=== PATIENT | male | born 1950 | race Two or more races ===

== ENCOUNTER 2022-11-21 10:16 | Outpatient (REF) | payer MEDICARE, MEDICAID, SELFPAY | END 2022-11-21 10:17 | disposition home or self-care (01) | LOC: HO.HHCL 10:16 | PROVIDERS: Visit Provider Nurse Practitioner Primary Care | DX: E11.69 Type 2 diabetes mellitus with other specified complication (principal); E78.5 Hyperlipidemia, unspecified; I10 Essential (primary) hypertension; N39.41 Urge incontinence; Z12.5 Encounter for screening for malignant neoplasm of prostate | CPT/HCPCS: 36415; 80053; 80061; 82043; 82570; 84153 ==

== ENCOUNTER 2023-01-14 15:28 | Outpatient (REF) | payer MEDICARE, OTHER, SELFPAY ==
[2023-01-14 16:34] LABS: Estimated Glomerular Filt Rate > 60
[2023-01-14 18:45] LABS: Influenza A PCR NEGATIVE (Negative); Influenza B PCR NEGATIVE (Negative); Resp Syncy Virus RNA Qual PCR NEGATIVE (Negative); SARS COV2 PCR INHOUSE NEGATIVE (Negative)
== END 2023-01-14 15:29 | disposition home or self-care (01) ==
LOC: HO.HHCL 15:28
PROVIDERS: Visit Provider Internal Medicine
DX: Z11.52 Encounter for screening for COVID-19 (principal); Z20.822 Contact with and (suspected) exposure to COVID-19; R05.9 Cough, unspecified; J32.0 Chronic maxillary sinusitis
CPT/HCPCS: 0241U; 36415; 82565

== ENCOUNTER 2023-05-01 14:57 | Outpatient (AMB) | payer MEDICARE, SELFPAY ==
--- NOTE | 2023-05-01 15:08 | MHC.OFFVIS ---
Intake Intake Visit Reasons: BPH Intake Note: NEW Patient presents today to established treatment for BPH: Meds- Tamsulosin Allergies to Antibiotic- No Known Allergies Blood Thinner- None Post Void Residual: 64 mL Hydro Operator Required: No Accompanied by: Self / Same As Patient Allergies No Known Allergies Allergy (Verified 05/01/23 15:41) Medication List - Last Reconciled 05/01/23 by Myke Cespedes MD acetaminophen 1,000 mg PO Q6H PRN atorvastatin 40 mg PO DAILY benzonatate 100 mg PO TID blood sugar diagnostic (OneTouch Ultra Test strips) As directed dulaglutide (Trulicity) mg subcut dulaglutide (Trulicity) mg subcut fluticasone propionate 50 mcg/actuation 1 spray intranasal QAM insulin glargine (Lantus Solostar U-100 Insulin) 20 units subcut DAILY lancets (OneTouch UltraSoft 2 Lancet) As directed metformin 1,000 mg PO BID mirtazapine 15 mg PO BEDTIME pen needle, diabetic (BD Ultra-Fine Short Pen Needle) As directed tamsulosin 0.4 mg PO DAILY valsartan 160 mg PO DAILY HPI HPI Comments History of Present Illness Details Manual is a 73-year-old male who is here for evaluation due to enlarged prostate. Patient complains of postvoid dribbling. Nocturia 3-4 times at night. He denies gross hematuria. He has been on tamsulosin for about 7 months he mentions symptoms consistent with retrograde ejaculation which I explained is likely from the tamsulosin. Bladder scan PVR 64 mL, Urinalysis proteinuria, review of chart PSA 11/21/22---0.99 ng/mL Plan- referral to Nephrology for proteinuria Further evaluation with ultrasound kidneys and bladder and follow-up office cystoscopy [facility] Surgical History Hx of lithotripsy Family History Father No problems noted. Mother No problems noted. Social History Alcohol intake: current Alcohol intake frequency: former alcohol drinker Patient Tobacco Use Status: Former Tobacco user Quit Date: 1980 Questionnaire AUA Symptom Score AUA Incomplete emptying - It does not feel like I empty my bladder all the way.: 5 - Almost always Frequency - I have to go again less than two hours after I finish urinating.: 5 - Almost always Intermittency - I stop and start again several times when I urinate.: 5 - Almost always Urgency - It is hard to wait when I have to urinate.: 5 - Almost always Weak stream - I have a weak urinary stream.: 4 - More than half the time Straining - I have to push or strain to begin urination.: 4 - More than half the time Nocturia - I get up to urinate after I go to bed until the time I get up in the morning.: 4 times AUA Symptom Score: 32 Source: Tony ROSADO, Mata HANNA Jr, O'Dina MP, et al, and the Measurement Committee of the [place] [employer]. The [place] [employer] symptom index for benign prostatic hyperplasia. J Urol. 1992; 148: 3516-0950. Copyright 1992 [place] [employer] Review of Systems Const All systems reviewed & are unremarkable except as noted in HPI and below Reports no additional complaints Eyes Reports no additional complaints ENT Reports no additional complaints Card Denies dyspnea Resp Denies cough and Denies dyspnea GI Reports no additional complaints Musc Reports no additional complaints Skin/Breast Denies rash and Denies unusual bruising Neuro Reports no additional complaints Psych Reports no additional complaints Endo Reports no additional complaints Tico/Lymph Reports no additional complaints Aller/Immun Reports no additional complaints Physical Exam Const General: healthy appearing, no acute distress and well developed Orientation/consciousness: patient oriented x3 HEENT Head: Yes normocephalic and Yes atraumatic Eyes Conjunctivae: conjunctivae normal Neck Neck: Yes normal visual inspection Chest Chest palpation & inspection: normal inspection of the chest Resp Effort & Inspection: normal respiratory effort Cardio Rate: regular rate GI Inspection: Yes normal to inspection Palpation (GI): Soft to palpation Skin General skin exam: no rashes or lesions noted Neuro General: patient oriented x3 Extrem General: No pedal edema Psych Appearance: grossly normal Affect: normal affect Office Procedures Post Void Residual Post Residual Void Post Void Residual (PVR): [id number] Void Residual by ultrasound Results AMB Urinalysis, Automated UA Leukoctes 0 Courtney/uL Last Edit by SOMMER Franco on 05/01/23 15:43 UA Nitrite Negative Last Edit by Jacquelin Monson Ananya on 05/01/23 15:43 UA Urobilinogen 0.2 mg/dL Last Edit by SOMMER Franco on 05/01/23 15:43 UA Protein 300 mg/dL Last Edit by Jacquelin Monson A on 05/01/23 15:43 3+ Jacquelin Monson 05/01/23 15:43 UA pH 6.0 Last Edit by Jacquelin Monson A on 05/01/23 15:43 UA Blood 10 Ayan/uL Last Edit by Jacquelin Monson A on 05/01/23 15:43 UA Specific [place] 1.020 Last Edit by Jacquelin Monson Ananya on 05/01/23 15:43 UA Ketone Positive Last Edit by Jacquelin Monson [facility] on 05/01/23 15:43 UA Bilirubin 5 mg/dL Last Edit by Jacquelin Monson Ananya on 05/01/23 15:43 UA Glucose 100 mg/dL Last Edit by Jacquelin Monson Ananya on 05/01/23 15:43 Results Reviewed Results Reviewed: Laboratory Last Values Urine pH (Auto) 6.0 05/01/23 15:41 Specific [place] (Auto) 1.020 05/01/23 15:41 Urine Protein (Auto) 300 mg/dL 05/01/23 15:41 Glucose (UA)(Auto) 100 mg/dL 05/01/23 15:41 Urine Ketones (Auto) Positive 05/01/23 15:41 Urine Blood (Auto) 10 Ayan/uL 05/01/23 15:41 Urine Nitrite (Auto) Negative 05/01/23 15:41 Urine Bilirubin (Auto) 5 mg/dL 05/01/23 15:41 Urine Urobilinogen (Auto) 0.2 mg/dL 05/01/23 15:41 Leukocyte Esterase (Auto) 0 Courtney/uL 05/01/23 15:41 Assessment & Plan Assessment & Plan (1) BPH loc w urin obs/LUTS: Code(s): N40.1 - Benign prostatic hyperplasia with lower urinary tract symptoms (2) Weak urinary stream: Code(s): R39.12 - Poor urinary stream (3) Nocturia: Code(s): R35.1 - Nocturia (4) Proteinuria: Code(s): R80.9 - Proteinuria, unspecified Plan Refer to nephrology due to proteinuria Ultrasound retroperitoneum Follow-up office cystoscopy Orders: Orders AMB Post Void Residual by ultrasound Today N39.8 - Other specified disorders of urinary system US retroperitoneal comp Today N40.1 - Benign prostatic hyperplasia with lower urinary tract symptoms, R39.12 - Poor urinary stream AMB Urinalysis Automated Today Z13.9 - Encounter for screening, unspecified Referrals Nephrology Referral R80.9 - Proteinuria, unspecified Quality Reporting (2019) Benign Prostatic Hyperplasia ([facility] [id number]) AUA symptom score: 32 Coding Level of Care Code New Pt Level 4 (61647) Diagnoses BPH loc w urin obs/LUTS N40.1 Weak urinary stream R39.12 Nocturia R35.1 Proteinuria R80.9 CPT Codes Post Residual Void - PVR CPT Code: 27128-Zbyo Void Residual by ultrasound ([id number])
== END 2023-05-01 16:14 | disposition home or self-care (01) ==
PROVIDERS: PCP Internal Medicine; Visit Provider Urology
DX: N40.1 Benign prostatic hyperplasia with lower urinary tract symptoms (principal); R39.12 Poor urinary stream; R35.1 Nocturia; R80.9 Proteinuria, unspecified; Z13.9 Encounter for screening, unspecified
CPT/HCPCS: 99204

== ENCOUNTER → 2023-05-01 14:57 | Outpatient (BNVA) | payer MEDICARE, SELFPAY | PROVIDERS: PCP Internal Medicine; Visit Provider Urology | DX: N40.1 Benign prostatic hyperplasia with lower urinary tract symptoms (principal); R39.12 Poor urinary stream; R35.1 Nocturia; R80.9 Proteinuria, unspecified | CPT/HCPCS: 51798; 81003; 99202 ==

== ENCOUNTER 2023-05-15 09:54 | Outpatient (REF) | payer MEDICARE, SELFPAY ==
[2023-05-15 11:50] LABS: Blood Urea Nitrogen 20 mg/dL (9-16); Estimated Glomerular Filt Rate > 60
== END 2023-05-15 09:55 | disposition home or self-care (01) ==
LOC: HO.HHCL 09:54
PROVIDERS: Visit Provider Internal Medicine
DX: I10 Essential (primary) hypertension (principal)
CPT/HCPCS: 36415; 82565; 84520

== ENCOUNTER 2023-05-28 11:19 | Outpatient (REF) | payer MEDICARE, SELFPAY ==
--- NOTE | ~2023-05-28 | CT_ITS ---
CT SINUS WITHOUT CONTRAST HISTORY: Right nasal mucosa obstruction, maxillary sinusitis TECHNIQUE: CT images of the paranasal sinuses were acquired following intravenous administration of 85 cc Omnipaque 350. This CT examination was performed using dose optimization techniques as appropriate, variously including the following: *Automated exposure control *Adjustment of mA and/or kV according to patient size (this includes techniques or standardized protocols for targeted exams where dose is matched to indication/reason for exam; i.e. extremities or head) *Use of iterative reconstruction technique DLP: 114 mGycm COMPARISON: None available FINDINGS: NASAL CAVITY: Rightward deviation of the far anterior nasal septum with significant narrowing of the right nasal passage and impression upon the anterior aspect of the right inferior nasal turbinate. There is focal effacement of the upper nasal cavities, including the left olfactory recess, with the nasal cavity otherwise clear. No discrete nasal polyps. The olfactory fossa are symmetric and Keros type III. FRONTAL SINUS: LEFT: Clear with patent frontal sinus drainage pathway. RIGHT: Clear with patent frontal sinus drainage pathway. MAXILLARY SINUS: LEFT: Clear with patent osteomeatal unit. RIGHT: Retention cyst along the roof and otherwise clear with patent osteomeatal unit. ETHMOID AIR CELLS: LEFT: Clear RIGHT: Clear Lamina papyracea: Intact. Anterior ethmoid canals do not traverse through the ethmoid air cells. SPHENOID SINUS: LEFT: Mild mucosal disease with narrowed but patent ostium and sphenoethmoidal recess. RIGHT: Clear with patent ostium and sphenoethmoidal recess. The sphenoid septum does not insert onto the carotid canal. Sphenoethmoidal ([place]) cell: None. OTHER: Fusiform enlargement and hyperenhancement of the bilateral inferior and medial rectus muscles which may be seen in the setting of thyroid eye disease and can be correlated with thyroid function tests. The carotid canals are covered by bone. 2-3 mm ossified intra-articular loose bodies in the bilateral temporomandibular joints. The mastoid air cells and middle ear cavities are well aerated. Partially imaged global cerebral volume loss and incompletely characterized hypodensity in the right superior frontal gyrus, presumably chronic right ANGELA territory infarct. Dehiscence of the right jugular plate into the right hypotympanum can be correlated for right-sided pulsatile tinnitus. Normal opacification of the intracranial vascular structures. CT/CT sinus w IV con IMPRESSION: 1. Rightward deviation of the far anterior nasal septum with significant narrowing of the right nasal passage and impression upon the anterior aspect of the right inferior nasal turbinate. 2. No maxillary sinusitis as clinically queried. 3. Incompletely characterized hypodensity in the right superior frontal gyrus, presumably chronic right ANGELA territory infarct, that could be more definitively assessed on MRI brain as clinically warranted. 4. Dehiscence of the right jugular plate into the right hypotympanum can be correlated for right-sided pulsatile tinnitus. 5. Fusiform enlargement and hyperenhancement of the bilateral inferior and medial rectus muscles which may be seen in the setting of thyroid eye disease and can be correlated with thyroid function tests.
[2023-05-28] MEDS: iohexoL 350 MG/ML 100 ML INFUS..BTL IV (12:02)
== END 2023-05-28 11:20 | disposition home or self-care (01) ==
LOC: HO.CT 11:19
PROVIDERS: PCP Internal Medicine; Visit Provider Internal Medicine
DX: J32.0 Chronic maxillary sinusitis (principal)
CPT/HCPCS: 70487; Q9967

== ENCOUNTER 2023-06-13 15:48 | Outpatient (AMB) | payer MEDICARE, SELFPAY ==
[2023-06-13 15:50] VITALS: BP 126/80; PULSE 78; O2SAT 96
--- NOTE | 2023-06-13 15:50 | HO.NEPHOV_ITS ---
Vital Signs 06/13/23 15:50 Weight 183 lb BP 126/80 Blood Pressure Location Lt brachial Position Sitting Pulse 78 Pulse Source Pulse Oximeter Pulse Oximetry (%) 96 Oxygen Delivery Method Room Air Intake Visit Reasons: Proteinuria/ Confirmed Cleaner And Trimmer Required: No Accompanied by: Self / Same As Patient Allergies No Known Allergies Allergy (Verified 06/13/23 15:53) HPI Comments Details: 73-year-old male who is here for evaluation Proteinuria. He has DM and BPH. Patient complains of postvoid dribbling. Nocturia 3-4 times at night. He denies gross hematuria. He has been on tamsulosin for about 7 months he mentions symptoms consistent with retrograde ejaculation - likely from the tamsulosin. Bladder scan PVR 64 mL, Urinalysis proteinuria, review of chart PSA 11/21/22---0.99 ng/mL He is renal function has been stable with a creatinine of 0.7-0.8 mg/dL. PFSH Surgical History Hx of lithotripsy Family History Father No problems noted. Mother No problems noted. Social History Alcohol intake: current Alcohol intake frequency: former alcohol drinker Patient Tobacco Use Status: Former Tobacco user Quit Date: 1979 Physical Exam Vital Signs: Last Vital Signs Pulse 78 06/13/23 15:50 BP 126/80 06/13/23 15:50 Pulse Ox 96 06/13/23 15:50 Oxygen Delivery Method Room Air 06/13/23 15:50 Const General: comfortable Nutritional Appearance: well nourished Orientation/consciousness: patient oriented x3 HEENT Head: No normal to inspection Mouth: moist mucous membranes Neck Neck: Yes supple and Yes no JVD Resp Auscultation: clear to auscultation bilaterally, no rales and rub present Cardio Jugular venous distension: no JVD Palpation: no palpable S3 and no palpable S4 Heart sounds: no rubs GI Palpation (GI): Soft to palpation and nontender Percussion: No Fluid wave present General: Yes no CVA tenderness Back/Spine/Pelvis Back: no CVA tenderness Skin General skin exam: no rashes or lesions noted Neuro General: patient oriented x3 Extrem General: Yes no pedal edema and No clubbing Results Reviewed Nephrology Results: Sodium 140 mmol/L (135-145) 11/21/22 Potassium 3.9 mmol/L (3.3-5.1) 11/21/22 Chloride 104 mmol/L (96-108) 11/21/22 Carbon Dioxide 26 mmol/L (22-29) 11/21/22 BUN 20 mg/dL (9-16) H 05/15/23 Creatinine 1.07 mg/dL (0.5-1.4) 05/15/23 Calcium 9.6 mg/dL (8.4-10.2) 11/21/22 Urine Creatinine 36.69 mg/dL 11/21/22 Assessment & Plan Assessment & Plan (1) Proteinuria: Code(s): R80.9 - Proteinuria, unspecified Category: Medical Plan 73-year-old man with a history of longstanding diabetes mellitus with proteinuria. Proteinuria is most likely due to underlying diabetic kidney disea se. At present renal function stable with EGFR of more than 60 mL/minute. It is not uncommon to have slightly elevated GFR in early diabetic kidney disease due to hyper filtration. The goal is to slow the progression of disease. Blood sugar needs to be tightly controlled and maintain A1c less than 7%. He is PIPPA inhibition as tolerated. Maintain blood pressure less than 130/80 mm Hg. He will also benefit from SGLT2 inhibitors. I have been initiated a baseline workup and he will return to office in the next few weeks Orders: Orders Total Protein Urine Random 06/13/23 N20.0 - Calculus of kidney, R80.9 - Proteinuria, unspecified US renal BI 06/13/23 N20.0 - Calculus of kidney, R80.9 - Proteinuria, unspecified Creatinine Clearance Urine 24U 06/13/23 N20.0 - Calculus of kidney, R80.9 - Proteinuria, unspecified Creatinine Urine 06/13/23 N05.9 - Unspecified nephritic syndrome with unspecified morphologic changes, N20.0 - Calculus of kidney, R80.9 - Proteinuria, unspecified UA and rflx microscopic 06/13/23 N20.0 - Calculus of kidney, R80.9 - Proteinuria, unspecified Protein Electrophoresis, Serum 06/13/23 N20.0 - Calculus of kidney, R80.9 - Proteinuria, unspecified Coding Level of Care Code New Pt Level 4 (56782) Diagnoses Proteinuria R80.9
== END 2023-06-13 16:09 | disposition home or self-care (01) ==
PROVIDERS: PCP Internal Medicine; Visit Provider Internal Medicine Hypertension Specialist
DX: R80.9 Proteinuria, unspecified (principal)
CPT/HCPCS: 99204; 99214

== ENCOUNTER → 2023-06-13 15:48 | Outpatient (BNVA) | payer MEDICARE, SELFPAY | PROVIDERS: PCP Internal Medicine; Visit Provider Internal Medicine Hypertension Specialist | DX: R80.9 Proteinuria, unspecified (principal) | CPT/HCPCS: 99202 ==

== ENCOUNTER 2023-06-21 08:47 | Outpatient (REF) | payer MEDICARE, SELFPAY ==
--- NOTE | ~2023-06-21 | US_ITS ---
EXAMINATION: US RETROPERITONEAL LIMITED (RENAL ONLY) CLINICAL INFORMATION: Proteinuria, unspecified. COMPARISON: None available. TECHNIQUE: Real-time imaging of the kidneys. FINDINGS: RIGHT KIDNEY: 11.5 x 5.3 x 5.6 cm (SAG x AP x TRV). The kidney is normal in size and contour. Renal echogenicity is mildly increased diffusely. Renal cortical thickness is normal. No renal calculi or hydronephrosis. Simple appearing 3.8 cm lower pole cyst for which no follow-up imaging is usually warranted. LEFT KIDNEY: 12.6 x 5.1 x 5.1 cm (SAG x AP x TRV). The kidney is normal in size and contour. Renal echogenicity is mildly increased diffusely. Renal cortical thickness is normal. No renal calculi or hydronephrosis. Simple appearing 9 mm mid pole cyst portion of IMAGING is usually warranted. US/US renal BI IMPRESSION: Both kidneys demonstrate mildly increased echogenicity diffusely suggesting underlying medical renal disease. No renal calculi or hydronephrosis of either kidney.
== END 2023-06-21 08:48 | disposition home or self-care (01) ==
LOC: HO.US 08:47
PROVIDERS: PCP Internal Medicine; Visit Provider Internal Medicine Hypertension Specialist
DX: N20.0 Calculus of kidney (principal); R80.9 Proteinuria, unspecified; N40.1 Benign prostatic hyperplasia with lower urinary tract symptoms; N13.8 Other obstructive and reflux uropathy; R39.12 Poor urinary stream; R35.1 Nocturia; Z79.899 Other long term (current) drug therapy
CPT/HCPCS: 76775; 81003; 99212

== ENCOUNTER 2023-06-21 10:25 | Outpatient (AMB) | payer MEDICARE, SELFPAY ==
--- NOTE | 2023-06-21 10:32 | MHC.OFFVIS ---
Intake Visit Reasons: cysto Intake Note: Patient presents today for scheduled for CYSTOSCOPY Procedure: Cystoscopy not performed today. 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 Required: No Accompanied by: Self / Same As Patient Allergies No Known Allergies Allergy (Verified 06/13/23 15:53) Medication List - Last Reconciled 06/22/23 by Myke Cespedes MD acetaminophen 1,000 mg PO Q6H PRN aspirin 81 mg PO QAM atorvastatin 40 mg PO DAILY blood sugar diagnostic (OneTouch Ultra Test strips) As directed dulaglutide (Trulicity) mg subcut dulaglutide (Trulicity) mg subcut .once a week fluticasone propionate 50 mcg/actuation 1 spray intranasal QAM insulin glargine (Lantus Solostar U-100 Insulin) 14 units subcut BID lancets (OneTouch UltraSoft 2 Lancet) As directed metformin 1,000 mg PO BID mirtazapine 15 mg PO BEDTIME pen needle, diabetic (BD Ultra-Fine Short Pen Needle) As directed tamsulosin 0.4 mg PO DAILY valsartan 160 mg PO DAILY HPI Comments Details: 06/21/23--Fermín is here for follow-up. He was initially evaluated on 05/01/2023 for enlarged prostate. The patient had the renal ultrasound done earlier today and official radiology chief lending officer is not completed as yet. He states that he has seen Nephrology for proteinuria and has further testing pending. Will hold on cystoscopy at this time. Continue tamsulosin. Review of chart: 05/01/23---Fermín is a 73-year-old male who is here for evaluation due to enlarged prostate. Patient complains of postvoid dribbling. Nocturia 3-4 times at night. He denies gross hematuria. He has been on tamsulosin for about 7 months he mentions symptoms consistent with retrograde ejaculation which I explained is likely from the tamsulosin. Bladder scan PVR 64 mL, Urinalysis proteinuria, review of chart PSA 11/21/22---0.99 ng/mL Plan- referral to Nephrology for proteinuria. 06/21/2023--continue tamsulosin. Hold on office cystoscopy today. [facility] Surgical History Hx of lithotripsy Family History Father No problems noted. Mother No problems noted. Social History Alcohol intake: current Alcohol intake frequency: former alcohol drinker Patient Tobacco Use Status: Former Tobacco user Quit Date: 1979 Results AMB Urinalysis, Automated UA Leukoctes 0 Courtney/uL Last Edit by SOMMER Franco on 06/21/23 10:52 UA Nitrite Negative Last Edit by Jacquelin Monson [facility] on 06/21/23 10:52 UA Urobilinogen 0.2 mg/dL Last Edit by Jacquelin Monson [facility] on 06/21/23 10:52 UA Protein 30 mg/dL Last Edit by Jacquelin Monson [facility] on 06/21/23 10:52 1+ Jacquelin Monson 06/21/23 10:52 UA pH 6.5 Last Edit by Jacquelin Monson [facility] on 06/21/23 10:52 UA Blood 10 Ayan/uL Last Edit by Jacquelin Monson [facility] on 06/21/23 10:52 UA Specific [place] 1.015 Last Edit by Jacquelin Monson [facility] on 06/21/23 10:52 UA Ketone Negative Last Edit by Jacquelin Monson Ananya on 06/21/23 10:52 UA Bilirubin 0 mg/dL Last Edit by Jacquelin Monson [facility] on 06/21/23 10:52 UA Glucose 1000 mg/dL Last Edit by Jacquelin Monson [facility] on 06/21/23 10:52 3+ Jacquelin Monson 06/21/23 10:52 Results Reviewed Results Reviewed: Laboratory Last Values Urine pH (Auto) 6.5 06/21/23 10:32 Specific [place] (Auto) 1.015 06/21/23 10:32 Urine Protein (Auto) 30 mg/dL 06/21/23 10:32 Glucose (UA)(Auto) 1000 mg/dL 06/21/23 10:32 Urine Ketones (Auto) Negative 06/21/23 10:32 Urine Blood (Auto) 10 Ayan/uL 06/21/23 10:32 Urine Nitrite (Auto) Negative 06/21/23 10:32 Urine Bilirubin (Auto) 0 mg/dL 06/21/23 10:32 Urine Urobilinogen (Auto) 0.2 mg/dL 06/21/23 10:32 Leukocyte Esterase (Auto) 0 Courtney/uL 06/21/23 10:32 Assessment & Plan Assessment & Plan (1) BPH loc w urin obs/LUTS: Code(s): N40.1 - Benign prostatic hyperplasia with lower urinary tract symptoms Category: Medical (2) Weak urinary stream: Code(s): R39.12 - Poor urinary stream Category: Medical (3) Nocturia: Code(s): R35.1 - Nocturia Category: Medical (4) Proteinuria: Code(s): R80.9 - Proteinuria, unspecified Category: Medical Plan Continue tamsulosin. Orders: Orders AMB Urinalysis Automated 06/21/23 Z13.9 - Encounter for screening, unspecified Patient Instructions: The patient had an opportunity to ask questions regarding treatment plan. The patient expressed understanding and agreement with the above treatment plan. The patient is aware they should contact our office by phone for worsening of their current condition or the appearance of new symptoms. Compliance is encouraged with any medications and followup testing that is ordered. It is a privilege to be allowed the opportunity to participate in the urologic care of your patient. If you have any questions or concerns regarding treatment for the above conditions please do not hesitate to contact me. The office telephone contact is [phone]. This note is constructed in part using voice recognition software. While every effort has been made to ensure accuracy chief lending officer errors may have been included. Yours sincerely, Myke Cespedes MD Coding Level of Care Code Est Pt Level 3 (50747) Complex EM visit Add On G2211 Diagnoses BPH loc w urin obs/LUTS N40.1 Weak urinary stream R39.12 Nocturia R35.1 Proteinuria R80.9
== END 2023-06-21 11:37 | disposition home or self-care (01) ==
PROVIDERS: PCP Internal Medicine; Visit Provider Urology
DX: N40.1 Benign prostatic hyperplasia with lower urinary tract symptoms (principal); R39.12 Poor urinary stream; R35.1 Nocturia; R80.9 Proteinuria, unspecified
CPT/HCPCS: 99213; G2211

== ENCOUNTER 2023-07-09 12:34 | Outpatient (REF) | payer MEDICARE, SELFPAY ==
[2023-07-11 13:06] LABS: Creatinine Urine 74.89 mg/dL; Total Protein Urine Random 31 mg/dL (<12)
== END 2023-07-09 12:35 | disposition home or self-care (01) ==
LOC: HO.LAB 12:34
PROVIDERS: PCP Nurse Practitioner Primary Care; Visit Provider Internal Medicine Hypertension Specialist
DX: N05.9 Unspecified nephritic syndrome with unspecified morphologic changes (principal); R80.9 Proteinuria, unspecified; N20.0 Calculus of kidney
CPT/HCPCS: 82570; 84156

== ENCOUNTER 2023-07-10 12:02 | Outpatient (REF) | payer MEDICARE, SELFPAY ==
[2023-07-11 12:59] LABS: Total Volume 24 Hour Urine 1925 mL
[2023-07-11 13:00] LABS: Creatinine (CrCl) 1.32 mg/dL (0.5-1.4)
[2023-07-11 13:07] LABS: Creatinine Clearance 64.2 mL/min (85-125); Creatinine, 24Hr Urine 1.2 G/Day (1.0-2.0)
== END 2023-07-10 12:03 | disposition home or self-care (01) ==
LOC: HO.LNP 12:02
PROVIDERS: Visit Provider Internal Medicine Hypertension Specialist
DX: R80.9 Proteinuria, unspecified (principal); N20.0 Calculus of kidney
CPT/HCPCS: 82575

== ENCOUNTER 2023-07-11 10:46 | Outpatient (REF) | payer MEDICARE, SELFPAY ==
[2023-07-11 12:21] LABS: Estimated Glomerular Filt Rate 53
[2023-07-16 16:43] LABS: Prot Elec - Albumin 3.8 g/dL (3.8-4.8); Prot Elec - Alpha1 0.3 g/dL (0.2-0.3); Prot Elec - Alpha2 0.6 g/dL (0.5-0.9); Prot Elec - Beta 1 0.4 g/dL (0.4-0.6); Prot Elec - Beta 2 0.3 g/dL (0.2-0.5); Prot Elec - Gamma 0.9 g/dL (0.8-1.7); Prot Elec - Total Protein 6.3 g/dL (6.1-8.1)
== END 2023-07-11 10:47 | disposition home or self-care (01) ==
LOC: HO.LAB 10:46
PROVIDERS: PCP Nurse Practitioner Primary Care; Visit Provider Internal Medicine Hypertension Specialist
DX: R80.9 Proteinuria, unspecified (principal); N20.0 Calculus of kidney
CPT/HCPCS: 36415; 81001; 82565; 84165

== ENCOUNTER → 2023-07-15 10:09 | Outpatient (REF) | payer MEDICARE, SELFPAY ==
--- NOTE | 2023-07-15 10:14 | CA_ITS ---
Transthoracic Echocardiogram Patient (Last, First, Middle): Barney Birmingham, Gender: Male Date of : 1950 Age: 73 Procedure Date: 07/15/2023 Procedure Type: Transthoracic Echocardiogram Location: OP Height: 167.64 cm Weight: 82.56 kg BSA: 1.92 m2 Heart Rate: bpm BP: 130 / 82 mmHg Electrotype Finisher: GALINDO Referring MD: Mirian Thompson NP Crossing Flagman: Otis Arreguin MD Symptoms: I10 HTN Study Quality: Adequate ECG Rhythm: Sinus Conclusions: - 1. Low normal LV ejection fraction 50-55% with impaired relaxation filling pattern 2. Npge-[id number] aortic stenosis 3. Mildly dilated ascending aorta 3.8 cm 4. Normal RV systolic pressure 5. No gross pericardial effusion Findings Procedure Information Contrast agent, definity, is being given per protocol without apparent complications. Left Ventricle Normal left ventricular cavity size. There is normal left ventricular wall thickness. The left ventricular systolic function is low normal. The visually estimated ejection fraction is between 50-55%. Spectral Doppler is indicative of an impaired relaxation filling pattern. E/E prime ratio is between 8 and 15 consistent with indeterminate filling pressures. Right Ventricle Normal right ventricular cavity size and systolic function. Atria The left atrium is normal in size. Interatrial shunt cannot be excluded. The right atrium is normal in size. Aortic Valve There is mild calcification of the aortic valve. There is moderate thickening of the aortic valve. There is mild to moderate aortic valve stenosis. The peak aortic gradient is 26 mmHg.The mean gradient is 13 mmHg. There is no aortic valve regurgitation. Mitral Valve There is mild anterior and posterior mitral leaflet thickening. There is mild anterior mitral annular calcification. There is trace mitral valve regurgitation. There is no mitral valve stenosis. Pulmonic Valve The pulmonic valve was not well visualized. Tricuspid Valve The tricuspid valve was not well visualized. There is trace tricuspid valve regurgitation. The right ventricular systolic pressure is normal. The right ventricular systolic pressure is 13 mmHg. Normal right atrial pressure. There is no evidence of pulmonary hypertension. Great Vessels The aorta was not well visualized. The pulmonary artery was not well visualized. There is mild dilatation of the ascending aorta measuring 3.80 cm. Venous The inferior vena cava is normal in size and collapses greater than 50% with inspiration. Pericardium/Pleural There is no evidence of pericardial effusion. Prior Study Comparison No prior study available for comparison. Measurements 2D Linear Measurements IVSd: 1.03 0.6-0.9/0.6-1.0 cm LVIDd: 5.21 3.9-5.3/4.2-5.9 cm LVIDd Index: 2.71 2.4-3.2/2.2-3.1 cm/m2 LVIDs: 3.49 2.0-3.6 cm LVPWd: 1.07 0.7-1.1 cm Ao Root: 3.70 2.1-3.5 cm LA Diam: 3.50 2.7-3.8/3.0-4.0 cm LAIDs Index: 1.82 1.5-2.3 cm/m2 LV Mass: 259.17 67-162/88-224 g LV Mass Index: 134.98 43-95/49-115 g/m2 LVOT Diam: 2.20 3.0+(-)1.3 cm 2D Systolic Function EF 4C: 56.00 >55% EF 2C: 49.80 >55% EF BiP: 52.20 >55% Mitral Valve MV Pk E: 0.66 MV PK A: 1.09 MV Decel Time: 204.00 E/A: 0.60 E'Lateral: 5.33 E'Medial: 4.90 E/E' Med: 13.50 E/E' Lat: 12.40 PHT: 60.00 MVA PHT: 3.67 Decel Codington: 3.23 Aortic Valve AoV Pk Jann: 2.54 AoV Mn Jann: 1.70 AoV VTI: 0.55 AoV Pk Grad: 26.00 Aov Mn Grad: 13.00 MELITON Cont.VTI: 1.25 LVOT LVOT Pk Jann: 0.79 LVOT Mn Jann: 0.52 LVOT VTI: 0.18 LVOT Pk Grad: 3.00 LVOT Mn Grad: 1.00 LVOT Diam: 2.20 LVOT Area: 3.80 Diastolic Function MV Pk E: 0.66 MV Pk A: 1.09 E/A: 0.60 E'Medial: 4.90 E/E' Med: 13.50 E' Laterial: 5.33 E/E' Lat: 12.40 Right Ventricle TAPSE (mm): 28.00 TVS' Jann: 12.00 Tricuspid Valve TR Pk Jann: 1.62 TR Pk Grad: 10.00 RA Press: 3.00 RVSP: 13.00 Great Vessels Aorta Ao Root-2D: 3.70 2.0-3.7 cm Ao Asc: 3.80 2.1-3.4 cm Pulmonary Valve PV Pk Jann: 1.24 Peak PV Grad: 6.00 Updated in Other Vendor System with Status of Final Otis Arreguin MD electronically signed on 07/15/2023 1:31:48 PM with status of Final
== END ==
LOC: HO.CARD 10:09
PROVIDERS: PCP Internal Medicine; Visit Provider Nurse Practitioner Primary Care
DX: I10 Essential (primary) hypertension (principal)
CPT/HCPCS: 93306; Q9957

== ENCOUNTER → 2023-07-15 10:14 | Outpatient (BNV) | payer MEDICARE, SELFPAY | PROVIDERS: PCP Internal Medicine; Visit Provider Internal Medicine Cardiovascular Disease | DX: I35.0 Nonrheumatic aortic (valve) stenosis (principal); I34.81 Nonrheumatic mitral (valve) annulus calcification | CPT/HCPCS: 93306 ==

== ENCOUNTER 2023-07-18 10:37 | Outpatient (AMB) | payer MEDICARE, SELFPAY ==
[2023-07-18 10:40] VITALS: BP 120/62; PULSE 70; O2SAT 97
--- NOTE | 2023-07-18 10:40 | HO.NEPHOV_ITS ---
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 Accompanied by: Self / Same As Patient Allergies No Known Allergies Allergy (Verified 07/18/23 10:42) Medication List - Last Reconciled 07/18/23 by Casper Márquez MD acetaminophen 1,000 mg PO Q6H PRN aspirin 81 mg PO QAM atorvastatin 40 mg PO DAILY blood sugar diagnostic ([employer] Ultra Test strips) As directed empagliflozin (Jardiance) 10 mg PO DAILY fluticasone propionate 50 mcg/actuation 1 spray intranasal QAM insulin glargine (Lantus Solostar U-100 Insulin) 14 units subcut BID ketorolac 0.5% drps ophthalmic (eye) lancets (panpanTouch UltraSoft 2 Lancet) As directed metformin 1,000 mg PO BID mirtazapine 15 mg PO BEDTIME pen needle, diabetic (BD Ultra-Fine Short Pen Needle) As directed tamsulosin 0.4 mg PO DAILY valsartan 320 mg PO DAILY HPI Comments Details: 73-year-old male who is here for evaluation Proteinuria. He has DM and BPH. Patient complains of postvoid dribbling. Nocturia 3-4 times at night. He denies gross hematuria. He has been on tamsulosin for about 7 months he mentions symptoms consistent with retrograde ejaculation - likely from the tamsulosin. Bladder scan PVR 64 mL, Urinalysis proteinuria, review of chart PSA 11/21/22---0.99 ng/mL He is renal function has been stable with a creatinine of 0.7-0.8 mg/dL. Now upto 1.32 after increasing Valsartan to 320 mg Now on Jardiance since June 2023 c/o retrograde ejacualtion with Tamsulosin PFSH Surgical History Hx of lithotripsy Family History Father No problems noted. Mother No problems noted. Social History (Reviewed 07/18/23 @ 10:42 by SHASHI Bishop Alcohol intake: current Alcohol intake frequency: former alcohol drinker Patient Tobacco Use Status: Former Tobacco user Physical Exam Vital Signs: Last Vital Signs Pulse 70 07/18/23 10:40 BP 120/62 07/18/23 10:40 Pulse Ox 97 07/18/23 10:40 Oxygen Delivery Method Room Air 07/18/23 10:40 Const General: comfortable Nutritional Appearance: well nourished Orientation/consciousness: patient oriented x3 HEENT Head: No normal to inspection Mouth: moist mucous membranes Neck Neck: Yes supple and Yes no JVD Resp Auscultation: clear to auscultation bilaterally, no rales and rub present Cardio Jugular venous distension: no JVD Palpation: no palpable S3 and no palpable S4 Heart sounds: no rubs GI Palpation (GI): Soft to palpation and nontender Percussion: No Fluid wave present General: Yes no CVA tenderness Back/Spine/Pelvis Back: no CVA tenderness Skin General skin exam: no rashes or lesions noted Neuro General: patient oriented x3 Extrem General: Yes no pedal edema and No clubbing Results Reviewed Results Reviewed: US/US renal BI IMPRESSION: Both kidneys demonstrate mildly increased echogenicity diffusely suggesting underlying medical renal disease. No renal calculi or hydronephrosis of either kidney. 24 hr urine - June 2023 Volume 1925 ml Cr CL 65 ml/mt Nephrology Results: BUN 20 mg/dL (9-16) H 05/15/23 Creatinine 1.32 mg/dL (0.5-1.4) 07/11/23 Urine Protein TNP 07/11/23 Urine Creatinine 74.89 mg/dL 07/09/23 Renal US 06/21/23 Assessment & Plan Assessment & Plan (1) Proteinuria: Code(s): R80.9 - Proteinuria, unspecified Category: Medical (2) CKD (chronic kidney disease): Code(s): N18.9 - Chronic kidney disease, unspecified Category: Medical Plan 73-year-old man with a history of longstanding diabetes mellitus with proteinuria. Proteinuria is most likely due to underlying diabetic kidney disease. About 500 mg Mild CKD Acceptable increase in creatinine to 1.32 after increasing Valsartan to 320 mg Watch creatinine BP is well controlled The goal is to slow the progression of disease. Blood sugar needs to be tightly controlled and maintain A1c less than 7%. He is PIPPA inhibition /Valsartan Maintain blood pressure less than 130/80 mm Hg. Discussed low salt diet He will also benefit from SGLT2 inhibitors. - agree with starting Jardiance Tamsulosin is not helping with the urinary frequency and he wants to stop it, especially due to retrograde ejaculation. Orders: Orders Basic Metabolic Panel 3 Months N18.9 - Chronic kidney disease, unspecified Total Protein Urine Random Today N18.9 - Chronic kidney disease, unspecified Creatinine Urine Today N18.9 - Chronic kidney disease, unspecified Coding Level of Care Code Est Pt Level 4 (57823) Diagnoses Proteinuria R80.9 CKD (chronic kidney disease) N18.9
== END 2023-07-18 11:09 | disposition home or self-care (01) ==
PROVIDERS: PCP Internal Medicine; Visit Provider Internal Medicine Hypertension Specialist
DX: R80.9 Proteinuria, unspecified (principal); N18.9 Chronic kidney disease, unspecified
CPT/HCPCS: 99214

== ENCOUNTER → 2023-07-18 10:37 | Outpatient (BNVA) | payer MEDICARE, SELFPAY | PROVIDERS: PCP Internal Medicine; Visit Provider Internal Medicine Hypertension Specialist | DX: N18.9 Chronic kidney disease, unspecified (principal); R80.9 Proteinuria, unspecified | CPT/HCPCS: 99212 ==

== ENCOUNTER 2023-08-12 08:45 | Outpatient (REF) | payer MEDICARE, SELFPAY ==
[2023-08-12 12:24] LABS: Alanine Aminotransferase 20 U/L (0-40); Alkaline Phosphatase 53 U/L (39-117); Anion Gap 11 (12-20); Aspartate Amino Transferase 18 U/L (5-37); Bilirubin Direct 0.2 mg/dL (0.0-0.5); Bilirubin Total 0.5 mg/dL (0.0-1.0); Blood Urea Nitrogen 32 mg/dL (9-16); Calcium 9.3 mg/dL (8.4-10.2); Carbon Dioxide 26 mmol/L (22-29); Chloride 108 mmol/L (96-108); Cholesterol 140 mg/dL (<200); Estimated Glomerular Filt Rate 47; Glucose Random 111 mg/dL (60-115); HDL Cholesterol 29 mg/dL (>40); LDL Cholesterol Calculated 96 mg/dL (<100); Potassium 4.4 mmol/L (3.3-5.1); Sodium 141 mmol/L (135-145); Total Protein 7.1 g/dL (6.5-8.0); Triglycerides 79 mg/dL (<150)
[2023-08-12 12:49] LABS: Creatinine Urine 97.16 mg/dL; Microalbum/Creatinine Ratio Ur 241.8 ug/mg cr (<30)
[2023-08-12 12:50] LABS: Vitamin B12 375 pg/mL (200-900)
== END 2023-08-12 08:46 | disposition home or self-care (01) ==
LOC: HO.HHCL 08:45
PROVIDERS: Visit Provider Nurse Practitioner Primary Care
DX: E11.69 Type 2 diabetes mellitus with other specified complication (principal); E78.5 Hyperlipidemia, unspecified; I10 Essential (primary) hypertension
CPT/HCPCS: 36415; 80048; 80061; 80076; 82043; 82570; 82607

== ENCOUNTER 2023-08-22 08:59 | Outpatient (AMB) | payer MEDICARE, SELFPAY ==
--- NOTE | 2023-08-22 09:03 | MHC.OFFVIS ---
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 Intake Note: New patient dx HTN feeling good Freight Traffic Consultant Required: Yes Freight Traffic Consultant Services: Freight Traffic Consultant Present Freight Traffic Consultant Name: [facility] [place] Allergies No Known Allergies Allergy (Verified 07/18/23 10:42) Medication List - Last Reconciled 08/22/23 by Otis Arreguin MD acetaminophen 1,000 mg PO Q6H PRN aspirin 81 mg PO QAM atorvastatin 40 mg PO DAILY blood sugar diagnostic ([employer] Ultra Test strips) As directed empagliflozin (Jardiance) 10 mg PO DAILY fluticasone propionate 50 mcg/actuation 1 spray intranasal QAM insulin glargine (Lantus Solostar U-100 Insulin) 14 units subcut BID ketorolac 0.5% drps ophthalmic (eye) lancets ([employer] InsightTouch UltraSoft 2 Lancet) As directed metformin 1,000 mg PO BID mirtazapine 15 mg PO BEDTIME pen needle, diabetic (BD Ultra-Fine Short Pen Needle) As directed tamsulosin 0.4 mg PO DAILY valsartan 160 mg PO DAILY HPI Comments Details: Barney was referred here for your management of hypertension although he says that his blood pressure has been generally well controlled. He comes here after recent echocardiogram shows low normal LV ejection fraction with [id number] aortic stenosis. He was not aware of this finding. History was obtained with help of canning machine operator. Patient says he is takes all his medication including valsartan and currently his blood pressure is well controlled. He is prior medical history of insulin-requiring diabetes, hypertension, hyperlipidemia, chronic kidney disease. He has never had any cardiovascular events including no prior history of myocardial infarction or coronary artery disease. He maintains active lifestyle but say does not exercise on a regular basis. Denies any restricting symptoms of exertional chest pain or shortness of breath with his current lifestyle. Denies any lightheadedness, syncope. No prolonged palpitation irregular heartbeat. No heart failure symptoms. [facility] Medical History (Updated 08/22/23 @ 15:58 by Otis Arreguin MD) Diabetes HTN (hypertension) Aortic stenosis Surgical History Hx of lithotripsy Family History Father No problems noted. Mother No problems noted. Social History Alcohol intake: current Alcohol intake frequency: former alcohol drinker Patient Tobacco Use Status: Former Tobacco user Review of Systems Const Denies chills, Denies daytime sleepiness, Denies fatigue, Denies fever(s), Denies frequent falls, Denies poor appetite, Denies snoring, Denies stops breathing during sleep, Denies weakness, Denies weight gain and Denies weight loss Eyes Denies loss of vision ENT Denies dizziness and Denies hearing loss Card Denies chest pain, Denies claudication, Denies leg edema, Denies lightheadedness, Denies palpitations, Denies dyspnea, Denies dyspnea on exertion and Denies orthopnea Resp Denies cough, Denies excessive phlegm production, Denies dyspnea, Denies dyspnea on exertion, Denies snoring and Denies wheezing GI Denies abdominal pain, Denies hematochezia, Denies change in bowel habits, Denies nausea and Denies vomiting Denies dysuria and Denies urinary frequency Musc Denies arthralgias, Denies muscle weakness, Denies numbness and Denies other (frequent falls) Skin/Breast Denies nail changes and Denies rash Neuro Denies Abnormal speech present, Denies dizziness, Denies frequent falls, Denies loss of vision, Denies memory loss, Denies numbness and Denies weakness Psych Denies depression and Denies memory loss Endo Denies fatigue and Denies palpitations Tico/Lymph Reports easy bruising and Reports other (anemia) Aller/Immun Denies wheezing Physical Exam Vital Signs: Last Vital Signs Pulse 65 08/22/23 09:11 BP 124/80 08/22/23 09:11 BMI result Body Mass Index 30.1 Const General: cooperative, comfortable, no acute distress, alert and awake Nutritional Appearance: average body habitus Orientation/consciousness: patient oriented x3 Limitations: no limitations HEENT Head: Yes normocephalic and Yes atraumatic Neck Neck: Yes trachea midline, Yes supple and Yes no JVD Resp Effort & Inspection: normal respiratory effort Auscultation: clear to auscultation bilaterally Cardio Jugular venous distension: no JVD Palpation: normal PMI Rate: regular rate Rhythm: regular rhythm Heart sounds: S1 normal heart sound present, S2 normal heart sound present, no click, no gallops, Murmur heart sound present (No clear murmur appreciated) and Rub heart sound present GI Auscultation: normal bowel sounds Skin General skin exam: no rashes or lesions noted Neuro General: patient oriented x3 and no focal motor deficits Speech: No Abnormal speech present Extrem General: Yes no clubbing, cyanosis or edema Office Procedures EKG Details: EKG shows normal sinus rhythm with first-degree AV block with moderate voltage criteria for LVH [id number], Complete Assessment & Plan Assessment & Plan (1) Aortic stenosis: Code(s): I35.0 - Nonrheumatic aortic (valve) stenosis Category: Medical Plan: Aortic stenosis which was noted incidentally on recent echocardiogram done for hypertension. Patient had no symptoms or awareness of it. We discussed about pathophysiology of aortic stenosis with help of canning machine operator. We discussed about gradual usually progressive nature of aortic stenosis over time. Cardinal symptoms associated with aortic stenosis were discussed advised to call me with any new symptoms. 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 Continue aggressive risk factor modification. His blood pressure is currently well optimized on current valsartan therapy. Continue the same. Advised to monitor blood pressure at home maintain a log. Goal blood pressure less than 130/84. Continue high-intensity statin therapy with target goal LDL less than 70 mg/dL. Continue aggressive diabetes management goal hemoglobin A1c less than 7%. He is encouraged to increase activity level. He has currently not having any concerning exertional symptoms but he is advised to call me if he develops any symptoms that may require further workup including ischemic workup. Will follow up in the clinic in 1 year's time, sooner p.r.n.. Thank you for allowing me to partake in his care Orders: Orders CA echo transthoracic complete 1 Year I35.0 - Nonrheumatic aortic (valve) stenosis Coding Level of Care Code New Pt Level 4 (32528) Diagnoses Aortic stenosis I35.0 CPT Codes EKG - CPT: 68569-[id number], Complete ([id number])
[2023-08-22 09:11] VITALS: BP 124/80; PULSE 65; BMI 30.1
== END 2023-08-22 09:46 | disposition home or self-care (01) ==
PROVIDERS: PCP Internal Medicine; Visit Provider Internal Medicine Cardiovascular Disease
DX: I35.0 Nonrheumatic aortic (valve) stenosis (principal)
CPT/HCPCS: 93010; 99214

== ENCOUNTER → 2023-08-22 08:59 | Outpatient (BNVA) | payer MEDICARE, SELFPAY | PROVIDERS: PCP Internal Medicine; Visit Provider Internal Medicine Cardiovascular Disease | DX: I35.0 Nonrheumatic aortic (valve) stenosis (principal); I44.0 Atrioventricular block, first degree | CPT/HCPCS: 93005; 99212 ==

== ENCOUNTER 2023-09-16 11:59 | Outpatient (REF) | payer MEDICARE, SELFPAY ==
[2023-09-16 13:40] LABS: Anion Gap 12 (12-20); Blood Urea Nitrogen 23 mg/dL (9-16); Calcium 9.5 mg/dL (8.4-10.2); Carbon Dioxide 28 mmol/L (22-29); Chloride 105 mmol/L (96-108); Estimated Glomerular Filt Rate 54; Glucose Random 188 mg/dL (60-115); Potassium 4.5 mmol/L (3.3-5.1); Sodium 140 mmol/L (135-145)
== END 2023-09-16 12:00 | disposition home or self-care (01) ==
LOC: HO.HHCL 11:59
PROVIDERS: Visit Provider Nurse Practitioner Primary Care
DX: R79.89 Other specified abnormal findings of blood chemistry (principal)
CPT/HCPCS: 36415; 80048

== ENCOUNTER 2023-09-30 23:07 | Emergency (ER) | payer MEDICARE, SELFPAY ==
--- NOTE | ~2023-09-30 | XR_ITS ---
EXAMINATION: XR CHEST CLINICAL INFORMATION: Shortness of breath COMPARISON: None available. TECHNIQUE: Normal appearance of the cardiomediastinal structures. No effusions or pneumothoraces. Normal pattern of pulmonary vasculature. No focal pulmonary consolidation. Moderate multilevel endplate osteophytosis of the visualized thoracic spine. XR/XR chest 1V IMPRESSION: No acute cardiopulmonary abnormalities.
[2023-09-30 23:21] VITALS: BP 176/90; BP 190/81; PULSE 90; PULSE 95; RESP 16; TEMP 36.8; O2SAT 100; O2SAT 98; BMI 29.4
--- NOTE | 2023-09-30 23:26 | ECG_ITS ---
Test Reason : sob Blood Pressure : / mmHG Vent. Rate : 089 BPM Atrial Rate : 089 BPM P-R Int : 238 ms QRS Dur : 116 ms QT Int : 366 ms P-R-T Axes : 074 -27 082 degrees QTc Int : 445 ms Sinus rhythm with 1st degree A-V block Otherwise normal ECG No previous ECGs available Referred By: Santy Solitario Electronically Signed By:MAJO REYNAGA
--- NOTE | 2023-09-30 23:40 | ED_ITS ---
HPI - URI/Sore Throat General Chief Complaint: Upper Respiratory Symptoms Stated Complaint: diff breathing Time Seen by Provider: 09/30/23 23:24 Source: patient Mode of arrival: EMS Limitations: no limitations History of Present Illness ED Provider: sanaz VASQUEZ Narrative: Patient diabetic with an aortic stenosis with history of feeding of shortness of breath with history of same in the past started having nonproductive cough since yesterday feel it is stuck in his throat patient is very anxious on arrival history of same in the past has postnasal drip and feel his secretions choking him Related Data Home Medications ?Medication ?Instructions ?Recorded ?Confirmed acetaminophen 500 mg tablet 1,000 mg PO Q6H PRN moderate pain 05/01/23 08/22/23 atorvastatin 40 mg tablet 40 mg PO DAILY 05/01/23 08/22/23 blood sugar diagnostic (OneTouch #10 ea 05/01/23 07/18/23 Ultra Test strips) fluticasone propionate 50 1 spray intranasal QAM 05/01/23 08/22/23 mcg/actuation nasal spray,suspension lancets 30 gauge (OneTouch #100 ea 05/01/23 07/18/23 UltraSoft 2 Lancet) metformin 1,000 mg tablet 1,000 mg PO BID 05/01/23 08/22/23 mirtazapine 15 mg tablet 15 mg PO BEDTIME 05/01/23 08/22/23 pen needle, diabetic 31 gauge x #1,200 ea 05/01/23 07/18/23/16 (BD Ultra-Fine Short Pen Needle) tamsulosin 0.4 mg capsule 0.4 mg PO DAILY 05/01/23 08/22/23 aspirin 81 mg tablet,delayed 81 mg PO QAM 06/13/23 08/22/23 release insulin glargine 100 unit/mL (3 14 unit subcut BID 06/13/23 08/22/23 mL) subcutaneous pen (Lantus Solostar U-100 Insulin) empagliflozin 10 mg tablet 10 mg PO DAILY 07/18/23 08/22/23 (Jardiance) ketorolac 0.5 % eye drops drp ophthalmic (eye) 07/18/23 08/22/23 valsartan 320 mg tablet 160 mg PO DAILY 08/22/23 08/22/23 Previous Rx's ?Medication ?Instructions ?Recorded guaifenesin 600 mg tablet, 600 mg PO Q12H PRN congestion #60 10/01/23 extended release 12 hr tabs Allergies Allergy/AdvReac Type Severity Reaction Status Date / Time No Known Allergies Allergy Verified 09/30/23 23:25 [facility] Past Medical History Medical History Diabetes HTN (hypertension) Aortic stenosis Surgical History Hx of lithotripsy Family History Family History Father No problems noted. Mother No problems noted. Social History Social History Alcohol intake: current Alcohol intake frequency: former alcohol drinker Patient Tobacco Use Status: Former Tobacco user Advance Directives: No Advance Directives Information Provided: Yes Do you have a plan to hurt others: No Plan Physical Exam 2 Vital Signs: Vital Signs: Last Vital Signs Temp 98.3 F 10/01/23 01:22 Pulse 90 10/01/23 01:22 Resp 16 10/01/23 01:22 BP 161/82 H 10/01/23 01:22 Pulse Ox 98 10/01/23 01:22 O2 Del Method Room Air 10/01/23 01:22 BMI result Body Mass Index 29.4 Appearance: Alert. Oriented X3. anxious Eyes: PERRLA, No Nystagmus ENT: Pharynx normal. Oral Mucosa moist postnasal drip+ Neck: Normal inspection. Neck supple. CVS: Normal heart rate and rhythm. Pulses normal. Respiratory: No respiratory distress. Equal air entry bilateral, no wheezing/rales/rhonchi Abdomen: Soft and nontender. Bowel sounds are present, no mass palpable, no CVA tenderness Skin: Skin warm and dry. Normal skin color. Normal skin turgor. Extremities: No lower extremity edema. No calf tenderness Neuro: Oriented X 3. No motor deficit. Medical Decision Making Medical Decision Making MDM Narrative: Patient is anxious on arrival no stridor lungs are clear making noises from the postnasal drip chest x-ray negative workup negative patient felt better off its off his own after few minutes history of same per family in the past will prescribe guaifenesin tablets Lab Data MDM Lab Attestation statement: I reviewed the patient's lab results. 09/30/23 23:49 09/30/23 23:49 Labs: Lab Results 09/30/23 Range/Units 23:49 WBC 6.7 (4.8-10.8) X10*3/uL RBC 4.26 L (4.60-5.80) X10*6/uL Hgb 12.8 L (14.0-18.0) g/dl Hct 38.6 L (42.0-52.0) % MCV 90.6 (80.0-98.0) fL MCH 30.0 (27.0-33.0) pg MCHC 33.2 (31.0-36.0) g/dl RDW 12.4 (11.0-16.0) % Plt Count 193 (160-400) X10*3/uL MPV 9.9 (9.4-12.4) fL Immature Gran % (Auto) 0.3 (0.0-0.4) % Neut % (Auto) 68.0 (45-73) % Lymph % (Auto) 20.9 (20-40) % Archuleta % (Auto) 8.3 (2-11) % Eos % (Auto) 2.1 (0-4) % Baso % (Auto) 0.4 (0-2) % Lymph # (Auto) 1.4 (1.2-4.9) X10*3/uL Archuleta # (Auto) 0.6 (0.1-1.2) X10*3/uL Eos # (Auto) 0.1 (0.0-0.4) X10*3/uL Baso # (Auto) 0.0 (0.0-0.2) X10*3/uL Abs Immat Gran (auto) 0.02 (0.00-0.03) X10*3/uL Absolute Neuts (auto) 4.6 (2.0-8.3) x10*3/uL Absolute Nucleated RBC 0.000 (0.0-0.012) X10*3/uL Nucleated RBC % (auto) 0.0 (0.0-0.2) /100WBC Sodium 143 (135-145) mmol/L Potassium 4.4 (3.3-5.1) mmol/L Chloride 105 (96-108) mmol/L Carbon Dioxide 27 (22-29) mmol/L Anion Gap 15 (12-20) BUN 33 H (9-16) mg/dL Creatinine 1.70 H (0.5-1.4) mg/dL Estim Creat Clear Calc 38.4 Estimated GFR 40 Random Glucose 282 H (60-115) mg/dL Calcium 9.6 (8.4-10.2) mg/dL Troponin I High Sens 6.1 (<3.5-35.0) ng/L COVID-19 ([facility]) Negative (Negative) COVID-19 Clin Com See Note Independent Interpretation I performed an independent interpretation of an: Plain X-Ray Radiology Impression Discussion of test interpretation with radiology: I have reviewed the radiologist's reading. Discharge Plan Discharge Clinical Impression: Post-nasal drip Patient Disposition: Home, Self-Care Instructions: Postnasal Drip (DC) Additional Instructions: Use steam inhalation Drink plenty of fluids Guaifenesin tablets twice daily Follow with your PCP Prescriptions: New guaifenesin 600 mg tablet extended release 12hr 600 mg PO Q12H PRN (Reason: congestion) Qty: 60 0RF No Action (DME) lancets [OneTouch UltraSoft 2 Lancet] 30 gauge misc See Rx Instructions .ROUTE BID Qty: 100 Rx Instructions: As directed (DME) OneTouch Ultra Test Strip See Rx Instructions .ROUTE BID Qty: 10 Rx Instructions: As directed mirtazapine 15 mg tablet 15 mg PO BEDTIME metformin 1,000 mg tablet 1,000 mg PO BID atorvastatin 40 mg tablet 40 mg PO DAILY (DME) pen needle, diabetic [BD Ultra-Fine Short Pen Needle] 31 gauge x 5/16 needle See Rx Instructions .ROUTE .MEDSUPPLY Qty: 1200 Rx Instructions: As directed acetaminophen 500 mg tablet 1,000 mg PO Q6H PRN (Reason: moderate pain) fluticasone propionate 50 mcg/actuation spray,suspension 1 spray intranasal QAM tamsulosin 0.4 mg capsule 0.4 mg PO DAILY insulin glargine [Lantus Solostar U-100 Insulin] 100 unit/mL (3 mL) insulin pen 14 unit subcut BID aspirin 81 mg tablet,delayed release (DR/EC) 81 mg PO QAM Jardiance 10 mg tablet 10 mg PO DAILY ketorolac 0.5 % drops ophthalmic (eye) valsartan 320 mg tablet 160 mg PO DAILY Interventions: ED Discharge Assessment Last Done: 10/01/23 01:22 Discharge Date/Time: 10/01/23 01:24 Print Language: Luxembourgish
[2023-09-30 23:55] LABS: Basophils Percent Auto 0.4 % (0-2); Eosinophils Absolute Auto 0.1 X10*3/uL (0.0-0.4); Eosinophils Percent Auto 2.1 % (0-4); Hematocrit 38.6 % (42.0-52.0); Hemoglobin 12.8 g/dl (14.0-18.0); Imm Gran Abs Auto 0.02 X10*3/uL (0.00-0.03); Imm Gran Pct Auto 0.3 % (0.0-0.4); Lymphocytes Absolute Auto 1.4 X10*3/uL (1.2-4.9); Lymphocytes Percent Auto 20.9 % (20-40); MANUAL DIFF FLAG NO; Mean Corpuscular HGB Conc 33.2 g/dl (31.0-36.0); Mean Corpuscular Volume 90.6 fL (80.0-98.0); Mean Platelet Volume 9.9 fL (9.4-12.4); Monocytes Absolute Auto 0.6 X10*3/uL (0.1-1.2); Monocytes Percent Auto 8.3 % (2-11); Neutrophils Absolute Auto 4.6 x10*3/uL (2.0-8.3); Platelet Count 193 X10*3/uL (160-400); Red Blood Count 4.26 X10*6/uL (4.60-5.80); Red Cell Distribution Width 12.4 % (11.0-16.0); White Blood Count 6.7 X10*3/uL (4.8-10.8)
[2023-10-01 00:07] LABS: Anion Gap 15 (12-20); Blood Urea Nitrogen 33 mg/dL (9-16); Calcium 9.6 mg/dL (8.4-10.2); Carbon Dioxide 27 mmol/L (22-29); Chloride 105 mmol/L (96-108); Creatinine Clr Calc Pharmacy 38.4; Estimated Glomerular Filt Rate 40; Glucose Random 282 mg/dL (60-115); Potassium 4.4 mmol/L (3.3-5.1); Sodium 143 mmol/L (135-145)
[2023-10-01 00:09] LABS: COVID-19 Test Negative (Negative); IDNOW Serial# 152EDE1D
[2023-10-01 00:16] LABS: Troponin-I High Sensitivity 6.1 ng/L (<3.5-35.0)
[2023-10-01 01:20] VITALS: BP 161/82; PULSE 90; RESP 16; TEMP 36.8; O2SAT 98
[2023-10-01 01:22] VITALS: BP 161/82; PULSE 90; RESP 16; TEMP 36.8; O2SAT 98
--- OUTSIDE RECORDS SUMMARY | 2023-10-02 07:59 | XMS_ITS | Continuity of Care Document ---
Author Organization [facility] ter Address [address] [place] [id number]- Care Team Providers Care Bail Attacher Name Role Phone Jimena STANTON, David Primary Care Physician Encounter [facility] [place] Date(s): 06/16/22 - 06/19/[address] [id number] Discharge Disposition: A-D/C Home Attending Physician: Miles STANTON, Joan Pitt Admitting Physician: Belkys STANTON, Axel Griffin Referring Physician: Not on Staff, Referring MD Allergies, Adverse Reactions, Alerts No Known Allergies Immunizations Given and Recorded Vaccine Date Status Refusal Reason [id number] 12y+ bivalent booster vax 01/31/22 Given influenza virus vaccine, inactivated 01/31/22 Give n influenza virus vaccine, inactivated 01/17/21 Yovani rded influenza virus vaccine, inactivated 11/25/19 Give n influenza virus vaccine, inactivated 10/04/16 Yovani rded influenza virus vaccine, inactivated 1 02/15/12 Gi wilma SARS-CoV-2 mRNA ([id number]) vax 09/13/21 Given zoster vaccine, inactivated 03/24/21 Given SARS-CoV-2 (COVID-19) mRNA BNT-162b2 vac 02/24/21 Given SARS-CoV-2 (COVID-19) mRNA BNT-162b2 vac 06/06/20 Recorded SARS-CoV-2 (COVID-19) mRNA BNT-162b2 vac 05/16/20 Recorded 1Admin Note: VIS 08/13/2011GIVEN Medications atorvastatin 20 mg oral tablet See Instructions, MARCY 1 TABLETA POR LA BOCA CADA JESSE, # 90 tablet, 1 Refills, Maintenance, 01/03/22 13:30:00 EST, [facility], 168, cm, 06/02/21 14:43:00 EDT, Height, 82, kg, 01/13/20 13:11:00 EST, Dry Weight Start Date: 01/03/22 Status: Ordered BD SHORT PEN NDL [id number] 31GX5/16 NEDL BD SHORT PEN NDL [id number] 31GX5/16 NEDL, See Instructions, # 90 Unknown, 5 Refills, US[facility] B[facility]ES[facility], 168, cm, 06/02/21 14:43:00 EDT, Height, 82, kg, 01/13/20 13:11:00 EST, Dry Weight Start Date: 07/28/21 Status: Ordered Freestyle Lite Test Strips See Instructions, # 100 each, Refills 11, Tot. Refills 11, Maintenance, USE BID TO TID for Type 2 Diabetes Mellitus DX:E11.65, 03/09/19 12:23:00 EST, Compound, 169, cm, 02/17/19 16:05:00 EST, Height,83.1, kg, 11/06/17 15:38:00 EDT, Dry Weight Start Date: 03/09/19 Stop Date: 03/03/20 Status: Ordered GuaiFENesin DM 10 mg-100 mg/5 mL oral liquid 10 mL, By Mouth, Every 6 hours, # 120 mL, 1 Refills, Maintenance, 06/15/22 16:17:00 EDT, [facility], Partial fill upon patient request if the prescription is for a schedule II opioid drug., 10 mL By Mouth Every 6 hours, 168, cm, 05... Start Date: 06/15/22 Status: Ordered Lantus Solostar Pen 100 units/mL subcutaneous solution See Instructions, INYECTAR 20 UNIDADES DEBAJO DE LA PIEL DOS VECES AL JESSE, # 15 mL, 5 Refills, [facility], 168, cm, 06/02/21 14:43:00 EDT, Height, 82, kg, 01/13/20 13:11:00 EST, DryWeight Start Date: 09/01/21 Status: Ordered lisinopril 20 mg oral tablet See Instructions, MARCY 1 TABLETA POR LA BOCA CADA JESSE, # 90 tablet, Refills 1, Maintenance, 06/06/22 14:56:00 EDT, Instructions Replace Required Details, Route to Pharmacy Electronically, [facility], 168, cm, 01/31/22 15:46:00 EST,... Start Date: 06/06/22 Status: Ordered metFORMIN 1000 mg oral tablet 1 tablet, By Mouth, 2 times a day, # 180 tablet, 0 Refills, Maintenance, 04/24/22 13:55:00 EDT, [id number], 168, cm, 01/31/22 15:46:00 EST, Height, 85.63, kg, 01/31/22 15:46:00 EST, Dry Weight Start Date: 04/24/22 Status: Ordered MiraLax oral powder for reconstitution = 17 Gm, By Mouth, Daily, dissolve in water before taking, # 255 Gm, 0 Refills, Maintenance, 06/19/22 9:58:00 EDT, REC Powder, [facility], Partial fill upon patient request if the prescription is for a schedule II opioid drug., 17 Gm By... Start Date: 06/19/22 Status: Ordered mirtazapine 15 mg oral tablet See Instructions, MARCY 1 TABLETA POR LA BOCA CADA JESSE A LA HORA DE DORMIR, # 30 tablet, 5 Refills,Maintenance, 03/11/22 12:59:00 EST, [facility], 168, cm, 01/31/22 15:46:00 EST, Height, 85.63, kg, 01/31/22 15:46:00 EST, Dry Weight Start Date: 03/11/22 Status: Ordered One Touch Ultra Test Strips See Instructions, # 100 each, Refills 11, Tot. Refills 11, Maintenance, use BID for DM 2, 04/24/22 13:55:00 EDT, Compound, 168, cm, 01/31/22 15:46:00 EST, Height, 85.63, kg, 01/31/22 15:46:00 EST, Dry Weight Start Date: 04/24/22 Status: Ordered One Touch UltraSmart Glucose Meter See Instructions, # 1 each, Maintenance, use BID for DM 2, 06/15/22 16:16:00 EDT, Compound, 168, cm, 06/15/22 16:08:00 EDT, Height, 85.63, kg, 01/31/22 15:46:00 EST, Dry Weight Start Date: 06/15/22 Status: Ordered One Touch UltraSoft Lancets See Instructions, # 100 each, Refills 11, Tot. Refills 11, Maintenance, use BID for DM 2, 03/10/19 14:14:00 EST, Compound, 169, cm, 02/17/19 16:05:00 EST, Height, 83.1, kg, 11/06/17 15:38:00 EDT, DryWeight Start Date: 03/10/19 Status: Ordered Pen Drake, 31 G x 8 mm BD Ultra Fine III See Instructions, # 100 each, Refills 5, Tot. Refills 5, Maintenance, use as directed for Type 2 Diabetes Mellitus, 01/06/20 11:36:00 EST, Supply, 169, cm, 11/23/19 9:06:00 EDT, Height Start Date: 01/06/20 Stop Date: 07/04/20 Status: Ordered predniSONE 20 mg oral tablet 2 tablet = 40 mg, By Mouth, Daily, for 2 days, # 4 tablet, 0 Refills, Acute 06/21/22 9:58:00 EDT, 06/19/22 9:58:00 EDT, Tablet, [facility], Partial fill upon patient request if the prescription is for a schedule II opioid drug., 168, cm,... Start Date: 06/19/22 Stop Date: 06/21/22 Status: Ordered Shingrix intramuscular injection = 0.5 mL, Intramuscular, Once, repeat dose in 2 to 6 months, # 2 each, 0 Refills, Soft Stop, 03/24/21 14:52:00 EST, Powder, [facility], Partial fill upon patient request if the prescription is for a schedule II opioid drug., 0.5 mL... Start Date: 03/24/21 Status: Ordered tamsulosin 0.4 mg oral capsule See Instructions, MARCY 1 CAPSULA POR LA BOCA CADA JESSE, # 90 capsule, Refills 1, Maintenance, 06/06/22 14:57:00 EDT, Instructions Replace Required Details, Route to Pharmacy Electronically, [facility], 168, cm, 01/31/22 15:46:00 EST,... Start Date: 06/06/22 Status: Ordered Trulicity Pen 0.75 mg/0.5 mL subcutaneous solution See Instructions, INYECTAR 0.5ML SUBCUTANEO CADA SEMANA LUIS INDICADO. ROTAR LOS SITIOS DE INYECCION, # 2 mL, 5 Refills, 06/07/22 9:54:00 EDT, [facility], 168, cm, 01/31/22 15:46:00 EST, Height, 85.63, kg, 01/31/22 15:46:00 EST, D... 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 Confirmed Active Depression Confirmed Active Diabetic foot ulcer Confirmed Active Foot callus Confirmed Active Hyperlipidemia Confirmed Active Plantar fasciitis, right Confirmed Active Tinea pedis Confirmed Active Diabetes mellitus type 2 in nonobese Confirmed Active 1MOCA in 2019, MOCA in 09/2020 Results Orders for Microbiology Reports Name Date Blood Culture 06/16/22 Blood Culture #2 06/16/22 Microbiology Reports TEST:Blood Culture, Second Order STATUS:Unauthenticated BODY SITE: SOURCE:Blood COLLECTED DATE/TIME:06/16/22 11:16 AM Blood Culture, Second Order SPECIMEN DESCRIPTION : BLOOD RAC SPECIAL REQUESTS : NONE CULTURE : NO GROWTH AFTER 48 HOURS REPORT STATUS : PRELIMINARY REPORT TEST:Blood Culture STATUS:Unauthenticated BODY SITE: SOURCE:Blood COLLECTED DATE/TIME:06/16/22 10:30 AM Blood Culture SPECIMEN DESCRIPTION : BLOOD LAC SPECIAL REQUESTS : NONE CULTURE : NO GROWTH AFTER 48 HOURS REPORT STATUS : PRELIMINARY REPORT Radiology Reports * Exam Date Time Procedure Performing Provider Status 06/16/22 12:20 PM Chest Portable Chely Hanson; Aut h (Verified) Notes: (Chest Portable) Reason For Exam: Shortness of Breath RESULT: Chest Portable Chest Portable Hx of Present Illness: short of breath and cough x 1 month. + nasal congestion.; Reason: Shortness of Breath; Clinical Question(s): CHF COMPARISON: 06/15/2022 FINDINGS: LINES AND TUBES: None. LUNGS AND PLEURA: Clear lungs. Normal pulmonary vascularity. No pleural effusion. No pneumothorax. HEART, MEDIASTINUM AND DARBY: Heart is normal in size. Normal mediastinal and hilar contour. BONES AND SOFT TISSUES: No acute abnormality. Spine degenerative changes. IMPRESSION: No acute abnormality. WSN: [id number] Ordering Physician: Lexy Espinoza Dictated By: Marty Morris MD Dictated Date/Time: 06/16/22 12:23 p Reviewed By: Marty Morris MD Signed By: Marty Morris MD Signed Date/Time: 06/16/22 12:23 pm Transcribed By: ADAMS Transcribed Date/Time: 06/16/22 12:22 pm Vital Signs Most recent to oldest [Reference Range]: 1 2 3 Height 168 cm (06/18/22 7:22 AM) 168 cm (06/17/22 7:46 PM) 168 cm (06/17/22 8:02 AM) Weight 81 kg (06/16/22 5:41 PM) Oxygen Saturation [94-100 %] 96 % (06/19/22 7:00 AM) 96 % (06/19/22 4:00 AM) 95 % (06/19/22 12:00 AM) Pulse Rate [55-90 bpm] 62 bpm (06/19/22 7:00 AM) 70 bpm (06/19/22 4:00 AM) 74 bpm (06/19/22 12:00 AM) Body Mass Index [18.5-24.99 kg/m2] 28.7 kg/m2 *H* (06/16/22 5:41 PM) Blood Pressure [90-138/55-84 mm Hg] 157/82mm Hg *H* (06/19/22 7:00 AM) 144/80mm Hg *H* (06/19/22 4:00 AM) 142/82mm Hg *H* (06/19/22 12:00 AM) Respiratory Rate [16-30 br/min] 17 br/min (06/19/22 7:00 AM) 18 br/min (06/19/22 4:00 AM) 18 br/min (06/19/22 12:00 AM) Temperature [96.8-100.4 DegF] 97.2 DegF (06/19/22 7:00 AM) 97.8 DegF (06/19/22 4:00 AM) 97.8 DegF (06/19/22 12:00 AM) Liters per Minute 3 L/min (06/18/22 7:22 AM) 3 L/min (06/17/22 7:46 PM) 4 L/min (06/17/22 8:02 AM) Mode of Delivery (Oxygen) Room air (06/19/22 7:00 AM) Room air (06/18/22 8:00 PM) Room air (06/18/22 12:00 PM) Blood pressure sites Arm, left (06/19/22 7:00 AM) Arm, right (06/19/22 4:00 AM) Arm, right (06/19/22 12:00 AM) Temperature Route Oral (06/19/22 7:00 AM) Oral (06/19/22 4:00 AM) Oral (06/19/22 12:00 AM) Dry Weight 85.63 kg (06/16/22 5:41 PM) Social History Social History Type Response Smoking Status Never (less than 100 in lifetime) entered on: 05/30/20 Sex Admission evaluation note * Miles STANTON, Joan Pitt: PERFORM, MODIFY Event Display: Admission Note Authored Date: [id number] Patient: ??JOON MCCLENDON ? Age:??72 Years?Sex:??Male?:??1950?? History of Present Illness This is a 72-year-old gentleman with past medical hypertension, insulin- dependent diabetes, hyperlipidemia, recently??history??URI??presented??to the emergency room with worsening shortness of breath??and cough ?? Seen and examined at bedside; vital signs and chart reviewed Encounter??with the help of deposition operator at the bedside Patient reported that??he called??URI about a month ago,??was not hospitalized for that, however??has not been completely??recovered from that, alcohol use last night??prompting him to present to theemergency room.?? Nonproductive cough, worsening shortness of breath??at the main symptoms, he denies any fever, nausea vomiting abdominal pain, denies any past cardiac history ?? Reported that his son??has asthma,??and he had??sick contact recently. Denies any seasonal allergy history ?? In the ER,He received albuterol nebulizer, 125 mg Solu-Medrol Vitals largely unremarkable, blood pressure on the higher side, slightly tachycardia Labs showed normal WBC, hemoglobin 12.6, potassium 5, glucose level 217, magnesium 1.7, phosphorus 3.3, normal lactic acid, COVID-negative Chest x-ray negative for acute finding ?? During my evaluation,??he is maintaining saturation on 4 L nasal cannula, slightly tachycardia withheart rate??in high 100s, able to engage in a conversation without any??significant respite distress, does have??frequent cough, expectorating clear??secretions??reported to??happen after nebulizer tr eatment Only have mild diffuse wheezing on examination??which might have significantly improved after nebulizer treatment ?? He is a former smoker, he smoked for about 33 years 3 to 4 cigarettes/day, he quit about 30 years ago.?? Was never told to have COPD or asthma??or chronic bronchitis Denies any alcohol or recreational drug use ?? Admitted for??acute hypoxic respiratory failure likely secondary to??asthma/COPD exacerbation??in a patient with recent??URI Review of Systems GEN: ??Denies any issues with sleep, fatigue or changes in wt. HEENT:??+ runny nose, ??sore throat??, Denied any changes to his vision. CV: Denies CP, palpitations, edema or orthopnea. PULM: +??SOB, wheezing, cough. ABD: Denies any abdominal pain, N/V/D, heartburn. ??Denies any changes to bowel habits or stool character.?? : Denies dysuria, polyuria, or hematuria. EXT: Denies any joint pain, stiffness, numbness or tingling.?? PSYCH: Denies any depression or anxiety. Objective ? Vital Signs?? Temperature: 98.7 DegF (06/16/22 10:53:00) Temperature Route: Oral (06/16/22 10:53:00) Pulse Rate:??108 bpm??High (06/16/22 14:30:00) Respiratory Rate: 20 br/min (06/16/22 14:30:00) Systolic Blood Pressure: 124 mm Hg (06/16/22 14:30:00) Diastolic Blood Pressure: 69 mm Hg (06/16/22 14:30:00) Blood pressure sites: Arm, left (06/16/22 10:53:00) Mean Arterial Pressure: 87 mm Hg (06/16/22 14:30:00) Pulse Pressure: 55 mm Hg (06/16/22 14:30:00) Oxygen Saturation: 98 % (06/16/22 14:30:00) Liters per Minute: 4 L/min (06/16/22 14:30:00) Mode of Delivery (Oxygen): Nasal cannula (06/16/22 14:30:00) Vital Signs Comment: 10 MIN (06/15/22 16:08:00) ? Perfusion Assessment Cardiovascular Comment: Pt endorses chest ??pressure when experiencing episodes of coughing (06/16/22 10:53:00) Cardiovascular Symptoms: Chest pressure (06/16/22 10:53:00) Nail Bed Color, Fingers: [place] (06/16/22 10:53:00) Skin Temperature Lower Extremities: Warm (06/16/22 10:53:00) Skin Temperature Upper Extremities: Warm (06/16/22 10:53:00) ? Pain Scores?? No qualifying data available. ? Ventilator Settings?? No qualifying data available. ? Intake/Output? No Data Available ?? Precautions No Precautions documented.? Parks Coma Scale Parks Coma Score: 15 (06/16/22 09:45:00) Motor Response-Adult: Obeys commands (06/16/22 09:45:00) Response Eye Opening: Spontaneously (06/16/22 09:45:00) Verbal Response-Adult: Oriented and converses (06/16/22 09:45:00) ? Mobility & Ambulation Level Mobility & Ambulation Level?? No qualifying data available. ?? Therapeutic Activity Therapeutic Activities/Mobility/Balance?? No qualifying data available. ? Physical Exam General??: Awake, alert,??in no acute distress. HEENT: PERRLA, EOMI, NC/AT Neck: Supple. No JVD. No palpable LAD Respiratory: Bilateral air entry, with mild diffuse wheezing Cardiovascular: S1S2 regular, slight tachycardia, No murmurs, rubs or gallops. Gastrointestinal: Abdomen soft, non-tender, non-distended. No palpable organomegaly, bowel sounds present Genitourinary: No CVA tenderness Extremities: No lower extremity pitting??edema. No cyanosis or clubbing. Neurologic: AAOx3, Speech normal. No gross facial asymmetry or gross focal neurological deficits. Skin: No rash. Psychiatric: Appropriate mood and affect Assessment/Plan This is a 72-year-old gentleman with past medical hypertension, insulin- dependent diabetes, hyperlipidemia, recently??history??URI??presented??to the emergency room with worsening shortness of breath??and cough ?? Seen and examined at bedside; vital signs and chart reviewed Encounter??with the help of deposition operator at the bedside Patient reported that??he called??URI about a month ago,??was not hospitalized for that, however??has not been completely??recovered from that, alcohol use last night??prompting him to present to theemergency room.?? Nonproductive cough, worsening shortness of breath??at the main symptoms, he denies any fever, nausea vomiting abdominal pain, denies any past cardiac history ?? Reported that his son??has asthma,??and he had??sick contact recently. Denies any seasonal allergy history ?? In the ER,He received albuterol nebulizer, 125 mg Solu-Medrol Vitals largely unremarkable, blood pressure on the higher side, slightly tachycardia Labs showed normal WBC, hemoglobin 12.6, potassium 5, glucose level 217, magnesium 1.7, phosphorus 3.3, normal lactic acid, COVID-negative Chest x-ray negative for acute finding ?? During my evaluation,??he is maintaining saturation on 4 L nasal cannula, slightly tachycardia withheart rate??in high 100s, able to engage in a conversation without any??significant respite distress, does have??frequent cough, expectorating clear??secretions??reported to??happen after nebulizer tr eatment Only have mild diffuse wheezing on examination??which might have significantly improved after nebulizer treatment ?? He is a former smoker, he smoked for about 33 years 3 to 4 cigarettes/day, he quit about 30 years ago.?? Was never told to have COPD or asthma??or chronic bronchitis Denies any alcohol or recreational drug use ?? Admitted for??acute hypoxic respiratory failure likely secondary to??asthma/COPD exacerbation??in apatient with recent??URI ?? Acute hypoxic respiratory failure likely secondary to asthma/COPD exacerbation in a patient with recent URI Former cigarette smoker Recent URI about a month ago, since then??not completely recovered Presented yesterday with worsening shortness of breath and cough Son had sick contact and??he lives with his son Denies any fever Chest x-ray??negative Status post albuterol nebulizer,??Solu-Medrol 125 mg in the ER ?? Plan Continue prednisone 40 mg daily for 5 days starting from tomorrow DuoNeb 4 times a day scheduled for 1 day,??every 4 hours as needed Flonase nasal spray twice daily 1 dose of 2 g??magnesium sulfate IV Tessalon 100 mg 3 times daily scheduled Cough syrup as needed Follow-up add on expanded respiratory pathogen panel Follow-up blood culture Incentive Spirometry Vital sign per unit standard Wean off oxygen as appropriate > currently on 4 L nasal cannula Could benefit from outpatient pulmonary clinic referral for??PFT ?? HTN : Blood pressure better,??resume Lisinopril tomorrow if potassium ok ?? Type 2 DM Home med : Lantus 20 U BID, Trulicity, Metformin 1000mg BID ?? Plan start Lantus at 10 U BID Start SSI Hold metformin, Trulicity POC glucose ACHS Aggressive measures in place ?? BPH: Continue??Flomax Insomnia: Continue mirtazapine ?? Diabetic diet ?? Full code, confirmed with patient however??he does not want to??be in vegetative state ?? DVT prophylaxis:??Lovenox ?? Plan of care explained to pt, verbalized understanding and agreed with it. ?? Disclaimer: ??This note ??was accomplished with use of [employer] voice recognition software, which is prone to medical and other word misidentifications and grammatical errors. ??The physician does strive to identify and correct these, but some could still be present. ??Please do not hesitate to contact the physician for clarifications. ? Histories Allergies Allergies ?(Active and Proposed Allergies Only) NKA? (Severity: Unknown severity, Onset: Unknown) ? Past Medical History/Problem List Active Problems??(8) Amnestic MCI (mild cognitive impairment with memory loss) Depression Diabetes mellitus type 2 in nonobese Diabetic foot ulcer Foot callus Hyperlipidemia Plantar fasciitis, right Tinea pedis ? Past Surgical History Colonoscopy abnormal: 12/24/14 ? Social History Alcohol Details:??Use: Past. ??Type: Beer. ??Alcohol use in household: No. Home/Environment Details:??Feels unsafe at home: No. Details:??Feels unsafe at home: No. Details:??Living situation: Home/Independent. ??Lives with: Alone. ??Feels unsafe at home: No. ??Safe place to go: Yes. ??Injuries/Abuse/Neglect in household: No. ??Domestic violence in household: No. ??Alcohol in household: No. ??Firearms in household: No. ??Substance abuse in household: No. ??Smoker in household: No. ??Major illness in household: No. ??Financial concerns: No. Details:??Feels unsafe at home: No. Tobacco Details:??Use: Never (less than 100 in lifetime). Details:??Use: Former smoker. ? Psychosocial History ? Family History No family history recorded. ? Travel History Travel Outside [facility]: No ? Medications Home Medications Acetaminophen (Tylenol 8 HR Arthritis Pain 650 mg oral tablet, extended release)?2?tab(s)?1,300?Milligram?By Mouth?Every 12 hours Atorvastatin (atorvastatin 20 mg oral tablet)?See Instructions?MARCY 1 TABLETA POR LA BOCA CADA JESSE dulaglutide (Trulicity Pen 0.75 mg/0.5 mL subcutaneous solution)?See Instructions?INYECTAR 0.5ML SUBCUTANEO CADA SEMANA LUIS INDICADO. ROTAR LOS SITIOS DE INYECCION Durable Medical Equipment (Freestyle Lite Test Strips)?See Instructions?for 30?Days?USEBID TO TID for Type 2 Diabetes MellitusDX:E11.65 Durable Medical Equipment (One Touch UltraSoft Lancets)?See Instructions?use BID for DM 2 Durable Medical Equipment (Pen Drake, 31 G x 8 mm BD Ultra Fine III)?See Instructions?for 30?Days?use as directed for Type 2 Diabetes Mellitus Durable Medical Equipment (One Touch Ultra Test Strips)?See Instructions?use BID for DM 2 Durable Medical Equipment (One Touch UltraSmart Glucose Meter)?See Instructions?use BID for DM 2 Guaifenesin/Dextromethorphan (GuaiFENesin DM 10 mg-100 mg/5 mL oral liquid)?10?Milliliter?By Mouth?Every 6 hours Insulin Glargine (Lantus Solostar Pen 100 units/mL subcutaneous solution)?See Instructions?INYECTAR 20 UNIDADES DEBAJO DE LA PIEL DOS VECES AL JESSE Lisinopril (lisinopril 20 mg oral tablet)?See Instructions?MARCY 1 TABLETA POR LA BOCA CADA JESSE Metformin (metFORMIN 1000 mg oral tablet)?1?tab(s)?By Mouth?2 times a day Mirtazapine (mirtazapine 15 mg oral tablet)?See Instructions?MARCY 1 TABLETA POR LA BOCA CADADIA A LA HORA DE DORMIR Miscellaneous Rx (BD SHORT PEN NDL [id number] 31GX5/16 NEDL)?See Instructions?USAR LUIS INDICADO Polyethylene Glycol 3350 (MiraLax oral powder for reconstitution)?17?gram?By Mouth?Daily?dissolve in water before taking Tamsulosin (tamsulosin 0.4 mg oral capsule)?See Instructions?MARCY 1 CAPSULA POR LA BOCA CADADIA zoster vaccine, inactivated (Shingrix intramuscular injection)?0.5?Milliliter?Intramuscular?Once?repeat dose in 2 to 6 months ? Inpatient Medications Medications (19) Active SCHEDULED: (11) Albuterol/Ipratropium Inhalation Pau 3mL (Duoneb Inhalation Solution) ??1 vials, BAND Nebulizer, 4 times a day Atorvastatin 20 mg Tablet (atorvastatin 20 mg oral tablet) ??20 mg, By Mouth, Daily at bedtime Benzonatate 100 mg Capsule (Tessalon Perles) ??100 mg, By Mouth, 3 times a day Fluticasone Propionate 50mcg/inh Nasal Sebastian (Flonase 50 mcg/inh nasal spray) ??50 mcg 1 sprays, Nares, Both, 2 times a day Insulin Glargine 100 units/mL Inj (Insulin Glargine Inj) ??10 units 0.1 mL, Subcutaneous Injection,2 times a day Insulin Lispro 100 units/mL Inj (3mL) (Insulin LISPRO Sliding Scale) ??2-10 units, Subcutaneous Injection, 3 times a day before meals Magnesium Sulfate 2 Gm /50 mL (Magnesium Sulfate IVPB) ??2 Gm 50 mL, IVPB, Once Mirtazapine 15 mg Tablet (mirtazapine 15 mg oral tablet) ??15 mg, By Mouth, Daily at bedtime NaCl 0.9% Flush 3ml (NaCL 0.9% Flush) ??3 mL, IV Push, Every 8 hours PredniSONE 20 mg Tablet (predniSONE 20 mg oral tablet) ??40 mg, By Mouth, Daily Tamsulosin 0.4 mg Capsule (tamsulosin 0.4 mg oral capsule) ??0.4 mg, By Mouth, Daily at bedtime CONTINUOUS: (0) PRN: (8) Albuterol/Ipratropium Inhalation Pau 3mL (Duoneb Inhalation Solution) ??1 vials, BAND Nebulizer, Every 4 hours Dextromethorphan-Guaifenesin 20 mg-200 mg/10 mL Liqu UD (Safetussin DM 10 mg-100 mg/5 mL oral liquid) ??10 mL, By Mouth, Every 6 hours Dextrose Inj Syringe (Dextrose 50% Inj Syringe (25Gm)) ??12.5 Gm, IV Push Slowly, Every 20 minutes Dextrose Inj Syringe (Dextrose 50% Inj Syringe (25Gm)) ??25 Gm, IV Push Slowly, Every 15 minutes Glucagon 1 mg Inj (Glucagon Inj) ??1 mg, Intramuscular, Once Glucose 40% Gel (15 Gm) (Glucose Gel) ??15 Gm, By Mouth, Every 20 minutes Glucose 40% Gel (15 Gm) (Glucose Gel) ??30 Gm, By Mouth, Every 20 minutes NaCl 0.9% Flush 3ml (NaCL 0.9% Flush) ??3 mL, IV Push, Every 8 hours ? Vaccinations and Immunoprophylaxis influenza virus vaccine, inactivated: 0.7 mL (01/31/22 16:46:00) influenza virus vaccine, inactivated: 0.7 Unknown (01/17/21 07:00:00) influenza virus vaccine, inactivated: 0.5 mL (11/25/19 15:38:00) influenza virus vaccine, inactivated: 0.5 Unknown (10/04/16 08:00:00) influenza virus vaccine, inactivated: 0.5 mL (02/15/12 13:47:00) SARS-CoV-2 (COVID-19) mRNA BNT-162b2 vac: 0.3 mL (02/24/21 09:26:00) SARS-CoV-2 (COVID-19) mRNA BNT-162b2 vac: 0.3 Unknown (06/06/20 08:00:00) SARS-CoV-2 (COVID-19) mRNA BNT-162b2 vac: 0.3 Unknown (05/16/20 08:00:00) SARS-CoV-2 mRNA ([id number]) vax: 0.3 mL (09/13/21 16:48:00) [id number] 12y+ bivalent booster vax: 0.3 mL (01/31/22 16:46:00) zoster vaccine, inactivated: 0.5 mL (03/24/21 16:21:00) ? Results Recent Labs BLOOD COUNT & DIFF WBC 7.3 k/mm3 ()?? 06/16/2022 10:30 RBC 4.31 m/mm3 (Low)?? 06/16/2022 10:30 Hgb 12.6 Gm/dL (Low)?? 06/16/2022 10:30 Hct 38.8 % (Low)?? 06/16/2022 10:30 MCV 90.0 femtoliters ()?? 06/16/2022 10:30 MCH 29.2 pg ()?? 06/16/2022 10:30 MCHC 32.5 g/dL (Low)?? 06/16/2022 10:30 Platelet Count 194 k/mm3 ()?? 06/16/2022 10:30 RDW-SD 40.2 femtoliters ()?? 06/16/2022 10:30 MPV 9.9 femtoliters ()?? 06/16/2022 10:30 Nucleated RBC (Automated) 0.0 #/100 WBC'S ()?? 06/16/2022 10:30 Abs. NRBC 0.0 k/mm3 ()?? 06/16/2022 10:30 Abs. Neut 6.0 k/mm3 ()?? 06/16/2022 10:30 Abs. Lymph 0.6 k/mm3 (Low)?? 06/16/2022 10:30 Abs. Ritchie 0.5 k/mm3 ()?? 06/16/2022 10:30 Abs. Eo 0.1 k/mm3 ()?? 06/16/2022 10:30 Abs. Baso 0.0 k/mm3 ()?? 06/16/2022 10:30 Neut % 82.6 % (High)?? 06/16/2022 10:30 Lymph % 8.4 % (Low)?? 06/16/2022 10:30 Ritchie % 6.4 % ()?? 06/16/2022 10:30 Eos % 1.8 % ()?? 06/16/2022 10:30 Baso % 0.4 % ()?? 06/16/2022 10:30 Imm Gran 0.4 % ()?? 06/16/2022 10:30 Abs. Imm Gran 0.0 k/mm3 ()?? 06/16/2022 10:30 ?? CHEM GENERAL Sodium 142 mmol/L ()?? 06/16/2022 10:30 Potassium 5.0 mmol/L ()?? 06/16/2022 10:30 Chloride 102 mmol/L ()?? 06/16/2022 10:30 Bicarbonate Level 26 mmol/L ()?? 06/16/2022 10:30 Anion Gap 14 ()?? 06/16/2022 10:30 Glucose Level 217 mg/dL (High)?? 06/16/2022 10:30 BUN 17 mg/dL ()?? 06/16/2022 10:30 Creatinine-Blood 1.2 mg/dL ()?? 06/16/2022 10:30 Estimated GFR Creatinine 67 ML/MIN/1.73 M2 ()?? 06/16/2022 10:30 Calcium 9.4 mg/dL ()?? 06/16/2022 10:30 Lactate 1.7 mmol/L ()?? 06/16/2022 11:16 POC ??HBA1C 8.7 % (High)?? 06/15/2022 16:08 ?? HEME OTHER Hold Lavender Top SPECIMEN DISCARDED AFTER 24 HOURS. ()?? 06/16/2022 11:16 Hold Blue Top SPECIMEN DISCARDED AFTER 4 HOURS. ()?? 06/16/2022 11:16 ?? MISC. CHEMISTRY Hold Green Top SPECIMEN DISCARDED AFTER 1 WEEK ()?? 06/16/2022 11:16 ?? VIROLOGY COVID-19 POC Result NEGATIVE ()?? 06/16/2022 10:01 ? Abnormal Labs ?? BLOOD COUNT & DIFF ??Abs. Imm Gran ??0.0 k/mm3 () ??06/16/2022 10:30 ??Abs. Lymph ??0.6 k/mm3 (Low) ??06/16/2022 10:30 ??Abs. NRBC ??0.0 k/mm3 () ??06/16/2022 10:30 ??Hct ??38.8 % (Low) ??06/16/2022 10:30 ??Hgb ??12.6 Gm/dL (Low) ??06/16/2022 10:30 ??Imm Gran ??0.4 % () ??06/16/2022 10:30 ??Lymph % ??8.4 % (Low) ??06/16/2022 10:30 ??MCHC ??32.5 g/dL (Low) ??06/16/2022 10:30 ??Neut % ??82.6 % (High) ??06/16/2022 10:30 ??Nucleated RBC (Automated) ??0.0 #/100 WBC'S () ??06/16/2022 10:30 ??RBC ??4.31 m/mm3 (Low) ??06/16/2022 10:30 ??RDW-SD ??40.2 femtoliters () ??06/16/2022 10:30 ? CHEM GENERAL ??Estimated GFR Creatinine ??67 ML/MIN/1.73 M2 () ??06/16/2022 10:30 ??Glucose Level ??217 mg/dL (High) ??06/16/2022 10:30 ? HEME OTHER ??Hold Blue Top ??SPECIMEN DISCARDED AFTER 4 HOURS. () ??06/16/2022 11:16 ??Hold Lavender Top ??SPECIMEN DISCARDED AFTER 24 HOURS. () ??06/16/2022 11:16 ? MISC. CHEMISTRY ??Hold Green Top ??SPECIMEN DISCARDED AFTER 1 WEEK () ??06/16/2022 11:16 ? VIROLOGY ??COVID-19 POC Result ??NEGATIVE () ??06/16/2022 10:01 ? Note: Critical results are displayed in red. ? Blood Glucose Trend Glucose Level:??217 mg/dL??High (06/16/22 10:30:00) ? CBC, CBC w/Diff?? CBC?? Differential?? WBC: 7.3 k/mm3 (10:30) Abs. Neut: 6 k/mm3 (10:30) RBC:??4.31 m/mm3??Low (10:30) Abs. Lymph:??0.6 k/mm3??Low (10:30) Hct:??38.8 %??Low (10:30) Abs. Ritchie: 0.5 k/mm3 (10:30) RDW-SD: 40.2 femtoliters (10:30) Abs. Eo: 0.1 k/mm3 (10:30) Nucleated RBC (Automated): 0 #/100 WBC'S (10:30) Abs. Baso: 0 k/mm3 (10:30) Abs. NRBC: 0 k/mm3 (10:30) Neut %:??82.6 %??High (10:30) ?? Lymph %:??8.4 %??Low (10:30) ?? Ritchie %: 6.4 % (10:30) ?? Eos %: 1.8 % (10:30) ?? Baso %: 0.4 % (10:30) ?? Imm Gran: 0.4 % (10:30) ?? Abs. Imm Gran: 0 k/mm3 (10:30) ? BMP, Mg, and Phos Anion Gap: 14 (10:30) Bicarbonate Level: 26 mmol/L (10:30) BUN: 17 mg/dL (10:30) Calcium: 9.4 mg/dL (10:30) Chloride: 102 mmol/L (10:30) Creatinine-Blood: 1.2 mg/dL (10:30) Estimated GFR Creatinine: 67 ML/MIN/1.73 M2 (10:30) Glucose Level:??217 mg/dL??High (10:30) Potassium: 5 mmol/L (10:30) Sodium: 142 mmol/L (10:30) ?? Coagulation Profile?? No qualifying data available. ?? LFT?? No qualifying data available. ?? Urinalysis?? No qualifying data available. ? Blood Gases?? No qualifying data available. ?? Uric/LDH?? No qualifying data available. ? EKG study * Event Display: ECG 12-Lead Authored Date: Please click on pdf link to open report * Event Display: ECG 12-Lead Authored Date: Ventricular Rate: 93 BPM Atrial Rate: 93 BPM P-R Interval: 196 ms QRS Duration: 100 ms Q-T Interval: 354 ms QTC Calculation(Bazett): 440 ms P [place]: 76 degrees R [place]: -5 degrees T [place]: 80 degrees Normal sinus rhythm Normal ECG When compared with ECG of 13-JAN-2020 11:00, Premature atrial complexes are no longer Present Confirmed by JOAQUÍN MOORE MD ([id number]) on 06/16/2022 11:03:23 AM Reeders: JOAQUÍN MOORE MD US Heart * Event Display: Echocardiogram - Complete Authored Date: Transthoracic Echocardiography Report (TTE) Patient Demographics Patient Name JOON MCCLENDON Date of Study 06/19/2022 Corporate Gender Male [facility], [place] Race Ethnicity or Date of 1950 Height: 66.14 inches Age 72 year(s) Weight: 178.58 pounds Accession Number [id number] BSA: 1.91 m2 Room Number [id number] BMI: 28.7 kg/m2 Referring Physician Not on Staff Interpreting Angel Miller MD Referring MD Physician Anil ANTONIO Building Manager Sofia Jaramillo RCS Indications Heart failure. Clinical History Hypertension. Diabetes Mellitus. Hyperlipidemia. Study Data Type of Study TTE procedure:Echo Complete-(Doppler, Colorflow) with Contrast. Procedure Information:Definity was administered by Sofia Jaramillo Study Date06/19/2022 Start Time: 07:31 AM Study Location: [facility] [place] Study Status: Echo lab Patient Status: Routine Technical Quality: Technically difficult due to body habitus. Blood Pressure:144/80 mmHg EKG: Normal sinus rhythm HR: 54 bpm Contrast Medium: Definity. Amount - 2 ml 2D Measurements LV Diastolic Dimension: 4.5 cm LV Systolic Dimension: 3.1 cm LV Septum Diastolic: 1.4 cm LV PW Diastolic: 1.1 cm AO Root Dimension: 3.5 cm LA ESV (BP):39 ml LVOT Stroke Volume: 81.93 ml LA ESV Index: 20 ml/m2 Stroke Volume Index42.9 ml/m2 LVOT: 2.5 cm Cardiac Index:2.31 l/min/m2 Ascending Aorta:3.4 cm Doppler Measurements AV Peak Velocity: 213 cm/s MV Peak E-Wave: 59.5 cm/s AV Peak Gradient: 18.15 mmHg MV Peak A-Wave: 93.9 cm/s AV Mean Gradient: 9 mmHg MV E/A Ratio: 0.63 AV VTI:47.6 cm MV P1/2t: 52 msec LVOT Peak Velocity: 92 cm/s LVOT VTI16.7 cm MV Deceleration Time: 176 msec AV Area (Continuity):1.72 cm2 MV Area (PHT): 4.23 cm2 E' Septal Velocity: 4.9 cm/s E' Lateral Velocity: 5.11 cm/s E/Med E':12.76393 E/Lat E':11.86033 Cardiac Anatomy Left Ventricle/Interventricular Septum The left ventricular size is normal. The left ventricular wall thickness is upper normal. There is mild to moderate discrete upper septal thickening. The LV systolic function is low normal . The left ventricular ejection fraction is 50-55 %. There are no regional wall motion abnormalities. Normal diastolic function. Left Atrium/Interatrial Septum The left atrium is normal in size. Aortic Valve The aortic valve is poorly visualized. The aortic valve appears moderately thickened and calcified. There is mild aortic stenosis with a peak gradient of 18mmHg, a mean gradient of 11mmHg and a calculated valve area of 1.8cm2. The obstructive index is 0.43. There is trace aortic regurgitation. Mitral Valve The mitral valve appears normal . There is trace mitral regurgitation. Aorta The aortic root is normal in size. The ascending aorta is at the upper limit of normal. Right Ventricle The right ventricle is upper normal in size. Right ventricular systolic function is normal. Right Atrium The right atrium is normal in size. Pulmonic Valve The pulmonic valve is poorly visualized. Tricuspid Valve The tricuspid valve appears normal . There is trace tricuspid valve regurgitation. Pumonary Artery An accurate pulmonary artery pressure could not be obtained. Venous Structures The inferior vena cava appears normal. Pericardium/Extracardiac There is no pericardial effusion. Summary The left ventricular size is normal. The left ventricular wall thickness is upper normal. There is mild to moderate discrete upper septal thickening. The LV systolic function is low normal . The left ventricular ejection fraction is 50-55 %. There are no regional wall motion abnormalities. Normal diastolic function. The right ventricle is upper normal in size. Right ventricular systolic function is normal. The aortic root is normal in size. The ascending aorta is at the upper limit of normal. The aortic valve is poorly visualized. The aortic valve appears moderately thickened and calcified. There is mild aortic stenosis with a peak gradient of 18mmHg, a mean gradient of 11mmHg and a calculated valve area of 1.8cm2. The obstructive index is 0.43. There is trace aortic regurgitation. The inferior vena cava appears normal. An accurate pulmonary artery pressure could not be obtained. Comparison No prior study available for comparison. Signature * Event Display: Echocardiogram - Complete Authored Date: [facility] Progress note * Mone Minor LPN: PERFORM, MODIFY, SIGN, VERIFY Event Display: Progress [facility] Authored Date: Patient: JOON MCCLENDON Age: 72 years Sex: Male : 1950 Associated Diagnoses: None Author: Mone Minor LPN Findings Narrative/Incidental A+O x4 full code. Medications taken whole with water. Clear lung sounds with SOB on excretion. Occasional productive cough noted. Tolerating diabetic carb diet well with POC before meals and lispro sliding scale. Pt taken for echo at start of shift this am. Discharge order placed. IV pulled. Discharge instructions reviewed with pt. Pt states son will pick him up after 1400. Pt independently dressed himself. Pt walked off unit with belongings. . * Joaquín Morillo RN: PERFORM, MODIFY, SIGN, VERIFY Event Display: Progress Note Hospital Authored Date: Patient: JOON MCCLENDON Age: 72 years Sex: Male : 1950 Associated Diagnoses: None Author: Joaquín Morillo RN Findings Problem Related to Alteration in Endocrine : Alteration in Endocrine Function/new 06/19/2022 5:00 EDT Alteration in Endocrine Related to Diabetes Goals & Outcomes, Endocrine Blood glucose levels will stabilize during hospitalization, Pt willreceive/maintain adequate nutrition status, Pt will maintain adequate GI/ function appropriate for pt, Pt will be maintained on sc insulin & appropriate diet, Pt will be rehydrated, Pt will resume regular activities Interventions, Endocrine Assess skin turgor, temperature & capillary refill, Consider Dieticianconsult; review recommendations, Maintain IV access, Maintain strict I&O, Monitor & document daily weight, Teach Pt/caregiver use of home glucose monitoring, Assess & monitor for insulin effects; hypoglycemia, Assess dietary intake before onset of DKA, Assess for hyper/hypokalemia; monitor ECG for changes BH Goals/Interventions, Endocrine Yes Endocrine, Problem Start 06/19/2022 5:16 Reviewed Plan with, Endocrine Patient Patient Progression, Endocrine Plan Initiation . Nursing Data Cardiac Data. : Cardiac Data. 06/19/2022 1:28 EDT Cardiovascular WNL . Gastrointestinal Data. : Gastrointestinal Data. 06/19/2022 1:28 EDT Gastrointestinal Symptoms Constipation Abdomen Soft, Non-tender Bowel Sounds LUQ Present Bowel Sounds RUQ Present Bowel Sounds LLQ Present Bowel Sounds RLQ Present GI WNL except . Genitourinary Data. : Genitourinary Data. 06/19/2022 1:28 EDT WNL . HEENT Data. : HEENT Assessment 06/19/2022 1:28 EDT HEENT, Adult WNL . Integumentary Data. : Integumentary Data. 06/19/2022 1:28 EDT Skin Color Normal for ethnicity Skin Integrity Not intact Activity Walks occasionally Mobility No limitations Wound Type I Diabetic foot ulcer Wound Location I Leg, right lower Integumentary WNL except 06/18/2022 18:56 EDT Sensory Perception Slightly limited Moisture Rarely moist Activity Walks frequently Mobility No limitations Nutrition Excellent Friction and Shear No apparent problem Colt Score 22 Nursing Care Plan initiated/updated Not applicable Integumentary WNL . IV Lines. : IV Lines. 06/19/2022 5:14 EDT Left Forearm 20 gauge 1 inch Peripheral IV Activity: Assess Peripheral IV Assess Compare Touch: A/C/T Done, no complications Peripheral IV Site Assessment: Clean, dry and intact . Musculoskeletal Data. : Musculoskeletal Data. 06/19/2022 1:28 EDT Musculoskeletal Symptoms Weakness Musculoskeletal WNL except . Neurological Data. : Neurological Data. 06/19/2022 1:28 EDT Neuro WNL . Respiratory/Pulmonary Data. : Respiratory/Pulmonary Data. 06/19/2022 1:28 EDT Respiratory Symptoms None Respiratory effort Unlabored Accessory Muscles use No Cough Productive Respiratory pattern Regular Left Upper Lobe Breath Sounds Diminished, Clear Right Upper Lobe Breath Sounds Clear, Diminished Right Middle Lobe Breath Sounds Diminished, Clear Left Lower Lobe Breath Sounds Clear, Diminished Right Lower Lobe Breath Sounds Clear, Diminished Respiratory distress None Respiratory Treatment(s) Cough and deep breathe, Updraft Nebulizer Therapy/MDI Respiratory WNL except . Vital Signs : VITAL SIGNS SECTION 06/19/2022 0:00 EDT Temperature 97.8 DegF Temperature Route Oral Pulse Rate 74 bpm Respiratory Rate 18 br/min Systolic Blood Pressure 142 mm Hg H Diastolic Blood Pressure 82 mm Hg Blood pressure sites Arm, right Oxygen Saturation 95 % . Narrative/Incidental (Patient A & O x 3 VSS on RA stating good. Patient ambulatory in room and is pleasant and cooperative with care. Patient currently awaiting echo prior to eing discharged for a heart murmur. Patient slept soundly through the night with no issues and all safety measures were maintain during night. Patient primary language is ghanaian abut can communicate in uzbek if need be. Will continue to monitor.) * Flora Linder: VERIFY, PERFORM, SIGN Event Display: Progress Note Hospital Authored Date: [id number] Patient: JOON MCCLENDON Age: 72 years Sex: Male : 1950 Associated Diagnoses: None Author: Flora Linder Findings Nursing Data Vital Signs : VITAL SIGNS SECTION 06/18/2022 7:22 EDT Temperature 97.7 DegF Temperature Route Oral Pulse Rate 64 bpm Respiratory Rate 17 br/min Systolic Blood Pressure 122 mm Hg Diastolic Blood Pressure 66 mm Hg Blood pressure sites Arm, left Mean Arterial Pressure 85 mm Hg Pulse Pressure 56 mm Hg Oxygen Saturation 100 % Liters per Minute 3 L/min Mode of Delivery (Oxygen) Nasal cannula . Narrative/Incidental Patient alert and oriented x4. Citizen Of [place] speaking , wind technician utilized during medication pass. Patient reporting constipation. Patient asking to ambulate to bathroom with oxygen. Weaned to room air, patient ambulating with no shortness of breath. Patient awaiting echo. Able to make needs known, callbell within reach. . Note * Mone Minor LPN: PERFORM Event Display: Discharge/Transfer Note Hospital Authored Date: [id number] Nursing Discharge Note Entered On: 06/19/2022 14:43 EDT Performed On: 06/19/2022 14:42 EDT by Mone Minor LPN Nursing Discharge Note 2 Discharge Time : 06/19/2022 14:42 EDT Discharge Level of Care at Discharge : Home/[facility] Patient Left Unit Via : Ambulatory Patient Accompanied Off Unit with : Responsible adult DC Instructions Provided & Signed by Pt : Yes Patient Understands D/C Instructions : Yes Patient Instructions Discharge Signed : Yes Did Pt have Specialty Bed or Wound Vac : No Mone Minor LPN - 06/19/2022 14:42 EDT * Natalie Santamaria: PERFORM Event Display: Discharge/Transfer Note Hospital Authored Date: [id number] Patient: ??JOON MCCLENDON ? Age:??72 Years?Sex:??Male?:??1950?? Patient Information Discharge Location: A Primary Care Physician: David Hess MD Admit Date/Time: 06/16/22 14:49 Discharge Date:??06/19/2022 10:01 Discharge Disposition Discharge Disposition: Home: No Services Discharge Diagnosis Acute hypoxemic respiratory failure (J96.01) Viral URI with cough (J06.9) Aortic stenosis (I35.0) _ Discharge Medications Acetaminophen (Tylenol 8 HR Arthritis Pain 650 mg oral tablet, extended release)?2?tab(s)?1,300?Milligram?By Mouth?Every 12 hours Atorvastatin (atorvastatin 20 mg oral tablet)?See Instructions?MARCY 1 TABLETA POR LA BOCA CADA JESSE dulaglutide (Trulicity Pen 0.75 mg/0.5 mL subcutaneous solution)?See Instructions?INYECTAR 0.5ML SUBCUTANEO CADA SEMANA LUIS INDICADO. ROTAR LOS SITIOS DE INYECCION Durable Medical Equipment (Freestyle Lite Test Strips)?See Instructions?for 30?Days?USEBID TO TID for Type 2 Diabetes MellitusDX:E11.65 Durable Medical Equipment (One Touch UltraSoft Lancets)?See Instructions?use BID for DM 2 Durable Medical Equipment (Pen Drake, 31 G x 8 mm BD Ultra Fine III)?See Instructions?for 30?Days?use as directed for Type 2 Diabetes Mellitus Durable Medical Equipment (One Touch Ultra Test Strips)?See Instructions?use BID for DM 2 Durable Medical Equipment (One Touch UltraSmart Glucose Meter)?See Instructions?use BID for DM 2 Guaifenesin/Dextromethorphan (GuaiFENesin DM 10 mg-100 mg/5 mL oral liquid)?10?Milliliter?By Mouth?Every 6 hours Insulin Glargine (Lantus Solostar Pen 100 units/mL subcutaneous solution)?See Instructions?INYECTAR 20 UNIDADES DEBAJO DE LA PIEL DOS VECES AL JESSE Lisinopril (lisinopril 20 mg oral tablet)?See Instructions?MARCY 1 TABLETA POR LA BOCA CADA JESSE Metformin (metFORMIN 1000 mg oral tablet)?1?tab(s)?By Mouth?2 times a day Mirtazapine (mirtazapine 15 mg oral tablet)?See Instructions?MARCY 1 TABLETA POR LA BOCA CADADIA A LA HORA DE DORMIR Miscellaneous Rx (BD SHORT PEN NDL 82On1lf 31GX5/16 NEDL)?See Instructions?USAR LUIS INDICADO Polyethylene Glycol 3350 (MiraLax oral powder for reconstitution)?17?gram?By Mouth?Daily?dissolve in water before taking PredniSONE (predniSONE 20 mg oral tablet)?2?tab(s)?40?Milligram?By Mouth?Daily?for 2?Days Tamsulosin (tamsulosin 0.4 mg oral capsule)?See Instructions?MARCY 1 CAPSULA POR LA BOCA CADADIA zoster vaccine, inactivated (Shingrix intramuscular injection)?0.5?Milliliter?Intramuscular?Once?repeat dose in 2 to 6 months Medications Started Prednisone 40 mg x2 days Medications Discontinued None Doses Changed None Allergies Allergies ?(Active and Proposed Allergies Only) NKA? (Severity: Unknown severity, Onset: Unknown) PCP Follow-Up/Heads-Up 1. Patient found to have mild aortic stenosis. Could consider yearly echocardiogram for continued follow up. Future Appointments Saturday 2:30 PM EDT ?? With: David Hess MD Where: [place] [address]- Hospital Course Ms. Mcclendon is a 72-year-old gentleman with past medical hypertension, insulin- dependent diabetes, hyperlipidemia, recently history URI presented to the emergency room with worsening shortness of breath and cough, admitted for acute hypoxic respiratory failure likely secondary to asthma/COPD exacerbation likely in the setting of viral URI. He was eventually weaned to room air and symptomatically feels improved. He was found to have a murmur, echo was completed showing mild with a valve area of 1.8cm2 and peak gradient of 18 mmHg, low normal EF of 50-55%. He was instructed to follow up withhis PCP for ongoing monitoring/echo. On the day of discharge, the patient reports feeling well, hasno acute complaints and is eager for discharge. At this time, he is safe and stable for discharge with close and appropriate follow up care. ?? See below for problem focused plan: Objective Acute hypoxic respiratory failure likely secondary suspected viral URI Former cigarette smoker Recent URI about a month ago, since then??not completely recovered p/w??with worsening shortness ofbreath and cough CXR unremarkable, afebrile, no leukocytosis History of smoking, quit ~40 years ago, no formal diagnosis of COPD/asthma - Continue prednisone 40 mg daily x5 days - Incentive spirometer - Outpatient PFTs requested ? Mild aortic stenosis Evident on exam, no echo on file, no history of heart failure Does report worsening GARCIA as of lately, no orthopnea or PND Echo was completed showing mild with a valve area of 1.8cm2 and peak gradient of 18 mmHg, low normal EF of 50-55% - PCP follow up - Consider yearly echo ? Chronic, stable or resolved medical conditions: HTN: Normotensive now, continue home Lisinopril Type 2 DM: HbA1c 8.4% this admission. Home regimen includes Lantus 20 U BID, Trulicity, Metformin 1000mg BID. Continue home Lantus 20 units BID, metformin and Trulicity BPH: Continue??Flomax Insomnia: Continue mirtazapine Hyperlipidemia: Continue statin Chronic kidney disease: Baseline creatinine around 1.2, now at baseline. . Physical Exam Constitutional: 72 year old Citizen Of [place] speaking male, alert, in no??acute distress. Mental Status: Oriented to person, place and time. Respiratory: Clear to auscultation, diffusely diminished. No wheezing, rales or rhonchi. Breathing comfortably on 3 L via NC Cardiovascular: RRR, S1 S2 regular. 2/6 systolic murmur, no LE edema or JVD. Gastrointestinal: Abdomen soft, non-tender, non-distended. Normal bowel sounds. Neurologic: No focal deficits. Patient Education Titles Pulmonary Function Tests?? Prednisone Oral Tablet?? Follow-Up Appointments Added Follow Up ?Time Frame ?Comments David Hess MD?Within two weeks Patient Instructions Diagnosis: -Shortness of breath -Suspected viral illness -Aortic stenosis ?? Important results: -Your echo showed mild narrowing of your aortic valve ?? Further instructions: -Viral illness: You will complete two additional days of prednisone (steroid). I have requested lung function tests, they should call you to arrange this appointment. -Aortic stenosis: You have mild narrowing of one of your valves. You should have a routine echocardiogram once a year to follow up on this. ?? Medication changes: -New: Prednisone 40 mg daily for 2 days -No other changes to your home medications ? It was a pleasure caring for you, I am glad you are feeling better! Please follow up with your PCP in the next 1-2 weeks for a post-hospitalization follow up Post Discharge Care Diet: Diabetic Diet Activity: ?? OOB as Margarito Wound Care: None Code Status: ?? Full Resuscitation Condition: Good Prognosis: Good Discharge ?after electrolytes return, can go to S3, ??06/19/22 10:01:00 EDT Discharge Prescriptions ?ePrescribed, ??06/19/22 10:01:00 EDT Home Health Face to Face ^HomeHealthFTF Results Discharge Labs BLOOD COUNT & DIFF WBC 11.0 k/mm3 ()?? 06/19/2022 00:13 RBC 4.27 m/mm3 (Low)?? 06/19/2022 00:13 Hgb 11.9 Gm/dL (Low)?? 06/19/2022 00:13 Hct 38.4 % (Low)?? 06/19/2022 00:13 MCV 89.9 femtoliters ()?? 06/19/2022 00:13 MCH 27.9 pg ()?? 06/19/2022 00:13 MCHC 31.0 g/dL (Low)?? 06/19/2022 00:13 Platelet Count 226 k/mm3 ()?? 06/19/2022 00:13 RDW-SD 40.6 femtoliters ()?? 06/19/2022 00:13 MPV 10.5 femtoliters ()?? 06/19/2022 00:13 Nucleated RBC (Automated) 0.0 #/100 WBC'S ()?? 06/19/2022 00:13 Abs. NRBC 0.0 k/mm3 ()?? 06/19/2022 00:13 Abs. Neut 6.0 k/mm3 ()?? 06/16/2022 10:30 Abs. Lymph 0.6 k/mm3 (Low)?? 06/16/2022 10:30 Abs. Ritchie 0.5 k/mm3 ()?? 06/16/2022 10:30 Abs. Eo 0.1 k/mm3 ()?? 06/16/2022 10:30 Abs. Baso 0.0 k/mm3 ()?? 06/16/2022 10:30 Neut % 82.6 % (High)?? 06/16/2022 10:30 Lymph % 8.4 % (Low)?? 06/16/2022 10:30 Ritchie % 6.4 % ()?? 06/16/2022 10:30 Eos % 1.8 % ()?? 06/16/2022 10:30 Baso % 0.4 % ()?? 06/16/2022 10:30 Imm Gran 0.4 % ()?? 06/16/2022 10:30 Abs. Imm Gran 0.0 k/mm3 ()?? 06/16/2022 10:30 ?? CARDIAC Nt-Probnp 494 pg/mL (High)?? 06/17/2022 00:10 ? CHEM GENERAL Sodium 141 mmol/L ()?? 06/19/2022 00:13 Potassium 5.4 mmol/L (High)?? 06/19/2022 00:13 Chloride 102 mmol/L ()?? 06/19/2022 00:13 Bicarbonate Level 30 mmol/L (High)?? 06/19/2022 00:13 Anion Gap 9 ()?? 06/19/2022 00:13 Glucose Level 153 mg/dL (High)?? 06/18/2022 05:44 Glucose, POC 116 mg/dL (High)?? 06/19/2022 08:09 Hemoglobin A1C (Monitoring) 8.4 % (High)?? 06/17/2022 00:10 BUN 29 mg/dL (High)?? 06/19/2022 00:13 Creatinine-Blood 1.2 mg/dL ()?? 06/19/2022 00:13 Estimated GFR Creatinine 67 ML/MIN/1.73 M2 ()?? 06/19/2022 00:13 Calcium 9.3 mg/dL ()?? 06/17/2022 00:10 Phosphorus 3.8 mg/dL ()?? 06/19/2022 00:13 Magnesium 2.1 mg/dL ()?? 06/19/2022 00:13 Lactate 1.7 mmol/L ()?? 06/16/2022 11:16 ? HEME OTHER Hold Lavender Top SPECIMEN DISCARDED AFTER 24 HOURS. ()?? 06/16/2022 11:16 Hold Blue Top SPECIMEN DISCARDED AFTER 4 HOURS. ()?? 06/16/2022 11:16 ?? MISC. CHEMISTRY Hold Green Top SPECIMEN DISCARDED AFTER 1 WEEK ()?? 06/16/2022 11:16 Hold Gel Top SPECIMEN DISCARDED AFTER 1 WEEK ()?? 06/16/2022 11:16 ?? URINE OTHER Est Creatinine Clearance 49.73 mL/min ()?? 06/19/2022 03:49 ? VIROLOGY COVID-19 POC Result NEGATIVE ()?? 06/16/2022 10:01 ? Imaging(s) ?Chest Portable ?? 06/16/2022 12:20??by Marty Morris MD ?IMPRESSION: ?? No acute abnormality. ?Echocardiogram - Complete ?? 06/19/2022 07:31??by Angel Miller MD ?Summary ??The left ventricular size is normal. ??The left ventricular wall thickness is upper normal. ??There is mild to moderate discrete upper septal thickening. ??The LV systolic function is low normal . ??The left ventricular ejection fraction is 50-55 %. ??There are no regional wall motion abnormalities. ??Normal diastolic function. ??The right ventricle is upper normal in size. ??Right ventricular systolic function is normal. ??The aortic root is normal in size. ??The ascending aorta is at the upper limit of normal. ??The aortic valve is poorly visualized. ??The aortic valve appears moderately thickened and calcified. There is mild ??aortic stenosis with a peak gradient of 18mmHg, a mean gradient of 11mmHg ??and a calculated valve area of 1.8cm2. The obstructive index is 0.43. ??There is trace aortic regurgitation. ??The inferior vena cava appears normal. ??An accurate pulmonary artery pressure could not be obtained. ?? Comparison ??No prior study available for comparison. ? 32??minutes spent on discharge * Gypsy Goodman RN: PERFORM Event Display: Patient Education/Instruction Authored Date: [id number] Inpatient Adult Discharge Instructions [address] [address] Name: JOON MCCLENDON : 1950 Visit: 06/16/2022 14:49:00 Current Date: 06/19/2022 11:44 Account: [id number] Inpatient Adult Discharge Instructions We would like to thank you for allowing us to assist you with your healthcare needs. The following includes patient education materials and information regarding your injury/illness. Our entire staffstrives to provide an excellent experience for our patients and their families. PLEASE ENSURE YOU FOLLOW-UP PER THE INSTRUCTIONS BELOW! ?? YOUR OPINION IS IMPORTANT TO US! Please complete the survey you may receive by mail or email. Your feedback will be used to make improvements to the healthcare experiences of our patients and their families. Surveys are administered by [employer] ?? If further treatment with your primary care physician or another doctor is recommended, it is important for you to keep the appointment. Call your primary care physician or return to the Emergency Department immediately if your condition worsens, fails to improve, or new symptoms develop. If you need to find a doctor, you can call [facility] for a referral at [phone] or toll free at [phone]) or log in to [email or web address].. ?? You can view and manage your care through the patient portal or by using a health care maldonado of your choosing. [employer] is a website that allows you to securely view your medical information including your hospital discharge summary, office visit summaries, medications and follow-up visits. You can also request appointments, renew medications, and request access to your medical information using a health care maldonado of your choosing, or just ask a question. You can enroll at [email or web address] or register during your next office visit. You have been discharged from [facility], Patient Care Unit: D6A. If you have any questions regarding these instructions after you leave, please call us and we will be happy to assist you. [facility] Your Care Team Attending Physician Miles STANTON, Joan Pitt Discharging Providers Natalie Santamaria Reason for Your Visit Shortness of breath Your Diagnosis Shortness of breath Acute hypoxemic respiratory failure Viral URI with cough Aortic stenosis Tests Performed Below is a partial list of the tests performed during your hospitalization. You may have had other tests and procedures not included in this list. Please discuss all test results with your provider. Basic Metabolic Panel BUN CBC CBC w/ Differential COVID-19 RNA POC Creatinine Electrolytes Glucose Level GLUCOSE POC HEMOGLOBIN A1C HOLD BLUE TUBE HOLD GEL TUBE HOLD GREEN TUBE HOLD LAVENDER TUBE Lactic Acid Level Magnesium Level Phosphorus Level Potassium Level PROBNP XR Chest Portable Primary Care Provider David Hess MD Advance Directive . Discharge Vitals Temperature: 97.2 DegF Height: 168 cm Pulse Rate: 62 bpm Weight: 81 kg Respiratory Rate: 17 br/min Body Mass Index:??28.7 kg/m2??High Systolic Blood Pressure:??157 mm Hg??High Body surface area: 1.94 Diastolic Blood Pressure: 82 mm Hg ?? Oxygen Saturation: 96 % ?? Studies Pending All tests and labs ordered during this hospital stay have been completed unless listed below. Please discuss all pending results with your provider listed above in these instructions. ?? Add On Lab Order Blood Culture Blood Culture #2 What to do next Instructions From Your Doctor Diagnosis: -Shortness of breath -Suspected viral illness -Aortic stenosis ?? Important results: -Your echo showed mild narrowing of your aortic valve ?? Further instructions: -Viral illness: You will complete two additional days of prednisone (steroid). I have requested lung function tests, they should call you to arrange this appointment. -Aortic stenosis: You have mild narrowing of one of your valves. You should have a routine echocardiogram once a year to follow up on this. ?? Medication changes: -New: Prednisone 40 mg daily for 2 days -No other changes to your home medications ? It was a pleasure caring for you, I am glad you are feeling better! Please follow up with your PCP in the next 1-2 weeks for a post-hospitalization follow up Discharge Orders Diet:??Diabetic Diet Activity:?? OOB as Margarito Wound Care:??None Code Status:?? Full Resuscitation Condition:??Good Prognosis:??Good Scheduled Follow-Up Appointments Saturday 2:30 PM EDT ?? With: David Hess MD Where: [address] [address]- You Need to Schedule the Following Appointments Follow Up with??David Hess MD When??Within Within two weeks Where: [address] [place] [id number]- Discharge Medications JOON MCCLENDON :1950 Visit Date:06/16/2022 Medications: Please continue your medications until treatment is completed or stopped by your provider. Medications not listed below should be discontinued. Discuss any questions related to medications with your provider. What How Much When Instructions Next Dose New PredniSONE (predniSONE 20 mg oral tablet) 2 tab(s) Oral Daily Duration: 2 Days Pickup at [facility] 3 06/20/22 am Unchanged Acetaminophen (Tylenol 8 HR Arthritis Pain 650 mg oral tablet, extended release) 2 tab(s) Oral Every 12 hours 06/19/22 8pm Unchanged Atorvastatin (atorvastatin 20 mg oral tablet) See instructions MARCY 1 TABLETA POR LA BOCA CADA JESSE ?? As directed Unchanged dulaglutide (Trulicity Pen 0.75 mg/ 0.5 mL subcutaneous solution) See instructions INYECTAR 0.5ML SUBCUTANEO CADA SEMANA LUIS INDICADO. ROTAR LOS SITIOS DE INYECCION ?? As directed Unchanged Durable Medical Equipment (Freestyle Lite Test Strips) See instructions Duration: 30 Days USE BID TO TID for Type 2 Diabetes Mellitus DX:E11.65 ?? Unchanged Durable Medical Equipment (One Touch Ultra Test Strips) See instructions use BID for DM 2 ?? Unchanged Durable Medical Equipment (One Touch UltraSmart Glucose Meter) See instructions use BID for DM 2 ?? Unchanged Durable Medical Equipment (One Touch UltraSoft Lancets) See instructions use BID for DM 2 ?? Unchanged Durable Medical Equipment (Pen Drake, 31 G x 8 mm BD Ultra Fine III) See instructions Duration: 30 Days use as directed for Type 2 Diabetes Mellitus ?? Unchanged Guaifenesin/ Dextromethorphan (GuaiFENesin DM 10 mg-100 mg/ 5 mL oral liquid) 10 Milliliter Oral Every 6 hours 06/19/22 4pm Unchanged Insulin Glargine (Lantus Solostar Pen 100 units/ mL subcutaneous solution) See instructions INYECTAR 20 UNIDADES DEBAJO DE LA PIEL DOS VECES AL JESSE ?? Unchanged Lisinopril (lisinopril 20 mg oral tablet) See instructions MARCY 1 TABLETA POR LA BOCA CADA JESSE ?? As directed Unchanged Metformin (metFORMIN 1000 mg oral tablet) 1 tab(s) Oral Twice a day 06/19/22 pm Unchanged Mirtazapine (mirtazapine 15 mg oral tablet) See instructions MARCY 1 TABLETA POR LA BOCA CADA JESSE A LA HORA DE DORMIR ?? 06/19/22 at bedtime Unchanged Miscellaneous Rx (BD SHORT PEN NDL 50Bi5wp 31GX5/ 16 NEDL) See instructions USAR LUIS INDICADO ?? Unchanged Polyethylene Glycol 3350 (MiraLax oral powder for reconstitution) 17 gram Oral Daily dissolve in water before taking ?? Pickup at [facility] 3 06/20/22 am Unchanged Tamsulosin (tamsulosin 0.4 mg oral capsule) See instructions MARCY 1 CAPSULA POR LA BOCA CADA JESSE ?? 06/20/22 am Unchanged zoster vaccine, inactivated (Shingrix intramuscular injection) 0.5 Milliliter Intramuscular Once repeat dose in 2 to 6 months ?? Pharmacy Information [facility] 3: [address], [place] [id number] [phone] Test Results Below is a partial list of the most recent Laboratory test results done prior to this discharge. You may have had other tests and procedures not included in this list. Please discuss all test resultswith your provider. Est Creatinine Clearance - 49.73 mL/min (06/19/2022) Basic Metabolic Panel (06/17/2022) ???Sodium - 140 mmol/L???Potassium - 4.2 mmol/L???Chloride - 101 mmol/L???Bicarbonate Level - 28 mmol/L???Anion Gap - 11???Glucose Level - 371 mg/dL???BUN - 23 mg/dL???Creatinine-Blood - 1.3 mg/dL???Estimated GFR Creatinine - 59 ML/MIN/1.73 M2???Calcium - 9.3 mg/dL BUN (06/19/2022) ???BUN - 29 mg/dL CBC (06/19/2022) ???WBC - 11.0 k/mm3???RBC - 4.27 m/mm3???Hgb - 11.9 Gm/dL???Hct - 38.4 %???MCV - 89.9 femtoliters???MCH - 27.9 pg???MCHC - 31.0 g/dL???Platelet Count - 226 k/mm3???RDW-SD - 40.6 femtoliters???MPV - 10.5 femtoliters???Nucleated RBC (Automated) - 0.0 #/100 WBC'S???Abs. NRBC - 0.0 k/mm3 CBC w/ Differential (06/16/2022) ???WBC - 7.3 k/mm3???RBC - 4.31 m/mm3???Hgb - 12.6 Gm/dL???Hct - 38.8 %???MCV - 90.0 femtoliters???MCH - 29.2 pg???MCHC - 32.5 g/dL???Platelet Count - 194 k/mm3???RDW-SD - 40.2 femtoliters???MPV - 9.9 femtoliters???Nucleated RBC (Automated) - 0.0 #/100 WBC'S???Abs. NRBC - 0.0 k/mm3???Abs. Neut - 6.0 k/mm3???Abs. Lymph - 0.6 k/mm3???Abs. Ritchie - 0.5 k/mm3???Abs. Eo - 0.1 k/mm3???Abs. Baso - 0.0 k/mm3???Neut % - 82.6 %???Lymph % - 8.4 %???Ritchie % - 6.4 %???Eos % - 1.8 %???Baso % - 0.4 %???Imm Gran - 0.4 %???Abs. Imm Gran - 0.0 k/mm3 COVID-19 RNA POC (06/16/2022) ???COVID-19 POC Result - NEGATIVE Creatinine (06/19/2022) ???Creatinine-Blood - 1.2 mg/dL???Estimated GFR Creatinine - 67 ML/MIN/1.73 M2 Electrolytes (06/19/2022) ???Sodium - 141 mmol/L???Potassium - 5.4 mmol/L???Chloride - 102 mmol/L???Bicarbonate Level - 30 mmol/L???Anion Gap - 9 Glucose Level (06/18/2022) ???Glucose Level - 153 mg/dL GLUCOSE POC (06/19/2022) ???Glucose, POC - 116 mg/dL HEMOGLOBIN A1C (06/17/2022) ???Hemoglobin A1C (Monitoring) - 8.4 % HOLD BLUE TUBE (06/16/2022) ???Hold Blue Top - SPECIMEN DISCARDED AFTER 4 HOURS. HOLD GEL TUBE (06/16/2022) ???Hold Gel Top - SPECIMEN DISCARDED AFTER 1 WEEK HOLD GREEN TUBE (06/16/2022) ???Hold Green Top - SPECIMEN DISCARDED AFTER 1 WEEK HOLD LAVENDER TUBE (06/16/2022) ???Hold Lavender Top - SPECIMEN DISCARDED AFTER 24 HOURS. 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 Depression?? Diabetes mellitus type 2 in nonobese?? Diabetic foot ulcer?? Foot callus?? Hyperlipidemia?? Plantar fasciitis, right?? Tinea pedis?? Education Materials Below is the list of Educational Leaflet Providered with your Discharge Instructions. Preventing Common Respiratory Infections?? Pulmonary Function Tests?? Prednisone Oral Tablet?? Valuables and Belongings I fully understand and agree that [facility] accepts no responsibility for all my personal property including clothing, toilet articles, radios, jewelry, dentures, hearing aids, rings, money, or any other property that is in my possession or is brought to me after admission. I understand certain valuables may be placed in a hospital safe for a short period of time. I understand that the hospital is not liable for loss or damage due to accident, fire, or other natural occurrence while said property is in the safe. I accept full responsibility for any personal property that I keep with me, and will not hold the hospital responsible in case of loss or disappearance. I acknowledge that i have been encouraged to send valuables and belongings home. ?? Review of Valuable and Belonging List: With patient Date for Pt to Sign Valuables/Belongings: 06/19/22 11:32:00 ?? Other Discharge Information ?? Wound Assessment?? Wound Assessment?? Wound Location I: Leg, right lower Wound Type I: Diabetic foot ulcer ?? Case Management Discharge Plan?? Discharge Plan?? Discharge Rx Program: Discharge Prescription Program ?? Pulmonary Rehab Status?? Pulmonary Rehab Discharge Status?? Respiratory Rate: 17 br/min ? Common Emergency Awareness Tips IS IT A STROKE? Act FAST and Check for these signs: FACE Does the face look uneven? ARM Does one arm drift down? SPEECH Does their speech sound strange? TIME Call at any sign of stroke ?? Heart Attack Signs Chest discomfort: Most heart attacks involve discomfort in the center of the chest and lasts more than a few minutes, or goes away and comes back. It can feel like uncomfortable pressure, squeezing, fullness or pain. Discomfort in upper body: Symptoms can include pain or discomfort in one or both arms, back, neck, jaw or stomach. Shortness of breath: With or without discomfort. Other signs: Breaking out in a cold sweat, nausea, or lightheaded. Remember, MINUTES DO MATTER. If you experience any of these heart attack warning signs, call to get immediate medical attention! ?? Smoking can increase your chances of developing chronic health problems and can cause harmful effects to other family members in your house. If you smoke, you are strongly encouraged to quit. Please call [facility] [employer] Link at [phone] or [phone]-[facility] ([phone]) or log in to [email or web address] for referrals to smoking cessation programs. ?? 344 Suicide & Crisis Lifeline is available 03/09 if you or someone you know needs to find a reason to keep living. By calling 195 you'll be connected to a skilled, trained counselor at a crisis center in your area. INPATIENT DISCHARGE INSTRUCTIONS SIGNATURE PAGE HAKAN JOON Location:[facility] Registration Date and Time:06/16/2022 14:49 EDT Primary Care Physician: David Hess MD, I JOON MCCLENDON, have received the above patient education materials/instructions and have verbalized understanding. If ambulance or transport services are being used I further acknowledge being given a choice of service. ?? If you need to contact me, please call me at this number: . Patient/Freight Team Associate Name: Patient/Freight Team Associate Signature: Relationship to Patient: Witness Name/Signature: Date: * Gypsy Goodman RN: PERFORM Event Display: Patient Education Leaflets Authored Date: [id number] Preventing Common Respiratory Infections ?? [address] Prevenci??n de las infecciones respiratorias frecuentes Las infecciones respiratorias pedro los resfriados y la gripe??(influenza) son muy frecuentes. A menudo, las infecciones respiratorias son causadas por virus. Pueden presentar varios s??ntomas comunes. Osmani no todas las infecciones respiratorias son iguales. Algunas son enfermedades m??s graves que otras. Usted puede marcy medidas para prevenir las infecciones respiratorias frecuentes. Y si llega a enfermarse, puede cuidarse a s?? mismo para impedir que valerio infecci??n empeore. ??Qu?? es un resfriado? Los s??ntomas del resfriado pueden incluir goteo y congesti??n nasal, tos, estornudos y dolor de garganta. Los s??ntomas del resfriado suelen ser m??s leves que los de la gripe. ??? Los s??ntomas tienden a manifestarse lentamente. Pueden durar entre varios d??as y ritu semana. ??? Con un resfriado, es probable que se sienta capaz de seguir con valerio rutina habitual. ??? Los resfriados pueden transmitirse de ritu persona a otra. Siga las sugerencias que se muestran a continuaci??n para evitar la transmisi??n de los g??rmenes. ?Qu?? es la gripe? Los s??ntomas de la gripe son fiebre, escalofr??os, dolor de yudith, cansancio extremo (fatiga), tos, dolor de garganta, goteo y congesti??n nasal, y mian musculares. Los ni??os pueden tener adem??s el est??ezio revuelto y v??mitos, osmani estos s??ntomas no suelen afectar a los adultos. ??? Los s??ntomas tienden a presentarse r??pidamente. Algunos, pedro el cansancio y latos, pueden durar varias semanas. ??? La gripe causa agotamiento y a veces impide realizar las actividades normales. ??? La gripe puede transmitirse de ritu persona a otra. Siga las sugerencias que semuestran a continuaci??n para evitar la transmisi??n de los g??rmenes. ??? Si un adulto tiene v??mitos o diarrea por annie o dos d??as, lo m??s probable es que no se trate de ritu gripe. Probablemente, sea ritu infecci??n gastrointestinal, tambi??n llamada gripe estomacal . ?? Cuando la infecci??n empeora Sin los cuidados adecuados, ritu infecci??n respiratoria puede empeorar y volverse grave. Puede derivar en complicaciones serias o muerte. Llame a valerio proveedor de atenci??n m??dica si no se siente mejor o si los s??ntomas empeoran. Algunas de las complicaciones son las siguientes: ??? Bronquitis (inf ecci??n de las v??as respiratorias que provoca falta de aire, sibilancias y expectoraci??n de mucosidad espesa de color amarillo o hardik) ??? Neumon??a, ritu infecci??n de los pulmones caracterizada por acumulaci??n de l??quido y mucosidad en los pulmones, lo que dificulta la respiraci??n. ??? Empeoramiento de afecciones cr??nicas pedro insuficiencia card??shahana, enfermedad pulmonar cr??apple, asma o diabetes ??? Deshidrataci??n (p??rdida de l??quidos) grave ??? Problemas de los senos paranasales (sinusitis) ??? Infecciones de los o??dos ?? Reciba las vacunas recomendadas Consulte con el proveedor de atenci??n m??dica qu?? vacunas son las adecuadas para usted y cu??ndo debe recibirlas. Las vacunas recomendadas pueden ser las siguientes: ??? Vacuna contra la influenza. Esta suele llamarse vacuna antigripal. Esta vacuna le michelle protecci??n contra la influenza. Vac??nese todos los a??os en el marleni??o, antes de que comience la temporada de la gripe. La gripe es m??s com??n en los [place] marlen el marleni??o y el invierno. Puede vacunarse en un centro de consultas externas, el consultorio de un proveedor de atenci??n m??dica, la farmacia, un centro para la tercera edad o ciertos lugares de trabajo. ??? Vacuna antineumoc??cica. Hay 2 vacunas contra la neumon??a neumoc??cica que protegen contra muchos tipos de neumon??a bacteriana. Hable con valerio proveedor de atenci??n m??dica acerca de estas vacunas [place] importantes. ??? Vacuna contra la COVID-19. Hay diferentes tipos de vacuna contra la COVID-19. Estas lo protegen de la COVID-19, especialmente formas graves y mortales de la enfermedad. Hable con valerio proveedor de atenci??nm??dica para obtener m??s informaci??n sobre la vacuna contra la COVID-19. ?? Evite la transmisi??n de los g??rmenes A nadie le gusta enfermarse. Los virus que causan los resfriados, la gripe y otras infecciones pueden transmitirse de ritu persona a otra. Para protegerse y proteger a los dem??s de los g??rmenes sigalas estas recomendaciones: ??? Utilice ritu mascarilla en los espacios p??blicos. ??? C??brase la nariz y la boca al toser o estornudar. Use un pa??uelo de papel o el pliegue del codo. No use las mary kay. Deseche el pa??uelo. L??vese las mary kay despu??s de toser, estornudar o soplarse la nariz. ??? L??vese las mary kay a menudo con agua corriente limpia y jab??n. L??vese por lo menos marlen 20??segundos. Cuando no tenga acceso al agua y el jab??n, use desinfectante para mary kay a base de alcohol. ??? Evite tocarse los ojos, la nariz y la boca. [place] puede ayudar a mantener los g??rmenes fuera de valerio cuerpo. ??? Evite estar cerca de personas con infecciones respiratorias. Mientras est?? enfermo, limite el contacto estrecho con otras personas. Evite las aglomeraciones de personas marlen la temporadade gripe. ??? No fume ni permita que las personas fumen en valerio casa o autom??shalonda. ?? C??mo lavarse las mary kay ??? Use agua corriente limpia y mucho jab??n. Fr??tese las mary kay hasta formar abundante espuma. ??? L??vese toda la mano, debajo de las u??as, entre los dedos y hasta la mu??eca. L??vese por lo menos marlen 20??segundos. No se limite a un lavado superficial; fr??tese sarahi la piel. Para medir el tiempo, vaishali la canci??n del pulido cumplea??os dos veces. ??? Enju??guese. Deje que el agua le corra de los dedos hacia abajo y no hacia las mu??ecas. ??? Si est?? en un cuarto de ba??o p??blico, use ritu toalla de papel para cerrar el grifo y abrir la donnell. ??? Cuando no tenga agua y jab??n, use un desinfectante para mary kay que contenga al menos un 60??% de alcohol. ?? Last Reviewed Date: 2021 ?? 2703-5514 [employer]. Todos los derechos reservados. Esta informaci??n no pretende sustituir la atenci??n m??dica profesional. S??lo valerio m??dico puede diagnosticar y tratar un problema de freddie. ?? * Natalie Santamaria: PERFORM Event Display: Patient Education Leaflets Authored Date: [id number] Pulmonary Function Tests ?? 14016 Pruebas de funci??n pulmonar Las pruebas de funci??n pulmonar (tambi??n llamadas pruebas de la funci??n respiratoria) ayudan a medir c??mo funcionan los pulmones. Miden la cantidad de aire que exhala y cu??nto tiempo tarda en expulsar todo el aire. Estas pruebas se realizan para diagnosticar afecciones pulmonares, tales pedro el asma y la enfermedad pulmonar obstructiva cr??apple (EPOC). Pueden realizarse antes y despu??s de que tome determinados medicamentos. Tambi??n se pueden usar para determinar si tiene mayor falta de aliento al hacer ejercicio. Con el tiempo, las pruebas de funci??n pulmonar pueden ayudarlos a usted y a poornima proveedores de atenci??n m??dica a saber qu?? willoughby sarahi funciona el tratamiento que recibe. La edad, el sexo, el origen ??tnico y la altura se usan para determinar los valores normales en los resultados de las pruebas. La espirometr??a, ritu prueba com??n para conocer el funcionamiento pulmonar, mide la cantidad de aire que usted puede hacer entrar en poornima pulmones y la rapidez con la que lo sopla. Valerio experiencia Ritu prueba de funci??n pulmonar completa consta de babs??partes. Es posible que le indiquen hacer todas o solo algunas de las partes. Ninguna es dolorosa. Y pueden durar entre 45 y 90??minutos. Si secansa, puede descansar entre las distintas partes de la prueba. ?? Antes de la prueba Siga todas las instrucciones que le den para prepararse. De lo contrario, es posible que la prueba se cancele. ??? Deje de fumar por, al menos, ritu hora antes de la prueba o seg??n le indiquen. ??? No ezio alcohol por, al menos, cuatro horas antes de la prueba. ??? Preg??ntele a valerio proveedor de atenci??n m??dica si debe dejar de marcy alg??n medicamento, incluso los medicamentos para la respiraci??n, entre 4 y 24??horas antes de la prueba. ??? No consuma cafe??na y solo coma algo liviano. No coma platos abundantes hasta dos horas antes de la prueba. Adem??s, limite la cantidad de l??quidos que abigail. ???No daniela ejercicios intensos por 30??minutos antes de la prueba. ??? Dumont ropa suelta que no le limite la respiraci??n. Avise al proveedor de atenci??n m??dica si experimenta alguno de los siguientes s??ntomas marlen la prueba: ??? Dolor en la boca ??? Dolor en el pecho, el brazo o la latisha??bula ??? Cansancio (fatiga) o mareos ??? Falta de aire grave ?? Marlen la prueba El proveedor de atenci??n m??dica le iman?? instrucciones marlen la prueba. Seg??n las partes de laprueba que deba realizarse, es posible que deba permanecer sentado en ritu silla y respirar a cesar??s de ritu boquilla. Tambi??n es posible que se siente dentro de rtiu caja de pl??stico transparente similar a ritu cabina telef??apple. Tendr?? que usar broches nasales para asegurarse de respirar solo por la boca. Las babs partes de la prueba son las siguientes: ??? Espirometr??a. Deber?? contener la respiraci??n y, luego, soplar r??pidamente. El procedimiento se repite, al menos, babs veces para medir el mejor esfuerzo. ??? Capacidad de difusi??n.??Deber?? retener el aire marlen maira segundos. Con esperanza examen, se mide la capacidad de los pulmones de hacer circular el aire para que llegue a la shazia. ??? Volumen pulmonar.??Deber?? inhalar?? distintas mezclas de gases. Se mide la cantidad de aire que inhala y exhala. As?? pedro tambi??n la cantidad de aire que queda en los pulmones. ?? Despu??s de la prueba Despu??s de la prueba, podr?? retomar valerio alimentaci??n, poornima actividades y poornima medicamentos habituales, a menos que el proveedor de atenci??n m??dica le indique lo contrario. Si le pidieron que suspendiera medicamentos antes de la prueba, consulte a valerio proveedor cu??ndo deber??a volver a tomarlos. El proveedor hablar?? de esto con usted. Pregunte si recibir?? informaci??n por tel??fono o en la pr??xima visita. ?? Medidas del flujo de aire Con las pruebas de funci??n pulmonar, se mide cu??nto aire exhala y con qu?? rapidez. Hay varios tipos de gr??ficos de funci??n pulmonar para mostrar los resultados de las pruebas. Estos son algunos factores que se miden en las pruebas: ??? Capacidad vital forzada (CVF). Es la cantidad total de aire que puede exhalar en ritu hunter respiraci??n prolongada. ??? Volumen espiratorio forzado en un floyd (VEF1). Es la cantidad de aire que exhala en el primer floyd. Los resultados del an??lisis de VEF1 suelen expresarse pedro un porcentaje del CVF. ??? VEF1/CVF.??Es la cantidad de aire expulsado enel primer floyd en relaci??n con el total de aire expulsado. Se expresa en forma de relaci??n (fracci??n) o porcentaje. En general, cuanto m??s ernesto sea la relaci??n VEF1/CVF, mejor. ??? Flujo espiratorio m??ximo (FEM). Es ritu medida que refleja qu?? willoughby r??pido puede exhalar. Se puede medir con ritu espirometr??a o con un medidor de flujo espiratorio m??ximo. ?? Last Reviewed Date: 2021 ?? [id number] [employer]. Todos los derechos reservados. Esta informaci??n no pretende sustituir la atenci??n m??dica profesional. S??lo valerio m??dico puede diagnosticar y tratar un problema de freddie. ?? * Natalie Santamaria: PERFORM Event Display: Patient Education Leaflets Authored Date: [id number] Prednisone Oral Tablet ?? [id number] Prednisone Oral Tablet Brands: Deltasone Usos Esperanza medicamento se usa para las siguientes afecciones: ??? enfermedad inflamatoria ??? inmunosupresi??n ??? trastorno sangu??lilia ??? COVID-19 (coronavirus) ??? c??ncer ??? trastorno autoinmune ??? trastorno endocrino ??? reacci??n al??rgica ?? [employer] el medicamento con alimentos. Puede tomarse con alimentos para prevenir molestias estomacales. Guarde a temperatura ambiente, alejado del calor, la kasi y la humedad. No lo guarde en el ba??o. Es importante que contin??e tomando todas las dosis de esperanza medicamento a la hora indicada aunque se sienta sarahi. Si olvida marcy ritu dosis a tiempo, t??katie willoughby pronto lo recuerde. Si es moustapha la hora de la dosis siguiente, no tome la dosis olvidada. Vuelva al horario normal. No tome dos dosis al mismo tiempo. Las interacciones con otros medicamentos pueden cambiar la forma en que act??an los medicamentos o aumentar el riesgo de presentar efectos secundarios. Informe a poornima profesionales sanitarios acerca de todos los medicamentos que usa. [place] incluye medicamentos con y sin receta m??dica, vitaminas y medicamentos a base de hierbas. Hable con valerio m??dico o farmac??utico antes de empezar o dejar de usar cualquier medicamento. Informe a valerio m??dico si poornima s??ntomas no mejoran o si empeoran. Hable con valerio m??dico antes de marcy otros medicamentos, incluso las aspirinas y los productos que contienen ibuprofeno. Hable con valerio m??dico acerca de los medicamentos que puede usar sin riesgos mientras use esperanza medicamento. Esperanza medicamento puede afectar poornima niveles de az??car en shazia. Si tiene diabetes, hable con valerio m??dico antes de cambiar la dosis de vaelrio medicamento para la diabetes. Esperanza medicamento puede afectar la fuerza de poornima huesos. Si tiene osteoporosis (debilitamiento de los huesos) o corre un mayor riesgo de tenerlo, es posible que valerio m??dico le recomiende alimentos ricos en calcio y vitamina D. Esta medicina puede interferir con las pruebas de alergia en la piel. D??gale a valerio m??dico o enfermero que usted abigail esta medicina. Es muy importante que asista a todas las citas para evaluaciones y pruebas m??dicas mientras usa esperanza medicamento. ?? Precauciones Informe a valerio m??dico y a valerio farmac??utico si alguna vez das tenido ritu reacci??n al??rgica a un medicamento. Esperanza medicamento puede causar sangrado intenso del est??ezio o los intestinos. Deje de marcy esperanza medicamento y llame a valerio m??dico inmediatamente si nota alguna se??al de sangrado. El sangrado puede causar dolor de est??ezio, v??charline de un l??quido parecido a caf?? molido y heces de color bolanos, o alquitranadas y oscuras. No use el medicamento m??s veces de lo indicado. Consulte a valerio m??dico antes de beber alcohol mientras usa esperanza medicamento. Evitar fumar mientras se est?? usando esperanza medicamento. Fumar podr??a aumentar valerio riesgo de tener sangrado en el est??ezio. Esperanza medicamento puede reducir la capacidad del cuerpo de luchar contra infecciones. Evite el contacto con personas que tengan un resfriado, la gripe u otra infecci??n. Comun??quese con valerio m??dico sitiene fiebre, tos, dolor de garganta o escalofr??os. Hable con valerio proveedor de atenci??n m??dica antes de aplicarse cualquier vacuna. Informe a valerio m??dico o farmac??utico si est?? o planea quedar embarazada, o si est?? amamantando. Lleve siempre ritu tarjeta de identificaci??n o use un brazalete de alerta m??dica que indique valerio afecci??n m??dica. No comparta esperanza medicamento con otras personas a quienes no se les recet??. ?? Efectos Secundarios La siguiente es ritu lista de algunos efectos secundarios comunes de esperanza medicamento. Hable con el m??dico para saber qu?? debe hacer en pepito de tener estos u otros efectos secundarios. ??? acn? sensaci??n de agitaci??n o dificultad para dormir ??? p??rdida de apetito ??? ernesto concentraci??n de az??car en la shazia ??? ernesto presi??n arterial ??? n??useas y v??mitos ??? indigesti??n estomacal o dolor abdominal Llame al m??dico u obtenga atenci??n m??dica de inmediato si nota cualquiera de estos efectos secundarios m??s graves: ??? sangrado o moretones ??? dolor en los huesos ??? tos con shazia, o v??charline con aspecto de poso de caf? depresi??n o sentimiento de tristeza ??? hinchaz??n de las piernas, pies y mary kay ??? fiebre o escalofr??os ??? latidos del coraz??n acelerados o irregulares ??? cambios en la menstruaci??n (per??odos ausentes o menos frecuentes) ??? cambios de estado de ??juanita ??? dolor muscular o calambres ??? convulsiones ??? adelgazamiento de la piel ??? dolor intenso del est??ezio o las v??as digestivas ??? heces oscuras, de aspecto alquitranado ??? cansancio o debilidad, extra??o o sin causa aparente ??? aumento en la frecuencia urinaria ??? visi??n borrosa o cambios en la visi??n ??? aumentode peso repentino o inexplicado ??? heridas que tardan mucho en sanar Algunas personas podr??an tener reacciones al??rgicas a esperanza medicamento. Entre los s??ntomas pueden incluirse: dificultad para respirar, erupci??n en la piel, comez??n, hinchaz??n o mareos intensos.Si nota algunos de estos s??ntomas, busque asistencia m??dica r??pidamente. ?? Extra Hable con valerio m??dico, enfermero o farmac??utico si tiene alguna pregunta acerca de esperanza medicamento. ?? [email or web address] NOTA IMPORTANTE: En esperanza documento hay ritu explicaci??n breve sobre c??mo usar el medicamento, perono incluye todo lo que hay que saber acerca del medicamento. Valerio m??dico o valerio farmac??utico podr??a suministrarle otros documentos acerca de valerio medicamento. Comun??quese con ellos si tiene alguna pregunta. Siga siempre poornima consejos. Ritu descripci??n m??s completa de esperanza medicamento est?? disponibleen ingl??s. Escanee esperanza c??digo en valerio tel??fono inteligente o en valerio tableta, o use la direcci??n web que aparece a continuaci??n. Tambi??n puede pedirle a valerio farmac??utico ritu copia impresa. Si tiene alguna pregunta, h??gasela a valerio farmac??utico. La exhibici??n y el uso de esta informaci??n sobre f??rmacos est?? sujeta a los T??rminos de Uso. Copyright(c) 2022 [employer]). ?? 6587-2354 [employer]. All rights reserved. This information is not intended as a substitute for professional medical care. Always follow your healthcare professional's instructions. ?? Portable XR Chest Views * [facility] , [facility]: TRANSCRIBE Marty Morris MD: VERIFY Event Display: Result: Authored Date: Chest Portable Hx of Present Illness: short of breath and cough x 1 month. + nasal congestion.; Reason: Shortness of Breath; Clinical Question(s): CHF COMPARISON: 06/15/2022 FINDINGS: LINES AND TUBES: None. LUNGS AND PLEURA: Clear lungs. Normal pulmonary vascularity. No pleural effusion. No pneumothorax. HEART, MEDIASTINUM AND DARBY: Heart is normal in size. Normal mediastinal and hilar contour. BONES AND SOFT TISSUES: No acute abnormality. Spine degenerative changes. IMPRESSION: No acute abnormality. WSN: [id number] Ordering Physician: Lexy Espinoza Dictated By: Marty Morris MD Dictated Date/Time: 06/16/22 12:23 p Reviewed By: Marty Morris MD Signed By: Marty Morris MD Signed Date/Time: 06/16/22 12:23 pm Transcribed By: ADAMS Transcribed Date/Time: 06/16/22 12:22 pm Patient Care team information Care Team Personnel Name: Manju Monreal RN Position: [facility] RN Member Role: Primary Care Nurse Name: Libby Llanes Position: [facility] RN Member Role: Primary Care Nurse Name: Joaquín Morillo RN Position: [facility] RN Member Role: Primary Care Nurse Name: Gypsy Goodman RN Position: [facility] RN Member Role: Primary Care Nurse Name: David Hess MD Position: [facility] Primary Care Physician Member Role: PCP Address: Address: [address] [place] [id number]- Name: Lexy Espinoza MD Position: [facility] ED Medicine MD Member Role: ED Attending Physician Address: Address: [address] [place] [id number]- Name: Esther Kline Position: [facility] ED RN W/OE and Tasks Member Role: Patient Care Provider Name: Daria Garcia Position: [facility] ED RN W/OE and Tasks Member Role: Patient Care Provider Name: Eliane Ca Position: [facility] ED TA [facility] Member Role: Service Station Console Operator Care Team Related Persons Name: ADOLFO MCCLENDON Address: home [address] [place] [address]
--- OUTSIDE RECORDS SUMMARY | 2023-10-02 07:59 | XMS_ITS | Continuity of Care Document ---
Author Organization [facility] Address [address] [place] [address]- Care Team Providers Care Wind Field Service Manager Name Role Phone David Hess MD Primary Care Physician Encounter [facility] Date(s): 11/23/19 - 01/31/20 [facility] [address] [place] [address]- Attending Physician: David Hess MD Admitting Physician: David Hess MD Allergies, Adverse Reactions, Alerts Substance Reaction Severity Status NKA Active Immunizations Given and Recorded Vaccine Date Status Refusal Reason influenza virus vaccine, inactivated 11/25/19 Give n influenza virus vaccine, inactivated 1 02/15/12 Gi wilma 1Admin Note: VIS 08/13/2011GIVEN Medications atorvastatin 20 mg oral tablet 1 tablet = 20 mg, By Mouth, Daily, # 30 tablet, 5 Refills, Maintenance, 07/03/19 15:29:00 EDT, Tablet, [facility], 169, cm, 04/16/19 17:08:00 EST, Height, 83.1, kg, 11/06/17 15:38:00 EDT, Dry Weight Start Date: 07/03/19 Status: Ordered Freestyle Lite Test Strips See Instructions, # 100 each, Refills 11, Tot. Refills 11, Maintenance, USE BID TO TID for Type 2 Diabetes Mellitus DX:E11.65, 03/09/19 12:23:00 EST, Compound, 169, cm, 02/17/19 16:05:00 EST, Height,83.1, kg, 11/06/17 15:38:00 EDT, Dry Weight Start Date: 03/09/19 Stop Date: 03/03/20 Status: Ordered gabapentin 100 mg oral capsule 100 mg, 1, capsule, By Mouth, 3 times a day, # 90 capsule, Refills 1, Tot. Refills 1, Maintenance, 01/05/19 12:30:07 EST, Route to Pharmacy Electronically, [id number], [facility] Start Date: 01/05/19 Status: Ordered Lantus Solostar Pen 100 units/mL subcutaneous solution = 20 units, Subcutaneous Injection, 2 times a day, # 15 mL, 11 Refills, Maintenance, 04/16/19 16:58:00 EST, Solution, [facility], 169, cm, 04/16/19 16:33:00 EST, Height, 83.1, kg,11/06/17 15:38:00 EDT, Dry Weight Start Date: 04/16/19 Status: Ordered lisinopril 10 mg oral tablet 10 mg, 1, tablet, By Mouth, Daily, # 30 tablet, Refills 5, Tot. Refills 5, Maintenance, 10/07/19 8:18:00 EDT, Route to Pharmacy Electronically, [facility], 169, cm, 04/16/19 17:08:00 EST, Height, 83.1, kg, 11/06/17 15:38:00 EDT, . Start Date: 10/07/19 Status: Ordered melatonin 1 mg oral tablet 1 tablet = 1 mg, By Mouth, Daily at bedtime, PRN for insomnia, Take at 6 pm for sleep, # 30 tablet,0 Refills, Maintenance, 01/09/18 11:56:29 EST, Tablet Start Date: 01/09/18 Status: Ordered metFORMIN 1000 mg oral tablet 1 tablet = 1,000 mg, By Mouth, 2 times a day, # 180 tablet, 0 Refills, Maintenance, 11/20/19 10:16:00 EDT, Tablet, [id number], 169, cm, 04/16/19 17:08:00 EST, Height, Dry Weight Start Date: 11/20/19 Status: Ordered mirtazapine 15 mg oral tablet 1 tablet = 15 mg, By Mouth, Daily at bedtime, # 30 tablet, 3 Refills, Maintenance, 11/23/19 11:04:00 EDT, Tablet, [facility], 169, cm, 10/12/20 9:06:00 EDT, Height Start Date: 11/23/19 Status: Ordered One Touch Ultra Test Strips See Instructions, # 100 each, Refills 11, Tot. Refills 11, Maintenance, use BID for DM 2, 03/10/19 14:14:00 EST, Compound, 169, cm, 02/17/19 16:05:00 EST, Height, 83.1, kg, 11/06/17 15:38:00 EDT, DryWeight Start Date: 03/10/19 Status: Ordered One Touch UltraSmart Glucose Meter See Instructions, # 1 each, Maintenance, use BID for DM 2, 03/10/19 14:14:00 EST, Compound, 169, cm, 02/17/19 16:05:00 EST, Height, 83.1, kg, 11/06/17 15:38:00 EDT, Dry Weight Start Date: 03/10/19 Status: Ordered One Touch UltraSoft Lancets See Instructions, # 100 each, Refills 11, Tot. Refills 11, Maintenance, use BID for DM 2, 03/10/19 14:14:00 EST, Compound, 169, cm, 02/17/19 16:05:00 EST, Height, 83.1, kg, 11/06/17 15:38:00 EDT, DryWeight Start Date: 03/10/19 Status: Ordered Pen [place], 31 G x 8 mm BD Ultra Fine III See Instructions, # 100 each, Refills 5, Tot. Refills 5, Maintenance, use as directed for Type 2 Diabetes Mellitus, 01/06/20 11:36:00 EST, Supply, 169, cm, 11/23/19 9:06:00 EDT, Height Start Date: 01/06/20 Stop Date: 07/04/20 Status: Ordered Tylenol 8 HR Arthritis Pain 650 mg oral tablet, extended release 2 tablet = 1,300 mg, By Mouth, Every 12 hours, # 50 tablet, 1 Refills, Maintenance, 02/16/19 10:54:00 EST, [facility], 169, cm, 02/16/19 10:45:00 EST, Height, 83.1, kg, 11/06/17 15:38:00 EDT, Dry Weight Start Date: 02/16/19 Status: Ordered Problem List Condition Effective Dates Status Health Status Inform ant Depression(Confirmed) Active Diabetic foot ulcer(Confirmed) Active Foot callus(Confirmed) Active Hyperlipidemia(Confirmed) Active Plantar fasciitis, right(Confirmed) Active Tinea pedis(Confirmed) Active Diabetes mellitus type 2 in nonobese(Confirmed) Active Social History Social History Type Response Smoking Status Former smoker entered on: 09/07/13 Sex
--- OUTSIDE RECORDS SUMMARY | 2023-10-02 07:59 | XMS_ITS | Continuity of Care Document ---
Author Organization [facility] Address [address] [place] [address]- Care Team Providers Care Teacher Resource Name Role Phone Jimena STANTON, David Primary Care Physician Encounter [facility] [place] Date(s): 06/15/22 - 08/19/22 [facility]/[address] [address]- Attending Physician: David Hess MD Admitting Physician: David Hess MD Allergies, Adverse Reactions, Alerts No Known Allergies Immunizations Given and Recorded Vaccine Date Status Refusal Reason [id number] 12y+ bivalent booster vax 01/31/22 Given influenza virus vaccine, inactivated 01/31/22 Give n influenza virus vaccine, inactivated 01/17/21 Yovani rded influenza virus vaccine, inactivated 11/25/19 Give n influenza virus vaccine, inactivated 10/04/16 Yovani rded influenza virus vaccine, inactivated 1 02/15/12 Gi wilma SARS-CoV-2 mRNA ([id number]) vax 09/13/21 Given zoster vaccine, inactivated 03/24/21 Given SARS-CoV-2 (COVID-19) mRNA BNT-162b2 vac 02/24/21 Given SARS-CoV-2 (COVID-19) mRNA BNT-162b2 vac 06/06/20 Recorded SARS-CoV-2 (COVID-19) mRNA BNT-162b2 vac 05/16/20 Recorded 1Admin Note: VIS 08/13/2011GIVEN Medications atorvastatin 20 mg oral tablet See Instructions, SERGEY 1 TABLETA POR LA BOCA CADA JESSE, # 90 tablet, 1 Refills, Maintenance, 01/03/22 13:30:00 EST, [facility], 168, cm, 06/02/21 14:43:00 EDT, Height, 82, kg, 01/13/20 13:11:00 EST, Dry Weight Start Date: 01/03/22 Status: Ordered BD SHORT PEN NDL [id number] 31GX5/16 NEDL BD SHORT PEN NDL [id number] 31GX5/16 NEDL, See Instructions, # 90 Unknown, 5 Refills, [facility], 168, cm, 06/02/21 14:43:00 EDT, Height, 82, [...] mL, 1 Refills, Maintenance, 06/15/22 16:17:00 EDT, [facility], Partial fill upon patient request if the prescription is for a schedule II opioid drug., 10 mL By Mouth Every 6 hours, 168, cm, 05... Start Date: 06/15/22 Status: Ordered Lantus Solostar Pen 100 units/mL subcutaneous solution See Instructions, INYECTAR 20 UNIDADES DEBAJO DE LA PIEL DOS VECES AL JESSE, # 15 mL, 5 Refills, [facility], 168, cm, 06/02/21 14:43:00 EDT, Height, 82, kg, 01/13/20 13:11:00 EST, DryWeight Start Date: 09/01/21 Status: Ordered lisinopril 20 mg oral tablet See Instructions, SERGEY 1 TABLETA POR LA BOCA CADA JESSE, # 90 tablet, Refills 1, Maintenance, 06/06/22 14:56:00 EDT, Instructions Replace Required Details, Route to Pharmacy Electronically, [facility], 168, cm, 01/31/22 15:46:00 EST,... Start Date: 06/06/22 Status: Ordered metFORMIN 1000 mg oral tablet 1 tablet, By Mouth, 2 times a day, # 180 tablet, 0 Refills, Maintenance, 07/22/22 12:04:00 EDT, [facility] #[id number], 168, cm, 07/11/22 15:56:00 EDT, Height, 85.63, kg, 06/16/22 22:34:00 EDT, Dry Weight Start Date: 07/22/22 Status: Ordered MiraLax oral powder for reconstitution = 17 Gm, By Mouth, Daily, dissolve in water before taking, # 255 Gm, 0 Refills, Maintenance, 06/19/22 9:58:00 EDT, REC Powder, [facility], Partial fill upon patient request if the prescription is for a schedule II opioid drug., 17 Gm By... Start Date: 06/19/22 Status: Ordered mirtazapine 15 mg oral tablet See Instructions, SERGEY 1 TABLETA POR LA BOCA CADA JESSE A LA HORA DE DORMIR, # 30 tablet, 5 Refills,Maintenance, 03/11/22 12:59:00 EST, [facility], 168, cm, 01/31/22 15:46:00 EST, [...] DryWeight Start Date: 03/10/19 Status: Ordered Pen [place], 31 G x 8 mm BD Ultra Fine III See Instructions, # 100 each, Refills 5, Tot. Refills 5, Maintenance, use as directed for Type 2 Diabetes Mellitus, 01/06/20 11:36:00 EST, Supply, 169, cm, 11/23/19 9:06:00 EDT, Height Start Date: 01/06/20 Stop Date: 07/04/20 Status: Ordered Shingrix intramuscular injection = 0.5 mL, Intramuscular, Once, repeat dose in 2 to 6 months, # 2 each, 0 Refills, Soft Stop, 03/24/21 14:52:00 EST, Powder, [facility], Partial fill upon patient request if the prescription is for a schedule II opioid drug., 0.5 mL... Start Date: 03/24/21 Status: Ordered tamsulosin 0.4 mg oral capsule See Instructions, SERGEY 1 CAPSULA POR LA BOCA CADA JESSE, # 90 capsule, Refills 1, Maintenance, 06/06/22 14:57:00 EDT, Instructions Replace Required Details, Route to Pharmacy Electronically, [facility], 168, cm, 01/31/22 15:46:00 EST,... Start Date: 06/06/22 Status: Ordered Trulicity Pen 0.75 mg/0.5 mL subcutaneous solution See Instructions, INYECTAR 0.5ML SUBCUTANEO CADA SEMANA LUIS INDICADO. ROTAR [place] DE INYE[facility], # 2 mL, 5 Refills, 06/07/22 9:54:00 EDT, [facility], 168, cm, 01/31/22 15:46:00 EST, Height, 85.63, kg, 01/31/22 15:46:00 EST, D... Start Date: 06/07/22 Status: Ordered Tylenol 8 HR Arthritis Pain 650 mg oral tablet, extended release 2 tablet = 1,300 mg, By Mouth, Every 12 hours, # 50 tablet, 1 Refills, Maintenance, 02/16/19 10:54:00 EST, [facility], 169, cm, 02/16/19 10:45:00 EST, Height, 83.1, [...] 2 in nonobese Confirmed Active 1MOCA in 2018, MOCA in 09/2020 Social History Social History Type Response Smoking Status Never (less than 100 in lifetime) entered on: 05/30/20 Sex Patient Care team information Care Team Personnel Name: Libby Llanes Position: [facility] RN Member Role: Primary Care Nurse Name: Gypsy Goodman RN Position: [facility] RN Member Role: Primary Care Nurse Name: David Hess MD Position: [facility] Physician - Primary Care Member Role: PCP Address: Address: [address] [place] [address]- Care Team Related Persons Name: ADOLFO MCCLENDON Address: home [address] [place] [id number]
--- OUTSIDE RECORDS SUMMARY | 2023-10-02 07:59 | XMS_ITS | Continuity of Care Document ---
Author Organization [facility] Address [address] [place] [address]- Care Team Providers Care Rn Orthopaedics Name Role Phone Jimena STANTON, David Primary Care Physician Encounter [facility] [place] Date(s): 11/20/19 - 12/20/19 [facility] [address] [place] [address]- Allergies, Adverse Reactions, Alerts Substance Reaction Severity Status NKA Active Immunizations Given and Recorded Vaccine Date Status Refusal Reason influenza virus vaccine, inactivated 11/25/19 Give n influenza virus vaccine, inactivated 1 02/15/12 Gi wilma 1Admin Note: VIS 08/13/2011GIVEN Medications atorvastatin 20 mg oral tablet 1 tablet = 20 mg, By Mouth, Daily, # 30 tablet, 5 Refills, Maintenance, 07/03/19 15:29:00 EDT, Tablet, [facility], 169, cm, 04/16/19 17:08:00 EST, Height, 83.1, [...] 01/05/19 12:30:07 EST, Route to Pharmacy Electronically, [id number], [facility] Start Date: 01/05/19 Status: Ordered Lantus Solostar Pen 100 units/mL subcutaneous solution = 20 units, Subcutaneous Injection, 2 times a day, # 15 mL, 11 Refills, Maintenance, 04/16/19 16:58:00 EST, Solution, [facility], 169, cm, 04/16/19 16:33:00 EST, Height, 83.1, kg,11/06/17 15:38:00 EDT, Dry Weight Start Date: 04/16/19 Status: Ordered lisinopril 10 mg oral tablet 10 mg, 1, tablet, By Mouth, Daily, # 30 tablet, Refills 5, Tot. Refills 5, Maintenance, 10/07/19 8:18:00 EDT, Route to Pharmacy Electronically, [facility], 169, cm, 04/16/19 17:08:00 EST, Height, [...] 0 Refills, Maintenance, 11/20/19 10:16:00 EDT, Tablet, [facility] #[id number], 169, cm, 04/16/19 17:08:00 EST, Height, Dry Weight Start Date: 11/20/19 Status: Ordered mirtazapine 15 mg oral tablet 1 tablet = 15 mg, By Mouth, Daily at bedtime, # 30 tablet, 3 Refills, Maintenance, 11/23/19 11:04:00 EDT, Tablet, [facility], 169, cm, 11/23/19 9:06:00 EDT, Height Start Date: 11/23/19 Status: [...] EDT, DryWeight Start Date: 03/10/19 Status: Ordered Tylenol 8 HR Arthritis Pain 650 mg oral tablet, extended release 2 tablet = 1,300 mg, By Mouth, Every 12 hours, # 50 tablet, 1 Refills, Maintenance, 02/16/19 10:54:00 EST, [facility], 169, cm, 02/16/19 10:45:00 EST, Height, [...]
--- OUTSIDE RECORDS SUMMARY | 2023-10-02 07:59 | XMS_ITS | Continuity of Care Document ---
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 Name Role Phone David Hess MD Primary Care Physician Encounter [facility] [place] Date(s): 05/14/19 - 05/21/19 [facility]/[address] [address]- [facility] Attending Physician: David Hess MD Admitting Physician: David Hess MD Allergies, Adverse Reactions, Alerts Substance Reaction Severity Status NKA Active Immunizations Given and Recorded Vaccine Date Status Refusal Reason influenza virus vaccine, inactivated 1 02/15/12 Gi wilma 1Admin Note: VIS 08/13/2011GIVEN Medications atorvastatin 20 mg oral tablet 1 tablet = 20 mg, By Mouth, Daily, # 30 tablet, 11 Refills, Maintenance, Tablet, Route to Pharmacy Electronically, [id number], [facility] Start Date: 04/07/18 Status: Ordered Freestyle Lite Test Strips See [...] 01/05/19 12:30:07 EST, Route to Pharmacy Electronically, [id number], [facility] Start Date: 01/05/19 Status: Ordered Lantus Solostar Pen 100 units/mL subcutaneous solution = 20 units, Subcutaneous Injection, 2 times a day, # 15 mL, 11 Refills, Maintenance, 04/16/19 16:58:00 EST, Solution, [facility], 169, cm, 04/16/19 16:33:00 EST, Height, 83.1, kg,11/06/17 15:38:00 EDT, Dry Weight Start Date: 04/16/19 Status: Ordered lisinopril 10 mg oral tablet 10 mg, 1, tablet, By Mouth, Daily, # 30 tablet, Refills 1, Tot. Refills 1, Maintenance, 02/26/19 12:37:00 EST, Route to Pharmacy Electronically, [facility] #[id number], 169, cm, 02/17/19 16:05:00 EST, Height, 83.1, kg, 11/06/17 15:38:00 EDT, Dry... Start Date: 02/26/19 Status: Ordered melatonin 1 mg oral tablet 1 tablet = 1 mg, By Mouth, Daily at bedtime, PRN for insomnia, Take at 6 pm for sleep, # 30 tablet,0 Refills, Maintenance, 01/09/18 11:56:29 EST, Tablet Start Date: 01/09/18 Status: Ordered metFORMIN 1000 mg oral tablet 1 tablet = 1,000 mg, By Mouth, 2 times a day, # 180 tablet, 2 Refills, Maintenance, 01/20/19 15:19:09 EST, Tablet, 169, cm, 01/05/19 12:21:06 EST, Height, 83.1, kg, 11/06/17 15:38:10 EDT, Dry Weight Start Date: 01/20/19 Status: Ordered One Touch Ultra Test Strips [...] tablet, 1 Refills, Maintenance, 02/16/19 10:54:00 EST, [facility], 169, cm, 02/16/19 10:45:00 EST, Height, [...]
--- OUTSIDE RECORDS SUMMARY | 2023-10-02 07:59 | XMS_ITS | Continuity of Care Document ---
Author Organization [facility] Address [address] [place] [address]- Care Team Providers Care Solutions Specialist Name Role Phone David Hess MD Primary Care Physician Encounter [facility] [place] Date(s): 07/15/20 - 08/14/20 [facility]/[address] [address] Attending Physician: Admtr, Bernice Allergies, Adverse Reactions, Alerts Substance Reaction Severity Status NKA Active Immunizations Given and Recorded Vaccine Date Status Refusal Reason influenza virus vaccine, inactivated 11/25/19 Give n influenza virus vaccine, inactivated 1 02/15/12 Gi wilma 1Admin Note: VIS 08/13/2011GIVEN Medications atorvastatin 20 mg oral tablet 1 tablet = 20 mg, By Mouth, Daily, # 90 tablet, 1 Refills, Maintenance, 03/01/20 15:12:00 EST, Tablet, [facility], 5.6, cm, 01/13/20 13:11:00 EST, Height, 82, kg, 01/13/20 13:11:00 EST, Dry Weight Start Date: 03/01/20 Status: Ordered Freestyle Lite Test Strips See [...] 01/05/19 12:30:07 EST, Route to Pharmacy Electronically, [id number], [facility] Start Date: 01/05/19 Status: Ordered Lantus Solostar Pen 100 units/mL subcutaneous solution = 20 units, Subcutaneous Injection, 2 times a day, # 15 mL, 2 Refills, Maintenance, 05/12/20 14:21:00 EDT, Solution, [facility], 5.6, cm, 01/13/20 13:11:00 EST, Height, 82, kg, 01/13/20 13:11:00 EST, Dry Weight Start Date: 05/12/20 Status: Ordered lisinopril 10 mg oral tablet See Instructions, SERGEY 1 TABLETA POR LA BOCA CADA JESSE, # 30 tablet, Refills 5, Maintenance, Instructions Replace Required Details, Route to Pharmacy Electronically, [facility], 5.6, cm, 05/30/20 8:55:00 EDT, Height, 82, kg, 01/13/20... Start Date: 06/16/20 Status: Ordered melatonin 1 mg oral tablet 1 tablet = 1 mg, By Mouth, Daily at bedtime, PRN for insomnia, Take at 6 pm for sleep, # 30 tablet,0 Refills, Maintenance, 01/09/18 11:56:29 EST, Tablet Start Date: 01/09/18 Status: Ordered metFORMIN 1000 mg oral tablet 1 tablet, By Mouth, 2 times a day, # 180 tablet, 3 Refills, Maintenance, 05/02/20 14:36:00 EDT, [facility] #[id number], 5.6, cm, 01/13/20 13:11:00 EST, Height, 82, kg, 01/13/20 13:11:00 EST, DryWeight Start Date: 05/02/20 Status: Ordered mirtazapine 15 mg oral tablet 1 tablet = 15 mg, By Mouth, Daily at bedtime, # 30 tablet, 2 Refills, Maintenance, 05/12/20 14:21:00 EDT, Tablet, [facility], 5.6, cm, 01/13/20 13:11:00 EST, Height, 82, kg, 01/13/20 13:11:00 EST, Dry Weight Start Date: 05/12/20 Status: Ordered One Touch Ultra Test Strips See Instructions, # 100 each, Refills 11, Tot. Refills 11, Maintenance, use BID for DM 2, 04/25/20 15:03:00 EDT, [facility], 5.6, cm, 01/13/20 13:11:00 EST, Height, 82, kg, 01/13/20 13:11:00 EST, Dry Weight Start Date: 04/25/20 Status: Ordered One Touch UltraSmart Glucose Meter [...] DryWeight Start Date: 03/10/19 Status: Ordered Pen [place], 31 G x 8 mm BD Ultra [...] # 2 each, 0 Refills, Soft Stop, 05/20/20 11:17:00 EDT, Powder, [facility], Partial fill upon patient request if the prescription is for a schedule II opioid drug., 0.5 mL... Start Date: 05/20/20 Status: Ordered Trulicity Pen 0.75 mg/0.5 mL subcutaneous solution 0.5 mL = 0.75 mg, Subcutaneous Injection, Every week, rotate injection sites, # 2 mL, 5 Refills, Maintenance, 07/15/20 15:53:00 EDT, Solution, [facility], Partial fill upon patient request if the prescription is for a schedule II o... Start Date: 07/15/20 Status: Ordered Tylenol 8 HR Arthritis Pain 650 mg oral tablet, extended release 2 tablet = 1,300 mg, By Mouth, Every 12 hours, # 50 tablet, 1 Refills, Maintenance, 02/16/19 10:54:00 EST, [facility], 169, cm, 02/16/19 10:45:00 EST, Height, 83.1, [...]
--- OUTSIDE RECORDS SUMMARY | 2023-10-02 07:59 | XMS_ITS | Continuity of Care Document ---
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 Name Role Phone David Hess MD Primary Care Physician En[place] [facility] [place] Date(s): 10/05/20 - 11/04/20 [facility] Attending Physician: Bernice Anderson Allergies, Adverse Reactions, Alerts Substance Reaction Severity Status NKA Active Immunizations Given and Recorded Vaccine Date Status Refusal Reason influenza virus vaccine, inactivated 11/25/19 Give n influenza virus vaccine, inactivated 1 02/15/12 Gi wilma 1Admin Note: VIS 08/13/2011GIVEN Medications atorvastatin 20 mg oral tablet See Instructions, SERGEY 1 TABLETA POR LA BOCA CADA JESSE, # 90 tablet, 1 Refills, Maintenance, [facility], 5.6, cm, 07/26/20 14:09:00 EDT, Height, 82, kg, 01/13/20 13:11:00 EST, Dry Weight Start Date: 09/23/20 Status: Ordered Freestyle Lite Test Strips See [...] 01/05/19 12:30:07 EST, Route to Pharmacy Electronically, [id number], [facility] Start Date: 01/05/19 Status: Ordered Lantus Solostar Pen 100 units/mL subcutaneous solution = 20 units, Subcutaneous Injection, 2 times a day, # 15 mL, 2 Refills, Maintenance, 05/12/20 14:21:00 EDT, Solution, [facility], 5.6, cm, 01/13/20 13:11:00 EST, Height, 82, kg, 01/13/20 13:11:00 EST, Dry Weight Start Date: 05/12/20 Status: Ordered lisinopril 10 mg oral tablet See Instructions, SERGEY 1 TABLETA POR LA BOCA CADA JESSE, # 30 tablet, Refills 5, Maintenance, Instructions Replace Required Details, Route to Pharmacy Electronically, [facility], 5.6, cm, 05/30/20 8:55:00 EDT, Height, [...] tablet, 3 Refills, Maintenance, 05/02/20 14:36:00 EDT, [facility] #[id number], 5.6, cm, 01/13/20 13:11:00 EST, Height, 82, kg, 01/13/20 13:11:00 EST, DryWeight Start Date: 05/02/20 Status: Ordered mirtazapine 15 mg oral tablet See Instructions, SERGEY 1 TABLETA POR LA BOCA CADA JESSE A LA HORA DE DORMIR, # 30 tablet, 5 Refills,Maintenance, [facility], 5.6, cm, 07/26/20 14:09:00 EDT, Height, 82, kg, 01/12/2013:11:00 EST, Dry Weight Start Date: 09/23/20 Status: Ordered One Touch Ultra Test Strips [...] DryWeight Start Date: 03/10/19 Status: Ordered Pen [place], 31 G x 8 mm BD Ultra [...] Refills, Soft Stop, 05/20/20 11:17:00 EDT, Powder, [facility], Partial fill upon patient request if the prescription is for a schedule II opioid drug., 0.5 mL... Start Date: 05/20/20 Status: Ordered Trulicity Pen 0.75 mg/0.5 mL subcutaneous solution 0.5 mL = 0.75 mg, Subcutaneous Injection, Every week, rotate injection sites, # 2 mL, 5 Refills, Maintenance, 07/15/20 15:53:00 EDT, Solution, [facility], Partial fill upon patient request if the prescription is for a schedule II o... 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
--- OUTSIDE RECORDS SUMMARY | 2023-10-02 07:59 | XMS_ITS | Continuity of Care Document ---
Author Organization [facility] Address [address] [place] [id number]- Care Team Providers Care Animal Nutrition Teacher Name Role Phone David Hess MD Primary Care Physician En[place] [facility] [place](s): 04/24/22 - 05/24/22 [facility]/[address] [address]- [place] Allergies, Adverse Reactions, Alerts No Known Allergies Immunizations Given and Recorded Vaccine Date Status Refusal Reason [id number] 12y+ bivalent booster vax 01/31/22 Given influenza virus vaccine, inactivated 01/31/22 Give n influenza virus vaccine, inactivated 01/17/21 Yovani rded influenza virus vaccine, inactivated 11/25/19 Give n influenza virus vaccine, inactivated 10/04/16 Yovani rded influenza virus vaccine, inactivated 1 02/15/12 Gi wilma SARS-CoV-2 mRNA ([id number]) vax 09/13/21 Given zoster vaccine, inactivated 03/24/21 Given SARS-CoV-2 (COVID-19) mRNA BNT-162b2 vac 02/24/21 Given SARS-CoV-2 (COVID-19) mRNA BNT-162b2 vac 06/06/20 Recorded SARS-CoV-2 (COVID-19) mRNA BNT-162b2 vac 05/16/20 Recorded 1Admin Note: VIS 08/13/2011GIVEN Medications atorvastatin 20 mg oral tablet See Instructions, SERGEY 1 TABLETA POR LA BOCA CADA JESSE, # 90 tablet, 1 Refills, Maintenance, 01/03/22 13:30:00 EST, [facility], 168, cm, 06/02/21 14:43:00 EDT, Height, 82, kg, 01/13/20 13:11:00 EST, Dry Weight Start Date: 01/03/22 Status: Ordered BD SHORT PEN NDL 29Pm9si 31GX5/16 NEDL BD SHORT PEN NDL 23Pk9ks 31GX5/16 NEDL, See Instructions, # 90 Unknown, 5 Refills, [facility], 168, cm, 06/02/21 14:43:00 EDT, Height, 82, [...] Date: 03/09/19 Stop Date: 03/03/20 Status: Ordered Lantus Solostar Pen 100 units/mL subcutaneous solution See Instructions, INYECTAR 20 UNIDADES DEBAJO DE LA PIEL DOS VECES AL JESSE, # 15 mL, 5 Refills, [facility], 168, cm, 06/02/21 14:43:00 EDT, Height, 82, kg, 01/13/20 13:11:00 EST, DryWeight Start Date: 09/01/21 Status: Ordered lisinopril 20 mg oral tablet 20 mg, 1, tablet, By Mouth, Daily, # 30 tablet, Refills 11, Tot. Refills 11, Maintenance, 06/02/21 15:03:00 EDT, Route to Pharmacy Electronically, [facility], Partial fill upon patient request if the prescription is for a schedule... Start Date: 06/02/21 Status: Ordered metFORMIN 1000 mg oral tablet 1 tablet, By Mouth, 2 times a day, # 180 tablet, 0 Refills, Maintenance, 04/24/22 13:55:00 EDT, [id number], 168, cm, 01/31/22 15:46:00 EST, Height, 85.63, kg, 01/31/22 15:46:00 EST, Dry Weight Start Date: 04/24/22 Status: Ordered MiraLax oral powder for reconstitution = 17 Gm, By Mouth, Daily, dissolve in water before taking, # 255 Gm, 3 Refills, Maintenance, 01/31/22 15:53:00 EST, REC Powder, [facility], Partial fill upon patient request if the prescription is for a schedule II opioid drug., 17... Start Date: 01/31/22 Status: Ordered mirtazapine 15 mg oral tablet See Instructions, SERGEY 1 TABLETA POR LA BOCA CADA JESSE A LA HORA DE DORMIR, # 30 tablet, 5 Refills,Maintenance, 03/11/22 12:59:00 EST, [facility], 168, cm, 01/31/22 15:46:00 EST, Height, [...] DryWeight Start Date: 03/10/19 Status: Ordered Pen [place], 31 G x 8 mm BD Ultra [...] Refills, Soft Stop, 03/24/21 14:52:00 EST, Powder, [facility], Partial fill upon patient request if the prescription is for a schedule II opioid drug., 0.5 mL... Start Date: 03/24/21 Status: Ordered tamsulosin 0.4 mg oral capsule See Instructions, SERGEY 1 CAPSULA POR LA BOCA CADA JESSE, # 30 capsule, Refills 5, Maintenance, 11/29/21 11:47:00 EDT, Instructions Replace Required Details, Route to Pharmacy Electronically, [facility], 168, cm, 06/02/21 14:43:00 EDT,... Start Date: 11/29/21 Status: Ordered Trulicity Pen 0.75 mg/0.5 mL subcutaneous solution See Instructions, INYECTAR 0.5ML SUBCUTANEO CADA SEMANA LUIS INDICADO. ROTAR [place] DE INYECCION, # 2 mL, 5 Refills, [facility], 168, cm, 06/02/21 14:43:00 EDT, Height, 82, kg,01/13/20 13:11:00 EST, Dry Weight Start Date: 09/01/21 Status: Ordered Tylenol 8 HR Arthritis Pain 650 mg oral tablet, extended release 2 tablet = 1,300 mg, By Mouth, Every 12 hours, # 50 tablet, 1 Refills, Maintenance, 02/16/19 10:54:00 EST, [facility], 169, cm, 02/16/19 10:45:00 EST, Height, 83.1, kg, 11/06/17 15:38:00 EDT, Dry Weight Start Date: 02/16/19 Status: Ordered Problem List Condition Confirmation Course Effective Dates Status H ealth Status Informant 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 Confirmed Active Depression Confirmed Active Diabetic foot ulcer Confirmed Active Foot callus Confirmed Active Hyperlipidemia Confirmed Active Obese class I Confirmed Active Plantar fasciitis, right Confirmed Active Tinea pedis Confirmed Active Diabetes mellitus type 2 in nonobese Confirmed Active 1MOCA in 2018, MOCA in 09/2020 Social History Social History Type Response Smoking Status Never (less than 100 in lifetime) entered on: 05/30/20 Sex Patient Care team information Care Team Personnel Name: Libby Llanes Position: [facility] RN Member Role: Primary Care Nurse Name: David Hess MD Position: [facility] Primary Care Physician Member Role: PCP Address: Address: [address] [place] [address]- Care Team Related Persons Name: ADOLFO MCCLENDON
--- OUTSIDE RECORDS SUMMARY | 2023-10-02 07:59 | XMS_ITS | Continuity of Care Document ---
Author Organization [facility] Address Unknown Care Team Providers Care Stripe Matcher Name Role Phone David Hess MD Primary Care Physician Encounter [facility] [place] Date(s): 01/31/21 - 03/02/21 [facility] Allergies, Adverse Reactions, Alerts No Known Allergies Immunizations Given and Recorded Vaccine Date Status Refusal Reason SARS-CoV-2 (COVID-19) mRNA BNT-162b2 vac 02/24/21 Given SARS-CoV-2 (COVID-19) mRNA BNT-162b2 vac 06/06/20 Recorded SARS-CoV-2 (COVID-19) mRNA BNT-162b2 vac 05/16/20 Recorded influenza virus vaccine, inactivated 01/17/21 Yovani rded influenza virus vaccine, inactivated 11/25/19 Give n influenza virus vaccine, inactivated 10/04/16 Yovani rded influenza virus vaccine, inactivated 1 02/15/12 Gi wilma 1Admin Note: VIS 08/13/2011GIVEN Medications atorvastatin 20 mg oral tablet See Instructions, SERGEY 1 TABLETA POR LA BOCA CADA JESSE, # 90 tablet, 1 Refills, Maintenance, [facility], 5.6, cm, 07/26/20 14:09:00 [...] 01/05/19 12:30:07 EST, Route to Pharmacy Electronically, [id number], [facility] Start Date: 01/05/19 Status: Ordered Lantus Solostar Pen 100 units/mL subcutaneous solution See Instructions, INYECTAR 20 UNIDADES DEBAJO DE LA PIEL DOS VECES AL JESSE, # 15 mL, 5 Refills, [facility], 5.6, cm, 07/26/20 14:09:00 EDT, Height, 82, kg, 01/13/20 13:11:00 EST, DryWeight Start Date: 12/01/20 Status: Ordered lisinopril 10 mg oral tablet See Instructions, SERGEY 1 TABLETA POR LA BOCA CADA JESSE, # 90 tablet, Refills 0, Tot. Refills 0, 12/21/20 14:17:00 EST, Instructions Replace Required Details, Route to Pharmacy Electronically, [facility], 5.6, cm, 12/20/20 14:11:00... Start Date: 12/21/20 Status: Ordered melatonin 1 mg oral tablet 1 tablet = 1 mg, By Mouth, Daily at bedtime, PRN for insomnia, Take at 6 pm for sleep, # 30 tablet,0 Refills, Maintenance, 01/09/18 11:56:29 EST, Tablet Start Date: 01/09/18 Status: Ordered metFORMIN 1000 mg oral tablet 1 tablet, By Mouth, 2 times a day, # 180 tablet, 3 Refills, Maintenance, 05/02/20 14:36:00 EDT, [facility] #[id number], 5.6, cm, 01/13/20 13:11:00 EST, Height, 82, kg, 01/13/20 13:11:00 EST, DryWeight Start Date: 05/02/20 Status: Ordered mirtazapine 15 mg oral tablet See Instructions, SERGEY 1 TABLETA POR LA BOCA CADA JESSE A LA HORA DE DORMIR, # 30 tablet, 5 Refills,Maintenance, [facility], 5.6, cm, 07/26/20 14:09:00 [...] DryWeight Start Date: 03/10/19 Status: Ordered Pen [place], 31 G x 8 mm BD Ultra [...] Refills, Soft Stop, 05/20/20 11:17:00 EDT, Powder, [facility], Partial fill upon patient request if the prescription is for a schedule II opioid drug., 0.5 mL... Start Date: 05/20/20 Status: Ordered Trulicity Pen 0.75 mg/0.5 mL subcutaneous solution 0.5 mL = 0.75 mg, Subcutaneous Injection, Every week, rotate injection sites, # 2 mL, 5 Refills, Maintenance, 01/31/21 14:22:00 EST, Solution, [facility], Partial fill upon patient request if the prescription is for a schedule II o... Start Date: 01/31/21 Status: Ordered Tylenol 8 HR Arthritis Pain 650 mg oral tablet, extended release 2 tablet = 1,300 mg, By Mouth, Every 12 hours, # 50 tablet, 1 Refills, Maintenance, 02/16/19 10:54:00 EST, [facility], 169, cm, 02/16/19 10:45:00 EST, Height, 83.1, [...]
--- OUTSIDE RECORDS SUMMARY | 2023-10-02 07:59 | XMS_ITS | Continuity of Care Document ---
Author Organization [facility] Address Unknown Care Team Providers Care Global Coordinator Name Role Phone David Hess MD Primary Care Physician [place] [facility] [place] 02[place]23/21 [facility] Attending Physician: David Hess MD Admitting Physician: David Hess MD Allergies, Adverse Reactions, Alerts No Known Allergies Immunizations Given and Recorded Vaccine Date Status Refusal Reason SARS-CoV-2 (COVID-19) mRNA BNT-162b2 vac 06/06/20 Recorded SARS-CoV-2 (COVID-19) mRNA BNT-162b2 vac 05/16/20 Recorded influenza virus vaccine, inactivated 11/25/19 Give n influenza virus vaccine, inactivated 1 02/15/12 Gi wilma 1Admin Note: VIS 08/13/2011GIVEN Medications atorvastatin 20 mg oral tablet See Instructions, SERGEY 1 TABLETA POR LA BOCA CADA JESSE, # 90 tablet, 1 Refills, Maintenance, [facility], 5.6, cm, 07/26/20 14:09:00 EDT, Height, [...] 01/05/19 12:30:07 EST, Route to Pharmacy Electronically, [id number], [facility] Start Date: 01/05/19 Status: Ordered Lantus Solostar Pen 100 units/mL subcutaneous solution See Instructions, INYECTAR 20 UNIDADES DEBAJO DE LA PIEL DOS VECES AL JESSE, # 15 mL, 5 Refills, [facility], 5.6, cm, 07/26/20 14:09:00 EDT, Height, 82, kg, 01/13/20 13:11:00 EST, DryWeight Start Date: 12/01/20 Status: Ordered lisinopril 10 mg oral tablet See Instructions, SERGEY 1 TABLETA POR LA BOCA CADA JESSE, # 90 tablet, Refills 0, Tot. Refills 0, 12/21/20 14:17:00 EST, Instructions Replace Required Details, Route to Pharmacy Electronically, [facility], 5.6, cm, 12/20/20 14:11:00... Start Date: 12/21/20 [...] tablet, 3 Refills, Maintenance, 05/02/20 14:36:00 EDT, [facility] #[id number], 5.6, cm, 01/13/20 13:11:00 EST, Height, 82, kg, 01/13/20 13:11:00 EST, DryWeight Start Date: 05/02/20 Status: Ordered mirtazapine 15 mg oral tablet See Instructions, SERGEY 1 TABLETA POR LA BOCA CADA JESSE A LA HORA DE DORMIR, # 30 tablet, 5 Refills,Maintenance, [facility], 5.6, cm, 07/26/20 14:09:00 EDT, Height, [...] DryWeight Start Date: 03/10/19 Status: Ordered Pen [place], 31 G x 8 mm BD Ultra [...] Refills, Soft Stop, 05/20/20 11:17:00 EDT, Powder, [facility], Partial fill upon patient request if the prescription is for a schedule II opioid drug., 0.5 mL... Start Date: 05/20/20 Status: Ordered Trulicity Pen 0.75 mg/0.5 mL subcutaneous solution 0.5 mL = 0.75 mg, Subcutaneous Injection, Every week, rotate injection sites, # 2 mL, 5 Refills, Maintenance, 01/31/21 14:22:00 EST, Solution, [facility], Partial fill upon patient request if the prescription is for a schedule II o... Start Date: 01/31/21 Status: Ordered Tylenol 8 HR Arthritis Pain 650 mg oral tablet, extended release 2 tablet = 1,300 mg, By Mouth, Every 12 hours, # 50 tablet, 1 Refills, Maintenance, 02/16/19 10:54:00 EST, [facility], 169, cm, 02/16/19 10:45:00 EST, Height, [...]
--- OUTSIDE RECORDS SUMMARY | 2023-10-02 07:59 | XMS_ITS | Continuity of Care Document ---
Author Organization [facility] Address Unknown Care Team Providers Care Building Materials Sales Attendant Name Role Phone David Hess MD Primary Care Physician Encounter [facility] [place] Date(s): 01/11/21 - 02/10/21 [facility] Allergies, Adverse Reactions, Alerts Substance Reaction Severity [...] 01/05/19 12:30:07 EST, Route to Pharmacy Electronically, [id number], [facility] Start Date: 01/05/19 Status: Ordered Lantus [...] Replace Required Details, Route to Pharmacy Electronically, [facility], 5.6, cm, 12/20/20 14:11:00... Start Date: [...] tablet, 3 Refills, Maintenance, 05/02/20 14:36:00 EDT, [facility] #[id number], 5.6, cm, 01/13/20 13:11:00 EST, Height, 82, [...] DryWeight Start Date: 03/10/19 Status: Ordered Pen [place], 31 G x 8 mm BD Ultra [...] Refills, Soft Stop, 05/20/20 11:17:00 EDT, Powder, [facility], Partial fill upon patient request if the prescription is for a schedule II opioid drug., 0.5 mL... Start Date: 05/20/20 Status: Ordered Trulicity Pen 0.75 mg/0.5 mL subcutaneous solution 0.5 mL = 0.75 mg, Subcutaneous Injection, Every week, rotate injection sites, # 2 mL, 5 Refills, Maintenance, 01/31/21 14:22:00 EST, Solution, [facility], Partial fill upon patient request if the prescription is for a schedule II o... Start Date: 01/31/21 Status: Ordered Tylenol 8 HR Arthritis Pain 650 mg oral tablet, extended release 2 tablet = 1,300 mg, By Mouth, Every 12 hours, # 50 tablet, 1 Refills, Maintenance, 02/16/19 10:54:00 EST, [facility], 169, cm, 02/16/19 10:45:00 EST, Height, [...]
--- OUTSIDE RECORDS SUMMARY | 2023-10-02 07:59 | XMS_ITS | Continuity of Care Document ---
Author Organization [facility] Address [address] [place] [address]- Care Team Providers Care Shellfish Dredge Operator Name Role Phone Jimena STANTON, David Primary Care Physician Encounter [facility] Date(s): 05/12/20 - 06/11/20 [facility]/[address] [address]- Allergies, Adverse Reactions, Alerts Substance Reaction Severity Status NKA Active Immunizations Given and Recorded Vaccine Date Status Refusal Reason influenza virus vaccine, inactivated 11/25/19 Give n influenza virus vaccine, inactivated 1 02/15/12 Gi wilma 1Admin Note: VIS 08/13/2011GIVEN Medications atorvastatin 20 mg oral tablet 1 tablet = 20 mg, By Mouth, Daily, # 90 tablet, 1 Refills, Maintenance, 03/01/20 15:12:00 EST, Tablet, [facility], 5.6, cm, 01/13/20 13:11:00 EST, Height, [...] 01/05/19 12:30:07 EST, Route to Pharmacy Electronically, [id number], [facility] Start Date: 01/05/19 Status: Ordered Lantus Solostar Pen 100 units/mL subcutaneous solution = 20 units, Subcutaneous Injection, 2 times a day, # 15 mL, 2 Refills, Maintenance, 05/12/20 14:21:00 EDT, Solution, [facility], 5.6, cm, 01/13/20 13:11:00 EST, Height, 82, kg, 01/13/20 13:11:00 EST, Dry Weight Start Date: 05/12/20 Status: Ordered lisinopril 10 mg oral tablet 10 mg, 1, tablet, By Mouth, Daily, # 30 tablet, Refills 5, Tot. Refills 5, Maintenance, 10/07/19 8:18:00 EDT, Route to Pharmacy Electronically, [facility], 169, cm, 04/16/19 17:08:00 EST, Height, [...] tablet, 3 Refills, Maintenance, 05/02/20 14:36:00 EDT, [facility] #[id number], 5.6, cm, 01/13/20 13:11:00 EST, Height, 82, kg, 01/13/20 13:11:00 EST, DryWeight Start Date: 05/02/20 Status: Ordered mirtazapine 15 mg oral tablet 1 tablet = 15 mg, By Mouth, Daily at bedtime, # 30 tablet, 2 Refills, Maintenance, 05/12/20 14:21:00 EDT, Tablet, [facility], 5.6, cm, 01/13/20 13:11:00 EST, Height, [...] DryWeight Start Date: 03/10/19 Status: Ordered Pen [place], 31 G x 8 mm BD Ultra [...] Refills, Soft Stop, 05/20/20 11:17:00 EDT, Powder, [facility], Partial fill upon patient request if the prescription is for a schedule II opioid drug., 0.5 mL... Start Date: 05/20/20 Status: Ordered Tylenol 8 HR Arthritis Pain 650 mg oral tablet, extended release 2 tablet = 1,300 mg, By Mouth, Every 12 hours, # 50 tablet, 1 Refills, Maintenance, 02/16/19 10:54:00 EST, [facility], 169, cm, 02/16/19 10:45:00 EST, Height, [...]
--- OUTSIDE RECORDS SUMMARY | 2023-10-02 07:59 | XMS_ITS | Continuity of Care Document ---
Author Organization [facility] Address [address] [place] [address]- Care Team Providers Care Chargeback Specialist Name Role Phone Jimena STANTON, David Primary Care Physician Encounter [facility] Date(s): 03/01/20 - 03/31/20 [facility]/[address] [address]- Allergies, Adverse Reactions, Alerts Substance Reaction Severity [...] 15:12:00 EST, Tablet, [facility], 5.6, cm, 01/13/20 13:11:00 EST, Height, 82, [...] 01/05/19 12:30:07 EST, Route to Pharmacy Electronically, [id number], [facility] Start Date: 01/05/19 Status: Ordered Lantus Solostar Pen 100 units/mL subcutaneous solution = 20 units, Subcutaneous Injection, 2 times a day, # 15 mL, 11 Refills, Maintenance, 04/16/19 16:58:00 EST, Solution, [facility], 169, cm, 04/16/19 16:33:00 EST, Height, 83.1, kg,11/06/17 15:38:00 EDT, Dry Weight Start Date: 04/16/19 Status: Ordered lisinopril 10 mg oral tablet 10 mg, 1, tablet, By Mouth, Daily, # 30 tablet, Refills 5, Tot. Refills 5, Maintenance, 10/07/19 8:18:00 EDT, Route to Pharmacy Electronically, [facility], 169, cm, 04/16/19 17:08:00 EST, Height, [...] day, # 180 tablet, 0 Refills, Maintenance, 02/10/20 10:07:00 EST, Tablet, [facility] #[id number], 5.6, cm, 01/13/20 13:11:00 EST, Height, 82, kg, 01/13/20 13:11:00 EST, Dry Weight Start Date: 02/10/20 Status: Ordered mirtazapine 15 mg oral tablet 1 tablet = 15 mg, By Mouth, Daily at bedtime, # 30 tablet, 3 Refills, Maintenance, 11/23/19 11:04:00 EDT, Tablet, [facility], 169, cm, 11/23/19 9:06:00 EDT, Height [...] DryWeight Start Date: 03/10/19 Status: Ordered Pen [place], 31 G x 8 mm BD Ultra [...] tablet, 1 Refills, Maintenance, 02/16/19 10:54:00 EST, [facility], 169, cm, 02/16/19 10:45:00 EST, Height, 83.1, [...]
--- OUTSIDE RECORDS SUMMARY | 2023-10-02 08:00 | XMS_ITS | Continuity of Care Document ---
Author Organization [facility] Address [address] [place] [address]- Care Team Providers Care Employee Placement Specialist Name Role Phone David Hess MD Primary Care Physician Encounter [facility] [place] Date(s): 07/11/22 - 08/25/22 [facility]/[address] [address]- Attending Physician: David Hess MD Admitting Physician: David Hess MD Allergies, Adverse Reactions, Alerts No Known Allergies Immunizations Given and Recorded Vaccine Date Status Refusal Reason [id number] 12y+ bivalent booster vax 01/31/22 Given influenza virus vaccine, inactivated 01/31/22 Give n influenza virus vaccine, inactivated 01/17/21 Yovani rded influenza virus vaccine, inactivated 11/25/19 Give n influenza virus vaccine, inactivated 10/04/16 Yovani rded influenza virus vaccine, inactivated 1 02/15/12 Gi wilma SARS-CoV-2 mRNA ([id number]) vax 09/13/21 Given zoster vaccine, inactivated 03/24/21 Given SARS-CoV-2 (COVID-19) mRNA BNT-162b2 vac 02/24/21 Given SARS-CoV-2 (COVID-19) mRNA BNT-162b2 vac 06/06/20 Recorded SARS-CoV-2 (COVID-19) mRNA BNT-162b2 vac 05/16/20 Recorded 1Admin Note: VIS 08/13/2011GIVEN Medications atorvastatin 20 mg oral tablet See Instructions, SERGEY 1 TABLETA POR LA BOCA CADA JESSE, # 90 tablet, 1 Refills, Maintenance, 01/03/22 13:30:00 EST, [facility], 168, cm, 06/02/21 14:43:00 EDT, Height, 82, kg, 01/13/20 13:11:00 EST, Dry Weight Start Date: 01/03/22 Status: Ordered BD SHORT PEN NDL [id number] 31GX5/16 NEDL BD SHORT PEN NDL 58Vv8nr 31GX5/16 NEDL, See Instructions, # 90 Unknown, [...] mL, 1 Refills, Maintenance, 06/15/22 16:17:00 EDT, [facility], Partial fill upon patient request if the prescription is for a schedule II opioid drug., 10 mL By Mouth Every 6 hours, 168, cm, 05... Start Date: 06/15/22 Status: Ordered Lantus Solostar Pen 100 units/mL subcutaneous solution See Instructions, INYECTAR 20 UNIDADES DEBAJO DE LA PIEL DOS VECES AL JESSE, # 15 mL, 5 Refills, [facility], 168, cm, 06/02/21 14:43:00 EDT, Height, 82, kg, 01/13/20 13:11:00 EST, DryWeight Start Date: 09/01/21 Status: Ordered lisinopril 20 mg oral tablet See Instructions, SERGEY 1 TABLETA POR LA BOCA CADA JESSE, # 90 tablet, Refills 1, Maintenance, 06/06/22 14:56:00 EDT, Instructions Replace Required Details, Route to Pharmacy Electronically, [facility], 168, cm, 01/31/22 15:46:00 EST,... Start Date: 06/06/22 Status: Ordered metFORMIN 1000 mg oral tablet 1 tablet, By Mouth, 2 times a day, # 180 tablet, 0 Refills, Maintenance, 07/22/22 12:04:00 EDT, [id number], 168, cm, 07/11/22 15:56:00 EDT, Height, 85.63, kg, 06/16/22 22:34:00 EDT, Dry Weight Start Date: 07/22/22 Status: Ordered MiraLax oral powder for reconstitution = 17 Gm, By Mouth, Daily, dissolve in water before taking, # 255 Gm, 0 Refills, Maintenance, 06/19/22 9:58:00 EDT, REC Powder, [facility], Partial fill upon patient request if the prescription is for a schedule II opioid drug., 17 Gm By... Start Date: 06/19/22 Status: Ordered mirtazapine 15 mg oral tablet See Instructions, SERGEY 1 TABLETA POR LA BOCA CADA JESSE A LA HORA DE DORMIR, # 30 tablet, 5 Refills,Maintenance, 03/11/22 12:59:00 EST, [facility], 168, cm, 01/31/22 15:46:00 [...] DryWeight Start Date: 03/10/19 Status: Ordered Pen [place], 31 G x 8 mm BD Ultra [...] Refills, Soft Stop, 03/24/21 14:52:00 EST, Powder, [facility], Partial fill upon patient request if the prescription is for a schedule II opioid drug., 0.5 mL... Start Date: 03/24/21 Status: Ordered tamsulosin 0.4 mg oral capsule See Instructions, SERGEY 1 CAPSULA POR LA BOCA CADA JESSE, # 90 capsule, Refills 1, Maintenance, 06/06/22 14:57:00 EDT, Instructions Replace Required Details, Route to Pharmacy Electronically, [facility], 168, cm, 01/31/22 15:46:00 EST,... Start Date: 06/06/22 Status: Ordered Trulicity Pen 0.75 mg/0.5 mL subcutaneous solution See Instructions, INYECTAR 0.5ML SUBCUTANEO CADA SEMANA LUIS INDICADO. ROTAR LOS SITIOS DE INYECCION, # 2 mL, 5 Refills, 06/07/22 9:54:00 EDT, [facility], 168, cm, 01/31/22 15:46:00 EST, Height, 85.63, kg, 01/31/22 15:46:00 EST, D... Start Date: 06/07/22 Status: Ordered Tylenol 8 HR Arthritis Pain 650 mg oral tablet, extended release 2 tablet = 1,300 mg, By Mouth, Every 12 hours, # 50 tablet, 1 Refills, Maintenance, 02/16/19 10:54:00 EST, [facility], 169, cm, 02/16/19 10:45:00 EST, Height, 83.1, [...] Care Team Personnel Name: Libby Llanes Position: [facility] RN Member Role: Primary Care Nurse Name: Gypsy Goodman RN Position: [facility] RN Member Role: Primary Care Nurse Name: David Hess MD Position: [facility] Physician - Primary Care Member Role: PCP Address: Address: [address] [place] [address]- Care Team Related Persons Name: ADOLFO MCCLENDON Address: home [address] [place] [id number]
--- OUTSIDE RECORDS SUMMARY | 2023-10-02 08:00 | XMS_ITS | Continuity of Care Document ---
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 Pullet Farm Name Role Phone David Hess MD Primary Care Physician [place] [facility] [place] [facility] [place]/12/22 - 02/11/22 [facility]/[address] [address]- [place] Allergies, Adverse Reactions, Alerts No Known Allergies Immunizations Given and Recorded Vaccine Date Status Refusal Reason [id number] 12y+ bivalent booster vax 01/31/22 Given influenza virus vaccine, inactivated 01/31/22 Give n influenza virus vaccine, inactivated 01/17/21 Yovani rded influenza virus vaccine, inactivated 11/25/19 Give n influenza virus vaccine, inactivated 10/04/16 Yovani rded influenza virus vaccine, inactivated 1 02/15/12 Gi wilma SARS-CoV-2 mRNA ([id number]) vax 09/13/21 Given zoster vaccine, inactivated 03/24/21 Given SARS-CoV-2 (COVID-19) mRNA BNT-162b2 vac 02/24/21 Given SARS-CoV-2 (COVID-19) mRNA BNT-162b2 vac 06/06/20 Recorded SARS-CoV-2 (COVID-19) mRNA BNT-162b2 vac 05/16/20 Recorded 1Admin Note: VIS 08/13/2011GIVEN Medications atorvastatin 20 mg oral tablet See Instructions, SERGEY 1 TABLETA POR LA BOCA CADA JESSE, # 90 tablet, 1 Refills, Maintenance, 01/03/22 13:30:00 EST, [facility], 168, cm, 06/02/21 14:43:00 EDT, Height, 82, kg, 01/13/20 13:11:00 EST, Dry Weight Start Date: 01/03/22 Status: Ordered BD SHORT PEN NDL 17Gv5ca 31GX5/16 NEDL BD SHORT PEN NDL 66Jh8sg 31GX5/16 NEDL, See Instructions, # 90 Unknown, [...] AL JESSE, # 15 mL, 5 Refills, [facility], 168, cm, 06/02/21 14:43:00 EDT, Height, 82, kg, 01/13/20 13:11:00 EST, DryWeight Start Date: 09/01/21 Status: Ordered lisinopril 20 mg oral tablet 20 mg, 1, tablet, By Mouth, Daily, # 30 tablet, Refills 11, Tot. Refills 11, Maintenance, 06/02/21 15:03:00 EDT, Route to Pharmacy Electronically, [facility], Partial fill upon patient request if the prescription is for a schedule... Start Date: 06/02/21 Status: Ordered metFORMIN 1000 mg oral tablet 1 tablet, By Mouth, 2 times a day, # 180 tablet, 1 Refills, Maintenance, 01/22/22 9:07:00 EST, [facility][id number], 168, cm, 06/02/21 14:43:00 EDT, Height Start Date: 01/22/22 Status: Ordered MiraLax oral powder for reconstitution = 17 Gm, By Mouth, Daily, dissolve in water before taking, # 255 Gm, 3 Refills, Maintenance, 01/31/22 15:53:00 EST, REC Powder, [facility], Partial fill upon patient request if the prescription is for a schedule II opioid drug., 17... Start Date: 01/31/22 Status: Ordered mirtazapine 15 mg oral tablet See Instructions, SERGEY 1 TABLETA POR LA BOCA CADA JESSE A LA HORA DE DORMIR, # 30 tablet, 5 Refills,[facility], 168, cm, 06/02/21 14:43:00 EDT, Height, 82, kg, 01/13/20 13:11:00 EST, Dry Weight Start Date: 07/27/21 Status: Ordered One Touch Ultra Test Strips See Instructions, # 100 each, Refills 11, Tot. Refills 11, Maintenance, use BID for DM 2, 05/09/21 14:29:00 EDT, Compound, 5.6, cm, 03/24/21 14:43:00 EST, Height, 82, kg, 01/13/20 13:11:00 EST, Dry Weight Start Date: 05/09/21 Status: Ordered One Touch UltraSmart Glucose Meter [...] DryWeight Start Date: 03/10/19 Status: Ordered Pen [place], 31 G x 8 mm BD Ultra [...] Refills, Soft Stop, 03/24/21 14:52:00 EST, Powder, [facility], Partial fill upon patient request if the prescription is for a schedule II opioid drug., 0.5 mL... Start Date: 03/24/21 Status: Ordered tamsulosin 0.4 mg oral capsule See Instructions, SERGEY 1 CAPSULA POR LA BOCA CADA JESSE, # 30 capsule, Refills 5, Maintenance, 11/29/21 11:47:00 EDT, Instructions Replace Required Details, Route to Pharmacy Electronically, [facility], 168, cm, 06/02/21 14:43:00 EDT,... Start Date: 11/29/21 Status: Ordered Trulicity Pen 0.75 mg/0.5 mL subcutaneous solution See Instructions, INYECTAR 0.5ML SUBCUTANEO CADA SEMANA LUIS INDICADO. ROTAR LOS SITIOS DE INYECCION, # 2 mL, 5 Refills, [facility], 168, cm, 06/02/21 14:43:00 EDT, Height, 82, kg,01/13/20 13:11:00 EST, Dry Weight Start Date: 09/01/21 Status: Ordered Tylenol 8 HR Arthritis Pain 650 mg oral tablet, extended release 2 tablet = 1,300 mg, By Mouth, Every 12 hours, # 50 tablet, 1 Refills, Maintenance, 02/16/19 10:54:00 EST, [facility], 169, cm, 02/16/19 10:45:00 EST, Height, [...] Care Team Personnel Name: Libby Llanes Position: [facility] RN Member Role: Primary Care Nurse Name: David Hess MD Position: [facility] Primary Care Physician Member Role: PCP Address: Address: [address] [place] [address]- Care Team Related Persons Name: ADOLFO MCCLENDON
--- OUTSIDE RECORDS SUMMARY | 2023-10-02 08:00 | XMS_ITS | Continuity of Care Document ---
Author Organization [facility] Address [address] [place] [address]- Care Team Providers Care Technology Methodology Consultant Name Role Phone David Hess MD Primary Care Physician Encounter [facility] Date(s): 01/01/20 - 01/31/20 [facility] [address] [place] [address]- Attending Physician: AdmtrBernice Allergies, Adverse Reactions, Alerts Substance Reaction Severity Status NKA Active Immunizations Given and Recorded Vaccine Date Status Refusal Reason influenza virus vaccine, inactivated 11/25/19 Give n influenza virus vaccine, inactivated 1 02/15/12 Gi wilma 1Admin Note: VIS 08/13/2011GIVEN Medications atorvastatin 20 mg oral tablet 1 tablet = 20 mg, By Mouth, Daily, # 30 tablet, 5 Refills, Maintenance, 07/03/19 15:29:00 EDT, Tablet, [facility], 169, cm, 04/16/19 17:08:00 EST, Height, 83.1, [...] 01/05/19 12:30:07 EST, Route to Pharmacy Electronically, [id number], [facility] Start Date: 01/05/19 Status: Ordered Lantus Solostar Pen 100 units/mL subcutaneous solution = 20 units, Subcutaneous Injection, 2 times a day, # 15 mL, 11 Refills, Maintenance, 04/16/19 16:58:00 EST, Solution, [facility], 169, cm, 04/16/19 16:33:00 EST, Height, 83.1, kg,11/06/17 15:38:00 EDT, Dry Weight Start Date: 04/16/19 Status: Ordered lisinopril 10 mg oral tablet 10 mg, 1, tablet, By Mouth, Daily, # 30 tablet, Refills 5, Tot. Refills 5, Maintenance, 10/07/19 8:18:00 EDT, Route to Pharmacy Electronically, [facility], 169, cm, 04/16/19 17:08:00 EST, Height, 83.1, [...] 0 Refills, Maintenance, 11/20/19 10:16:00 EDT, Tablet, [facility][id number], 169, cm, 04/16/19 17:08:00 EST, Height, Dry Weight Start Date: 11/20/19 Status: Ordered mirtazapine 15 mg oral tablet 1 tablet = 15 mg, By Mouth, Daily at bedtime, # 30 tablet, 3 Refills, Maintenance, 11/23/19 11:04:00 EDT, Tablet, [facility], 169, cm, 11/23/19 9:06:00 EDT, Height Start [...] DryWeight Start Date: 03/10/19 Status: Ordered Pen [place], 31 G x 8 mm BD Ultra [...] tablet, 1 Refills, Maintenance, 02/16/19 10:54:00 EST, [facility], 169, cm, 02/16/19 10:45:00 EST, Height, 83.1, [...]
--- OUTSIDE RECORDS SUMMARY | 2023-10-02 08:00 | XMS_ITS | Continuity of Care Document ---
Author Organization [facility] Address [address] [place] [address]- Care Team Providers Care Chair Installer Name Role Phone David Hess MD Primary Care Physician [place] [facility] [place]19 [facility] [address] [place] [address]- [facility] Attending Physician: Bernice Anderson Admitting Physician: AdmtrBernice Referring Physician: AdmtrBernice Allergies, Adverse Reactions, Alerts Substance Reaction Severity Status NKA Active Immunizations Given and Recorded Vaccine Date Status Refusal Reason influenza virus vaccine, inactivated 1 02/15/12 Gi wilma 1Admin Note: VIS 08/13/2011GIVEN Medications atorvastatin 20 mg oral tablet 1 tablet = 20 mg, By Mouth, Daily, # 30 tablet, 11 Refills, Maintenance, Tablet, Route to Pharmacy Electronically, [id number], [facility] Start Date: 04/07/18 Status: Ordered gabapentin 100 mg oral capsule 100 mg, 1, capsule, By Mouth, 3 times a day, # 90 capsule, Refills 1, Tot. Refills 1, Maintenance, 01/05/19 12:30:07 EST, Route to Pharmacy Electronically, [id number], [facility] Start Date: 01/05/19 Status: Ordered Lantus Solostar Pen 100 units/mL subcutaneous solution = 20 units, Subcutaneous Injection, 2 times a day, # 15 mL, 11 Refills, Maintenance, 03/31/18 10:58:11 EST, Solution Start Date: 03/31/18 Status: Ordered lisinopril 10 mg oral tablet 10 mg, 1, tablet, By Mouth, Daily, # 30 tablet, Refills 1, Tot. Refills 1, Maintenance, 02/26/19 12:37:00 EST, Route to Pharmacy Electronically, [facility] #[id number], 169, cm, 02/17/19 16:05:00 EST, Height, 83.1, [...] Dry Weight Start Date: 01/20/19 Status: Ordered Tylenol 8 HR Arthritis Pain 650 mg oral tablet, extended release 2 tablet = 1,300 mg, By Mouth, Every 12 hours, # 50 tablet, 1 Refills, Maintenance, 02/16/19 10:54:00 EST, [facility], 169, cm, 02/16/19 10:45:00 EST, Height, [...]
--- OUTSIDE RECORDS SUMMARY | 2023-10-02 08:00 | XMS_ITS | Continuity of Care Document ---
Author Organization [facility] Address [address] [place] [address]- Care Team Providers Care Voice Intercept Technician Name Role Phone David Hess MD Primary Care Physician [place] [facility] [place]26[place]23 - 04/25/23 [facility]/[address] [address]- [place] Allergies, Adverse Reactions, Alerts No Known Allergies Immunizations Given and Recorded Vaccine Date Status Refusal Reason [id number] 12y+ bivalent booster vax 01/31/22 Given influenza virus vaccine, inactivated 01/31/22 Give n influenza virus vaccine, inactivated 01/17/21 Yovani rded influenza virus vaccine, inactivated 11/25/19 Give n influenza virus vaccine, inactivated 10/04/16 Yovani rded influenza virus vaccine, inactivated 1 02/15/12 Gi wilma SARS-CoV-2 mRNA ([id number]) vax 09/13/21 Given zoster vaccine, inactivated 03/24/21 Given SARS-CoV-2 (COVID-19) mRNA BNT-162b2 vac 02/24/21 Given SARS-CoV-2 (COVID-19) mRNA BNT-162b2 vac 06/06/20 Recorded SARS-CoV-2 (COVID-19) mRNA BNT-162b2 vac 05/16/20 Recorded 1Admin Note: VIS 08/13/2011GIVEN Medications atorvastatin 20 mg oral tablet See Instructions, SERGEY 1 TABLETA POR LA BOCA CADA JESSE, # 90 tablet, 1 Refills, Maintenance, 09/06/22 9:51:00 EDT, [facility], 168, cm, 07/11/22 15:56:00 EDT, Height, 85.63, kg, 06/16/22 22:34:00 EDT, Dry Weight Start Date: 09/06/22 Status: Ordered BD SHORT PEN NDL 72Bc6uo 31GX5/16 NEDL BD SHORT PEN NDL 50Fm0li 31GX5/16 NEDL, See Instructions, # 90 Unknown, 3 Refills, Maintenance, USAR LUIS [facility]IC[facility], 09/06/22 9:51:00 EDT, 168, cm, 07/11/22 15:56:00 EDT, Height, 85.63, kg, 06/16/2321:34:00 EDT, Dry Weight Start Date: 09/06/22 Status: Ordered BD SHORT PEN NDL 19Hb4ay 31GX5/16 NEDL BD SHORT PEN NDL 41Yd9ty 31GX5/16 NEDL, See Instructions, # 90 Unknown, [...] mL, 1 Refills, Maintenance, 06/15/22 16:17:00 EDT, [facility], Partial fill upon patient request if the prescription is for a schedule II opioid drug., 10 mL By Mouth Every 6 hours, 168, cm, 05... Start Date: 06/15/22 Status: Ordered Lantus Solostar Pen 100 units/mL subcutaneous solution See Instructions, INYECTAR 20 UNIDADES DEBAJO DE LA PIEL DOS VECES AL JESSE, # 15 mL, 5 Refills, Maintenance, 10/12/22 15:50:00 EDT, [facility], 168, cm, 05/31/23 15:56:00 EDT, Height, 85.63, kg, 06/16/22 22:34:00 EDT, Dry Weight Start Date: 10/12/22 Status: Ordered lisinopril 20 mg oral tablet See Instructions, SERGEY 1 TABLETA POR LA BOCA CADA JESSE, # 90 tablet, Refills 1, Tot. Refills 1, Maintenance, 01/20/23 12:29:00 EST, Instructions Replace Required Details, Route to Pharmacy Electronically, [id number], 168, cm, 07/11/22... Start Date: 01/20/23 Status: Ordered metFORMIN 1000 mg oral tablet 1 tablet, By Mouth, 2 times a day, # 180 tablet, 3 Refills, Maintenance, 03/25/23 16:37:00 EST, [facility] #[id number], 168, cm, 07/11/22 15:56:00 EDT, Height, 85.63, kg, 06/16/22 22:34:00 EDT, Dry Weight Start Date: 03/25/23 Status: Ordered MiraLax oral powder for reconstitution = 17 Gm, By Mouth, Daily, dissolve in water before taking, # 255 Gm, 0 Refills, Maintenance, 06/19/22 9:58:00 EDT, REC Powder, [facility], Partial fill upon patient request if the prescription is for a schedule II opioid drug., 17 Gm By... Start Date: 06/19/22 Status: Ordered mirtazapine 15 mg oral tablet See Instructions, SERGEY 1 TABLETA POR LA BOCA CADA JESSE A LA HORA DE DORMIR, # 30 tablet, 5 Refills,Maintenance, 03/11/22 12:59:00 EST, [facility], 168, cm, 01/31/22 15:46:00 EST, Height, [...] DryWeight Start Date: 03/10/19 Status: Ordered Pen [place], 31 G x 8 mm BD [...] Refills, Soft Stop, 03/24/21 14:52:00 EST, Powder, [facility], Partial fill upon patient request if the prescription is for a schedule II opioid drug., 0.5 mL... Start Date: 03/24/21 Status: Ordered tamsulosin 0.4 mg oral capsule See Instructions, SERGEY 1 CAPSULA POR LA BOCA CADA JESSE, # 90 capsule, Refills 1, Maintenance, 01/20/23 12:29:00 EST, Instructions Replace Required Details, Route to Pharmacy Electronically, [facility], 168, cm, 07/11/22 15:56:00 EDT,... Start Date: 01/20/23 Status: Ordered Trulicity Pen 0.75 mg/0.5 mL subcutaneous solution See Instructions, INYECTAR 0.5ML SUBCUTANEO CADA SEMANA LUIS INDICADO. ROTAR LOS SITIOS DE INYECCION, # 2 mL, 5 Refills, 06/07/22 9:54:00 EDT, [facility], 168, cm, 01/31/22 15:46:00 EST, Height, 85.63, kg, 01/31/22 15:46:00 EST, D... Start Date: 06/07/22 Status: Ordered Tylenol 8 HR Arthritis Pain 650 mg oral tablet, extended release 2 tablet = 1,300 mg, By Mouth, Every 12 hours, # 50 tablet, 1 Refills, Maintenance, 02/16/19 10:54:00 EST, [facility], 169, cm, 02/16/19 10:45:00 EST, Height, 83.1, [...] Care Team Personnel Name: Libby Llanes Position: [facility] RN Member Role: Primary Care Nurse Name: David Hess MD Position: [facility] Physician - Primary Care Member Role: PCP Address: Address: [address] [place] [address]- Care Team Related Persons Name: ADOLFO MCCLENDON Address: home [address] [place] [id number]
--- OUTSIDE RECORDS SUMMARY | 2023-10-02 08:00 | XMS_ITS | Continuity of Care Document ---
Author Organization [facility] Address [address] [place] [address]- Care Team Providers Care Quilter Fixer Name Role Phone David Hess MD Primary Care Physician Encounter [facility] Date(s): 02/16/19 - 02/26/19 [facility]/[address] [address]- [facility] Attending Physician: Admtr, Bernice Allergies, Adverse Reactions, Alerts Substance Reaction Severity Status NKA Active Immunizations Given and Recorded Vaccine Date Status Refusal Reason influenza virus vaccine, inactivated 1 02/15/12 Gi wilma 1Admin Note: VIS 08/13/2011GIVEN Medications atorvastatin 20 mg oral tablet 1 tablet = 20 mg, By Mouth, Daily, # 30 tablet, 11 Refills, Maintenance, Tablet, Route to Pharmacy Electronically, [id number], [facility] Start Date: 04/07/18 Status: Ordered gabapentin 100 mg oral capsule 100 mg, 1, capsule, By Mouth, 3 times a day, # 90 capsule, Refills 1, Tot. Refills 1, Maintenance, 01/05/19 12:30:07 EST, Route to Pharmacy Electronically, [id number], [facility] Start Date: 01/05/19 Status: Ordered Lantus [...] 02/26/19 12:37:00 EST, Route to Pharmacy Electronically, [facility] #[id number], 169, cm, 02/17/19 16:05:00 EST, Height, 83.1, [...] tablet, 1 Refills, Maintenance, 02/16/19 10:54:00 EST, [facility], 169, cm, 02/16/19 10:45:00 EST, Height, [...]
--- OUTSIDE RECORDS SUMMARY | 2023-10-02 08:00 | XMS_ITS | Continuity of Care Document ---
Author Organization [facility] Address [address] [place] [id number]- Care Team Providers Care Gas Plumber Name Role Phone David Hess MD Primary Care Physician [place] [facility] [place]12[place]22 - 03/25/22 [facility]/[address] [address]- Attending Physician: David eHss MD Admitting Physician: David Hess MD Allergies, Adverse Reactions, Alerts No Known Allergies Immunizations Given and Recorded Vaccine Date Status Refusal Reason [id number] 12y+ bivalent booster vax 01/31/22 Given influenza virus vaccine, inactivated 01/31/22 Give n influenza virus vaccine, inactivated 01/17/21 Yovani rded influenza virus vaccine, inactivated 11/25/19 Give n influenza virus vaccine, inactivated 10/04/16 Yovani rded influenza virus vaccine, inactivated 1 02/15/12 Gi wilma SARS-CoV-2 mRNA ([id number]) vax 09/13/21 Given zoster vaccine, inactivated 03/24/21 Given SARS-CoV-2 (COVID-19) mRNA BNT-162b2 vac 02/24/21 Given SARS-CoV-2 (COVID-19) mRNA BNT-162b2 vac 06/06/20 Recorded SARS-CoV-2 (COVID-19) mRNA BNT-162b2 vac 05/16/20 Recorded 1Admin Note: VIS 08/13/2011GIVEN Medications atorvastatin 20 mg oral tablet See Instructions, SERGEY 1 TABLETA POR LA BOCA CADA JESSE, # 90 tablet, 1 Refills, Maintenance, 01/03/22 13:30:00 EST, [facility], 168, cm, 06/02/21 14:43:00 EDT, Height, 82, kg, 01/13/20 13:11:00 EST, Dry Weight Start Date: 01/03/22 Status: Ordered BD SHORT PEN NDL [id number] 31GX5/16 NEDL BD SHORT PEN NDL [id number] 31GX5/16 NEDL, See Instructions, # 90 Unknown, 5 Refills, [facility], 168, cm, 06/02/21 14:43:00 EDT, [...] AL JESSE, # 15 mL, 5 Refills, [facility], 168, cm, 06/02/21 14:43:00 EDT, Height, 82, kg, 01/13/20 13:11:00 EST, DryWeight Start Date: 09/01/21 Status: Ordered lisinopril 20 mg oral tablet 20 mg, 1, tablet, By Mouth, Daily, # 30 tablet, Refills 11, Tot. Refills 11, Maintenance, 06/02/21 15:03:00 EDT, Route to Pharmacy Electronically, [facility], Partial fill upon patient request if the prescription is for a schedule... Start Date: 06/02/21 Status: Ordered metFORMIN 1000 mg oral tablet 1 tablet, By Mouth, 2 times a day, # 180 tablet, 1 Refills, Maintenance, 01/22/22 9:07:00 EST, [id number], 168, cm, 06/02/21 14:43:00 EDT, Height Start Date: 01/22/22 Status: Ordered MiraLax oral powder for reconstitution = 17 Gm, By Mouth, Daily, dissolve in water before taking, # 255 Gm, 3 Refills, Maintenance, 01/31/22 15:53:00 EST, REC Powder, [facility], Partial fill upon patient request if the prescription is for a schedule II opioid drug., 17... Start Date: 01/31/22 Status: Ordered mirtazapine 15 mg oral tablet See Instructions, SERGEY 1 TABLETA POR LA BOCA CADA JESSE A LA HORA DE DORMIR, # 30 tablet, 5 Refills,Maintenance, 03/11/22 12:59:00 EST, [facility], 168, cm, 01/31/22 15:46:00 EST, [...] DryWeight Start Date: 03/10/19 Status: Ordered Pen [place], 31 G x 8 mm BD Ultra [...] Refills, Soft Stop, 03/24/21 14:52:00 EST, Powder, [facility], Partial fill upon patient request if the prescription is for a schedule II opioid drug., 0.5 mL... Start Date: 03/24/21 Status: Ordered tamsulosin 0.4 mg oral capsule See Instructions, SERGEY 1 CAPSULA POR LA BOCA CADA JESSE, # 30 capsule, Refills 5, Maintenance, 11/29/21 11:47:00 EDT, Instructions Replace Required Details, Route to Pharmacy Electronically, [facility], 168, cm, 06/02/21 14:43:00 EDT,... Start Date: 11/29/21 Status: Ordered Trulicity Pen 0.75 mg/0.5 mL subcutaneous solution See Instructions, INYECTAR 0.5ML SUBCUTANEO CADA SEMANA LUIS INDICADO. ROTAR LOS SITIOS DE INYECCION, # 2 mL, 5 Refills, [facility], 168, cm, 06/02/21 14:43:00 EDT, Height, 82, kg,01/13/20 13:11:00 EST, Dry Weight Start Date: 09/01/21 Status: Ordered Tylenol 8 HR Arthritis Pain 650 mg oral tablet, extended release 2 tablet = 1,300 mg, By Mouth, Every 12 hours, # 50 tablet, 1 Refills, Maintenance, 02/16/19 10:54:00 EST, [facility], 169, cm, 02/16/19 10:45:00 EST, Height, 83.1, [...] Care Team Personnel Name: Libby Llanes Position: [facility] RN Member Role: Primary Care Nurse Name: David Hess MD Position: [facility] Primary Care Physician Member Role: PCP Address: Address: [address] [place] [address] Care Team Related Persons Name: ADOLFO MCCLENDON
--- OUTSIDE RECORDS SUMMARY | 2023-10-02 08:00 | XMS_ITS | Continuity of Care Document ---
Author Organization [facility] Address [address] [place] [address]- Care Team Providers Care Postie Name Role Phone David Hess MD Primary Care Physician Encounter [facility] [place] Date(s): 05/26/19 - 06/10/[address] [address]- [facility] Discharge Disposition: A-D/C Home Attending Physician: David Hess MD Admitting Physician: David Hess MD Referring Physician: David Hess MD Allergies, Adverse Reactions, Alerts Substance Reaction Severity Status NKA Active Immunizations Given and Recorded Vaccine Date Status Refusal Reason influenza virus vaccine, inactivated 1 02/15/12 Gi wilma 1Admin Note: VIS 08/13/2011GIVEN Medications atorvastatin 20 mg oral tablet 1 tablet = 20 mg, By Mouth, Daily, # 30 tablet, 11 Refills, Maintenance, Tablet, Route to Pharmacy Electronically, [id number], [facility] Start Date: 04/07/18 Status: Ordered Freestyle Lite [...] 01/05/19 12:30:07 EST, Route to Pharmacy Electronically, [id number], [facility] Start Date: 01/05/19 Status: Ordered Lantus Solostar Pen 100 units/mL subcutaneous solution = 20 units, Subcutaneous Injection, 2 times a day, # 15 mL, 11 Refills, Maintenance, 04/16/19 16:58:00 EST, Solution, [facility], 169, cm, 04/16/19 16:33:00 EST, Height, 83.1, kg,11/06/17 15:38:00 EDT, Dry Weight Start Date: 04/16/19 Status: Ordered lisinopril 10 mg oral tablet 10 mg, 1, tablet, By Mouth, Daily, # 30 tablet, Refills 1, Tot. Refills 1, Maintenance, 06/04/19 15:35:00 EDT, Route to Pharmacy Electronically, [facility], 169, cm, 04/16/19 17:08:00 EST, Height, 83.1, kg, 11/06/17 15:38:00 EDT, D... Start Date: 06/04/19 Status: Ordered melatonin 1 mg oral tablet [...] 1 Refills, Maintenance, 02/16/19 10:54:00 EST, [facility], 169, cm, 02/16/19 10:45:00 EST, Height, [...]
--- OUTSIDE RECORDS SUMMARY | 2023-10-02 08:00 | XMS_ITS | Continuity of Care Document ---
Author Organization [facility] Address Unknown Care Team Providers Care Production Miner Name Role Phone David Hess MD Primary Care Physician Encounter [facility] [id number] Date(s): 06/02/21 - 07/02/21 [facility] Attending Physician: Admtr, Bernice Allergies, Adverse Reactions, Alerts No Known Allergies Immunizations Given and Recorded Vaccine Date Status Refusal Reason zoster vaccine, inactivated 03/24/21 Given SARS-CoV-2 (COVID-19) [...] CADA JESSE, # 90 tablet, 1 Refills, [facility], 5.6, cm, 03/24/21 14:43:00 EST, Height, 82, kg, 01/13/20 13:11:00 EST, Dry Weight Start Date: 05/10/21 Status: Ordered Freestyle Lite Test Strips See [...] AL JESSE, # 15 mL, 5 Refills, [facility], 5.6, cm, 07/26/20 14:09:00 EDT, Height, 82, kg, 01/13/20 13:11:00 EST, DryWeight Start Date: 12/01/20 Status: Ordered lisinopril 20 mg oral tablet 20 mg, 1, tablet, By Mouth, Daily, # 30 tablet, Refills 11, Tot. Refills 11, Maintenance, 06/02/21 15:03:00 EDT, Route to Pharmacy Electronically, [facility], Partial fill upon patient request if the prescription is for a schedule... Start Date: 06/02/21 Status: Ordered mirtazapine 15 mg oral tablet See Instructions, SERGEY 1 TABLETA POR LA BOCA CADA JESSE A LA HORA DE DORMIR, # 30 tablet, 5 Refills,Maintenance, [facility], 5.6, cm, 07/26/20 14:09:00 EDT, [...] DryWeight Start Date: 03/10/19 Status: Ordered Pen [place], 31 G x 8 mm BD Ultra [...] Refills, Soft Stop, 03/24/21 14:52:00 EST, Powder, [facility], Partial fill upon patient request if the prescription is for a schedule II opioid drug., 0.5 mL... Start Date: 03/24/21 Status: Ordered tamsulosin 0.4 mg oral capsule 0.4 mg, 1, capsule, By Mouth, Daily, # 30 capsule, Refills 5, Tot. Refills 5, Maintenance, 03/24/2213:52:00 EST, Route to Pharmacy Electronically, [facility], Partial fill upon patient request if the prescription is for a schedule... Start Date: 03/24/21 Status: Ordered Trulicity Pen 0.75 mg/0.5 mL subcutaneous solution 0.5 mL = 0.75 mg, Subcutaneous Injection, Every week, rotate injection sites, # 2 mL, 5 Refills, Maintenance, 01/31/21 14:22:00 EST, Solution, [facility], Partial fill upon patient request if the prescription is for a schedule II o... Start Date: 01/31/21 Status: Ordered Tylenol 8 HR Arthritis Pain 650 mg oral tablet, extended release 2 tablet = 1,300 mg, By Mouth, Every 12 hours, # 50 tablet, 1 Refills, Maintenance, 02/16/19 10:54:00 EST, [facility], 169, cm, 02/16/19 10:45:00 EST, Height, 83.1, [...]
--- OUTSIDE RECORDS SUMMARY | 2023-10-02 08:00 | XMS_ITS | Continuity of Care Document ---
Author Organization [facility] Address [address] [place] [address]- Care Team Providers Care Director Of Rotc Name Role Phone David Hess MD Primary Care Physician [place] [facility] [place]20 [place] 08/25/20 [facility] [address] [place] [address]- Attending Physician: Bernice Anderson Admitting Physician: Bernice Anderson Referring Physician: AdmtrBernice Allergies, Adverse Reactions, Alerts [...] 1 Refills, Maintenance, 03/01/20 15:12:00 EST, Tablet, [facility], 5.6, cm, 01/13/20 13:11:00 EST, Height, 82, [...] 01/05/19 12:30:07 EST, Route to Pharmacy Electronically, [id number], [facility] Start Date: 01/05/19 Status: Ordered Lantus Solostar Pen 100 units/mL subcutaneous solution = 20 units, Subcutaneous Injection, 2 times a day, # 15 mL, 2 Refills, Maintenance, 05/12/20 14:21:00 EDT, Solution, [facility], 5.6, cm, 01/13/20 13:11:00 EST, Height, 82, kg, 01/13/20 13:11:00 EST, Dry Weight Start Date: 05/12/20 Status: Ordered lisinopril 10 mg oral tablet See Instructions, SERGEY 1 TABLETA POR LA BOCA CADA JESSE, # 30 tablet, Refills 5, Maintenance, Instructions Replace Required Details, Route to Pharmacy Electronically, [facility], 5.6, cm, 05/30/20 8:55:00 EDT, [...] tablet, 3 Refills, Maintenance, 05/02/20 14:36:00 EDT, [facility] #[id number], 5.6, cm, 01/13/20 13:11:00 EST, Height, 82, kg, 01/13/20 13:11:00 EST, DryWeight Start Date: 05/02/20 Status: Ordered mirtazapine 15 mg oral tablet 1 tablet = 15 mg, By Mouth, Daily at bedtime, # 30 tablet, 2 Refills, Maintenance, 05/12/20 14:21:00 EDT, Tablet, [facility], 5.6, cm, 01/13/20 13:11:00 EST, Height, [...] DryWeight Start Date: 03/10/19 Status: Ordered Pen [place], 31 G x 8 mm BD Ultra [...] Refills, Soft Stop, 05/20/20 11:17:00 EDT, Powder, [facility], Partial fill upon patient request if the prescription is for a schedule II opioid drug., 0.5 mL... Start Date: 05/20/20 Status: Ordered Trulicity Pen 0.75 mg/0.5 mL subcutaneous solution 0.5 mL = 0.75 mg, Subcutaneous Injection, Every week, rotate injection sites, # 2 mL, 5 Refills, Maintenance, 07/15/20 15:53:00 EDT, Solution, [facility], Partial fill upon patient request if the prescription is for a schedule II o... Start Date: 07/15/20 Status: Ordered Tylenol 8 HR Arthritis Pain 650 mg oral tablet, extended release 2 tablet = 1,300 mg, By Mouth, Every 12 hours, # 50 tablet, 1 Refills, Maintenance, 02/16/19 10:54:00 EST, [facility], 169, cm, 02/16/19 10:45:00 EST, Height, [...]
--- OUTSIDE RECORDS SUMMARY | 2023-10-02 08:00 | XMS_ITS | Continuity of Care Document ---
Author Organization [facility] Address [address] [place] [address]- Care Team Providers Care Manager Administrative Name Role Phone David Hess MD Primary Care Physician Encounter [facility] [place] Date(s): 01/31/22 - 03/02/22 [facility]/[address] [address]- Attending Physician: Bernice Anderson Allergies, Adverse Reactions, Alerts No Known Allergies Immunizations Given and Recorded Vaccine Date Status Refusal Reason [id number] 12y+ bivalent booster vax 01/31/22 Given influenza virus vaccine, inactivated 01/31/22 Give n influenza virus vaccine, inactivated 01/17/21 Yovani rded influenza virus vaccine, inactivated 11/25/19 Give n influenza virus vaccine, inactivated 10/04/16 Yovani rded influenza virus vaccine, inactivated 1 02/15/12 Gi wilma SARS-CoV-2 mRNA ([id number]) vax 09/13/21 Given zoster vaccine, inactivated 03/24/21 Given SARS-CoV-2 (COVID-19) mRNA BNT-162b2 vac 02/24/21 Given SARS-CoV-2 (COVID-19) mRNA BNT-162b2 vac 06/06/20 Recorded SARS-CoV-2 (COVID-19) mRNA BNT-162b2 vac 05/16/20 Recorded 1Admin Note: VIS 08/13/2011GIVEN Medications atorvastatin 20 mg oral tablet See Instructions, SERGEY 1 TABLETA POR LA BOCA CADA JESSE, # 90 tablet, 1 Refills, Maintenance, 01/03/22 13:30:00 EST, [facility], 168, cm, 06/02/21 14:43:00 EDT, Height, 82, kg, 01/13/20 13:11:00 EST, Dry Weight Start Date: 01/03/22 Status: Ordered BD SHORT PEN NDL [id number] 31GX5/16 NEDL BD SHORT PEN NDL [id number] 31GX5/16 NEDL, See Instructions, # 90 Unknown, 5 Refills, [facility], 168, cm, 06/02/21 14:43:00 EDT, Height, 82, [...] AL JESSE, # 15 mL, 5 Refills, [facility], 168, cm, 06/02/21 14:43:00 EDT, Height, 82, kg, 01/13/20 13:11:00 EST, DryWeight Start Date: 09/01/21 Status: Ordered lisinopril 20 mg oral tablet 20 mg, 1, tablet, By Mouth, Daily, # 30 tablet, Refills 11, Tot. Refills 11, Maintenance, 06/02/21 15:03:00 EDT, Route to Pharmacy Electronically, [facility], Partial fill upon patient request if the prescription is for a schedule... Start Date: 06/02/21 Status: Ordered metFORMIN 1000 mg oral tablet 1 tablet, By Mouth, 2 times a day, # 180 tablet, 1 Refills, Maintenance, 01/22/22 9:07:00 EST, [facility][id number], 168, cm, 06/02/21 14:43:00 EDT, Height Start Date: 01/22/22 Status: Ordered MiraLax oral powder for reconstitution = 17 Gm, By Mouth, Daily, dissolve in water before taking, # 255 Gm, 3 Refills, Maintenance, 01/31/22 15:53:00 EST, REC Powder, [facility], Partial fill upon patient request if the prescription is for a schedule II opioid drug., 17... Start Date: 01/31/22 Status: Ordered mirtazapine 15 mg oral tablet See Instructions, SERGEY 1 TABLETA POR LA BOCA CADA JESSE A LA HORA DE DORMIR, # 30 tablet, 5 Refills,[facility], 168, cm, 06/02/21 14:43:00 [...] DryWeight Start Date: 03/10/19 Status: Ordered Pen [place], 31 G x 8 mm BD Ultra [...] Refills, Soft Stop, 03/24/21 14:52:00 EST, Powder, [facility], Partial fill upon patient request if the prescription is for a schedule II opioid drug., 0.5 mL... Start Date: 03/24/21 Status: Ordered tamsulosin 0.4 mg oral capsule See Instructions, SERGEY 1 CAPSULA POR LA BOCA CADA JESSE, # 30 capsule, Refills 5, Maintenance, 11/29/21 11:47:00 EDT, Instructions Replace Required Details, Route to Pharmacy Electronically, [facility], 168, cm, 06/02/21 14:43:00 EDT,... Start Date: 11/29/21 Status: Ordered Trulicity Pen 0.75 mg/0.5 mL subcutaneous solution See Instructions, INYECTAR 0.5ML SUBCUTANEO CADA SEMANA LUIS INDICADO. ROTAR [place] SITIOS DE INYECCION, # 2 mL, 5 Refills, [facility], 168, cm, 06/02/21 14:43:00 EDT, Height, 82, kg,01/13/20 13:11:00 EST, Dry Weight Start Date: 09/01/21 Status: Ordered Tylenol 8 HR Arthritis Pain 650 mg oral tablet, extended release 2 tablet = 1,300 mg, By Mouth, Every 12 hours, # 50 tablet, 1 Refills, Maintenance, 02/16/19 10:54:00 EST, [facility], 169, cm, 02/16/19 10:45:00 EST, Height, [...] 100 in lifetime) entered on: 05/30/20 Sex Note * David Hess MD: REVIEW Event Display: Non BH Lab Results Authored Date: * David Hess MD: REVIEW Event Display: Non BH Lab Results Authored Date: * David Hess MD: REVIEW Event Display: Non BH Lab Results Authored Date: * Event Display: Non BH Radiology Results Authored Date: * Radha Eid: PERFORM, SIGN, VERIFY Event Display: Care Team Progress Note Authored Date: [id number] Patient: DANIEL MCCLENDON Age: 60 years Sex: Male : 1950 Associated Diagnoses: None Author: Radha Eid Attachments: None Past Medical History Problem list All Problems diabetes / Confirmed high cholestorol / Confirmed Allergies Allergic Reactions (All) NKA Current medications (Selected) Prescriptions Ordered Flexeril 5 mg oral tablet: 1 tablet = 5 mg, By Mouth, 3 times a day, # 42 tablet, 1 Refills, Maintenance, Tablet Splint: See Instructions, # 1 each, Use on left wrist at night, 10/25/08 11:43:28 TEST STRIPS: See Instructions, 100, 3, 3, 02/14/06 16:18:29, [facility] TEST STRIPS TO CHECK BLOOD SUGAR, [facility], TEST STRIPS Tylenol Extra Strength 500 mg oral tablet: = 500 mg, By Mouth, Every 6 hours, PRN Pain, # 60 tablet, 0 Refills Zovirax Topical 5% cream: 1, applicator, Topically, 5 times a day, # 1 units, 05/19/08 12:16:14 glyburide 5 mg oral tablet: 2 tablet = 10 mg, By Mouth, 2 times a day, # 120 tablet, 11 Refills, Maintenance ibuprofen 400 mg oral tablet: 1 tablet = 400 mg, By Mouth, 3 times a day, PRN Pain, # 90 tablet, 2 Refills, Maintenance lisinopril 10 mg oral tablet: 1 tablet = 10 mg, By Mouth, Daily, # 30 tablet, 11 Refills, Maintenance metformin 850 mg oral tablet: 1 tablet = 850 mg, By Mouth, 2 times a day, # 60 tablet, 11 Refills, Maintenance simvastatin 20 mg oral tablet: 1 tablet = 20 mg, By Mouth, Daily, # 30 tablet, 11 Refills, Maintenance Physical Examination Vital Signs Weight : Weight lb/oz. 04/13/2010 17:40 Weight lb/oz 190 lb 6 oz BMI : Body Mass Index. 04/13/2010 17:40 Body Mass Index 29.88 H Impression and Plan I spoke with Daniel this morning and we will be meeting tomorrow 04-18-10 at 3 pm in my office to figure out what are the needs and services available to support him. * Radha Eid: PERFORM, SIGN, VERIFY Event Display: Care Team Progress Note Authored Date: [id number] Patient: DANIEL MCCLENDON Age: 60 years Sex: Male : 1950 Associated Diagnoses: None Author: Radha Eid Attachments: None Past Medical History Problem list All Problems diabetes / Confirmed high cholestorol / Confirmed Allergies Allergic Reactions (All) NKA Current medications (Selected) Prescriptions Ordered Flexeril 5 mg oral tablet: 1 tablet = 5 mg, By Mouth, 3 times a day, # 42 tablet, 1 Refills, Maintenance, Tablet Splint: See Instructions, # 1 each, Use on left wrist at night, 10/25/08 11:43:28 TEST STRIPS: See Instructions, 100, 3, 3, 02/14/06 16:18:29, [facility] TEST STRIPS TO CHECK BLOOD SUGAR, [facility], TEST STRIPS Tylenol Extra Strength 500 mg oral tablet: = 500 mg, By Mouth, Every 6 hours, PRN Pain, # 60 tablet, 0 Refills Zovirax Topical 5% cream: 1, applicator, Topically, 5 times a day, # 1 units, 05/19/08 12:16:14 glyburide 5 mg oral tablet: 2 tablet = 10 mg, By Mouth, 2 times a day, # 120 tablet, 11 Refills, Maintenance ibuprofen 400 mg oral tablet: 1 tablet = 400 mg, By Mouth, 3 times a day, PRN Pain, # 90 tablet, 2 Refills, Maintenance lisinopril 10 mg oral tablet: 1 tablet = 10 mg, By Mouth, Daily, # 30 tablet, 11 Refills, Maintenance metformin 850 mg oral tablet: 1 tablet = 850 mg, By Mouth, 2 times a day, # 60 tablet, 11 Refills, Maintenance simvastatin 20 mg oral tablet: 1 tablet = 20 mg, By Mouth, Daily, # 30 tablet, 11 Refills, Maintenance Physical Examination Vital Signs Vitals : VITAL SIGNS SECTION. 04/13/2010 17:40 Temperature 97.9 DegF Temperature Route Oral Systolic Blood Pressure 128 mm Hg Diastolic Blood Pressure 66 mm Hg Blood pressure sites Arm, right Mean Arterial Pressure 87 mm Hg Vital Signs Comment Vital signs=10 min Weight : Weight lb/oz. 04/13/2010 17:40 Weight lb/oz 190 lb 6 oz BMI : Body Mass Index. 04/13/2010 17:40 Body Mass Index 29.88 H Impression and Plan Called daniel and left message to set up an appt. to meet with him and discuss his needs. Patient Care team information Care Team Personnel Name: Libby Llanes Position: [facility] RN Member Role: Primary Care Nurse Name: David Hess MD Position: [facility] Primary Care Physician Member Role: PCP Address: Address: [address] [place] [address]- Care Team Related Persons Name: HAKANADOLFO WARE
--- OUTSIDE RECORDS SUMMARY | 2023-10-02 08:00 | XMS_ITS | Continuity of Care Document ---
Author Organization [facility] Address [address] [place] [address]- Care Team Providers Care Associate Veterinarian Name Role Phone David Hess MD Primary Care Phys[id number] Date(s[facility] 05/20/20 - 07/22/20 [facility]/[address] [address]- Attending Physician: David Hess MD Admitting Physician: [...] 1 Refills, Maintenance, 03/01/20 15:12:00 EST, Tablet, [facility], 5.6, cm, 01/13/20 13:11:00 EST, Height, 82, [...] 01/05/19 12:30:07 EST, Route to Pharmacy Electronically, [id number], [facility] Start Date: 01/05/19 Status: Ordered Lantus Solostar Pen 100 units/mL subcutaneous solution = 20 units, Subcutaneous Injection, 2 times a day, # 15 mL, 2 Refills, Maintenance, 05/12/20 14:21:00 EDT, Solution, [facility], 5.6, cm, 01/13/20 13:11:00 EST, Height, 82, kg, 01/13/20 13:11:00 EST, Dry Weight Start Date: 05/12/20 Status: Ordered lisinopril 10 mg oral tablet See Instructions, SERGEY 1 TABLETA POR LA BOCA CADA JESSE, # 30 tablet, Refills 5, Maintenance, Instructions Replace Required Details, Route to Pharmacy Electronically, [facility], 5.6, cm, 05/30/20 8:55:00 EDT, [...] tablet, 3 Refills, Maintenance, 05/02/20 14:36:00 EDT, [facility] #[id number], 5.6, cm, 01/13/20 13:11:00 EST, Height, 82, kg, 01/13/20 13:11:00 EST, DryWeight Start Date: 05/02/20 Status: Ordered mirtazapine 15 mg oral tablet 1 tablet = 15 mg, By Mouth, Daily at bedtime, # 30 tablet, 2 Refills, Maintenance, 05/12/20 14:21:00 EDT, Tablet, [facility], 5.6, cm, 01/13/20 13:11:00 EST, Height, [...] DryWeight Start Date: 03/10/19 Status: Ordered Pen [place], 31 G x 8 mm BD Ultra [...] Refills, Soft Stop, 05/20/20 11:17:00 EDT, Powder, [facility], Partial fill upon patient request if the prescription is for a schedule II opioid drug., 0.5 mL... Start Date: 05/20/20 Status: Ordered Trulicity Pen 0.75 mg/0.5 mL subcutaneous solution 0.5 mL = 0.75 mg, Subcutaneous Injection, Every week, rotate injection sites, # 2 mL, 5 Refills, Maintenance, 07/15/20 15:53:00 EDT, Solution, [facility], Partial fill upon patient request if the prescription is for a schedule II o... Start Date: 07/15/20 Status: Ordered Tylenol 8 HR Arthritis Pain 650 mg oral tablet, extended release 2 tablet = 1,300 mg, By Mouth, Every 12 hours, # 50 tablet, 1 Refills, Maintenance, 02/16/19 10:54:00 EST, [facility], 169, cm, 02/16/19 10:45:00 EST, Height, [...]
--- OUTSIDE RECORDS SUMMARY | 2023-10-02 08:00 | XMS_ITS | Continuity of Care Document ---
Author Organization [facility] Address [address] [place] [address]- Care Team Providers Care Swine Genetics Researcher Name Role Phone David Hess MD Primary Care Physician [place] [facility] [place] 05/24/19 [facility]/[address] [address]- [facility] Attending Physician: Admtr, Ar8 Allergies, Adverse Reactions, Alerts Substance Reaction Severity Status NKA Active Immunizations Given and Recorded Vaccine Date Status Refusal Reason influenza virus vaccine, inactivated 1 02/15/12 Gi wilma 1Admin Note: VIS 08/13/2011GIVEN Medications atorvastatin 20 mg oral tablet 1 tablet = 20 mg, By Mouth, Daily, # 30 tablet, 11 Refills, Maintenance, Tablet, Route to Pharmacy Electronically, [id number], [facility] Start Date: 04/07/18 Status: Ordered Freestyle [...] 01/05/19 12:30:07 EST, Route to Pharmacy Electronically, [id number], [facility] Start Date: 01/05/19 Status: Ordered Lantus Solostar Pen 100 units/mL subcutaneous solution = 20 units, Subcutaneous Injection, 2 times a day, # 15 mL, 11 Refills, Maintenance, 04/16/19 16:58:00 EST, Solution, [facility], 169, cm, 04/16/19 16:33:00 EST, Height, 83.1, kg,11/06/17 15:38:00 EDT, Dry Weight Start Date: 04/16/19 Status: Ordered lisinopril 10 mg oral tablet 10 mg, 1, tablet, By Mouth, Daily, # 30 tablet, Refills 1, Tot. Refills 1, Maintenance, 02/26/19 12:37:00 EST, Route to Pharmacy Electronically, [id number], 169, cm, 02/17/19 16:05:00 EST, Height, 83.1, [...] tablet, 1 Refills, Maintenance, 02/16/19 10:54:00 EST, [facility], 169, cm, 02/16/19 10:45:00 EST, Height, [...]
--- OUTSIDE RECORDS SUMMARY | 2023-10-02 08:00 | XMS_ITS | Continuity of Care Document ---
Author Organization [facility] Address [address] [place] [address]- Care Team Providers Care Hydrographical Technical Officer Name Role Phone David Hess MD Primary Care Physician Encounter [facility] [place] Date(s): 01/05/20 - 02/04/20 [facility] [address] [place] [address]- Allergies, Adverse Reactions, Alerts Substance Reaction Severity Status NKA Active Immunizations Given and Recorded Vaccine Date Status Refusal Reason influenza virus vaccine, inactivated 11/25/19 Give n influenza virus vaccine, inactivated 1 02/15/12 Gi wilma 1Admin Note: VIS 08/13/2011GIVEN Medications atorvastatin 20 mg oral tablet 1 tablet = 20 mg, By Mouth, Daily, # 30 tablet, 5 Refills, Maintenance, 07/03/19 15:29:00 EDT, Tablet, [facility], 169, cm, 04/16/19 17:08:00 EST, Height, 83.1, [...] 01/05/19 12:30:07 EST, Route to Pharmacy Electronically, [id number], [facility] Start Date: 01/05/19 Status: Ordered Lantus Solostar Pen 100 units/mL subcutaneous solution = 20 units, Subcutaneous Injection, 2 times a day, # 15 mL, 11 Refills, Maintenance, 04/16/19 16:58:00 EST, Solution, [facility], 169, cm, 04/16/19 16:33:00 EST, Height, 83.1, kg,11/06/17 15:38:00 EDT, Dry Weight Start Date: 04/16/19 Status: Ordered lisinopril 10 mg oral tablet 10 mg, 1, tablet, By Mouth, Daily, # 30 tablet, Refills 5, Tot. Refills 5, Maintenance, 10/07/19 8:18:00 EDT, Route to Pharmacy Electronically, [facility], 169, cm, 04/16/19 17:08:00 EST, Height, [...] 0 Refills, Maintenance, 11/20/19 10:16:00 EDT, Tablet, [facility] #[id number], 169, cm, 04/16/19 17:08:00 EST, Height, Dry Weight Start Date: 11/20/19 Status: Ordered mirtazapine 15 mg oral tablet 1 tablet = 15 mg, By Mouth, Daily at bedtime, # 30 tablet, 3 Refills, Maintenance, 11/23/19 11:04:00 EDT, Tablet, [facility], 169, cm, 11/23/19 9:06:00 EDT, Height [...] DryWeight Start Date: 03/10/19 Status: Ordered Pen [place], 31 G x 8 mm BD Ultra [...] tablet, 1 Refills, Maintenance, 02/16/19 10:54:00 EST, [facility], 169, cm, 02/16/19 10:45:00 EST, [...]
--- OUTSIDE RECORDS SUMMARY | 2023-10-02 08:00 | XMS_ITS | Continuity of Care Document ---
Author Organization [facility] Address [address] [place] [address]- Care Team Providers Care Bss Solution Architect Name Role Phone David Hess MD Primary Care Physician Encounter [facility] [place] Date(s): 02/21/21 - 03/23/21 [facility] [address] [place] [address]- Attending Physician: Admtr, Bernice Admitting Physician: Admtr, Ar8 Referring Physician: Admtr, Ar8 Allergies, Adverse Reactions, Alerts No Known Allergies [...] JESSE, # 90 tablet, 1 Refills, Maintenance, [facility], 5.6, cm, 07/26/20 14:09:00 EDT, [...] 01/05/19 12:30:07 EST, Route to Pharmacy Electronically, [id number], [facility] Start Date: 01/05/19 Status: Ordered Lantus Solostar Pen 100 units/mL subcutaneous solution See Instructions, INYECTAR 20 UNIDADES DEBAJO DE LA PIEL DOS VECES AL JESSE, # 15 mL, 5 Refills, [facility], 5.6, cm, 07/26/20 14:09:00 EDT, Height, 82, kg, 01/13/20 13:11:00 EST, DryWeight Start Date: 12/01/20 Status: Ordered lisinopril 10 mg oral tablet See Instructions, SERGEY 1 TABLETA POR LA BOCA CADA JESSE, # 90 tablet, Refills 0, Tot. Refills 0, 12/21/20 14:17:00 EST, Instructions Replace Required Details, Route to Pharmacy Electronically, [facility], 5.6, cm, 12/20/20 14:11:00... Start Date: [...] a day, # 180 tablet, 0 Refills, [facility] #[id number], 5.6, cm, 02/21/21 12:41:00 EST, Height, 82, kg, 01/13/20 13:11:00 EST, Dry Weight Start Date: 03/10/21 Status: Ordered mirtazapine 15 mg oral tablet See Instructions, SERGEY 1 TABLETA POR LA BOCA CADA JESSE A LA HORA DE DORMIR, # 30 tablet, 5 Refills,Maintenance, [facility], 5.6, cm, 07/26/20 14:09:00 EDT, [...] DryWeight Start Date: 03/10/19 Status: Ordered Pen [place], 31 G x 8 mm BD Ultra [...] Refills, Soft Stop, 05/20/20 11:17:00 EDT, Powder, [facility], Partial fill upon patient request if the prescription is for a schedule II opioid drug., 0.5 mL... Start Date: 05/20/20 Status: Ordered Trulicity Pen 0.75 mg/0.5 mL subcutaneous solution 0.5 mL = 0.75 mg, Subcutaneous Injection, Every week, rotate injection sites, # 2 mL, 5 Refills, Maintenance, 01/31/21 14:22:00 EST, Solution, [facility], Partial fill upon patient request if the prescription is for a schedule II o... Start Date: 01/31/21 Status: Ordered Tylenol 8 HR Arthritis Pain 650 mg oral tablet, extended release 2 tablet = 1,300 mg, By Mouth, Every 12 hours, # 50 tablet, 1 Refills, Maintenance, 02/16/19 10:54:00 EST, [facility], 169, cm, 02/16/19 10:45:00 EST, Height, [...]
--- OUTSIDE RECORDS SUMMARY | 2023-10-02 08:00 | XMS_ITS | Continuity of Care Document ---
Author Organization [facility] Address [address] [place] [address]- Care Team Providers Care Hemodialysis Charge Nurse Name Role Phone David Hess MD Primary Care Physician [place] [facility] [place] 10[place]13/21 [facility]/[address] [address]- Attending Physician: Bernice Anderson Allergies, Adverse Reactions, Alerts No Known Allergies Immunizations Given and Recorded Vaccine Date Status Refusal Reason SARS-CoV-2 mRNA ([id number]-[id number]) vax 09/13/21 Given zoster vaccine, inactivated 03/24/21 [...] CADA JESSE, # 90 tablet, 1 Refills, [facility], 5.6, cm, 03/24/21 14:43:00 EST, Height, 82, kg, 01/13/20 13:11:00 EST, Dry Weight Start Date: 05/10/21 Status: Ordered BD SHORT PEN NDL [id number] 31GX5/16 NEDL BD SHORT PEN NDL [id number] 31GX5/16 NEDL, See Instructions, # 90 Unknown, 5 Refills, [facility], 168, cm, 06/02/21 14:43:00 EDT, Height, 82, [...] AL JESSE, # 15 mL, 5 Refills, [facility], 168, cm, 06/02/21 14:43:00 EDT, Height, 82, kg, 01/13/20 13:11:00 EST, DryWeight Start Date: 09/01/21 Status: Ordered lisinopril 20 mg oral tablet 20 mg, 1, tablet, By Mouth, Daily, # 30 tablet, Refills 11, Tot. Refills 11, Maintenance, 06/02/21 15:03:00 EDT, Route to Pharmacy Electronically, [facility], Partial fill upon patient request if the prescription is for a schedule... Start Date: 06/02/21 Status: Ordered metFORMIN 1000 mg oral tablet 1 tablet, By Mouth, 2 times a day, # 180 tablet, 1 Refills, [facility] #[id number], 168, cm, 06/02/21 14:43:00 EDT, Height, 82, kg, 01/13/20 13:11:00 EST, Dry Weight Start Date: 07/25/21 Status: Ordered mirtazapine 15 mg oral tablet See Instructions, SERGEY 1 TABLETA POR LA BOCA CADA JESSE A LA HORA DE DORMIR, # 30 tablet, 5 Refills,[facility], 168, cm, 06/02/21 14:43:00 EDT, Height, [...] DryWeight Start Date: 03/10/19 Status: Ordered Pen [place], 31 G x 8 mm BD Ultra [...] Refills, Soft Stop, 03/24/21 14:52:00 EST, Powder, [facility], Partial fill upon patient request if the prescription is for a schedule II opioid drug., 0.5 mL... Start Date: 03/24/21 Status: Ordered tamsulosin 0.4 mg oral capsule 0.4 mg, 1, capsule, By Mouth, Daily, # 30 capsule, Refills 5, Tot. Refills 5, Maintenance, 03/24/2213:52:00 EST, Route to Pharmacy Electronically, [facility], Partial fill upon patient request if the prescription is for a schedule... Start Date: 03/24/21 Status: Ordered Trulicity Pen 0.75 mg/0.5 mL subcutaneous solution See Instructions, INYECTAR 0.5ML SUBCUTANEO CADA SEMANA LUIS INDICADO. 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
--- OUTSIDE RECORDS SUMMARY | 2023-10-02 08:00 | XMS_ITS | Continuity of Care Document ---
Author Organization [facility] Address [address] [place] [address]- Care Team Providers Care Deicer Repairer Electric Name Role Phone David Hess MD Primary Care Physician [place] [facility] [place] 01/20/23 - 02/19/23 [facility]/[address] [address]- [place] Allergies, Adverse Reactions, Alerts No Known Allergies Immunizations Given and Recorded Vaccine Date Status Refusal Reason [id number] 12y+ bivalent booster vax 01/31/22 Given influenza virus vaccine, inactivated 01/31/22 Give n influenza virus vaccine, inactivated 01/17/21 Yovani rded influenza virus vaccine, inactivated 11/25/19 Give n influenza virus vaccine, inactivated 10/04/16 Yovani rded influenza virus vaccine, inactivated 1 02/15/12 Gi wilma SARS-CoV-2 mRNA ([id number]) vax 09/13/21 Given zoster vaccine, inactivated 03/24/21 Given SARS-CoV-2 (COVID-19) mRNA BNT-162b2 vac 02/24/21 Given SARS-CoV-2 (COVID-19) mRNA BNT-162b2 vac 06/06/20 Recorded SARS-CoV-2 (COVID-19) mRNA BNT-162b2 vac 05/16/20 Recorded 1Admin Note: VIS 08/13/2011GIVEN Medications atorvastatin 20 mg oral tablet See Instructions, SERGEY 1 TABLETA POR LA BOCA CADA JESSE, # 90 tablet, 1 Refills, Maintenance, 09/06/22 9:51:00 EDT, [facility], 168, cm, 07/11/22 15:56:00 EDT, Height, 85.63, kg, 06/16/22 22:34:00 EDT, Dry Weight Start Date: 09/06/22 Status: Ordered BD SHORT PEN NDL [id number] 31GX5/16 NEDL BD SHORT PEN NDL [id number] 31GX5/16 NEDL, See Instructions, # 90 Unknown, 3 Refills, Maintenance, [facility], 09/06/22 9:51:00 EDT, 168, cm, 07/11/22 15:56:00 EDT, Height, 85.63, kg, 06/16/2321:34:00 EDT, Dry Weight Start Date: 09/06/22 Status: Ordered BD SHORT PEN NDL [id number] 31GX5/16 NEDL BD SHORT PEN NDL [id number] 31GX5/16 NEDL, See Instructions, # 90 Unknown, [...] mL, 1 Refills, Maintenance, 06/15/22 16:17:00 EDT, [facility], Partial fill upon patient request if the prescription is for a schedule II opioid drug., 10 mL By Mouth Every 6 hours, 168, cm, 05... Start Date: 06/15/22 Status: Ordered Lantus Solostar Pen 100 units/mL subcutaneous solution See Instructions, INYECTAR 20 UNIDADES DEBAJO DE LA PIEL DOS VECES AL JESSE, # 15 mL, 5 Refills, Maintenance, 10/12/22 15:50:00 EDT, [facility], 168, cm, 05/31/23 15:56:00 EDT, Height, 85.63, kg, 06/16/22 22:34:00 EDT, Dry Weight Start Date: 10/12/22 Status: Ordered lisinopril 20 mg oral tablet See Instructions, SERGEY 1 TABLETA POR LA BOCA CADA JESSE, # 90 tablet, Refills 1, Tot. Refills 1, Maintenance, 01/20/23 12:29:00 EST, Instructions Replace Required Details, [facility] to Pharm[facility] Electronically, [id number], 168, cm, 07/11/22... Start Date: 01/20/23 Status: Ordered metFORMIN 1000 mg oral tablet 1 tablet, By Mouth, 2 times a day, # 180 tablet, 0 Refills, Maintenance, 10/20/22 22:48:00 EDT, [facility] #[id number], 168, cm, 07/11/22 15:56:00 EDT, Height, 85.63, kg, 06/16/22 22:34:00 EDT, Dry Weight Start Date: 10/20/22 Status: Ordered MiraLax oral powder for reconstitution = 17 Gm, By Mouth, Daily, dissolve in water before taking, # 255 Gm, 0 Refills, Maintenance, 06/19/22 9:58:00 EDT, REC Powder, [facility], Partial fill upon patient request if the prescription is for a schedule II opioid drug., 17 Gm By... Start Date: 06/19/22 Status: Ordered mirtazapine 15 mg oral tablet See Instructions, SERGEY 1 TABLETA POR LA BOCA CADA JESSE A LA HORA DE DORMIR, # 30 tablet, 5 Refills,Maintenance, 03/11/22 12:59:00 EST, [facility], 168, cm, 01/31/22 15:46:00 [...] DryWeight Start Date: 03/10/19 Status: Ordered Pen [place], 31 G x 8 mm BD Ultra [...] Refills, Soft Stop, 03/24/21 14:52:00 EST, Powder, [facility], Partial fill upon patient request if the prescription is for a schedule II opioid drug., 0.5 mL... Start Date: 03/24/21 Status: Ordered tamsulosin 0.4 mg oral capsule See Instructions, SERGEY 1 [place]A POR LA BOCA CADA JESSE, # 90 capsule, Refills 1, Maintenance, 01/20/23 12:29:00 EST, Instructions Replace Required Details, Route to Pharmacy Electronically, [facility], 168, cm, 07/11/22 15:56:00 EDT,... Start Date: 01/20/23 Status: Ordered Trulicity Pen 0.75 mg/0.5 mL subcutaneous solution See Instructions, INYECTAR 0.5ML SUBCUTANEO CADA SEMANA LUIS INDICADO. ROTAR LOS SITIOS DE INYECCION, # 2 mL, 5 Refills, 06/07/22 9:54:00 EDT, [facility], 168, cm, 01/31/22 15:46:00 EST, Height, 85.63, kg, 01/31/22 15:46:00 EST, D... Start Date: 06/07/22 Status: Ordered Tylenol 8 HR Arthritis Pain 650 mg oral tablet, extended release 2 tablet = 1,300 mg, By Mouth, Every 12 hours, # 50 tablet, 1 Refills, Maintenance, 02/16/19 10:54:00 EST, [facility], 169, cm, 02/16/19 10:45:00 EST, Height, [...] Care Team Personnel Name: Libby Llanes Position: [facility] RN Member Role: Primary Care Nurse Name: Gypsy Goodman RN Position: [facility] RN Member Role: Primary Care Nurse Name: David Hess MD Position: [facility] Physician - Primary Care Member Role: PCP Address: Address: [address] [place] [address]- Care Team Related Persons Name: ADOLFO MCCLENDON Address: home [address] [place] [address]
--- OUTSIDE RECORDS SUMMARY | 2023-10-02 08:00 | XMS_ITS | Continuity of Care Document ---
Author Organization [facility] Address [address] [place] [address]- Care Team Providers Care Fisheries Enforcement Officer Name Role Phone David Hess MD Primary Care Physician Encounter [facility] [place] Date(s): 12/25/19 - 01/31/20 [facility] [address] [place] [address]- Attending Physician: David Hess MD Admitting Physician: [...] 5 Refills, Maintenance, 07/03/19 15:29:00 EDT, Tablet, [facility], 169, cm, 04/16/19 17:08:00 EST, Height, [...] 01/05/19 12:30:07 EST, Route to Pharmacy Electronically, [id number], [facility] Start Date: 01/05/19 Status: Ordered Lantus Solostar Pen 100 units/mL subcutaneous solution = 20 units, Subcutaneous Injection, 2 times a day, # 15 mL, 11 Refills, Maintenance, 04/16/19 16:58:00 EST, Solution, [facility], 169, cm, 04/16/19 16:33:00 EST, Height, 83.1, kg,11/06/17 15:38:00 EDT, Dry Weight Start Date: 04/16/19 Status: Ordered lisinopril 10 mg oral tablet 10 mg, 1, tablet, By Mouth, Daily, # 30 tablet, Refills 5, Tot. Refills 5, Maintenance, 10/07/19 8:18:00 EDT, Route to Pharmacy Electronically, [facility], 169, cm, 04/16/19 17:08:00 EST, Height, [...] 0 Refills, Maintenance, 11/20/19 10:16:00 EDT, Tablet, [facility] #[id number], 169, cm, 04/16/19 17:08:00 EST, Height, Dry Weight Start Date: 11/20/19 Status: Ordered mirtazapine 15 mg oral tablet 1 tablet = 15 mg, By Mouth, Daily at bedtime, # 30 tablet, 3 Refills, Maintenance, 11/23/19 11:04:00 EDT, Tablet, [facility], 169, cm, 10/12/20 9:06:00 EDT, Height Start [...] DryWeight Start Date: 03/10/19 Status: Ordered Pen [place], 31 G x 8 mm BD Ultra [...] tablet, 1 Refills, Maintenance, 02/16/19 10:54:00 EST, [facility], 169, cm, 02/16/19 10:45:00 EST, [...]
--- OUTSIDE RECORDS SUMMARY | 2023-10-02 08:00 | XMS_ITS | Continuity of Care Document ---
Author Organization [facility] Address [address] [place] [address]- Care Team Providers Care Electrical Test Technician Name Role Phone David Hess MD Primary Care Physician Encounter [facility] [place] Date(s): 12/20/20 - 01/19/21 [facility] [address] [place] [address] Attending Physician: Admtr, Bear8 Admitting Physician: Admtr, Ar8 Referring Physician: Admtr, [...] JESSE, # 90 tablet, 1 Refills, Maintenance, [facility], 5.6, cm, 07/26/20 14:09:00 EDT, [...] 01/05/19 12:30:07 EST, Route to Pharmacy Electronically, [id number], [facility] Start Date: 01/05/19 Status: Ordered Lantus Solostar Pen 100 units/mL subcutaneous solution See Instructions, INYECTAR 20 UNIDADES DEBAJO DE LA PIEL DOS VECES AL JESSE, # 15 mL, 5 Refills, [facility], 5.6, cm, 07/26/20 14:09:00 EDT, Height, 82, kg, 01/13/20 13:11:00 EST, DryWeight Start Date: 12/01/20 Status: Ordered lisinopril 10 mg oral tablet See Instructions, SERGEY 1 TABLETA POR LA BOCA CADA JESSE, # 90 tablet, Refills 0, Tot. Refills 0, 12/21/20 14:17:00 EST, Instructions Replace Required Details, Route to Pharmacy Electronically, [facility], 5.6, cm, 12/20/20 14:11:00... Start Date: [...] tablet, 3 Refills, Maintenance, 05/02/20 14:36:00 EDT, [facility] #[id number], 5.6, cm, 01/13/20 13:11:00 EST, Height, 82, kg, 01/13/20 13:11:00 EST, DryWeight Start Date: 05/02/20 Status: Ordered mirtazapine 15 mg oral tablet See Instructions, SERGEY 1 TABLETA POR LA BOCA CADA JESSE A LA HORA DE DORMIR, # 30 tablet, 5 Refills,Maintenance, [facility], 5.6, cm, 07/26/20 14:09:00 EDT, [...] DryWeight Start Date: 03/10/19 Status: Ordered Pen [place], 31 G x 8 mm BD Ultra [...] Refills, Soft Stop, 05/20/20 11:17:00 EDT, Powder, [facility], Partial fill upon patient request if the prescription is for a schedule II opioid drug., 0.5 mL... Start Date: 05/20/20 Status: Ordered Trulicity Pen 0.75 mg/0.5 mL subcutaneous solution 0.5 mL = 0.75 mg, Subcutaneous Injection, Every week, rotate injection sites, # 2 mL, 5 Refills, Maintenance, 07/15/20 15:53:00 EDT, Solution, [facility], Partial fill upon patient request if the prescription is for a schedule II o... Start Date: 07/15/20 Status: Ordered Tylenol 8 HR Arthritis Pain 650 mg oral tablet, extended release 2 tablet = 1,300 mg, By Mouth, Every 12 hours, # 50 tablet, 1 Refills, Maintenance, 02/16/19 10:54:00 EST, [facility], 169, cm, 02/16/19 10:45:00 EST, Height, [...]
--- OUTSIDE RECORDS SUMMARY | 2023-10-02 08:00 | XMS_ITS | Continuity of Care Document ---
Author Organization [facility] Address [address] [place] [address]- Care Team Providers Care Tobacco Prizer Name Role Phone David Hess MD Primary Care Physician Encounter [facility] [place] Date(s): 10/06/19 - 11/05/19 [facility]/[address] [address]- [facility] Allergies, Adverse Reactions, Alerts Substance Reaction Severity Status NKA Active Immunizations Given and Recorded Vaccine Date Status Refusal Reason influenza virus vaccine, inactivated 1 02/15/12 Gi wilma 1Admin Note: VIS 08/13/2011GIVEN Medications atorvastatin 20 mg oral tablet 1 tablet = 20 mg, By Mouth, Daily, # 30 tablet, 5 Refills, Maintenance, 07/03/19 15:29:00 EDT, Tablet, [facility], 169, cm, 04/16/19 17:08:00 EST, Height, 83.1, [...] 01/05/19 12:30:07 EST, Route to Pharmacy Electronically, [id number], [facility] Start Date: 01/05/19 Status: Ordered Lantus Solostar Pen 100 units/mL subcutaneous solution = 20 units, Subcutaneous Injection, 2 times a day, # 15 mL, 11 Refills, Maintenance, 04/16/19 16:58:00 EST, Solution, [facility], 169, cm, 04/16/19 16:33:00 EST, Height, 83.1, kg,11/06/17 15:38:00 EDT, Dry Weight Start Date: 04/16/19 Status: Ordered lisinopril 10 mg oral tablet 10 mg, 1, tablet, By Mouth, Daily, # 30 tablet, Refills 5, Tot. Refills 5, Maintenance, 10/07/19 8:18:00 EDT, Route to Pharmacy Electronically, [facility], 169, cm, 04/16/19 17:08:00 EST, Height, [...] tablet, 1 Refills, Maintenance, 02/16/19 10:54:00 EST, [facility], 169, cm, 02/16/19 10:45:00 EST, Height, [...]
--- OUTSIDE RECORDS SUMMARY | 2023-10-02 08:00 | XMS_ITS | Continuity of Care Document ---
Author Organization [facility] Address [address] [place] [address]- Care Team Providers Care Upper Cutter Out Name Role Phone David Hess MD Primary Care Physician [facility] Date[facility]s): 09/13/20 - 10/13/20 [facility] [address], [place] [address] Attending Physician: AdmBernice enriquez Admitting Physician: AdmtrBernice Referring Physician: AdmtrBernice Allergies, [...] JESSE, # 90 tablet, 1 Refills, Maintenance, [facility], 5.6, cm, 07/26/20 14:09:00 EDT, Height, [...] 01/05/19 12:30:07 EST, Route to Pharmacy Electronically, [id number], [facility] Start Date: 01/05/19 Status: Ordered Lantus Solostar Pen 100 units/mL subcutaneous solution = 20 units, Subcutaneous Injection, 2 times a day, # 15 mL, 2 Refills, Maintenance, 05/12/20 14:21:00 EDT, Solution, [facility], 5.6, cm, 01/13/20 13:11:00 EST, Height, 82, kg, 01/13/20 13:11:00 EST, Dry Weight Start Date: 05/12/20 Status: Ordered lisinopril 10 mg oral tablet See Instructions, SERGEY 1 TABLETA POR LA BOCA CADA JESSE, # 30 tablet, Refills 5, Maintenance, Instructions Replace Required Details, Route to Pharmacy Electronically, [facility], 5.6, cm, 05/30/20 8:55:00 EDT, Height, [...] tablet, 3 Refills, Maintenance, 05/02/20 14:36:00 EDT, [id number], 5.6, cm, 01/13/20 13:11:00 EST, Height, 82, kg, 01/13/20 13:11:00 EST, DryWeight Start Date: 05/02/20 Status: Ordered mirtazapine 15 mg oral tablet See Instructions, SERGEY 1 TABLETA POR LA BOCA CADA JESSE A LA HORA DE DORMIR, # 30 tablet, 5 Refills,Maintenance, [facility], 5.6, cm, 07/26/20 14:09:00 EDT, Height, [...] DryWeight Start Date: 03/10/19 Status: Ordered Pen [place], 31 G x 8 mm BD Ultra [...] Refills, Soft Stop, 05/20/20 11:17:00 EDT, Powder, [facility], Partial fill upon patient request if the prescription is for a schedule II opioid drug., 0.5 mL... Start Date: 05/20/20 Status: Ordered Trulicity Pen 0.75 mg/0.5 mL subcutaneous solution 0.5 mL = 0.75 mg, Subcutaneous Injection, Every week, rotate injection sites, # 2 mL, 5 Refills, Maintenance, 07/15/20 15:53:00 EDT, Solution, [facility], Partial fill upon patient request if the prescription is for a schedule II o... Start Date: 07/15/20 Status: Ordered Tylenol 8 HR Arthritis Pain 650 mg oral tablet, extended release 2 tablet = 1,300 mg, By Mouth, Every 12 hours, # 50 tablet, 1 Refills, Maintenance, 02/16/19 10:54:00 EST, [facility], 169, cm, 02/16/19 10:45:00 [...]
--- OUTSIDE RECORDS SUMMARY | 2023-10-02 08:00 | XMS_ITS | Continuity of Care Document ---
Author Organization [facility] Address [address] [place] [address]- Care Team Providers Care Top Dyeing Machine Loader Name Role Phone David Hess MD Primary Care Physician [place] [facility] [place] - 08/25/22 [facility]/[address] [address]- Attending Physician: Bernice Anderson Allergies, Adverse Reactions, Alerts No Known Allergies Immunizations Given and Recorded Vaccine Date Status Refusal Reason [id number] 12y+ bivalent booster vax 01/31/22 Given influenza virus vaccine, inactivated 01/31/22 Give n influenza virus vaccine, inactivated 01/17/21 Yovani rded influenza virus vaccine, inactivated 11/25/19 Give n influenza virus vaccine, inactivated 10/04/16 Yovani rded influenza virus vaccine, inactivated 1 02/15/12 Gi wilma SARS-CoV-2 mRNA ([id number]) vax 09/13/21 Given zoster vaccine, inactivated 03/24/21 Given SARS-CoV-2 (COVID-19) mRNA BNT-162b2 vac 02/24/21 Given SARS-CoV-2 (COVID-19) mRNA BNT-162b2 vac 06/06/20 Recorded SARS-CoV-2 (COVID-19) mRNA BNT-162b2 vac 05/16/20 Recorded 1Admin Note: VIS 08/13/2011GIVEN Medications atorvastatin 20 mg oral tablet See Instructions, SERGEY 1 TABLETA POR LA BOCA CADA JESSE, # 90 tablet, 1 Refills, Maintenance, 01/03/22 13:30:00 EST, [facility], 168, cm, 06/02/21 14:43:00 EDT, Height, 82, kg, 01/13/20 13:11:00 EST, Dry Weight Start Date: 01/03/22 Status: Ordered BD SHORT PEN NDL [id number] 31GX5/16 NEDL BD SHORT PEN NDL [id number] 31GX5/16 NEDL, See Instructions, # 90 Unknown, [...] mL, 1 Refills, Maintenance, 06/15/22 16:17:00 EDT, [facility], Partial fill upon patient request if the prescription is for a schedule II opioid drug., 10 mL By Mouth Every 6 hours, 168, cm, 05... Start Date: 06/15/22 Status: Ordered Lantus Solostar Pen 100 units/mL subcutaneous solution See Instructions, INYECTAR 20 UNIDADES DEBAJO DE LA PIEL DOS VECES AL JESSE, # 15 mL, 5 Refills, [facility], 168, cm, 06/02/21 14:43:00 EDT, Height, 82, kg, 01/13/20 13:11:00 EST, DryWeight Start Date: 09/01/21 Status: Ordered lisinopril 20 mg oral tablet See Instructions, SERGEY 1 TABLETA POR LA BOCA CADA JESSE, # 90 tablet, Refills 1, Maintenance, 06/06/22 14:56:00 EDT, Instructions Replace Required Details, Route to Pharmacy Electronically, [facility], 168, cm, 01/31/22 15:46:00 EST,... Start Date: 06/06/22 Status: Ordered metFORMIN 1000 mg oral tablet 1 tablet, By Mouth, 2 times a day, # 180 tablet, 0 Refills, Maintenance, 07/22/22 12:04:00 EDT, [facility][id number], 168, cm, 07/11/22 15:56:00 EDT, Height, 85.63, kg, 06/16/22 22:34:00 EDT, Dry Weight Start Date: 07/22/22 Status: Ordered MiraLax oral powder for reconstitution = 17 Gm, By Mouth, Daily, dissolve in water before taking, # 255 Gm, 0 Refills, Maintenance, 06/19/22 9:58:00 EDT, REC Powder, [facility], Partial fill upon patient request if the prescription is for a schedule II opioid drug., 17 Gm By... Start Date: 06/19/22 Status: Ordered mirtazapine 15 mg oral tablet See Instructions, SERGEY 1 TABLETA POR LA BOCA CADA JESSE A LA HORA DE DORMIR, # 30 tablet, 5 Refills,Maintenance, 03/11/22 12:59:00 EST, [facility], 168, cm, 01/31/22 15:46:00 EST, [...] DryWeight Start Date: 03/10/19 Status: Ordered Pen [place], 31 G x 8 mm BD Ultra [...] Refills, Soft Stop, 03/24/21 14:52:00 EST, Powder, [facility], Partial fill upon patient request if the prescription is for a schedule II opioid drug., 0.5 mL... Start Date: 03/24/21 Status: Ordered tamsulosin 0.4 mg oral capsule See Instructions, SERGEY 1 CAPSULA POR LA BOCA CADA JESSE, # 90 capsule, Refills 1, Maintenance, 06/06/22 14:57:00 EDT, Instructions Replace Required Details, Route to Pharmacy Electronically, [facility], 168, cm, 01/31/22 15:46:00 EST,... Start Date: 06/06/22 Status: Ordered Trulicity Pen 0.75 mg/0.5 mL subcutaneous solution See Instructions, INYECTAR 0.5ML SUBCUTANEO CADA SEMANA LUIS INDICADO. ROTAR [place] DE INYECCION, # 2 mL, 5 Refills, 06/07/22 9:54:00 EDT, [facility], 168, cm, 01/31/22 15:46:00 EST, Height, 85.63, kg, 01/31/22 15:46:00 EST, D... Start Date: 06/07/22 Status: Ordered Tylenol 8 HR Arthritis Pain 650 mg oral tablet, extended release 2 tablet = 1,300 mg, By Mouth, Every 12 hours, # 50 tablet, 1 Refills, Maintenance, 02/16/19 10:54:00 EST, [facility], 169, cm, 02/16/19 10:45:00 EST, Height, [...] 100 in lifetime) entered on: 05/30/20 Sex Laboratory * David Hess MD: REVIEW Event Display: Non BH Lab Results Authored Date: * David Hess MD: REVIEW Event Display: Non BH Lab Results Authored Date: [id number] * David Hess MD: REVIEW Event Display: Non BH Lab Results Authored Date: [id number] Note * Radha Eid: PERFORM, SIGN, VERIFY Event Display: Care Team Progress Note Authored Date: [id number] Patient: DANIEL MCCLENDON Age: 60 years Sex: [...] ASCENCIA TEST STRIPS TO CHECK BLOOD SUGAR, [facility], TEST STRIPS Tylenol Extra Strength 500 [...] Display: Care Team Progress Note Authored Date: [id number] Patient: DANIEL MCCLENDON Age: 60 years Sex: [...] ASCENCIA TEST STRIPS TO CHECK BLOOD SUGAR, [facility], TEST STRIPS Tylenol Extra Strength 500 [...] meet with him and discuss his needs. Radiology * Event Display: Non Radiology Results Authored Date: Patient Care team information Care Team Personnel Name: Libby Llanes Position: [facility] RN Member Role: Primary Care Nurse Name: Gypsy Goodman RN Position: S RN Member Role: Primary Care Nurse Name: David Hess MD Position: S Physician - Primary Care Member Role: PCP Address: Address: [address] [place] [address] Care Team Related Persons Name: ADOLFO MCCLENDON Address: home [address] [place] [address]
--- OUTSIDE RECORDS SUMMARY | 2023-10-02 08:00 | XMS_ITS | Continuity of Care Document ---
Author Organization [facility] Address [address] [place] [address]- Care Team Providers Care Tube Man Name Role Phone David Hess MD Primary Care Physician [facility]counter [facility] Date(s): 02/10/20 - 03/11/20 [facility] [address] [place] [address]- Allergies, Adverse Reactions, Alerts Substance Reaction Severity Status NKA Active Immunizations Given and Recorded Vaccine Date Status Refusal Reason influenza virus vaccine, inactivated 11/25/19 Give n influenza virus vaccine, inactivated 1 02/15/12 Gi wilma 1Admin Note: VIS 08/13/2011GIVEN Medications atorvastatin 20 mg oral tablet 1 tablet = 20 mg, By Mouth, Daily, # 90 tablet, 1 Refills, Maintenance, 03/01/20 15:12:00 EST, Tablet, [facility], 5.6, cm, 01/13/20 13:11:00 EST, Height, [...] 01/05/19 12:30:07 EST, Route to Pharmacy Electronically, [id number], [facility] Start Date: 01/05/19 Status: Ordered Lantus Solostar Pen 100 units/mL subcutaneous solution = 20 units, Subcutaneous Injection, 2 times a day, # 15 mL, 11 Refills, Maintenance, 04/16/19 16:58:00 EST, Solution, [facility], 169, cm, 04/16/19 16:33:00 EST, Height, 83.1, kg,11/06/17 15:38:00 EDT, Dry Weight Start Date: 04/16/19 Status: Ordered lisinopril 10 mg oral tablet 10 mg, 1, tablet, By Mouth, Daily, # 30 tablet, Refills 5, Tot. Refills 5, Maintenance, 10/07/19 8:18:00 EDT, Route to Pharmacy Electronically, [facility], 169, cm, 04/16/19 17:08:00 EST, [...] 0 Refills, Maintenance, 02/10/20 10:07:00 EST, Tablet, [facility] #[id number], 5.6, cm, 01/13/20 13:11:00 EST, Height, 82, kg, 01/13/20 13:11:00 EST, Dry Weight Start Date: 02/10/20 Status: Ordered mirtazapine 15 mg oral tablet 1 tablet = 15 mg, By Mouth, Daily at bedtime, # 30 tablet, 3 Refills, Maintenance, 11/23/19 11:04:00 EDT, Tablet, [facility], 169, cm, 11/23/19 9:06:00 EDT, Height [...] DryWeight Start Date: 03/10/19 Status: Ordered Pen [place], 31 G x 8 mm BD Ultra [...] Refills, Maintenance, 02/16/19 10:54:00 EST, [facility], 169, cm, 02/16/19 10:45:00 EST, Height, 83.1, [...]
--- OUTSIDE RECORDS SUMMARY | 2023-10-02 08:01 | XMS_ITS | Continuity of Care Document ---
Author Organization [facility] Address [address] [place] [id number]- Care Team Providers Care Jewelry Consultant Name Role Phone David Hess MD Primary Care Physician Encounter [facility] [place] Date(s): 06/10/19 - 07/10/[address] [address]- [facility] Attending Physician: Bernice Anderson Admitting Physician: AdmtrBernice [...] 5 Refills, Maintenance, 07/03/19 15:29:00 EDT, Tablet, [facility], 169, cm, 04/16/19 17:08:00 EST, Height, 83.1, [...] 01/05/19 12:30:07 EST, Route to Pharmacy Electronically, [id number], [facility] Start Date: 01/05/19 Status: Ordered Lantus Solostar Pen 100 units/mL subcutaneous solution = 20 units, Subcutaneous Injection, 2 times a day, # 15 mL, 11 Refills, Maintenance, 04/16/19 16:58:00 EST, Solution, [facility], 169, cm, 04/16/19 16:33:00 EST, Height, 83.1, kg,11/06/17 15:38:00 EDT, Dry Weight Start Date: 04/16/19 Status: Ordered lisinopril 10 mg oral tablet 10 mg, 1, tablet, By Mouth, Daily, # 30 tablet, Refills 1, Tot. Refills 1, Maintenance, 06/04/19 15:35:00 EDT, Route to Pharmacy Electronically, [facility], 169, cm, 04/16/19 17:08:00 EST, Height, 83.1, [...] 1 Refills, Maintenance, 02/16/19 10:54:00 EST, [facility], 169, cm, 02/16/19 [...]
--- OUTSIDE RECORDS SUMMARY | 2023-10-02 08:01 | XMS_ITS | Continuity of Care Document ---
Author Organization [facility] Address Unknown Care Team Providers Care Hired Hand Name Role Phone David Hess MD Primary Care Physician Encounter [facility] [place] Date(s): 01/31/21 - 03/02/21 [facility] Allergies, Adverse Reactions, Alerts No Known Allergies [...] JESSE, # 90 tablet, 1 Refills, Maintenance, [facility], 5.6, cm, 07/26/20 14:09:00 EDT, Height, 82, kg, 01/13/20 13:11:00 EST, Dry Weight Start Date: 09/23/20 Status: Ordered Freestyle Lite Test Strips See Instructions, # 100 each, Refills 11, Tot. Refills 11, Maintenance, USE BID TO TID for Type 2 Diabetes Mellitus DX:E11.65, 03/09/19 12:23:00 EST, [facility], 169, cm, 02/17/19 16:05:00 EST, Height,83.1, kg, 11/06/17 15:38:00 EDT, Dry Weight Start Date: 1/27/20 Stop Date: 03/03/20 Status: Ordered gabapentin 100 mg oral capsule 100 mg, 1, capsule, By Mouth, 3 times a day, # 90 capsule, Refills 1, Tot. Refills 1, Maintenance, 01/05/19 12:30:07 EST, Route to Pharmacy Electronically, [id number], [facility] Start Date: 01/05/19 Status: Ordered Lantus Solostar Pen 100 units/mL subcutaneous solution See Instructions, INYECTAR 20 UNIDADES DEBAJO DE LA PIEL DOS VECES AL JESSE, # 15 mL, 5 Refills, [facility], 5.6, cm, 07/26/20 14:09:00 EDT, Height, 82, kg, 01/13/20 13:11:00 EST, DryWeight Start Date: 12/01/20 Status: Ordered lisinopril 10 mg oral tablet See Instructions, SERGEY 1 TABLETA POR LA BOCA CADA JESSE, # 90 tablet, Refills 0, Tot. Refills 0, 12/21/20 14:17:00 EST, Instructions Replace Required Details, Route to Pharmacy Electronically, [facility], 5.6, cm, 12/20/20 14:11:00... Start Date: 12/21/20 [...] tablet, 3 Refills, Maintenance, 05/02/20 14:36:00 EDT, [facility] #[id number], 5.6, cm, 01/13/20 13:11:00 EST, Height, 82, kg, 01/13/20 13:11:00 EST, DryWeight Start Date: 05/02/20 Status: Ordered mirtazapine 15 mg oral tablet See Instructions, SERGEY 1 TABLETA POR LA BOCA CADA JESSE A LA HORA DE DORMIR, # 30 tablet, 5 Refills,Maintenance, [facility], 5.6, cm, 07/26/20 14:09:00 EDT, [...] DryWeight Start Date: 03/10/19 Status: Ordered Pen [place], 31 G x 8 mm BD Ultra [...] Refills, Soft Stop, 05/20/20 11:17:00 EDT, Powder, [facility], Partial fill upon patient request if the prescription is for a schedule II opioid drug., 0.5 mL... Start Date: 05/20/20 Status: Ordered Trulicity Pen 0.75 mg/0.5 mL subcutaneous solution 0.5 mL = 0.75 mg, Subcutaneous Injection, Every week, rotate injection sites, # 2 mL, 5 Refills, Maintenance, 01/31/21 14:22:00 EST, Solution, [facility], Partial fill upon patient request if the prescription is for a schedule II o... Start Date: 01/31/21 Status: Ordered Tylenol 8 HR Arthritis Pain 650 mg oral tablet, extended release 2 tablet = 1,300 mg, By Mouth, Every 12 hours, # 50 tablet, 1 Refills, Maintenance, 02/16/19 10:54:00 EST, [facility], 169, cm, 02/16/19 10:45:00 EST, Height, [...]
--- OUTSIDE RECORDS SUMMARY | 2023-10-02 08:01 | XMS_ITS | Continuity of Care Document ---
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 Name Role Phone David Hess MD Primary Care Physician [facility]counter [facility] Date(s): 06/16/20 - 07/16/20 [facility]/[address] [address]- Allergies, Adverse Reactions, Alerts Substance Reaction Severity Status NKA Active Immunizations Given and Recorded Vaccine Date Status Refusal Reason influenza virus vaccine, inactivated 11/25/19 Give n influenza virus vaccine, inactivated 1 02/15/12 Gi wilma 1Admin Note: VIS 08/13/2011GIVEN Medications atorvastatin 20 mg oral tablet 1 tablet = 20 mg, By Mouth, Daily, # 90 tablet, 1 Refills, Maintenance, 03/01/20 15:12:00 EST, Tablet, [facility], 5.6, cm, 01/13/20 13:11:00 EST, Height, [...] 01/05/19 12:30:07 EST, Route to Pharmacy Electronically, [id number], [facility] Start Date: 01/05/19 Status: Ordered Lantus Solostar Pen 100 units/mL subcutaneous solution = 20 units, Subcutaneous Injection, 2 times a day, # 15 mL, 2 Refills, Maintenance, 05/12/20 14:21:00 EDT, Solution, [facility], 5.6, cm, 01/13/20 13:11:00 EST, Height, 82, kg, 01/13/20 13:11:00 EST, Dry Weight Start Date: 05/12/20 Status: Ordered lisinopril 10 mg oral tablet See Instructions, SERGEY 1 TABLETA POR LA BOCA CADA JESSE, # 30 tablet, Refills 5, Maintenance, Instructions Replace Required Details, Route to Pharmacy Electronically, [facility], 5.6, cm, 05/30/20 8:55:00 EDT, Height, [...] tablet, 3 Refills, Maintenance, 05/02/20 14:36:00 EDT, [facility] #[id number], 5.6, cm, 01/13/20 13:11:00 EST, Height, 82, kg, 01/13/20 13:11:00 EST, DryWeight Start Date: 05/02/20 Status: Ordered mirtazapine 15 mg oral tablet 1 tablet = 15 mg, By Mouth, Daily at bedtime, # 30 tablet, 2 Refills, Maintenance, 05/12/20 14:21:00 EDT, Tablet, [facility], 5.6, cm, 01/13/20 13:11:00 EST, [...] DryWeight Start Date: 03/10/19 Status: Ordered Pen [place], 31 G x 8 mm BD Ultra [...] Refills, Soft Stop, 05/20/20 11:17:00 EDT, Powder, [facility], Partial fill upon patient request if the prescription is for a schedule II opioid drug., 0.5 mL... Start Date: 05/20/20 Status: Ordered Trulicity Pen 0.75 mg/0.5 mL subcutaneous solution 0.5 mL = 0.75 mg, Subcutaneous Injection, Every week, rotate injection sites, # 2 mL, 5 Refills, Maintenance, 07/15/20 15:53:00 EDT, Solution, [facility], Partial fill upon patient request if the prescription is for a schedule II o... Start Date: 07/15/20 Status: Ordered Tylenol 8 HR Arthritis Pain 650 mg oral tablet, extended release 2 tablet = 1,300 mg, By Mouth, Every 12 hours, # 50 tablet, 1 Refills, Maintenance, 02/16/19 10:54:00 EST, [facility], 169, cm, 02/16/19 10:45:00 EST, Height, [...]
--- OUTSIDE RECORDS SUMMARY | 2023-10-02 08:01 | XMS_ITS | Continuity of Care Document ---
Author Organization [facility] Address [address] [place] [address]- Care Team Providers Care Roast Master Name Role Phone David Hess MD Primary Care Physician [place] [facility] [place] [facility] [address], [place] [address] Attending Physician: Bernice Anderson Admitting Physician: Bernice [...] 1 Refills, Maintenance, 03/01/20 15:12:00 EST, Tablet, [facility], 5.6, cm, 01/13/20 13:11:00 EST, Height, 82, [...] 01/05/19 12:30:07 EST, Route to Pharmacy Electronically, [id number], [facility] Start Date: 01/05/19 Status: Ordered Lantus Solostar Pen 100 units/mL subcutaneous solution = 20 units, Subcutaneous Injection, 2 times a day, # 15 mL, 2 Refills, Maintenance, 05/12/20 14:21:00 EDT, Solution, [facility], 5.6, cm, 01/13/20 13:11:00 EST, Height, 82, kg, 01/13/20 13:11:00 EST, Dry Weight Start Date: 05/12/20 Status: Ordered lisinopril 10 mg oral tablet See Instructions, SERGEY 1 TABLETA POR LA BOCA CADA JESSE, # 30 tablet, Refills 5, Maintenance, Instructions Replace Required Details, Route to Pharmacy Electronically, [facility], 5.6, cm, 05/30/20 8:55:00 EDT, Height, [...] tablet, 3 Refills, Maintenance, 05/02/20 14:36:00 EDT, [facility] #[id number], 5.6, cm, 01/13/20 13:11:00 EST, Height, 82, kg, 01/13/20 13:11:00 EST, DryWeight Start Date: 05/02/20 Status: Ordered mirtazapine 15 mg oral tablet 1 tablet = 15 mg, By Mouth, Daily at bedtime, # 30 tablet, 2 Refills, Maintenance, 05/12/20 14:21:00 EDT, Tablet, [facility], 5.6, cm, 01/13/20 13:11:00 EST, Height, [...] DryWeight Start Date: 03/10/19 Status: Ordered Pen [place], 31 G x 8 mm BD Ultra [...] Refills, Soft Stop, 05/20/20 11:17:00 EDT, Powder, [facility], Partial fill upon patient request if the prescription is for a schedule II opioid drug., 0.5 mL... Start Date: 05/20/20 Status: Ordered Trulicity Pen 0.75 mg/0.5 mL subcutaneous solution 0.5 mL = 0.75 mg, Subcutaneous Injection, Every week, rotate injection sites, # 2 mL, 5 Refills, Maintenance, 07/15/20 15:53:00 EDT, Solution, [facility], Partial fill upon patient request if the prescription is for a schedule II o... Start Date: 07/15/20 Status: Ordered Tylenol 8 HR Arthritis Pain 650 mg oral tablet, extended release 2 tablet = 1,300 mg, By Mouth, Every 12 hours, # 50 tablet, 1 Refills, Maintenance, 02/16/19 10:54:00 EST, [facility], 169, cm, 02/16/19 10:45:00 EST, Height, [...]
--- OUTSIDE RECORDS SUMMARY | 2023-10-02 08:01 | XMS_ITS | Continuity of Care Document ---
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 Name Role Phone David Hess MD Primary Care Physician Encounter [facility] [place] Date(s): 06/13/22 - 07/13/22 [facility]/[address] [address]- [place] Allergies, Adverse Reactions, Alerts No Known Allergies Immunizations Given and Recorded Vaccine Date Status Refusal Reason [id number] 12y+ bivalent booster vax 01/31/22 Given influenza virus vaccine, inactivated 01/31/22 Give n influenza virus vaccine, inactivated 01/17/21 Yovani rded influenza virus vaccine, inactivated 11/25/19 Give n influenza virus vaccine, inactivated 10/04/16 Yovani rded influenza virus vaccine, inactivated 1 02/15/12 Gi wilma SARS-CoV-2 mRNA ([id number]) vax 09/13/21 Given zoster vaccine, inactivated 03/24/21 Given SARS-CoV-2 (COVID-19) mRNA BNT-162b2 vac 02/24/21 Given SARS-CoV-2 (COVID-19) mRNA BNT-162b2 vac 06/06/20 Recorded SARS-CoV-2 (COVID-19) mRNA BNT-162b2 vac 05/16/20 Recorded 1Admin Note: VIS 08/13/2011GIVEN Medications atorvastatin 20 mg oral tablet See Instructions, SERGEY 1 TABLETA POR LA BOCA CADA JESSE, # 90 tablet, 1 Refills, Maintenance, 01/03/22 13:30:00 EST, [facility], 168, cm, 06/02/21 14:43:00 EDT, Height, 82, kg, 01/13/20 13:11:00 EST, Dry Weight Start Date: 01/03/22 Status: Ordered BD SHORT PEN NDL [id number] 31GX5/16 NEDL BD SHORT PEN NDL 30Vj2do 31GX5/16 NEDL, See Instructions, # 90 Unknown, [...] mL, 1 Refills, Maintenance, 06/15/22 16:17:00 EDT, [facility], Partial fill upon patient request if the prescription is for a schedule II opioid drug., 10 mL By Mouth Every 6 hours, 168, cm, 05... Start Date: 06/15/22 Status: Ordered Lantus Solostar Pen 100 units/mL subcutaneous solution See Instructions, INYECTAR 20 UNIDADES DEBAJO DE LA PIEL DOS VECES AL JESSE, # 15 mL, 5 Refills, [facility], 168, cm, 06/02/21 14:43:00 EDT, Height, 82, kg, 01/13/20 13:11:00 EST, DryWeight Start Date: 09/01/21 Status: Ordered lisinopril 20 mg oral tablet See Instructions, SERGEY 1 TABLETA POR LA BOCA CADA JESSE, # 90 tablet, Refills 1, Maintenance, 06/06/22 14:56:00 EDT, Instructions Replace Required Details, Route to Pharmacy Electronically, [facility], 168, cm, 01/31/22 15:46:00 EST,... Start Date: 06/06/22 Status: Ordered metFORMIN 1000 mg oral tablet 1 tablet, By Mouth, 2 times a day, # 180 tablet, 0 Refills, Maintenance, 04/24/22 13:55:00 EDT, [id number], 168, cm, 01/31/22 15:46:00 EST, Height, 85.63, kg, 01/31/22 15:46:00 EST, Dry Weight Start Date: 04/24/22 Status: Ordered MiraLax oral powder for reconstitution = 17 Gm, By Mouth, Daily, dissolve in water before taking, # 255 Gm, 0 Refills, Maintenance, 06/19/22 9:58:00 EDT, REC Powder, [facility], Partial fill upon patient request if the prescription is for a schedule II opioid drug., 17 Gm By... Start Date: 06/19/22 Status: Ordered mirtazapine 15 mg oral tablet See Instructions, SERGEY 1 TABLETA POR LA BOCA CADA JESSE A LA HORA DE DORMIR, # 30 tablet, 5 Refills,Maintenance, 03/11/22 12:59:00 EST, [facility], 168, cm, 01/31/22 15:46:00 EST, [...] DryWeight Start Date: 03/10/19 Status: Ordered Pen [place], 31 G x 8 mm BD Ultra [...] Refills, Soft Stop, 03/24/21 14:52:00 EST, Powder, [facility], Partial fill upon patient request if the prescription is for a schedule II opioid drug., 0.5 mL... Start Date: 03/24/21 Status: Ordered tamsulosin 0.4 mg oral capsule See Instructions, SERGEY 1 CAPSULA POR LA BOCA CADA JESSE, # 90 capsule, Refills 1, Maintenance, 06/06/22 14:57:00 EDT, Instructions Replace Required Details, Route to Pharmacy Electronically, [facility], 168, cm, 01/31/22 15:46:00 EST,... Start Date: 06/06/22 Status: Ordered Trulicity Pen 0.75 mg/0.5 mL subcutaneous solution See Instructions, INYECTAR 0.5ML SUBCUTANEO CADA SEMANA LUIS INDICADO. ROTAR LOS SITIOS DE INYECCION, # 2 mL, 5 Refills, 06/07/22 9:54:00 EDT, [facility], 168, cm, 01/31/22 15:46:00 EST, Height, 85.63, kg, 01/31/22 15:46:00 EST, D... Start Date: 06/07/22 Status: Ordered Tylenol 8 HR Arthritis Pain 650 mg oral tablet, extended release 2 tablet = 1,300 mg, By Mouth, Every 12 hours, # 50 tablet, 1 Refills, Maintenance, 02/16/19 10:54:00 EST, [facility] [place], 169, cm, 02/16/19 10:45:00 EST, Height, 83.1, [...] Team Personnel Name: Manju Monreal RN Position: [facility] RN Member Role: Primary Care Nurse Name: Libby Llanes Position: [facility] RN Member Role: Primary Care Nurse Name: Terry Morillo RN Position: [facility] RN Member Role: Primary Care Nurse Name: Gypsy Goodman RN Position: [facility] RN Member Role: Primary Care Nurse Name: David Hess MD Position: [facility] Physician - Primary Care Member Role: PCP Address: Address: [address] [place] [address]- Care Team Related Persons Name: ADOLFO MCCLENDON Address: home [address] [place] [id number]
--- OUTSIDE RECORDS SUMMARY | 2023-10-02 08:01 | XMS_ITS | Continuity of Care Document ---
Author Organization [facility] Address [address] [place] [address]- Care Team Providers Care Dock Hand Name Role Phone David Hess MD Primary Care Physician [place] [facility] [place]23 - 04/23/23 [facility]/[address] [address]- [place] Allergies, Adverse Reactions, Alerts No Known Allergies Immunizations Given and Recorded Vaccine Date Status Refusal Reason [id number] 12y+ bivalent booster vax 01/31/22 Given influenza virus vaccine, inactivated 01/31/22 Give n influenza virus vaccine, inactivated 01/17/21 Yovani rded influenza virus vaccine, inactivated 11/25/19 Give n influenza virus vaccine, inactivated 10/04/16 Yovani rded influenza virus vaccine, inactivated 1 02/15/12 Gi wilma SARS-CoV-2 mRNA ([id number]) vax 09/13/21 Given zoster vaccine, inactivated 03/24/21 Given SARS-CoV-2 (COVID-19) mRNA BNT-162b2 vac 02/24/21 Given SARS-CoV-2 (COVID-19) mRNA BNT-162b2 vac 06/06/20 Recorded SARS-CoV-2 (COVID-19) mRNA BNT-162b2 vac 05/16/20 Recorded 1Admin Note: VIS 08/13/2011GIVEN Medications atorvastatin 20 mg oral tablet See Instructions, SERGEY 1 TABLETA POR LA BOCA CADA JESSE, # 90 tablet, 1 Refills, Maintenance, 09/06/22 9:51:00 EDT, [facility], 168, cm, 07/11/22 15:56:00 EDT, Height, 85.63, kg, 06/16/22 22:34:00 EDT, Dry Weight Start Date: 09/06/22 Status: Ordered BD SHORT PEN NDL [id number] 31GX5/16 NEDL BD SHORT PEN NDL 06Vc5dj 31GX5/16 NEDL, See Instructions, # 90 Unknown, 3 Refills, Maintenance, [facility], 09/06/22 9:51:00 EDT, 168, cm, 07/11/22 15:56:00 EDT, Height, 85.63, kg, 06/16/2321:34:00 EDT, Dry Weight Start Date: 09/06/22 Status: Ordered BD SHORT PEN NDL [id number] 31GX5/16 NEDL BD SHORT PEN NDL 24Ic9js 31GX5/16 NEDL, See Instructions, # 90 Unknown, [...] mL, 1 Refills, Maintenance, 06/15/22 16:17:00 EDT, [facility], Partial fill upon patient request if the prescription is for a schedule II opioid drug., 10 mL By Mouth Every 6 hours, 168, cm, 05... Start Date: 06/15/22 Status: Ordered Lantus Solostar Pen 100 units/mL subcutaneous solution See Instructions, INYECTAR 20 UNIDADES DEBAJO DE LA PIEL DOS VECES AL JESSE, # 15 mL, 5 Refills, Maintenance, 10/12/22 15:50:00 EDT, [facility], 168, cm, 05/31/23 15:56:00 EDT, Height, 85.63, kg, 06/16/22 22:34:00 EDT, Dry Weight Start Date: 10/12/22 Status: Ordered lisinopril 20 mg oral tablet See Instructions, SERGEY 1 TABLETA POR LA BOCA CADA JESSE, # 90 tablet, Refills 1, Tot. Refills 1, Maintenance, 01/20/23 12:29:00 EST, Instructions Replace Required Details, [id number], 168, cm, 07/11/22... Start Date: 01/20/23 Status: Ordered metFORMIN 1000 mg oral tablet 1 tablet, By Mouth, 2 times a day, # 180 tablet, 3 Refills, Maintenance, 03/25/23 16:37:00 EST, [id number], 168, cm, 07/11/22 15:56:00 EDT, Height, 85.63, kg, 06/16/22 22:34:00 EDT, Dry Weight Start Date: 03/25/23 Status: Ordered MiraLax oral powder for reconstitution = 17 Gm, By Mouth, Daily, dissolve in water before taking, # 255 Gm, 0 Refills, Maintenance, 06/19/22 9:58:00 EDT, REC Powder, [facility], Partial fill upon patient request if the prescription is for a schedule II opioid drug., 17 Gm By... Start Date: 06/19/22 Status: Ordered mirtazapine 15 mg oral tablet See Instructions, SERGEY 1 TABLETA POR LA BOCA CADA JESSE A LA HORA DE DORMIR, # 30 tablet, 5 Refills,Maintenance, 03/11/22 12:59:00 EST, [facility], 168, cm, 01/31/22 15:46:00 EST, [...] DryWeight Start Date: 03/10/19 Status: Ordered Pen [place], 31 G x 8 mm BD Ultra [...] Refills, Soft Stop, 03/24/21 14:52:00 EST, Powder, [facility], Partial fill upon patient request if the prescription is for a schedule II opioid drug., 0.5 mL... Start Date: 03/24/21 Status: Ordered tamsulosin 0.4 mg oral capsule See Instructions, SERGEY 1 CAPSULA POR LA BOCA CADA JESSE, # 90 capsule, Refills 1, Maintenance, 01/20/23 12:29:00 EST, Instructions Replace Required Details, Route to Pharmacy Electronically, [facility], 168, cm, 07/11/22 15:56:00 EDT,... Start Date: 01/20/23 Status: Ordered Trulicity Pen 0.75 mg/0.5 mL subcutaneous solution See Instructions, INYECTAR 0.5ML SUBCUTANEO CADA SEMANA LUIS INDICADO. ROTAR LOS SITIOS DE INYECCION, # 2 mL, 5 Refills, 06/07/22 9:54:00 EDT, [facility], 168, cm, 01/31/22 15:46:00 EST, Height, 85.63, kg, 01/31/22 15:46:00 EST, D... Start Date: 06/07/22 Status: Ordered Tylenol 8 HR Arthritis Pain 650 mg oral tablet, extended release 2 tablet = 1,300 mg, By Mouth, Every 12 hours, # 50 tablet, 1 Refills, Maintenance, 02/16/19 10:54:00 EST, [facility], 169, cm, 02/16/19 10:45:00 EST, Height, [...] Care Team Personnel Name: Libby Llanes Position: [facility] RN Member Role: Primary Care Nurse Name: David Hess MD Position: [facility] Physician - Primary Care Member Role: PCP Address: Address: [address] [place] [address]- Care Team Related Persons Name: ADOLFO MCCLENDON Address: home [address] [place] [id number]
--- OUTSIDE RECORDS SUMMARY | 2023-10-02 08:01 | XMS_ITS | Continuity of Care Document ---
Author Organization [facility] Address [address] [place] [address]- Care Team Providers Care Senior Account Clerk Name Role Phone David Hess MD Primary Care Physician Encounter [facility] [place] Date(s): 07/08/20 - 08/25/20 [facility] [address] [place] [address]- Attending Physician: Radha Farrell NP Allergies, Adverse Reactions, Alerts Substance Reaction Severity Status NKA Active Immunizations Given and Recorded Vaccine Date Status Refusal Reason influenza virus vaccine, inactivated 11/25/19 Give n influenza virus vaccine, inactivated 1 02/15/12 Gi wilma 1Admin Note: VIS 08/13/2011GIVEN Medications atorvastatin 20 mg oral tablet 1 tablet = 20 mg, By Mouth, Daily, # 90 tablet, 1 Refills, Maintenance, 03/01/20 15:12:00 EST, Tablet, [facility], 5.6, cm, 01/13/20 13:11:00 EST, Height, [...] 01/05/19 12:30:07 EST, Route to Pharmacy Electronically, [id number], [facility] Start Date: 01/05/19 Status: Ordered Lantus Solostar Pen 100 units/mL subcutaneous solution = 20 units, Subcutaneous Injection, 2 times a day, # 15 mL, 2 Refills, Maintenance, 05/12/20 14:21:00 EDT, Solution, [facility], 5.6, cm, 01/13/20 13:11:00 EST, Height, 82, kg, 01/13/20 13:11:00 EST, Dry Weight Start Date: 05/12/20 Status: Ordered lisinopril 10 mg oral tablet See Instructions, SERGEY 1 TABLETA POR LA BOCA CADA JESSE, # 30 tablet, Refills 5, Maintenance, Instructions Replace Required Details, Route to Pharmacy Electronically, [facility], 5.6, cm, 05/30/20 8:55:00 EDT, [...] tablet, 3 Refills, Maintenance, 05/02/20 14:36:00 EDT, [facility] #[id number], 5.6, cm, 01/13/20 13:11:00 EST, Height, 82, kg, 01/13/20 13:11:00 EST, DryWeight Start Date: 05/02/20 Status: Ordered mirtazapine 15 mg oral tablet 1 tablet = 15 mg, By Mouth, Daily at bedtime, # 30 tablet, 2 Refills, Maintenance, 05/12/20 14:21:00 EDT, Tablet, [facility], 5.6, cm, 01/13/20 13:11:00 EST, Height, 82, [...] DryWeight Start Date: 03/10/19 Status: Ordered Pen [place], 31 G x 8 mm BD Ultra [...] Refills, Soft Stop, 05/20/20 11:17:00 EDT, Powder, [facility], Partial fill upon patient request if the prescription is for a schedule II opioid drug., 0.5 mL... Start Date: 05/20/20 Status: Ordered Trulicity Pen 0.75 mg/0.5 mL subcutaneous solution 0.5 mL = 0.75 mg, Subcutaneous Injection, Every week, rotate injection sites, # 2 mL, 5 Refills, Maintenance, 07/15/20 15:53:00 EDT, Solution, [facility], Partial fill upon patient request if the prescription is for a schedule II o... Start Date: 07/15/20 Status: Ordered Tylenol 8 HR Arthritis Pain 650 mg oral tablet, extended release 2 tablet = 1,300 mg, By Mouth, Every 12 hours, # 50 tablet, 1 Refills, Maintenance, 02/16/19 10:54:00 EST, [facility], 169, cm, 02/16/19 10:45:00 EST, Height, 83.1, [...]
--- OUTSIDE RECORDS SUMMARY | 2023-10-02 08:01 | XMS_ITS | Continuity of Care Document ---
Author Organization 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 Date(s): 12/30/20 - 01/29/[address] [address]- Attending Physician: Admtr, Ar8 Admitting Physician: Admtr, Ar8 Referring Physician: Admtr, [...] JESSE, # 90 tablet, 1 Refills, Maintenance, [facility], 5.6, cm, 07/26/20 14:09:00 EDT, [...] 01/05/19 12:30:07 EST, Route to Pharmacy Electronically, [id number], [facility] Start Date: 01/05/19 Status: Ordered Lantus Solostar Pen 100 units/mL subcutaneous solution See Instructions, INYECTAR 20 UNIDADES DEBAJO DE LA PIEL DOS VECES AL JESSE, # 15 mL, 5 Refills, [facility], 5.6, cm, 07/26/20 14:09:00 EDT, Height, 82, kg, 01/13/20 13:11:00 EST, DryWeight Start Date: 12/01/20 Status: Ordered lisinopril 10 mg oral tablet See Instructions, SERGEY 1 TABLETA POR LA BOCA CADA JESSE, # 90 tablet, Refills 0, Tot. Refills 0, 12/21/20 14:17:00 EST, Instructions Replace Required Details, Route to Pharmacy Electronically, [facility], 5.6, cm, 12/20/20 14:11:00... Start Date: [...] tablet, 3 Refills, Maintenance, 05/02/20 14:36:00 EDT, [facility][id number], 5.6, cm, 01/13/20 13:11:00 EST, Height, 82, kg, 01/13/20 13:11:00 EST, DryWeight Start Date: 05/02/20 Status: Ordered mirtazapine 15 mg oral tablet See Instructions, SERGEY 1 TABLETA POR LA BOCA CADA JESSE A LA HORA DE DORMIR, # 30 tablet, 5 Refills,Maintenance, [facility], 5.6, cm, 07/26/20 14:09:00 EDT, [...] DryWeight Start Date: 03/10/19 Status: Ordered Pen [place], 31 G x 8 mm BD Ultra [...] Refills, Soft Stop, 05/20/20 11:17:00 EDT, Powder, [facility], Partial fill upon patient request if the prescription is for a schedule II opioid drug., 0.5 mL... Start Date: 05/20/20 Status: Ordered Trulicity Pen 0.75 mg/0.5 mL subcutaneous solution 0.5 mL = 0.75 mg, Subcutaneous Injection, Every week, rotate injection sites, # 2 mL, 5 Refills, Maintenance, 07/15/20 15:53:00 EDT, Solution, [facility], Partial fill upon patient request if the prescription is for a schedule II o... Start Date: 07/15/20 Status: Ordered Tylenol 8 HR Arthritis Pain 650 mg oral tablet, extended release 2 tablet = 1,300 mg, By Mouth, Every 12 hours, # 50 tablet, 1 Refills, Maintenance, 02/16/19 10:54:00 EST, [facility], 169, cm, 02/16/19 10:45:00 EST, Height, [...]
--- OUTSIDE RECORDS SUMMARY | 2023-10-02 08:01 | XMS_ITS | Continuity of Care Document ---
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 Name Role Phone David Hess MD Primary Care Physician [place] [facility] [place] 05/23/21 - 06/22/21 [facility] [address] [place] [id number] Attending Physician: Bernice Anderson Admitting Physician: AdmBernice enriquez Referring Physician: AdmtrBernice Allergies, Adverse Reactions, Alerts No Known Allergies [...] CADA JESSE, # 90 tablet, 1 Refills, [facility], 5.6, cm, 03/24/21 14:43:00 EST, Height, [...] JESSE, # 15 mL, 5 Refills, [facility], 5.6, cm, 07/26/20 14:09:00 EDT, Height, 82, kg, 01/13/20 13:11:00 EST, DryWeight Start Date: 12/01/20 Status: Ordered lisinopril 20 mg oral tablet 20 mg, 1, tablet, By Mouth, Daily, # 30 tablet, Refills 11, Tot. Refills 11, Maintenance, 06/02/21 15:03:00 EDT, Route to Pharmacy Electronically, [facility], Partial fill upon patient request if the prescription is for a schedule... Start Date: 06/02/21 Status: Ordered mirtazapine 15 mg oral tablet See Instructions, SERGEY 1 TABLETA POR LA BOCA CADA JESSE A LA HORA DE DORMIR, # 30 tablet, 5 Refills,Maintenance, [facility], 5.6, cm, 07/26/20 14:09:00 EDT, [...] DryWeight Start Date: 03/10/19 Status: Ordered Pen [place], 31 G x 8 mm BD Ultra [...] Refills, Soft Stop, 03/24/21 14:52:00 EST, Powder, [facility], Partial fill upon patient request if the prescription is for a schedule II opioid drug., 0.5 mL... Start Date: 03/24/21 Status: Ordered tamsulosin 0.4 mg oral capsule 0.4 mg, 1, capsule, By Mouth, Daily, # 30 capsule, Refills 5, Tot. Refills 5, Maintenance, 03/24/2213:52:00 EST, Route to Pharmacy Electronically, [facility], Partial fill upon patient request if the prescription is for a schedule... Start Date: 03/24/21 Status: Ordered Trulicity Pen 0.75 mg/0.5 mL subcutaneous solution 0.5 mL = 0.75 mg, Subcutaneous Injection, Every week, rotate injection sites, # 2 mL, 5 Refills, Maintenance, 01/31/21 14:22:00 EST, Solution, [facility], Partial fill upon patient request if the prescription is for a schedule II o... Start Date: 01/31/21 Status: Ordered Tylenol 8 HR Arthritis Pain 650 mg oral tablet, extended release 2 tablet = 1,300 mg, By Mouth, Every 12 hours, # 50 tablet, 1 Refills, Maintenance, 02/16/19 10:54:00 EST, [facility], 169, cm, 02/16/19 10:45:00 EST, Height, 83.1, [...]
== END 2023-10-01 01:24 | disposition home or self-care (01) ==
PROVIDERS: Emergency Provider Internal Medicine; PCP Nurse Practitioner Primary Care
DX: R09.82 Postnasal drip (principal); R06.02 Shortness of breath; Z11.52 Encounter for screening for COVID-19; E11.9 Type 2 diabetes mellitus without complications; I10 Essential (primary) hypertension; Z79.02 Long term (current) use of antithrombotics/antiplatelets; Z79.84 Long term (current) use of oral hypoglycemic drugs; Z79.82 Long term (current) use of aspirin; Z79.4 Long term (current) use of insulin; Z79.899 Other long term (current) drug therapy
CPT/HCPCS: 71045; 80048; 84484; 85025; 87635; 93005; 99283; 99284

== ENCOUNTER 2023-11-08 10:10 | Outpatient (REF) | payer MEDICARE, SELFPAY ==
[2023-11-08 11:13] LABS: MANUAL DIFF FLAG NO
[2023-11-08 11:18] LABS: Basophils Percent Auto 0.8 % (0-2); Eosinophils Absolute Auto 0.2 X10*3/uL (0.0-0.4); Eosinophils Percent Auto 3.8 % (0-4); Hematocrit 36.4 % (42.0-52.0); Hemoglobin 11.8 g/dl (14.0-18.0); Imm Gran Abs Auto 0.01 X10*3/uL (0.00-0.03); Imm Gran Pct Auto 0.3 % (0.0-0.4); Lymphocytes Absolute Auto 1.2 X10*3/uL (1.2-4.9); Lymphocytes Percent Auto 29.9 % (20-40); Mean Corpuscular HGB Conc 32.4 g/dl (31.0-36.0); Mean Corpuscular Hemoglobin 29.6 pg (27.0-33.0); Mean Corpuscular Volume 91.5 fL (80.0-98.0); Mean Platelet Volume 10.4 fL (9.4-12.4); Monocytes Absolute Auto 0.3 X10*3/uL (0.1-1.2); Monocytes Percent Auto 8.4 % (2-11); Neutrophils Absolute Auto 2.2 x10*3/uL (2.0-8.3); Neutrophils Percent Auto 56.8 % (45-73); Platelet Count 192 X10*3/uL (160-400); Red Blood Count 3.98 X10*6/uL (4.60-5.80); Red Cell Distribution Width 12.3 % (11.0-16.0); White Blood Count 3.9 X10*3/uL (4.8-10.8)
[2023-11-08 12:16] LABS: Anion Gap 11 (12-20); Blood Urea Nitrogen 23 mg/dL (9-16); Calcium 9.2 mg/dL (8.4-10.2); Carbon Dioxide 28 mmol/L (22-29); Chloride 107 mmol/L (96-108); Estimated Glomerular Filt Rate 56; Glucose Random 89 mg/dL (60-115); Potassium 4.5 mmol/L (3.3-5.1); Sodium 141 mmol/L (135-145)
[2023-11-08 12:33] LABS: TSH reflex Free T4 1.47 uIU/mL (0.32-4.0)
[2023-11-11 11:39] LABS: RPR Rapid Plasma Reagin NON-REACTIVE (NON-REACTIVE)
== END 2023-11-08 10:11 | disposition home or self-care (01) ==
LOC: HO.HHCL 10:10
PROVIDERS: Visit Provider Nurse Practitioner Primary Care
DX: I10 Essential (primary) hypertension (principal); G31.84 Mild cognitive impairment of uncertain or unknown etiology
CPT/HCPCS: 36415; 80048; 84443; 85025; 86592

== ENCOUNTER 2023-11-14 10:16 | Outpatient (REF) | payer MEDICARE, SELFPAY ==
[2023-11-14 12:26] LABS: Anion Gap 11 (12-20); Blood Urea Nitrogen 20 mg/dL (9-16); Calcium 9.5 mg/dL (8.4-10.2); Carbon Dioxide 27 mmol/L (22-29); Chloride 108 mmol/L (96-108); Estimated Glomerular Filt Rate > 60; Glucose Random 93 mg/dL (60-115); Potassium 4.3 mmol/L (3.3-5.1); Sodium 142 mmol/L (135-145)
== END 2023-11-14 10:17 | disposition home or self-care (01) ==
LOC: HO.LAB 10:16
PROVIDERS: PCP Nurse Practitioner Primary Care; Visit Provider Internal Medicine Hypertension Specialist
DX: E11.22 Type 2 diabetes mellitus with diabetic chronic kidney disease (principal); I12.9 Hypertensive chronic kidney disease with stage 1 through stage 4 chronic kidney disease, or unspecified chronic kidney disease; N18.9 Chronic kidney disease, unspecified; R80.2 Orthostatic proteinuria, unspecified; Z79.4 Long term (current) use of insulin
CPT/HCPCS: 36415; 80048; 81003; 82570; 84156; 99212

== ENCOUNTER 2023-11-14 10:16 | Outpatient (AMB) | payer MEDICARE, SELFPAY ==
--- NOTE | 2023-11-14 10:31 | HO.NEPHOV_ITS ---
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 Accompanied by: Self / Same As Patient Allergies No Known Allergies Allergy (Verified 11/14/23 10:33) Medication List - Last Reconciled 11/14/23 by Casper Márquez MD acetaminophen 1,000 mg PO Q6H PRN amlodipine 5 mg PO DAILY aspirin 81 mg PO QAM atorvastatin 40 mg PO DAILY blood sugar diagnostic (360incentives.comTouch Ultra Test strips) As directed dulaglutide (Trulicity) mg subcut QWEEK empagliflozin (Jardiance) 25 mg PO DAILY fluticasone propionate 50 mcg/actuation 1 spray intranasal QAM guaifenesin ER 600 mg PO Q12H PRN insulin glargine (Lantus Solostar U-100 Insulin) 14 units subcut BID ketorolac 0.5% drps ophthalmic (eye) lancets (360incentives.comTouch UltraSoft 2 Lancet) As directed metformin 1,000 mg PO BID mirtazapine 15 mg PO BEDTIME pen needle, diabetic (BD Ultra-Fine Short Pen Needle) As directed tamsulosin 0.4 mg PO DAILY telmisartan 40 mg PO DAILY HPI Comments Details: 73-year-old male who is here for evaluation Proteinuria. He has DM and BPH. Patient complains of postvoid dribbling. Nocturia 3-4 times at night. He denies gross hematuria. He has been on tamsulosin for about 7 months he mentions symptoms consistent with retrograde ejaculation - likely from the tamsulosin. Bladder scan PVR 64 mL, Urinalysis proteinuria, review of chart PSA 11/21/22---0.99 ng/mL He is renal function has been stable with a creatinine of 0.7-0.8 mg/dL. Now upto 1.32 after increasing Valsartan to 320 mg and now switched to TElmisartan Now on Jardiance since June 2023 c/o retrograde ejacualtion with Tamsulosin PFS Medical History Diabetes HTN (hypertension) Aortic stenosis Surgical History Hx of lithotripsy Family History Father No problems noted. Mother No problems noted. Social History Alcohol intake: current Alcohol intake frequency: former alcohol drinker Patient Tobacco Use Status: Former Tobacco user Physical Exam Vital Signs: Last Vital Signs Pulse 73 11/14/23 10:32 BP 124/64 11/14/23 10:32 Pulse Ox 96 11/14/23 10:32 Oxygen Delivery Method Room Air 11/14/23 10:32 BMI result Body Mass Index 29.0 Results Reviewed Nephrology Results: Hgb 11.8 g/dl (14.0-18.0) L 11/08/23 WBC 3.9 X10*3/uL (4.8-10.8) L 11/08/23 Plt Count 192 X10*3/uL (160-400) 11/08/23 Sodium 142 mmol/L (135-145) 11/14/23 Potassium 4.3 mmol/L (3.3-5.1) 11/14/23 Chloride 108 mmol/L (96-108) 11/14/23 Carbon Dioxide 27 mmol/L (22-29) 11/14/23 BUN 20 mg/dL (9-16) H 11/14/23 Creatinine 1.18 mg/dL (0.5-1.4) 11/14/23 Calcium 9.5 mg/dL (8.4-10.2) 11/14/23 Urine Protein 30 (1+) mg/dL (Neg-Trace) H 11/15/23 Urine Creatinine 68.61 mg/dL 11/15/23 Assessment & Plan Assessment & Plan (1) Proteinuria: Code(s): R80.9 - Proteinuria, unspecified Category: Medical (2) CKD (chronic kidney disease): Code(s): N18.9 - Chronic kidney disease, unspecified Category: Medical Plan 73-year-old man with a history of longstanding diabetes mellitus with proteinuria. Proteinuria is most likely due to underlying diabetic kidney disease. About 500 mg Mild CKD Cr down to 1.26 Watch creatinine BP is well controlled The goal is to slow the progression of disease. Blood sugar needs to be tightly controlled and maintain A1c less than 7%. He is PIPPA inhibition /Telmisartan Maintain blood pressure less than 130/80 mm Hg. Discussed low salt diet He will also benefit from SGLT2 inhibitors. - agree Jardiance . Orders: Orders Basic Metabolic Panel 6 Months N18.9 - Chronic kidney disease, unspecified Total Protein Urine Random 6 Months N18.9 - Chronic kidney disease, unspecified UA and rflx microscopic 11/15/23 N18.9 - Chronic kidney disease, unspecified Creatinine Urine 6 Months N18.9 - Chronic kidney disease, unspecified Coding Level of Care Code Est Pt Level 4 (73077) Diagnoses Proteinuria R80.9 CKD (chronic kidney disease) N18.9
[2023-11-14 10:32] VITALS: BP 124/64; PULSE 73; O2SAT 96; BMI 29.0
== END 2023-11-14 10:49 | disposition home or self-care (01) ==
PROVIDERS: PCP Internal Medicine; Visit Provider Internal Medicine Hypertension Specialist
DX: R80.9 Proteinuria, unspecified (principal); E11.22 Type 2 diabetes mellitus with diabetic chronic kidney disease; N18.2 Chronic kidney disease, stage 2 (mild)
CPT/HCPCS: 99213

== ENCOUNTER 2023-11-15 10:12 | Outpatient (REF) | payer MEDICARE, SELFPAY ==
[2023-11-15 11:33] LABS: Appearance Urine Clear; Color Urine Yellow; Glucose Urine UA >=1000 mg/dL (Negative); Leukocyte Esterase Urine Negative (Negative); Nitrite Urine Negative (Negative); UMIC TRIGGER UA YES; Urine Blood Negative (Negative); Urine Ketones Negative (Negative); Urine Protein 30 (1+) mg/dL (Neg-Trace)
[2023-11-15 11:39] LABS: Bacteria Urine None Seen (None Seen); Hyaline Casts Urine 0-2 /LPF (0-2); RBC Urine 0-2 /HPF (0-2); Squamous Epithelial Cell Urine 0-2 /HPF (0-2); WBC Urine 0-5 /HPF (0-5)
[2023-11-15 12:31] LABS: Creatinine Urine 68.61 mg/dL; Total Protein Urine Random 28 mg/dL (<12)
== END 2023-11-15 10:13 | disposition home or self-care (01) ==
LOC: HO.LAB 10:12
PROVIDERS: PCP Nurse Practitioner Primary Care; Visit Provider Internal Medicine Hypertension Specialist
DX: N18.9 Chronic kidney disease, unspecified (principal)
CPT/HCPCS: 81001; 82570; 84156

== ENCOUNTER 2023-12-06 10:17 | Outpatient (REF) | payer MEDICARE, SELFPAY | END 2023-12-06 10:18 | disposition home or self-care (01) | LOC: HO.US 10:17 | PROVIDERS: PCP Nurse Practitioner Primary Care; Visit Provider Urology | DX: R39.12 Poor urinary stream (principal); N40.1 Benign prostatic hyperplasia with lower urinary tract symptoms | CPT/HCPCS: 76770 ==

== ENCOUNTER 2023-12-27 10:28 | Outpatient (REF) | payer MEDICARE, SELFPAY ==
[2023-12-27 11:08] LABS: MANUAL DIFF FLAG NO
[2023-12-27 11:21] LABS: Basophils Percent Auto 0.7 % (0-2); Eosinophils Absolute Auto 0.1 X10*3/uL (0.0-0.4); Eosinophils Percent Auto 2.4 % (0-4); Hematocrit 38.8 % (42.0-52.0); Hemoglobin 12.5 g/dl (14.0-18.0); Imm Gran Abs Auto 0.02 X10*3/uL (0.00-0.03); Imm Gran Pct Auto 0.4 % (0.0-0.4); Lymphocytes Absolute Auto 1.3 X10*3/uL (1.2-4.9); Lymphocytes Percent Auto 27.8 % (20-40); Mean Corpuscular HGB Conc 32.2 g/dl (31.0-36.0); Mean Corpuscular Hemoglobin 29.3 pg (27.0-33.0); Mean Corpuscular Volume 91.1 fL (80.0-98.0); Mean Platelet Volume 10.2 fL (9.4-12.4); Monocytes Absolute Auto 0.3 X10*3/uL (0.1-1.2); Monocytes Percent Auto 5.9 % (2-11); Neutrophils Absolute Auto 2.9 x10*3/uL (2.0-8.3); Neutrophils Percent Auto 62.8 % (45-73); Platelet Count 210 X10*3/uL (160-400); Red Blood Count 4.26 X10*6/uL (4.60-5.80); Red Cell Distribution Width 12.6 % (11.0-16.0); White Blood Count 4.5 X10*3/uL (4.8-10.8)
[2023-12-27 11:31] LABS: Appearance Urine Clear; Color Urine Yellow; Glucose Urine UA >=1000 mg/dL (Negative); Leukocyte Esterase Urine Negative (Negative); Nitrite Urine Negative (Negative); PH 6.5 (5.0-9.0); Specific Gravity - Urine 1.025 (1.005-1.025); UMIC TRIGGER UA YES; Urine Blood Negative (Negative); Urine Ketones Negative (Negative); Urine Protein Trace mg/dL (Neg-Trace)
[2023-12-27 11:39] LABS: Bacteria Urine None Seen (None Seen); Hyaline Casts Urine 0-2 /LPF (0-2); RBC Urine 0-2 /HPF (0-2); Squamous Epithelial Cell Urine 0-2 /HPF (0-2); WBC Urine 0-5 /HPF (0-5)
[2023-12-27 12:33] LABS: Iron 66 mcg/dL (45-160); Percent Iron Saturation 26 % (15-50); Total Iron Binding Capacity 250 mcg/dL (228-428); Unsaturated Iron Binding 184 ug/dL
[2023-12-27 12:58] LABS: Ferritin 31 ng/mL (20-250)
[2023-12-27 13:52] LABS: Folate 12.5 ng/mL (> or = 4.0); Vitamin B12 332 pg/mL (200-900)
== END 2023-12-27 10:29 | disposition home or self-care (01) ==
LOC: HO.HHCL 10:28
PROVIDERS: Internal Medicine Hypertension Specialist; Visit Provider Nurse Practitioner Primary Care
DX: R20.0 Anesthesia of skin (principal); R20.2 Paresthesia of skin
CPT/HCPCS: 36415; 81001; 82607; 82728; 82746; 83540; 85025

== ENCOUNTER 2024-01-16 13:07 | Outpatient (AMB) | payer MEDICARE, SELFPAY ==
--- NOTE | 2024-01-16 13:14 | MHC.OFFVIS ---
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 Accompanied by: Self / Same As Patient Allergies No Known Allergies Allergy (Verified 01/16/24 13:44) Medication List - Last Reconciled 01/16/24 by Myke Cespedes MD acetaminophen 1,000 mg PO Q6H PRN amlodipine 5 mg PO DAILY aspirin 81 mg PO QAM atorvastatin 40 mg PO DAILY blood pressure test kit-large As directed blood sugar diagnostic (RupeeTimesuch Ultra Test strips) As directed blood-glucose meter (RupeeTimesuch Ultra2 Meter) As directed dulaglutide (Trulicity) mg subcut QWEEK dutasteride (Avodart) 0.5 mg PO DAILY empagliflozin (Jardiance) 25 mg PO DAILY flash glucose scanning reader (BrozengoStyle Donaldo 2 [place]) As directed flash glucose sensor (FreeStyle Donaldo 2 Sensor kit) As directed fluticasone propionate 50 mcg/actuation 1 spray intranasal QAM guaifenesin ER 600 mg PO Q12H PRN insulin glargine (Lantus Solostar U-100 Insulin) 14 units subcut BID ketorolac 0.5% drps ophthalmic (eye) lancets (OneTouch UltraSoft 2 Lancet) As directed lancets (OneTouch Delica Plus Lancet) As directed metformin 1,000 mg PO BID mirtazapine 15 mg PO BEDTIME pen needle, diabetic (BD Ultra-Fine Short Pen Needle) As directed tamsulosin 0.4 mg PO DAILY telmisartan 40 mg PO DAILY HPI Comments Details: 01/16/24--Barney is here for follow-up, he is on tamsulosin for BPH symptoms he had ultrasound retroperitoneal on 12/06/2023, right kidney simple cyst, estimated prostate volume 83.3 06/21/23--Manual is here for follow-up. He was initially evaluated on 05/01/2023 for enlarged prostate. 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 He states that he has seen Nephrology for proteinuria and has further testing pending. Will hold on cystoscopy at this time. Continue tamsulosin. Review of chart: 05/01/23---Manual is a 73-year-old male who is here for evaluation due to enlarged prostate. Patient complains of postvoid dribbling. Nocturia 3-4 times at night. He denies gross hematuria. He has been on tamsulosin for about 7 months he mentions symptoms consistent with retrograde ejaculation which I explained is likely from the tamsulosin. Bladder scan PVR 64 mL, Urinalysis proteinuria, review of chart PSA 11/21/22---0.99 ng/mL Plan- referral to Nephrology for proteinuria. 06/21/2023--continue tamsulosin. Hold on office cystoscopy today. [facility] Medical History Diabetes HTN (hypertension) Aortic stenosis Surgical History Hx of lithotripsy Family History Father No problems noted. Mother No problems noted. Social History Alcohol intake: current Alcohol intake frequency: former alcohol drinker Patient Tobacco Use Status: Former Tobacco user Review of Systems Const All systems reviewed & are unremarkable except as noted in HPI and below Reports no additional complaints Eyes Reports no additional complaints ENT Reports no additional complaints Card Reports no additional complaints Resp Reports no additional complaints GI Reports no additional complaints Reports as per HPI Musc Reports no additional complaints Skin/Breast Reports system reviewed and no additional complaints, except as documented Neuro Reports no additional complaints Psych Reports no additional complaints Endo Reports no additional complaints Tico/Lymph Reports no additional complaints Aller/Immun Reports no additional complaints Office Procedures Post Void Residual Post Residual Void Post Void Residual (PVR): 10 [id number]-[id number] Void Residual by ultrasound Results AMB Urinalysis, Automated UA Leukoctes 0 Courtney/uL Last Edit by Helen Sutton CMA on 01/16/24 13:43 UA Nitrite Negative Last Edit by Helen Sutton CMA on 01/16/24 13:43 UA Urobilinogen 0.2 mg/dL Last Edit by Helen Sutton CMA on 01/16/24 13:43 UA Protein 15 mg/dL Last Edit by Helen Sutton CMA on 01/16/24 13:43 UA pH 6.0 Last Edit by Helen Sutton CMA on 01/16/24 13:43 UA Blood 0 Ayan/uL Last Edit by Helen Sutton, CHIVO on 01/16/24 13:43 UA Specific [place] 1.015 Last Edit by Helen Sutton, CHIVO on 01/16/24 13:43 UA Ketone Negative Last Edit by Helen Sutton CMA on 01/16/24 13:43 UA Bilirubin 0 mg/dL Last Edit by Helen Sutton CMA on 01/16/24 13:43 UA Glucose 1000 mg/dL Last Edit by Helen Sutton CMA on 01/16/24 13:43 Results Reviewed Results Reviewed: Laboratory Last Values Urine pH (Auto) 6.0 01/16/24 13:29 Specific [place] (Auto) 1.015 01/16/24 13:29 Urine Protein (Auto) 15 mg/dL 01/16/24 13:29 Glucose (UA)(Auto) 1000 mg/dL 01/16/24 13:29 Urine Ketones (Auto) Negative 01/16/24 13:29 Urine Blood (Auto) 0 Ayan/uL 01/16/24 13:29 Urine Nitrite (Auto) Negative 01/16/24 13:29 Urine Bilirubin (Auto) 0 mg/dL 01/16/24 13:29 Urine Urobilinogen (Auto) 0.2 mg/dL 01/16/24 13:29 Leukocyte Esterase (Auto) 0 Courtney/uL 01/16/24 13:29 Assessment & Plan Assessment & Plan (1) BPH loc w urin obs/LUTS: Code(s): N40.1 - Benign prostatic hyperplasia with lower urinary tract symptoms Category: Medical (2) Weak urinary stream: Code(s): R39.12 - Poor urinary stream Category: Medical (3) Nocturia: Code(s): R35.1 - Nocturia Category: Medical (4) Proteinuria: Comment: Followed by Nephrology had CKD Code(s): R80.9 - Proteinuria, unspecified Category: Medical Plan Continue tamsulosin. Orders: Orders AMB Post Void Residual by ultrasound Today N40.1 - Benign prostatic hyperplasia with lower urinary tract symptoms AMB Urinalysis Automated Today Z13.9 - Encounter for screening, unspecified Medications: New dutasteride (Avodart) 0.5 mg PO DAILY 90 caps 3RF Coding Diagnoses BPH loc w urin obs/LUTS N40.1 Weak urinary stream R39.12 Nocturia R35.1 Proteinuria R80.9 CPT Codes Post Residual Void - PVR CPT Code: 89240-Kcsm Void Residual by ultrasound ([id number])
== END 2024-01-16 14:08 | disposition home or self-care (01) ==
PROVIDERS: PCP Nurse Practitioner Primary Care; Visit Provider Urology
DX: Z13.9 Encounter for screening, unspecified (principal)

== ENCOUNTER → 2024-01-16 13:07 | Outpatient (BNVA) | payer MEDICARE, SELFPAY | PROVIDERS: PCP Nurse Practitioner Primary Care; Visit Provider Urology | DX: N40.1 Benign prostatic hyperplasia with lower urinary tract symptoms (principal); N28.1 Cyst of kidney, acquired; R39.12 Poor urinary stream; R35.1 Nocturia; R80.9 Proteinuria, unspecified; Z79.899 Other long term (current) drug therapy | CPT/HCPCS: 51798; 81003; 99212 ==

== ENCOUNTER 2024-03-03 06:11 | Outpatient (REF) | payer MEDICARE, SELFPAY ==
--- NOTE | 2024-03-03 | EMG_ITS ---
Bilateral tibial and peroneal motor studies were performed. Bilateral superficial peroneal and sural sensory studies were performed. Tibial H reflexes were obtained and paraspinal muscles were tested with a needle. IMPRESSION: Moderately severe axonal sensorimotor peripheral neuropathy. MD KSENIA Urbina/ALINA / [id number]
== END 2024-03-03 06:12 | disposition home or self-care (01) ==
LOC: HO.NEURO 06:11
PROVIDERS: PCP Nurse Practitioner Primary Care; Visit Provider Nurse Practitioner Primary Care
DX: R20.0 Anesthesia of skin (principal); R20.2 Paresthesia of skin
CPT/HCPCS: 95886; 95911

== ENCOUNTER 2024-05-11 10:05 | Outpatient (AMB) | payer MEDICARE, SELFPAY ==
--- OUTSIDE RECORDS SUMMARY | 2024-05-11 11:13 | XMS_ITS ---
Author Organization [facility] [place] Address [address] [place] [address] Care Team Providers Care [place] Hand Name Role Phone Mirian Thompson Primary Care Provider Esteban Minormie Unavailable [phone] Allergies No Known Allergies REASON FOR VISIT At Risk Footcare, Painful Toe(s), Skin Problem Medications Medication SIG (Take, Route, Frequency, Duration) Notes Start Date End Date Status Tamsulosin HCl Activ e Mirtazapine Active amLODIPine Besylate Active Ciclopirox Olamine 0.77 % 1 application Externally Twice a day to skin of feet including between the toes for 30 days Active Telmisartan Active Atorvastatin Calcium Active Aspirin Active metFORMIN HCl Active Jardiance Active Social History Tobacco Use: Social History Observation Description Date Details (start date - stop date) Former Smoker NA - NA Tobacco use other than smoking: Question Answer Notes Are you an other tobacco user? No Tobacco Control (Standard) Question Answer Notes Tobacco use: Former smoker How long has it been since you last smoked? Grea ter than 10 years Additional Findings: Tobacco non-user Ex-cigaret te smoker AUDIT-C (Standard) Question Answer Notes Did you have a drink containing alcohol in the p ast year? No Points 0 Interpretation Negative Problems Problem Type SNOMED Code ICD Code Onset Dates Problem Status W/U Status Risk Notes Problem Essential hypertension (99063097) Essential hypertension (I10) Active confirmed Vital Signs Height 5ft 5in in 01/22/2024 Weight 182 lbs 01/22/2024 BMI 30.28 kg/m2 01/22/2024 Blood pressure systolic 117 mm Hg 01/22/20 24 Blood pressure diastolic 62 mm Hg 024 Procedures Procedure Date Ordered Date Performed Result Body Sit e 77529- Debride <25 sq cm 01/22/2024 N/A Encounters Encounter Location Date Provider Diagnosis [facility] [address] [address] 01/22/2024 Mellissa Melissa Type 2 diabetes tri itus with diabetic polyneuropathy E11.42 ; Skin ulcer of toe of right foot, limited to breakdown of skin L97.511 and Tinea pedis of both feet B35.3 Assessments Encounter Date Diagnosis (ICD Code) Assessment Notes Treatment Notes Treatment Clinical Notes Section Notes 01/22/2024 Type 2 diabetes mellitus with diabetic polyneuropathy (ICD-10 - E11.42) 01/22/2024 Skin ulcer of toe of right foot, limited to breakdown of skin (ICD-10 - L97.511) Patient Educated with: WOUND CARE INSTRUCTIONS. pdf (WOUND CARE INSTRUCTIONS. pdf) 01/22/2024 Tinea pedis of both feet (ICD-10 - B35.3) Plan Of Treatment Treatment Notes Assessment Notes Skin ulcer of toe of right f oot, limited to breakdown of skin Patient Educated with: WOUND CARE INSTRUCTIONS.pdf (WOUND CARE INSTRUCTIONS.pdf) Pending Test Test Name Order Date 72558- Debride <25 sq cm 01/22/2024 Next Appt Details Follow Up: 2 Months, Reason: Provider Name:Mellissa Melissa , 07/21/2024 11:00:00 AM, [address] [place] [address], [place], [address], Procedure Notes * Category Sub-Category Detail Notes Debride skin< 25 sq cm Open wound NEUROPATH Y: Physician of record performed open wound selective debridement of first 25 sq cm or less, of devitilized necrotic/nonviable soft tissue, fibrin, and exudate extending from the epidermis through the dermis, utilizing sharp dissection with sterile 15 blade, and/or tissue nippers. Hemostasis was controlled through direct pressure. Sterile antibiotic dressing applied, ANESTHESIA was not required due to presence of NEUROPATHY. Post debridement measurements: 6 mm x 4mm x 2mm. Character of the wound post debridement is stable (77198) Progress Notes * Deacon METZ: 1950 (73 yo M)Acc No.[id number]:01/22/2024 Progress Notes Patient:?Acosta METZ Provider:?Mellissa Melissa DPM :1950???Age:73 Y???Sex:Male Yrn e:01/22/2024 Address:[address] [place], [place] [id number] Pcp:Mirian Thompson Subjective: * Chief Complaints: * ???At Risk FootcarePainful T oe(s)Skin Problem * HPI: ???At Risk footcare:?Pt States Last PCP Visit:?Date?12/17/2023 ???Toe pain:?Nature:?open sores.?Treatments:?woundcare.?Skin problems:?Nature:?scaling , redness.?Location:?B/L .?Duration:?, several weeks.?Course:?, improved.?Treatments:?Medication (Ciclopirox Olamine 0.77 Cream), states adherence to recommended treatment application.? * ROS:?General/Constitutional:?Nausea?denies.?Vomiting?denies.?Hunger Thirst?denies.?Loss appetite?denies.?Chills?denies.?Fatigue?denies.?Fever?denies.?Night Sweats?denies.?Unexplained weight loss?denies.?Unexplained weight gain?denies.?HEENTM:?Dentures?denies.?Dizziness?denies.?Glasses/contacts?denies.?Retinopathy?den ies.?Blurred/double vision?denies.?TMJ?denies.?Discharge/drainage?denies.?Implants?denies.?Sore throat?denies.?Dental implants?denies.?Hard of hearing ?denies.?Difficulty chewing/swallowing/speaking?denies.?Nose bleeds?denies.?Sore mouth?denies.?Respiratory:?On O xygen?denies.?Pneumonia/pleurisy?denies.?Bronchitis?denies.?Emphysema?denies.?Co ughing?denies.?Cough blood?denies.?Shortness of breath?denies.?Wheezing?denies.?Cardiovascular:?Pacemaker?denies.?MVP?denies.?WPW?denies.?CHF?denies.?Heart attack?denies.?Septal defect?denies.?Rapid beat?denies.?Chest pain ?denies.?Atrial Fib.?denies.?Murmur/Palpitations?denies.?Gastrointestinal:?Hemorrhoids?denies.?Stomach/Abdominal pain?denies.?Dark blood stool?denies.?Irritable bowel ?denies.?Constipation?denies.?Diarrhea?denies.?Hematology:?Swelling?admits.?Clots?denies.?Varicose Veins?denies.?Bruising?denies.?Bleeding problem?denies.?Genitourinary:?Blood urine?denies.?Frequent/Painfu/urination/bladder control?admits.?Kidney stones?denies.?Infection (UTI)?denies.?Nephropathy?denies.?sex trans dis (STD)?denies.?Prostate?denies.?Musculoskeletal:?Hammertoes?denies.?Bunions?denies.?Back Pain?denies.?Muscle Cramps/ Resting?denies.?Muscle cramps / walking?denies.?Generalized aches and pains?denies.?Weakness?denies.?Integ.:?Camara?denies.?Scars?denies.?Corns/calluses?admits.?Ingrown nails?denies.?Painful nails?admits.?Open Sores?denies.?Rashes?denies.?Neurologic:?Difficulty sleeping?denies.?Brain disorder?denies.?Numbness?denies.?Balance t rouble?denies.?Confusion?denies.?Fainting/blackouts?denies.?Tingling?denies.?Justino mors?denies.? * Medical History:? * Surgical History:?Denies Pas t Surgical History * Hospitalization/Major Diagno stic Procedure:?Denies Past Hospitalization * Family History:?Mother: dece ased.?Father: , arthritis, diabetes, stroke, cancer, kidney/liver disease, foot problems, heart attack, high blood pressure, defects, poor circulation.? * Social History:?Tobacco Use:?Tobacco use other than smoking?Are you an other tobacco user??No ?Tobacco Control (Standard)?Tobacco use:?Former smoker ?How long has it been since you last smoked??Greater than 10 years ?Additional Findings: Tobacco non-user?Ex-cigarette smoker ???Drugs/Alcohol:?Drugs?Have you used drugs other than those for medical reasons in the past 12 months??No ???Miscellaneous:?Caffeine: yes, frequency:. ?Children: yes, 2. ?Exercise: no. ?Marital status: . 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 ???Drug/Alcohol:?AUDIT-C (Standard)?Did you have a drink containing alcohol in the past year??No ?Points?0 ?Interpretation?Negative * Medications:?TakingAspirin A torvastatin Calcium Jardiance metFORMIN HCl Mirtazapine Tamsulosin HCl amLODIPine Besylate Telmisartan Ciclopirox Olamine 0.77 % Cream 1 application Externally Twice a day to skin of feet including between the toes Medication List reviewed and reconciled with the patientTaking Aspirin Taking Atorvastatin Calcium Taking Jardiance Taking metFORMIN HCl Taking Mirtazapine Taking Tamsulosin HCl Taking amLODIPine Besylate Taking Telmisartan Taking Ciclopirox Olamine 0.77 % Cream 1 application Externally Twice a day to skin of feet including between the toes Medication List reviewed and reconciled with the patient * Allergies:?N.K.D.A.yes[Aller gies Verified] Objective: * Vitals:?Ht: 5ft 5in, Wt:182, BMI:30.28, Shoe size: 9, BP:117/62mm Hg, BS: 156, Ht-cm: 165.1 cm, Wt-k.55 kg. * ???Past Orders: ???Lab:HEMOGLOBIN A1C (GLYCO HEMOGLOBIN) (Order Date - 12/25/2023) (Collection Date & Time - 12/25/2023 01:04 PM) ? Value Reference Range ?TOTAL HEMOGLOBIN (HGBA1C) 6.4 * Examination: ???Ophthalmology Referral: ?DIABETES EYE EXAM?Procedure Performed:?Yes ?Date of Exam Performed?06/26/2023 ?Diabetic Retinopathy Screening:?Yes ?Findings of Diabetic Eye Exam:?no retinopathy?General Examination: ?GENERAL APPEARANCE:?Reveals a pleasant, alert, well nourished, well- developed, well hydrated individual, who demonstrates proper attention to hygiene/body habitus, and is in no acute distress, Pt serves as own historian for office visit today.?Neurological: ?SENSORY:? Neurological exam demonstrates, reduced light touch sensation, reduced sharp/dull pin prick discrimination , B/L, 5.07 monofilament test performed at plantar aspects of 5 varied sites per foot shows sensation, reduced , B/L.?Dermatologic: ?SKIN FINDINGS:?Skin shows sign(s) of, erythema, scaling, in a moccasin fashion, no fissure(s) present, B/L, , approximately 80? percent LESS.?ULCER:?Lateral, T8, LOCATION, SIZE, 5mm X 5mm X 2mm, BASE, granular, RIM, hyperkeratotic, UNDERMINING, absent, TRACKING, Full thickness breakdown of skin, DRAINAGE, serosanguineous, mild, NECROTIC TISSUE, loosely-adherent, yellow slough, MALODOR, absent, CALOR, absent, ERYTHEMA, absent, PAIN ON PALPATION, present.?Vascular: ?DP PULSES(B):?2/4, B/L.?PT PULSES(B):?2/4, B/L.?CAPILLARY FILL TIME:?immediate, all digits, B/L.?TROPHIC CONDITION-TEXTURE/ELASTICITY/TURGOR/HAIR GROWTH(B):?normal, B/L.?MARY'S SIGN:?absent, B/L.?PALPABLE CORDS:?absent, B/L.?Orthopedic: ?MUSCLE STRENGTH:?5/5 all groups in a symmetrical fashion, B/L.?FOOTWEAR:? shoe gear properties exacerbate patients foot/toe deformity.? Assessment: * Assessment: 1.?Type 2 diabetes mellitus with diabetic polyneuropathy - E11.42???2.?Skin ulcer of toe of right foot, limited to breakdown of skin - L97.511 (Primary)???Specify :Response to treatment - Improvement???3.?Tinea pedis of both feet - B35.3???Specify :Response to treatment - Improvement??? Plan: * Treatment: * Procedures:?Debride skin< 25 sq cm:?Open wound?NEUROPATHY: Physician of record performed open wound selective debridement of first 25 sq cm or less, of devitilized necrotic/nonviable soft tissue, fibrin, and exudate extending from the epidermis through the dermis, utilizing sharp dissection with sterile 15 blade, and/or tissue nippers. Hemostasis was controlled through direct pressure. Sterile antibiotic dressing applied, ANESTHESIA was not required due to presence of NEUROPATHY. Post debridement measurements: 6 mm x 4mm x 2mm. Character of the wound post debridement is stable (94053).? * Procedure Codes:?74623 ACTIV E WOUND CARE/20 CM OR <, Modifiers: T8 * Preventive Medicine:? ??Counseling:?Discussion:?-12: Office or other outpatient visit for the evaluation and management of an established patient, which required a medically appropriate history and/or examination and STRAIGHTFORWARD level of MEDICAL DECISION MAKING, 1 SELF-LIMITED OR MINOR PROBLEM, MINIMAL- NO AMOUNT/COMPLEXITY OF DATA TO BE REVIEWED/ANALYZED, AND MINIMAL RISK OF COMPLICATION/MORBIDITY. The visit on the day of the encounter encompassed interpreting the data and educating the patient as to the nature of their condition, treatment options available according to their individual PMH, meds, allergies, and overall health/living conditions, as well as any potential risks or complications that may occur from a failure to adhere to, and participate in, the recommended course of therapy. The discussion included a complete verbal, and/or written explanation of the examination results, any x-rays taken, the proposed diagnosis, and outline of the treatment plan. A schedule for future care needs was also explained. The patient verbalized an understanding of the instructions at this time and agreed to be an active participant in their treatment. If the patient should think of any questions or concerns after the visit, I have encouraged the patient to call the office.?Tinea Pedis:?Given recent successful results to treatment, The patient is to cont the rx cream as directed.?Ulcer:?Given recent successful results to treatment, The patient is to cont the local wound care as directed till completely healed.? * Follow Up:?2 Months * Images: * Sign off status: Completed true * Provider:?Mellissa Melissa DPM Date:?2023 Generated for Abel adams/Julienne/Lynn on:?05/11/2024 11:13 AM EDT History and Physical Notes * HPI (History of Present Illness) Category Sub-Category Detail Notes Category Not es Toe pain Nature: open sores Treatments: woundcare Skin problems Nature: scaling , redness Location: B/L Duration: , several weeks Course: , improved Treatments: Medication (Ciclopir ox Olamine 0.77 Cream), states adherence to recommended treatment application At Risk footcare Pt States Last PCP Visit: Date: 4 Examination Category Sub-Category Detail Notes Category Not es Neurological SENSORY: Neurological exa m demonstrates, reduced light touch sensation, reduced sharp/dull pin prick discrimination , B/L, 5.07 monofilament test performed at plantar aspects of 5 varied sites per foot shows sensation, reduced , B/L Dermatologic SKIN FINDINGS: Skin shows sign( s) of, erythema, scaling, in a moccasin fashion, no fissure(s) present, B/L, , approximately 80 percent LESS ULCER: Lateral, T8, LOCATIO N, SIZE, 5mm X 5mm X 2mm, BASE, granular, RIM, hyperkeratotic, UNDERMINING, absent, TRACKING, Full thickness breakdown of skin, DRAINAGE, serosanguineous, mild, NECROTIC TISSUE, loosely-adherent, yellow slough, MALODOR, absent, CALOR, absent, ERYTHEMA, absent, PAIN ON PALPATION, present Orthopedic FOOTWEAR EVALUATION: shoe gear p roperties exacerbate patients foot/toe deformity MUSCLE STRENGTH: 5/5 all groups in a symmetrical fashion, B/L General Examination GENERAL APPEARANCE: Reveals a pleasant, alert, well nourished, well-developed, well hydrated individual, who demonstrates proper attention to hygiene/body habitus, and is in no acute distress, Pt serves as own historian for office visit today Ophthalmology Referral DIABETES EYE EXAM Procedure Perform ed:: Yes ?Date of Exam Performed: 06/26/2023 Diabetic Retinopathy Screening:: Yes Findings of Diabetic Eye Exam:: no retin opathy Vascular DP PULSES (B): 2/4, B/L PT PULSES (B): 2/4, B/L CAPILLARY FILL TIME: immediate, all digi ts, B/L TROPHIC CONDITION-TEXTURE/EL ASTICITY/TURGOR/HAIR GROWTH (B): normal, B/L MARY'S SIGN: absent, B/L PALPABLE CORDS: absent, B/L Nails NAILS are:
--- OUTSIDE RECORDS SUMMARY | 2024-05-11 11:13 | XMS_ITS ---
Author Organization [facility] [place] Address [address] [place] [address] Care Team Providers Care Commercial Sales Consultant Name Role Phone Mirian Thompson Primary Care Provider Unavailabl e Black, Mellissa Unavailable [phone] Allergies No Known Allergies REASON FOR VISIT At Risk Footcare, Toe Irritation Medications Medication SIG (Take, Route, Frequency, Duration) Notes Start Date End Date Status Ciclopirox Olamine 0.77 % 1 application Externally Twice a day to skin of feet including between the toes for 30 days Active Extra Depth Orthopedic Shoes (1 Pair) with Customized Heat Molded Multidensity Innersoles (3 Pair) as directed Dx: NIDDM/Polyneuropathy (E11.42), Hammertoe Foot Deformity (M20.41,M20.42), Preulcerative Skin Lesion(s) (L85.1 04/15/2024 Active Telmisartan Active amLODIPine Besylate Active Tamsulosin HCl Activ e Atorvastatin Calcium Active Aspirin Active Mirtazapine Active metFORMIN HCl Active Jardiance Active Social History Tobacco Use: Social History Observation Description Date Details (start date - stop date) Never Smoker NA - NA Tobacco use other than smoking: Question Answer Notes Are you an other tobacco user? No Tobacco Control (Standard) Question Answer Notes Tobacco use: Nonsmoker Additional Findings: Tobacco non-user Current no nsmoker AUDIT-C (Standard) Question Answer Notes Did you have a drink containing alcohol in the p ast year? No Points 0 Interpretation Negative Problems Problem Type SNOMED Code ICD Code Onset Dates Problem Status W/U Status Risk Notes Problem Acquired hammer toe of left foot ([id number]) Other hammer toe(s) (acquired), left foot (M20.42) Active confirmed Vital Signs Height 5ft 6in in 04/15/2024 Weight 173 lbs 04/15/2024 BMI 27.92 kg/m2 04/15/2024 Blood pressure systolic 120 mm Hg 04/16/19 25 Blood pressure diastolic 60 mm Hg 025 Procedures Procedure Date Ordered Date Performed Result Body Sit e 29522-OQNO SKIN LESIONS, OVER 4 04/15/2024 N/A [id number] DYSTROPHIC NAILS ANY # 04/15/2024 N/A Encounters Encounter Location Date Provider Diagnosis [facility] [address] 04/15/2024 Mellissa Black Type 2 diabetes tri itus with diabetic polyneuropathy E11.42 ; Other hammer toe(s) (acquired), right foot M20.41 and Other hammer toe(s) (acquired), left foot M20.42 Assessments Encounter Date Diagnosis (ICD Code) Assessment Notes Treatment Notes Treatment Clinical Notes Section Notes 04/15/2024 Type 2 diabetes mellitus with diabetic polyneuropathy (ICD-10 - E11.42) 04/15/2024 Other hammer toe(s) (acquired), right foot (ICD-10 - M20.41) Patient Educated with: DIABETIC FOOT CARE INSTRUCTIONS. pdf (DIABETIC FOOT CARE INSTRUCTIONS. pdf) 04/15/2024 Other hammer toe(s) (acquired), left foot (ICD-10 - M20.42) 04/15/2024 Other Plan Of Treatment Medication Medication Name Sig Start Date Stop Date Notes Extra Depth Orthopedic Shoes (1 Pair) with Customized Heat Molded Multidensity Innersoles (3 Pair) as directed Dx: NIDDM/Polyneuropathy (E11.42), Hammertoe Foot Deformity (M20.41,M20.42), Preulcerative Skin Lesion(s) (L85.1 04/15/2024 Treatment Notes Assessment Notes Other hammer toe(s) (acquired), right fo ot Patient Educated with: DIABETIC FOOT CARE INSTRUCTIONS.pdf (DIABETIC FOOT CARE INSTRUCTIONS.pdf) Pending Test Test Name Order Date 24660-ZBQJ SKIN LESIONS, OVER 4 04/16/19 25 [id number] DYSTROPHIC NAILS ANY # Next Appt Details Follow Up: 2 Months, Reason: Provider Name:Mellissa Hare Shin , 07/21/2024 11:00:00 AM, [address] [facility] [facility], [place], [address], Procedure Notes * Category Sub-Category Detail Notes Keratoma Treatment Parring or Cutting o f Benign Hyperkeratotic Lesion(s) (-57) More than 4 Lesions - Due to the at risk nature of the patients medical condition as documented in the exam findings, performance of this keratoderma treatment is medically necessary as its management by an unskilled/untrained nonprofessional would put this patients foot and overall health at risk. Therefore, the benign hyperkeratotic lesions, ( 6 ) in total, locations as stated and described in the exam ( , Lateral, PIPJ, T8, T3, Plantar Heel(s), B/L, SUB MTH (s), 1, B/l ), were pared, and/or cut utilizing a sterile 15 blade, tissue nippers, and/or power dremel instrumentation by the physician of record - 90470 Nail Reduction Nail Reduction (-27) Trimming o f all dystrophic nails - Due to the at risk nature of the patients medical condition as documented in the exam findings, performance of this nail treatment is medically necessary as its management by an unskilled/untrained nonprofessional would put this patients foot and overall health at risk. Therefore, the dystrophic nails, in locations as stated and described in the exam ( TA, T1, T2, T4, T5, T6, T7, T9 ), were debrided by the phisician of record to reduce/remove overall nail length and girth, by manual and electrical means with use of a nail nipper and/or dremel, to more viable healthy nail plate or bed tissue - G0127 Progress Notes * Preston METZOB: 1950 (74 yo M)Acc No.[id number]:04/15/2024 Progress Note Patient:?Acosta METZ Provider:?Mellissa Melissa DPM :1950???Age:74 Y???Sex:Male Yrn e:04/15/2024 Address:[address] [place], [place] [id number] Pcp:Mirian Thompson Subjective: * Chief Complaints: * ???At Risk FootcareToe Irrit ation * HPI: ???At Risk footcare:?Pt States Last PCP Visit:?Date?04/07/2024 ???Toe pain:?Nature:?hx open sores.?Location:?B/L feet.?Duration:?several years.?Course:?worse.?Aggravated by:?shoes, any pressure.?Treatments:?woundcare , change in shoes (did not help).? * ROS:?General/Constitutional:?Nausea?denies.?Vomiting?denies.?Hunger Thirst?denies.?Loss appetite?denies.?Chills?denies.?Fatigue?denies.?Fever?denies.?Night Sweats?denies.?Unexplained weight loss?denies.?Unexplained weight gain?denies.?HEENTM:?Dentures?denies.?Dizziness?denies.?Glasses/contacts?denies.?Retinopathy?den ies.?Blurred/double vision?denies.?TMJ?denies.?Discharge/drainage?denies.?Implants?denies.?Sore throat?denies.?Dental implants?denies.?Hard of hearing ?denies.?Difficulty chewing/swallowing/speaking?denies.?Nose bleeds?denies.?Sore mouth?denies.?Respiratory:?On O xygen?denies.?Pneumonia/pleurisy?denies.?Bronchitis?denies.?Emphysema?denies.?Co ughing?denies.?Cough blood?denies.?Shortness of breath?denies.?Wheezing?denies.?Cardiovascular:?Pacemaker?denies.?MVP?denies.?WPW?denies.?CHF?denies.?Heart attack?denies.?Septal defect?denies.?Rapid beat?denies.?Chest pain ?denies.?Atrial Fib.?denies.?Murmur/Palpitations?denies.?Gastrointestinal:?Hemorrhoids?denies.?Stomach/Abdominal pain?denies.?Dark blood stool?denies.?Irritable bowel ?denies.?Constipation?denies.?Diarrhea?denies.?Hematology:?Swelling?admits.?Clots?denies.?Varicose Veins?denies.?Bruising?denies.?Bleeding problem?denies.?Genitourinary:?Blood urine?denies.?Frequent/Painfu/urination/bladder control?admits.?Kidney stones?denies.?Infection (UTI)?denies.?Nephropathy?denies.?sex trans dis (STD)?denies.?Prostate?denies.?Musculoskeletal:?Hammertoes?, admits.?Bunions?denies.?Back Pain?denies.?Muscle Cramps/ Resting?denies.?Muscle cramps / walking?denies.?Generalized aches [...] an other tobacco user??No ?Tobacco Control (Standard)?Tobacco use:?Nonsmoker ?Additional Findings: Tobacco non-user?Current nonsmoker ???Drugs/Alcohol:?Drugs?Have you used drugs other than those for medical reasons in the past 12 months??No ???Miscellaneous:?Caffeine: yes, frequency:, 2-3 cups per day. ?Children: yes, 2. ?Exercise: no. ?Marital status: . ?Occupation: , Retired [employer]. ???Drug/Alcohol:?AUDIT-C (Standard)?Did you have a drink containing [...] Allergies:?N.K.D.A.yes[Aller gies Verified] Objective: * Vitals:?Ht: 5ft 6in, Wt:173, BMI:27.92, Shoe size: 9.5 EW, BP:120/60mm Hg, BS: 130, Ht-cm: 167.64 cm, Wt-k.47 kg. * ???Past Orders: ???Lab:HEMOGLOBIN A1C (GLYCO HEMOGLOBIN) (Order Date - 03/16/2024) (Collection Date & Time - 04/15/2024 09:53 AM) ? Value Reference Range ?HEMOGLOBIN A1C % (HH) 7.6 * Examination: ???Ophthalmology Referral: ?DIABETES EYE EXAM?Procedure Performed:?Yes ?Date of Exam Performed?07/15/2023 ?Diabetic Retinopathy Screening:?Yes ?Findings of Diabetic Eye Exam:?no retinopathy?General Examination: ?GENERAL APPEARANCE:?Reveals a pleasant, alert, well nourished, well- developed, well hydrated individual, who demonstrates proper attention to hygiene/body habitus, and is in no acute distress, Pt serves as own historian for office visit today.?ORIENTED:?person, place, and time.?FOOT EXAM:?Lower Extremity Neurological Exam performed:?Yes Date ?Visual exam of foot performed:?Yes ?Date?04/15/2024 ?Sensory testing performed:?sensations diminished ?Sensory and motor testing performed:?sensations diminished ?Pedal pulse taking performed:?2+ ?Footwear Evaluation?Footwear Evaluation performed:?Yes?Neurological: ?SENSORY:? Neurological exam demonstrates, reduced light touch sensation, reduced sharp/dull pin prick discrimination , B/L, 5.07 monofilament test performed at plantar aspects of 5 varied sites per foot shows sensation, reduced , B/L.?Dermatologic: ?SKIN FINDINGS:?Skin exam reveals normal color, texture, elasticity, and turgor. There are no masses, nor excrescences. The interspaces are clear, B/L, Skin exam reveals Keratotic lesion(s) located at, Lateral, PIPJ, T8, T3, Plantar Heel(s), B/L, SUB MTH (s), 1, B/L.?Nails: ?NAILS are:?Elongated, overgrown, dystrophic, , TA, T1, T2,? T4, T5, T6, T7,? T9.?Vascular: ?DP PULSES (B):?2/4, B/L.?PT PULSES (B):?2/4, B/L.?CAPILLARY FILL TIME:?immediate, all digits, B/L.?TROPHIC CONDITION-TEXTURE/ELASTICITY/TURGOR/HAIR GROWTH (B):?normal, B/L.?MARY'S SIGN:?absent, B/L.?PALPABLE CORDS:?absent, B/L.?Orthopedic: ?MUSCLE STRENGTH:?5/5 all groups in a symmetrical fashion, B/L.?DIGITAL DEFORMITIES:?Digital contracture, PIPJ, 2-5 B/L, incompl-reducible to push-up test, no over, nor underlapping,?there is?evidence of shoe producing skin irritation.?FOOTWEAR:? shoe gear properties exacerbate patients foot/toe deformity , worn, non-supportive,.? Assessment: * Assessment: 1.?Other hammer toe(s) (acqu ired), right foot - M20.41 (Primary)???Specify :Chronic problem, Worse (4),Rx Management (4)???2.?Type 2 diabetes mellitus with diabetic polyneuropathy - E11.42???3.?Other hammer toe(s) (acquired), left foot - M20.42???Specify :Chronic problem, Worse (4),Rx Management (4)??? Plan: * Treatment: 2.?Type 2 diabetes mellitus with diabetic polyneuropathy? Start Extra Depth Orthopedic Shoes (1 Pair) with Customized Heat Molded Multidensity Innersoles (3 Pair), as directed, Dx: NIDDM/Polyneuropathy (E11.42), Hammertoe Foot Deformity (M20.41,M20.42), Preulcerative Skin Lesion(s) (L85.1, 1, Refills 0.?Procedure: [id number]-[id number] SKIN LESIONS, OVER 4 ?Procedure: [id number] DYSTROPHIC NAILS ANY # * Procedures:?Keratoma Treatment:?Parring or Cutting of Benign Hyperkeratotic Lesion(s)?(-57) More than 4 Lesions - Due to the at risk nature of the patients medical condition as documented in the exam findings, performance of this keratoderma treatment is medically necessary as its management by an unskilled/untrained nonprofessional would put this patients foot and overall health at risk. Therefore, the benign hyperkeratotic lesions, ( 6 ) in total, locations as stated and described in the exam (?,?Lateral,?PIPJ,?T8,?T3,?Plantar Heel(s),?B/L,?SUB MTH (s),?1,?B/l?), were pared, and/or cut utilizing a sterile 15 blade, tissue nippers, and/or power dremel instrumentation by the physician of record - 70097.?Nail Reduction:?Nail Reduction?(-27) Trimming of all dystrophic nails - Due to the at risk nature of the patients medical condition as documented in the exam findings, performance of this nail treatment is medically necessary as its management by an unskilled/untrained nonprofessional would put this patients foot and overall health at risk. Therefore, the dystrophic nails, in locations as stated and described in the exam ( TA, T1, T2,? T4, T5, T6, T7,? T9?), were debrided by the phisician of record to reduce/remove overall nail length and girth, by manual and electrical means with use of a nail nipper and/or dremel, to more viable healthy nail plate or bed tissue - G0127.? * Procedure Codes:?34276 TRIM SKIN LESIONS, OVER 4, Modifiers: XS G0127 TRIMMING DYSTROPHIC NAILS ANY #, Modifiers: XS * Preventive Medicine:? ??Counseling:?Discussion:?-14: Office or other outpatient visit for the evaluation and management of an established patient, which required a medically appropriate history and/or examination and MODERATE level of DECISION MAKING for: 1 OR MORE CHRONIC PROBLEM(S) THATS WORSENING, 2 STABLE CHRONIC PROBLEMS, A NEWLY DIAGNOSED PROBLEM WITH UNCERTAIN PROGNOSIS, AN ACUTE COMPLICATED INJURY WITH MULTIPLE TREATMENT OPTIONS, OR AN ACUTE PROBLEM WITH ACCOMPANYING SYSTEMIC SYMPTOMS, THAT POSE(S) A MODERATE RISK OF MORBIDITY. THIS CONDITION MAY ALSO INCLUDE RX DRUG MANAGEMENT, OR A DECISON FOR MINOR SURGERY. The visit on the day of the [...] have encouraged the patient to call the office.?Digital Surgery:?We elected to try conservative treatment at the present time.?Digital Treatment:?HT- I explained to the patient the possible etiologies of Hammertoes, including genetics/foot type/shoegear/activity level/exercise routine and the risks/benefits of all the different treatment options for their pain including: No treatment at all, Rest, Ice, New/supportive/wider/deeper Shoe gear, Digital Padding/Strapping/Taping/Bracing/Gel protective sleeves, Foot/Ankle AFO Bracing, Stretching exercises, Deep Tissue Massage, Arch support/shoe inserts with splay metatarsal padding, and Custom orthoses. I insisted that any digital devices be removed daily and not worn overnight for safety. The patient is to carefully examine the toes daily for any skin irritation while using any splinting or padding device. The advantages and disadvantages of each option were discussed and the patients questions re: shoe gear, padding, custom vs prefabricated inserts, activity level, and consistency in home treatment regimens for optimal success were answered to their verbally confirmed satisfaction, Recomm, rest, ice, proper shoegear, padding, orthotics, anti-inflammatories or tylenol as tolerated, topical analgesics, cortisone injections.?Shoe Gear Counseling:?SHOE Rx - The patient was counseled in great detail on their muscoloskeletal foot and toe deformities which coincided with the dermatological presentations visualized on exam. We discussed how their deformities put the integrity of their feet at risk for potential pedal complications which makes the accomidative diabetic shoes and cutomizable inserts medically necessary. We discussed the different shoe and insert treatment types and options, as well as the important advantages for adhering to regularly wearing these accomidative devices daily. The patient was made aware of the fact that a failure to abide by these recommedations may be deleterious to their foot health as they are able to prevent many pedal complications such as skin irritation, skin ulceration, infection, and even loss of toe/foot/leg/or life. Time was also spent with the patient dispensing and discussing proper diabetic footcare techniques including daily skin moisturization, daily foot inspection for any interruption in skin integrity including open lesions, or sign of infection such as redness/malodor/drainage/swelling. Also discussed and recommended were procedures regarding daily shoe inspection for the presence of internal foreign bodies as well as any visualized irregular shoe or insert wear. Patient questions re: shoes, inserts, and self foot inspections were answered to their satisfaction as the patient verbally confirmed a full understanding of the above information. A Rx for Extra Depth Orthopedic Shoes with 3 pair of custom heat-molded inserts was dispensed.? ??Screening/Special Tests:?Fall Risk?Assessment:?Performed ?Screening:?No falls in the past year ?FALLS: Screening for Future Fall Risk?Have you had two or more falls in the past year??No ?Have you had any falls with injury in the past year??No * Follow Up:?2 Months * Images: * Sign off status: Completed true * Provider:?Mellissa Melissa DPM Date:?2024 Generated for [employer] angie/Julienne/eTransmitting on:?05/11/2024 11:13 AM EDT History and Physical Notes * HPI (History of Present Illness) Category Sub-Category Detail Notes Category Not es Toe pain Nature: hx open sores Location: B/L feet Duration: several years Course: worse Aggravated by: shoes, any pressure Treatments: woundcare , change i n shoes (did not help) At Risk footcare Pt States Last PCP Visit: Date: 5 Examination Category Sub-Category Detail Notes Category Not es Neurological SENSORY: Neurological exa m demonstrates, reduced light touch sensation, reduced sharp/dull pin prick discrimination , B/L, 5.07 monofilament test performed at plantar aspects of 5 varied sites per foot shows sensation, reduced , B/L Dermatologic SKIN FINDINGS: Skin exam reveal s normal color, texture, elasticity, and turgor. There are no masses, nor excrescences. The interspaces are clear, B/L, Skin exam reveals Keratotic lesion(s) located at, Lateral, PIPJ, T8, T3, Plantar Heel(s), B/L, SUB MTH (s), 1, B/L Orthopedic FOOTWEAR EVALUATION: shoe gear p roperties exacerbate patients foot/toe deformity , worn, non-supportive, DIGITAL DEFORMITIES: Digital contracture , PIPJ, 2-5 B/L, incompl-reducible to push-up test, no over, nor underlapping, there is evidence of shoe producing skin irritation MUSCLE STRENGTH: 5/5 all groups in a symmetrical fashion, B/L General Examination GENERAL APPEARANCE: Reveals a pleasant, alert, well nourished, well-developed, well hydrated individual, who demonstrates proper attention to hygiene/body habitus, and is in no acute distress, Pt serves as own historian for office visit today FOOT EXAM: Lower Extremity Neurological Exa m performed:: Yes Date Visual exam of foot performed:: Yes Date: 04/15/2024 Sensory testing performed:: sensations d iminished Sensory and motor testing performed:: se nsations diminished Pedal pulse taking performed:: 2+ ORIENTED: person, place, and t ceasar Footwear Evaluation Footwear Evaluation performe d:: Yes Ophthalmology Referral DIABETES EYE EXAM Procedure Perform ed:: Yes ?Date of Exam Performed: 07/15/2023 Diabetic Retinopathy Screening:: Yes Findings of Diabetic Eye Exam:: no retin opathy Vascular DP PULSES (B): 2/4, B/L PT PULSES (B): 2/4, B/L CAPILLARY FILL TIME: immediate, all digi ts, B/L TROPHIC CONDITION-TEXTURE/EL ASTICITY/TURGOR/HAIR GROWTH (B): normal, B/L MARY'S SIGN: absent, B/L PALPABLE CORDS: absent, B/L Nails NAILS are: Elongated, overg rown, dystrophic, , TA, T1, T2, T4, T5, T6, T7, T9
--- OUTSIDE RECORDS SUMMARY | 2024-05-11 11:13 | XMS_ITS | Encounter Summary ---
Author Organization [employer] Address [address] [facility] [address] [place] [address] Care Team Providers Care Director Consumer Name Role Phone Mirian Thompson Primary Care Provider [phone] Jasen Gomez PharmD Unavailable [phone] Reason for Visit * Reason Comments Med Refill Encounter Details Date Type Department Care Team (Late st Contact Info) Description 05/06/2024 Refill [facility] [address], [place] [phone] Mirian Thompson ANP [address] [place], [place] [phone] Social History Tobacco Use Types Packs/Day Years Used Date Smoking Tobacco: Former Cigarettes Passive Smoke Exposure: Past Smokeless Tobacco: Never Alcohol Use Standard Drinks/Week Comments Not Currently 0 (1 standard drink = 0.6 oz pur e alcohol) Alcohol Answer Date Recorded Frequency of Alcohol Consumption Not on file 12/24/2023 Average Number of Drinks Not on file 024 Frequency of Binge Drinking Not on file 12/12 Score 0 12/24/2023 Depression Answer Date Recorded Patient Health Questionnaire-9 Score 0 11/08/2022 Housing Stability Answer Date Recorded What is your housing situation today? I do not have housing (Staying with others, in a hotel, in a residential, living outside on the street, on a beach, in a car, or in a park 12/16/[address] you li ve. Do you have problems with any of the following? None of the above 12/16/2023 Food Insecurity Answer Date Recorded Within the past 12 months, y ou worried that your food would run out before you got money to buy more: Sometimes True 2023 Within the past 12 months,th e food you bought just didn't last and you didn't have enough money to get more: Sometimes True 12/16/2023 Transportation Answer Date Recorded In the past 12 months, has l ack of transportation kept you from medical appts, meetings, work or from getting things needed for daily living? No 12/16/2023 Utilities Answer Date Recorded In the past 12 months, has t he electric, gas, oil or water company threatened to shut off services in your home? No 12/16/2023 Depression Answer Date Recorded Patient Health Questionnaire-2 Score 5 12/24/2023 Internet Access Answer Date Recorded Internet Access Q1 No 12/16/2023 Internet Access Q2 I do not want or need it 05/2023 Sex and Gender Information Value Date Recorded Sex Assigned at Male 11/06/2022 3:09 PM EDT Legal Sex Male 3:06 PM EDT Gender Identity Male 11/06/2022 3:09 PM EDT Sexual Orientation Choose not to disclose 2022 10:38 AM EDT documented as of this encounter Plan of Treatment Upcoming Encounters Date Type Department Care Team (Late st Contact Info) Description 05/27/2024 10:00 AM EDT Medication Management [facility] [address] [place] [address] Jasen Gomez PharmD [address] [place] [address] documented as of this encounter Goals Goal Patient Goal Type Associated Problems Recent Progress Patient-Stated? Author Blood Pressure < 140/90 Blood Pressure 101/61(2024 11:20 AM EST) No Jasen Gomez PharmD Hemoglobin A1c < 7 Result Component 7.6( 11:27 AM EST) No Jasen Gomez PharmD documented as of this encounter Visit Diagnoses Not on filedocumented in this encounter Additional Health Concerns Assessment Noted Time PHQ-9 Depression Total Score: 0 11/09/19 10:59 AM EDT documented as of this encounter Care Teams Director Consumer Relationship Specialty Start Date End Date Thompson, Mirian, ANP [address] [place] [address] PCP - General Family Medicine 11/08/22 Jasen Gomez, Lisa [address] [place] [address] Pharmacist Internal Medicine 08/02/23 documented as of this encounter
--- OUTSIDE RECORDS SUMMARY | 2024-05-11 11:13 | XMS_ITS | Encounter Summary ---
Author Organization [employer] Address [address] [facility] 7t [place] [address] Care Team Providers Care Car Ferry Captain Name Role Phone Mirian Thompson Primary Care Provider [phone] Jasen Gomez PharmD Unavailable [phone] Encounter Details Date Type Department Care Team (Late st Contact Info) Description 02/18/2024 Telephone [facility] [address] [place], [place] [phone] Mirian Thompson ANP [address] [place], [place] [phone] Social History Tobacco Use Types Packs/Day Years [...] with others, in a hotel, in a senior care, living outside on the street, on a [...] AM EDT documented as of this encounter Miscellaneous Notes * Telephone Encounter - Lucy Harrison PharmD - 02/18/2024 5:26 PM EST Patient requesting to reschedule CDTM appointment, please follow up. * Telephone Encounter - Mony Victor - 02/18/2024 12:50 PM EST TC from pt requesting reschedule 01/20 appt (CDTM DM/HTN FU Jay STEEN (CGM)) with Jasen. documented in this encounter Plan of Treatment Upcoming Encounters Date Type Department Care Team ([facility] st Contact Info) Description 05/27/2024 10:00 AM EDT Medication Management [facility] [address] [place] [address] GomezJasen PharmD [address] [place] [phone] documented as of this encounter Goals Goal [...] documented as of this encounter Care Teams Car Ferry Captain Relationship Specialty Start Date End Date Mirian Thompson ANP [address] [place] [phone] PCP - General Family Medicine 11/08/22 Jasen Gomez PharmD [address] [place] [phone] Pharmacist Internal Medicine 08/02/23 documented as of this encounter
--- OUTSIDE RECORDS SUMMARY | 2024-05-11 11:13 | XMS_ITS | Clinical Summary ---
Author Organization [employer] Address [address] [place] [address] 7t [place] [address] Care Team Providers Care Rn Compliance Name Role Phone Mirian Thompson Primary Care Provider [phone] Jasen Gomez PharmD Unavailable [phone] Allergies No known active allergies Medications B-D ULTRAFINE III SHORT PEN 31G X 8 MM ww [facility] 023 Active albuterol 108 (90 Base) MCG/ACT inhaler Inhale 2 puffs every 6 (six) hours if needed. From admission summer 2022, no known dx of asthma or COPD Active acetaminophen (Tylenol) 500 MG tablet Take 2 tablets (1,000 mg) by mouth every 6 (six) hours if needed for moderate pain or fever for up to 25 doses. 30 tablet 024 Active ketorolac (Acular) 0.5 % ophthalmic solution INSTILL 1 DROP INTO THE AFFECTED EYE(S) THREE TIMES DAILY DIRECTED, START 2 DAYS BEFORE SURGERY and CONTINUE DIRECTED 024 Active Blood Glucose Monitoring Suppl (ONE TOUCH ULTRA 2) w/Device kitIndications:Ty pe 2 diabetes mellitus with hyperlipidemia ([facility]/HCC) ([facility]) Use to test blood sugar 2 times daily 1 kit 024 Active Lancets (OneTouch Delica Plus [id number]) [facility] TEST BLOOD SUGAR TWICE DAILY DIRECTED 024 Active Continuous Glucose Gravure Press Set Up Operator (FreeStyle Donaldo 2 [place]) deviceIndications :Type 2 diabetes mellitus with hyperlipidemia (CMS/HCC) ([facility]) Scan sensor every 8 hours 1 each 024 Active Continuous Glucose Sensor (FreeStyle Donaldo 2 Sensor) miscIndications:T ype 2 diabetes mellitus with hyperlipidemia (CMS/HCC) ([facility]) Apply 1 sensor every 14 days 2 each 11 024 Active amLODIPine (Norvasc) 5 MG tabletIndications :Benign essential HTN Take 1 tablet (5 mg) by mouth Once daily. 90 tablet 1 024 Active fluticasone (Flonase) 50 MCG/ACT nasal sprayIndications: Cough in adult patient Administer 2 sprays into each nostril Once per day. 16 g 2 024 Active insulin glargine (Lantus SoloStar) 100 UNIT/ML penIndications:Ty pe 2 diabetes mellitus with hyperlipidemia (CMS/HCC) ([facility]) Inject 14 units subcutaneously once daily 15 mL 3 024 Active metFORMIN (Glucophage) 1000 MG tabletIndications :Type 2 diabetes mellitus with hyperlipidemia (CMS/HCC) ([facility]) Take 1 tab twice daily with meal 180 tablet 3 024 Active telmisartan (Micardis) 40 MG tabletIndications :Benign essential HTN Take 1 tablet (40 mg) by mouth Once per day. 30 tablet 5 024 2024 Active tamsulosin (Flomax) 0.4 MG 24 hr capsule TAKE 1 CAPSULE BY MOUTH EVERY DAY 90 capsule 1 024 Active atorvastatin (Lipitor) 40 MG tabletIndications :Type 2 diabetes mellitus with hyperlipidemia (CMS/HCC) ([facility]) TAKE 1 TABLET BY MOUTH EVERY DAY 90 tablet 3 024 Active mirtazapine (Remeron) 15 MG tabletIndications :Difficulty sleeping TAKE 1 TABLET BY MOUTH AT BEDTIME 30 tablet 2 025 Active Dulaglutide (Trulicity) 1.5 MG/0.5ML solution auto-injectorIndi cations:Type 2 diabetes mellitus with hyperlipidemia (CMS/HCC) ([facility]) Inject 1.5 mg under the skin 1 (one) time per week. 2 mL 5 025 Active ciclopirox (Loprox) 0.77 % cream Apply 1 Application topically 2 times daily. Active dutasteride (Avodart) 0.5 MG capsule Take 1 capsule by mouth Once per day. Active Mouthwashes (Biotene Dry Mouth) liquidIndications :Dry mouth Use 30 mL in the mouth or throat if needed in the morning and at bedtime (dry mouth). 1000 mL 2 Active triamcinolone (Kenalog) 0.1 % creamIndications: Rash Apply topically 2 times daily. For 2 weeks to R hand 30 g 1 Active glucose blood (FreeStyle Precision Hans Test) test stripIndications: Type 2 diabetes mellitus with hyperlipidemia (CMS/HCC) ([facility]) USE TO TEST BLOOD SUGAR THREE TIMES A DAY 100 each 12 Active Jardiance 25 MGIndications:Typ e 2 diabetes mellitus with hyperlipidemia (CMS/HCC) ([facility]) TAKE 1 TABLET BY MOUTH ONCE DAILY 30 tablet 5 Active Aspirin Low Dose 81 MG EC tablet TAKE 1 TABLET BY MOUTH EVERY MORNING 30 tablet 11 Active aspirin 81 MG EC tablet Take 1 tablet (81 mg) by mouth in the morning. 30 tablet 11 024 2024 Discontinued empagliflozin (Jardiance) 25 MGIndications:Typ e 2 diabetes mellitus with hyperlipidemia (CMS/HCC) ([facility]) Take 1 tablet (25 mg) by mouth Once per day. 30 tablet 5 024 2024 Discontinued glucose blood (FreeStyle Precision Hans Test) test stripIndications: Type 2 diabetes mellitus with hyperlipidemia (CMS/HCC) ([facility]) Use to test blood sugar 5 times daily 100 each 024 2024 Discontinued Active Problems Problem Noted Date Diagnosed Date Peripheral axonal neuropathy 04/07/2024 Urge incontinence of urine 01/28/2024 Overview (01/28/2024): wears pullups for same, following w/ urology appt Jan 2024 Cough in adult patient 01/20/2024 Assessment & Plan (01/20/2024 6:52 PM EST): Consistent with URI, Supportive measures reviewed Return to clinic for worsening symptoms or failure to improve Diabetic foot ulcer 07/09/2023 Plantar fasciitis 07/09/2023 Hyperlipidemia 04/24/2023 Mild cognitive impairment with memory loss 04/23 Overview (09/25/2023): MOCA 2430 in 2019, MOCA 22/30 in 09/2020, 09/2023 Pt has bachelor's degree. Bilingual Occitan and Maori. Depression 04/24/2023 Type 2 diabetes mellitus with hyperlipidemia ([facility] S/HCC) 11/08/2022 Overview (06/18/2023): A1c 8.0% 11/08/22 --> 6.9 04/10/23 Metformin 1000mg BID, lantus 20 units daily Was on Trulicity but stopped d/t mistry. We will restart. He has DM supplies. On atorvastatin, lisinopril (switched to valsartan 04/10/23) On ASA Assessment & Plan (11/08/2022 11:43 AM EDT): A1c 8.0% 11/08/22 Metformin 1000mg BID, lantus 20 units twice daily Was on Trulicity but stopped d/t mistry. We will restart. He has DM supplies. On atorvastatin, lisinopril Not on ASA Benign essential HTN 11/08/2022 Overview (09/20/2023): BP above goal today </= 140/80 Valsartan 160mg, amlodipine 2.5mg Encounters Date Type Department Care Team Description 05/06/2024 Refill [facility] [address] [place] [address] Mirian Thompson ANP 04/25/2024 Refill [facility] [address] [place] [address] Jasen Gomez, Lisa Type 2 diabetes mellitus with hyperlipidemia (CMS/HCC) (CMS/HCC) 04/15/2024 Telephone [facility] [address] [place] [address] Mirian Thompson ANP 04/10/2024 Refill [facility] [address] [place] [address] Mirian Thompson ANP Type 2 diabetes mellitus with hyperlipidemia ([facility]/HCC) ([facility]) 04/08/[address] [address] Mirian Thompson ANP Appointment Request 04/07/2024 11:00 AM EST Office Visit [address] [address] Mirian Thompson ANP Dry mouth (Primary Dx); Type 2 diabetes mellitus with hyperlipidemia (CMS/HCC) ([facility]); Peripheral axonal neuropathy; Urge incontinence of urine; Rash 04/07/[address] [address] Mirian Thompson ANP Appointment Request 04/07/2024 Travel 04/06/[address] [address] Mirian Thompson ANP Paperwork/Forms 04/01/[address] [address] Mirian Thompson ANP Chart Prep 03/25/2024 Patient Outreach [address] [address] Mirian Thompson ANP Pre-visit Planning (Pre-visit planning - LVM ) 03/09/[address] [address] Cris Wheat, GT Paperwork/Forms 02/27/2024 Travel 02/18/[address] [address] Mirian Thompson ANP 02/16/[address] [address] Mirian Thompson ANP Difficulty sleeping from Last 3 Months Immunizations Name Administration Dates Next Due HepB-CpG 07/05/2023,05/06/2023 Influenza High-dose Quadriva lent Preservative Free 11/08/2022,01/17/2021 Influenza, High Dose Seasona l, Preservative Free 02/27/2024,10/04/2016 Influenza, IIV3, injectable 01/31/2022,1 03/20/2020,11/25/2019,2016,02/15/2012 Pfizer Covid-19 Vaccine 12+ 02/27/2024,0 02/24/2021,06/06/2020,2020 Pfizer Covid-19 Vaccine 12+ Bivalent 01/31/2022 Pfizer Covid-19 Vaccine 12+ champ-sucrose (Torres Cap) 09/13/2021 Pneumococcal Conjugate PCV 20 07/05/2023 RSV Bivalent 08/02/2023 Tdap 08/02/2023 Zoster, Recombinant 05/06/2023,03/24/2021 Social History Tobacco Use Types Packs/Day Years Used Date Smoking Tobacco: Former Cigarettes Passive Smoke Exposure: Past Smokeless Tobacco: Never Tobacco Cessation:Counseling Given: Not Answered Alcohol Use Standard Drinks/Week Comments Not Currently 0 (1 standard drink = 0.6 oz pur e alcohol) Alcohol Answer Date Recorded Frequency of Alcohol Consumption Not on file 12/24/2023 Average Number of Drinks Not on file Frequency of Binge Drinking Not on file 12/12 Score 0 12/24/2023 Depression Answer Date Recorded Patient Health Questionnaire-9 Score 0 11/08/2022 Housing Stability Answer Date Recorded What is your housing situation today? I do not have housing (Staying with others, in a hotel, in a group home, living outside on the street, on a [...] not to disclose 2022 10:38 AM EDT Last Filed Vital Signs Vital Sign Reading Time Taken Comments Blood Pressure 101/61 04/07/2024 11:20 AM EST Pulse 73 04/07/2024 11:20 AM EST Temperature 36.6 ??C (97.9 ??F) 04/07/2024 11:[address] Respiratory Rate 14 04/07/2024 11:20 AM EST Oxygen Saturation 97% 04/07/2024 11:20 AM EST Inhaled Oxygen Concentration - - Weight 80.5 kg (177 lb 6.4 oz) 04/07/2024 11:20 AM EST Height 167.6 cm (5' 6 ) 01/20/2024 1:35 PM EST Body Mass Index 28.63 01/20/2024 1:35 PM EST Plan of Treatment Upcoming Encounters Date Type Department Care Team (Late st Contact Info) Description 05/27/2024 10:00 AM EDT Medication Management [facility] [address] [place] [address] Jasen Gomez, PharmD [address] [place] [address] Health Maintenance Due Date Last Done Comments CT Colonography 1950 Colonoscopy 1950 Colorectal Cancer Screening 1950 FIT DNA/Cologuard 1950 FIT 1950 FOBT 1950 Sigmoidoscopy 1950 Eye Exam 1959 Hepatitis C Screening 1967 Diabetes: Hemoglobin A1C 07/05/2024 025, 10/08/2023, 09/16/2023, Additional history exists Lipid Panel 08/11/2024 08/12/2023, 11/21/2022 Diabetes: Foot Exam 09/19/2024 09/20/2023, 09/20/2023, 09/20/2023, Additional history exists Diabetes: Urine Protein Screening 11/14/2024 11/15/2023, 08/12/2023, 07/09/2023, Additional history exists SDOH Screening 12/15/2024 12/16/2023 Alcohol/Substance Use Screening 12/23/2024 12/24/2023 Depression Screening 12/23/2024 12/24/2023, 11/09/19 Tobacco Screening 04/07/2025 04/07/2024 DTaP/Tdap/Td Vaccines (2 - Td or Tdap) 08/01/2033 08/02/2023 Zoster Vaccines Completed 05/06/2023, 03/24/2021 Hepatitis B Vaccines Completed 07/05/2023, 05/06/19 Pneumococcal Vaccine: 50+ Years Completed 07/05/2023 RSV Patients and Patients Aged 60 years or older Completed 08/02/2023 COVID-19 Vaccine Completed 02/27/2024, , 09/13/2021, Additional history exists Influenza Vaccine Completed 02/27/2024, , 01/31/2022, Additional history exists HIB Vaccines Aged Out No longer eligi ble based on patient's age to complete this topic HPV Vaccines Aged Out No longer eligi ble based on patient's age to complete this topic Hepatitis A Vaccines Aged Out No long er eligible based on patient's age to complete this topic IPV Vaccines Aged Out No longer eligi ble based on patient's age to complete this topic Meningococcal Vaccine Aged Out No devonte us eligible based on patient's age to complete this topic RSV under 20 months Aged Out No longe r eligible based on patient's age to complete this topic Rotavirus Vaccines Aged Out No longer eligible based on patient's age to complete this topic Goals Goal Patient Goal Type Associated Problems Recent Progress Patient-Stated? Author Blood Pressure < 140/90 Blood Pressure 101/61(2024 11:20 AM EST) No Jasen Gomez, ErumD Hemoglobin A1c < 7 Result Component 7.6( 11:27 AM EST) No Jasen Gomez, Lisa Procedures Procedure Name Priority Date/Time Associated Diagnosis Comments POCT GLYCATED HEMOGLOBIN, TOTAL Routine 04/07/2024 11:27 AM EST Type 2 diabetes mellitus with hyperlipidemia (CMS/HCC) ([facility]) POCT GLUCOSE Routine 04/07/2024 11:22 AM EST Type 2 diabetes mellitus with hyperlipidemia (CMS/HCC) ([facility]) CREATININE, RANDOM URINE Routine 11/15/2023 10:25 AM EDT LIPID PANEL, STANDARD Routine 08/12/2023 8:48 AM EDT from Last 3 Months or Most Recently Relevant to Health Maintenance Results * (ABNORMAL) POCT HGB A1C (04/07/2024 11:27 AM EST) Hemoglobin A1C 7.6(A) 4.0 - 6.0 % QC Media Lot # [id number] Lot# Expiration Date Blood 04/07/2024 11:2 7 AM EST Mirian PENNY POINT OF CARE TEST ENTER/EDIT OR DERABLES Final Result * POCT Glucose (04/07/2024 11:22 AM EST) Glucose Blood, POC 189 60 - 200 mg/dL QC Media Lot # [id number] Lot# Expiration Date [id number] Blood Capillary blood specimen / Unknown 04/07/2024 11:22 AM EST Mirian PENNY POINT OF CARE TEST ENTER/EDIT OR DERABLES Final Result * Creatinine, Random Urine (11/15/2023 10:25 AM EDT) Creatinine, Urine 68.61 mg/dL [facility] 11/15/2023 10:2 5 AM EDT 11/15/2023 11:07 AM EDT us Generic External Data Provider LAB URINE ORDERAB LES Final Result Performing Organization Address [facility] Co de Phone Number [facility] [address] [place] [address] [phone] * (ABNORMAL) Lipid Panel, Standard (08/12/2023 8:48 AM EDT) Triglycerides 79 <150 mg/dL [facility] Comment:Desirable Triglyceri de: less than 150 mg/dLBorderline High Triglyceride 150-199 mg/dLHigh Triglyceride: 200-499 mg/dLVery High Triglyceride: greater than or equal to 5OO mg/dL Cholesterol 140 <200 mg/dL [facility] Comment:Desirable Cholestero l: less than 200 mg/dLBorderline High Cholesterol: 200-239 mg/dLHigh Cholesterol: greater than 239 mg/dL LDL Cholesterol Calculated 96 <100 mg/dL [facility] Comment:Desirable LDL: less than 100 mg/dLNear Optimal/Above Optimal LDL: 110- 129 mg/dLBorderline High LDL: 130-159 mg/dLHigh LDL: 160-189 mg/dLVery High LDL: greater than or equal to 190 mg/dL HDL Cholesterol 29(L) >40 mg/dL [facility] Comment:Desirable HDL: great er than 40 mg/dL Note: This HDL assay may give artificially low results in patients with liver disease. 08/12/2023 8:48 AM EDT 08/12/2023 11:39 AM EDT us Mirian Thompson ANP LAB BLOOD ORDERABLES Final Resul t Performing Organization Address City/[facility]/ZIP Co de Phone Number [facility] [address] [place] [address] [phone] from Last 3 Months or Most Recently Relevant to Health Maintenance Insurance [facility] MEDICARE [employer]VANTAGE HMO Care Teams Rn Compliance Relationship Specialty Start Date End Date Mirian Thompson ANP [address] [place] [address] PCP - General Family Medicine 11/08/22 Jasen Gomez, Lisa [address] [place] [address] Pharmacist Internal Medicine 08/02/23
--- OUTSIDE RECORDS SUMMARY | 2024-05-11 11:13 | XMS_ITS | Encounter Summary ---
Author Organization [employer] Address [address] [place] [address] 7t [place] [address] Care Team Providers Care Metal Sorter Name Role Phone Mirian Thompson Primary Care Provider [phone] Jasen Gomez PharmD Unavailable [phone] Reason for Visit * Reason Onset Date Comments New Patient 11/06/2022 Encounter Details Date Type Department Care Team (Late st Contact Info) Description 11/06/2022 Telephone [facility] [address] [place], [place] [phone] Brad Wooten MD [address] [place], [place] [phone] New Patient Social History Tobacco Use Types Packs/Day Years Used Date Smoking Tobacco: Never Assessed Depression Answer Date Recorded Patient Health Questionnaire-9 Score 0 11/08/2022 Depression Answer Date Recorded Patient Health Questionnaire-2 Score 0 11/08/2022 Sex and Gender Information Value Date Recorded Sex Assigned at Male 11/06/2022 3:09 PM EDT Legal Sex Male 3:06 PM EDT Gender Identity Male 11/06/2022 3:09 PM EDT Sexual Orientation Choose not to disclose 2022 10:38 AM EDT documented as of this encounter Miscellaneous Notes * Telephone Encounter - Aura Lagos - 11/07/2022 12:10 PM EDT PAR Aura Rodas called pt to Offer WATER PURIFICATION CHEMIST appt. Pt demographics and insurance information were verified. Pt reports the following medical conditions: Diabetic, Cholesterol. Pt is currently taking medication: Metformin, Lantuss, Atorvastatin, Lisinopril. Pt given WATER PURIFICATION CHEMIST appt with Dr. Thompson on 11/08/2022@ 10:30 am Pt will be sent appt reminder card and medical release form and agrees to complete and to return to medical records prior to WATER PURIFICATION CHEMIST appt. * Telephone Encounter - Aura Lagos - 11/06/2022 3:10 PM EDT Pt has been transfer over to wait list for WATER PURIFICATION CHEMIST. EFFECTIVE SINCE 10/01/2022 documented in this encounter Plan of Treatment Upcoming Encounters Date Type Department Care Team (Late st Contact Info) Description 05/27/2024 10:00 AM EDT Medication Management [facility] [address] [place] [address] Jasen Gomez, ErumD [address] [place] [address] documented as of this encounter Visit Diagnoses Not on filedocumented in this encounter Care Teams Metal Sorter Relationship Specialty Start Date End Date Mirian Thompson ANP [address] [place] [id number] PCP - General Family Medicine 11/08/22 Jasen Gomez, PharmD [address] [place] [phone] Pharmacist Internal Medicine 08/02/23 documented as of this encounter
--- OUTSIDE RECORDS SUMMARY | 2024-05-11 11:13 | XMS_ITS ---
Author Organization [facility] Address [address] [facility] [place] [address] Care Team Providers Care Hand Clerical Verifier Name Role Phone Mirian Thompson Primary Care Provider Mellissa Minor Unavailable [phone] REASON FOR VISIT buy betadine Encounters En[facility] [place] [address] 12/25/2023 Mellissa Melissa Plan Of Treatment Next Appt Details Provider Name:Mellissa Melissa , 07/21/2024 11:00:00 AM, 1984 Zhao Weber, [place], [address], Progress Notes * Preston URIBEOB:0 1950 (73 yo M)Acc No.[id number]:12/25/2023 Patient:?Carlin URIBE :1950???Age:73 Y???Sex:Male Address:[place] [address] * true * Date:? Generated for Printi ng/Fanarinderg/eTransmitting on:?05/11/2024 11:13 AM EDT
--- OUTSIDE RECORDS SUMMARY | 2024-05-11 11:13 | XMS_ITS | Encounter Summary ---
Author Organization [employer] Address [address] [facility] 7t [place] [address] Care Team Providers Care Core Driller Helper Name Role Phone Mirian Thompson Primary Care Provider [phone] Jasen Gomez PharmD Unavailable [phone] Encounter Details Date Type Department Care Team (Late st Contact Info) Description 04/25/[address] [facility] [address] [place], [place] [phone] Mirian Thompson ANP [address] [place], [place] [phone] Social History Tobacco Use Types Packs/Day Years Used Date Smoking Tobacco: Former Cigarettes Smokeless Tobacco: Never Alcohol Use Standard Drinks/Week Comments Not Currently 0 (1 standard drink = 0.6 oz pur e alcohol) Depression Answer Date Recorded Patient Health Questionnaire-9 Score 0 11/08/2022 Housing Stability Answer Date Recorded What is your housing situation today? I have hu cardona 12/05/[address] you li ve. Do you have problems with any of the following? None of the above 12/05/2022 Food Insecurity Answer Date Recorded Within the past 12 months, y ou worried that your food would run out before you got money to buy more: Never True 12/05/2022 Within the past 12 months,th e food you bought just didn't last and you didn't have enough money to get more: Never True Transportation Answer Date Recorded In the past 12 months, has l ack of transportation kept you from medical appts, meetings, work or from getting things needed for daily living? No 12/05/2022 Utilities Answer Date Recorded In the past 12 months, has t he electric, gas, oil or water company threatened to shut off services in your home? No 12/05/2022 Depression Answer Date Recorded Patient Health Questionnaire-2 [...] Description 05/27/2024 10:00 AM EDT Medication Management [facility] [address] [place] [address] Jasen Gomez, PharmD [address] [place] [address] documented as of this encounter Visit Diagnoses Not on filedocumented in this encounter Additional Health Concerns Assessment Noted Time PHQ-9 Depression Total Score: 0 11/09/19 23 10:59 AM EDT documented as of this encounter Care Teams Core Driller Helper Relationship Specialty Start Date End Date Mirian Thompson ANP [address] [place] [phone] PCP - General Family Medicine 11/08/22 Jasen Gomez, ErumD [address] [place] [phone] Pharmacist Internal Medicine 08/02/23 documented as of this encounter
--- OUTSIDE RECORDS SUMMARY | 2024-05-11 11:14 | XMS_ITS | Patient Health Record ---
Author Organization [facility] Address [address] [facility] [place] [address] Care Team Providers Care Shot Hole Shooter Name Role Phone Mirian Thompson Primary Care Provider Zohra e Shin Mellissa Unavailable [phone] Allergies No Known Allergies Results Component Value Reference Range Notes X ray : Foot, right 3V Reviewed date:12/25/2023 05:45:36 PM Interpretation:See Examination above Performing Lab: Notes/Report: See Examination above HEMOGLOBIN A1C (GLYCOHEMOGLO BIN) Reviewed date:12/25/2023 01:04:26 PM Interpretation: Performing Lab: Notes/Report: TOTAL HEMOGLOBIN (HGBA1C) 6.4 HEMOGLOBIN A1C (GLYCOHEMOGLO BIN) Reviewed date:04/15/2024 09:55:33 AM Interpretation: Performing Lab: Notes/Report: HEMOGLOBIN A1C % (HH) 7.6 Reason For Referral No Information Medications Medication SIG (Take, Route, Frequency, Duration) Notes Start Date End Date Status Atorvastatin Calcium Active Aspirin Active Mirtazapine Active metFORMIN HCl Active Jardiance Active Ciclopirox Olamine 0.77 % 1 application Externally Twice a day to skin of feet including between the toes for 30 days Active Extra Depth Orthopedic Shoes (1 Pair) with Customized Heat Molded Multidensity Innersoles (3 Pair) as directed Dx: NIDDM/Polyneuropathy (E11.42), Hammertoe Foot Deformity (M20.41,M20.42), Preulcerative Skin Lesion(s) (L85.1 04/15/2024 Active Telmisartan Active amLODIPine Besylate Active Tamsulosin HCl Activ e Social History Tobacco Use: Social History Observation [...] Problem Acquired hammer toe of left foot (4388648424072770 ) Other hammer toe(s) (acquired), left foot (M20.42) Active confirmed Problem Polyneuropathy due to type 2 diabetes mellitus (979129117) Type 2 diabetes mellitus with diabetic polyneuropathy (E11.42) Active confirmed Problem Acquired hammer toe of right foot (8606788370292946 ) Other hammer toe(s) (acquired), right foot (M20.41) Active confirmed Problem Ulcer of toe (507239181) Skin ulcer of toe of right foot, limited to breakdown of skin (L97.511) Active confirmed Problem Localized, primary osteoarthritis of the ankle and/or foot (197786689) Arthritis of joint of lesser toe, right (M19.071) Active confirmed Problem Essential hypertension (61627696) Essential hypertension (I10) Active confirmed Vital Signs Blood pressure diastolic 60 mm Hg 04/15/2024 Height 5ft 6in in 04/15/2024 Blood pressure systolic 120 mm Hg 04/15/2024 Weight 173 lbs 04/15/2024 BMI 27.92 kg/m2 04/15/2024 Procedures Procedure Date Ordered Date Performed Result Body Sit e 40688- Debride <25 sq cm 12/25/2023 N/A 26228-ISST SKIN LESIONS, 2 TO 4 12/25/2023 N/A H1725-[id number] DYSTROPHIC NAILS ANY # 12/25/2023 N/A 20458- Debride <25 sq cm 01/22/2024 N/A 49898-OOEU SKIN LESIONS, OVER 4 04/15/2024 N/A H8357-ZIROTHYN DYSTROPHIC NAILS ANY # 04/15/2024 N/A Encounters Encounter Location Date Provider Diagnosis [facility] [address] 12/25/2023 Mellissa Melissa Type 2 diabetes tri itus with diabetic polyneuropathy E11.42 ; Other hammer toe(s) (acquired), right foot M20.41 ; Edema, lower extremity R60.0 ; Pain in right toe(s) M79.674 ; Arthritis of joint of lesser toe, right M19.071 ; Subluxation of metatarsophalangeal joint of toe, initial encounter S93.149A ; Tinea pedis of both feet B35.3 and Skin ulcer of toe of right foot, limited to breakdown of skin L97.[address] [address] 01/22/2024 Mellissa Melissa Type 2 diabetes tri itus with diabetic polyneuropathy E11.42 ; Skin ulcer of toe of right foot, limited to breakdown of skin L97.511 and Tinea pedis of both feet B35.[address] [address] 04/15/2024 Mellissa Melissa Type 2 diabetes tri itus with diabetic polyneuropathy E11.42 ; Other hammer toe(s) (acquired), right foot M20.41 and Other hammer toe(s) (acquired), left foot M20.[address] [address] 12/11/[address] [address] 12/19/2023 [facility] Shin [address] [address] 12/25/2023 Mellissa Melissa Assessments Encounter Date Diagnosis (ICD Code) Assessment Notes Treatment Notes Treatment Clinical Notes Section Notes 12/25/2023 Type 2 diabetes mellitus with diabetic polyneuropathy (ICD-10 - E11.42) Patient Educated with: DIABETIC FOOT CARE INSTRUCTIONS. pdf (DIABETIC FOOT CARE INSTRUCTIONS. pdf) 12/25/2023 Other hammer toe(s) (acquired), right foot (ICD-10 - M20.41) 01/22/2024 Type 2 diabetes mellitus with diabetic polyneuropathy (ICD-10 - E11.42) 01/22/2024 Skin ulcer of toe of right foot, limited to breakdown of skin (ICD-10 - L97.511) Patient Educated with: WOUND CARE INSTRUCTIONS. pdf (WOUND CARE INSTRUCTIONS. pdf) 04/15/2024 Other hammer toe(s) (acquired), right foot (ICD-10 - M20.41) Patient Educated with: DIABETIC FOOT CARE INSTRUCTIONS. pdf (DIABETIC FOOT CARE INSTRUCTIONS. pdf) 04/15/2024 Type 2 diabetes mellitus with diabetic polyneuropathy (ICD-10 - E11.42) 12/25/2023 Edema, lower extremi ty (ICD-10 - R60.0) 04/15/2024 Other hammer toe(s) (acquired), left foot (ICD-10 - M20.42) 01/22/2024 Tinea pedis of both feet (ICD-10 - B35.3) 12/25/2023 Pain in right toe(s) (ICD-10 - M79.674) 12/25/2023 Arthritis of joint o f lesser toe, right (ICD-10 - M19.071) 12/25/2023 Subluxation of metatarsophalangeal joint of toe, initial encounter (ICD-10 - S93.149A) 12/25/2023 Tinea pedis of both feet (ICD-10 - B35.3) 12/25/2023 Skin ulcer of toe of right foot, limited to breakdown of skin (ICD-10 - L97.511) Patient Educated with: WOUND CARE INSTRUCTIONS. pdf (WOUND CARE INSTRUCTIONS. pdf) 04/15/2024 Other Plan Of Treatment Pending Test Test Name Order Date 44763- Debride <25 sq cm 12/25/2023 75003- Debride <25 sq cm 01/22/2024 00074-EKYI SKIN LESIONS, OVER 4 04/16/19 25 96703-QIUI SKIN LESIONS, 2 TO 4 12/25/19 24 S2730-DMVWPSBX DYSTROPHIC NAILS ANY # K1321-YTLQROCM DYSTROPHIC NAILS ANY # Next Appt Details Provider Name:Mellissachristopher Melissa , 07/21/2024 11:00:00 AM, [address] [facility], [place], [address], Insurance Providers Payer Name Payer Address Payer Phone Subscriber Number Group Number Insured Name Patient Relationship to Insured Coverage Start Date Coverage End Date [employer] Medicare Adv-[id number] [address] [address] [place] [address] [id number] Barney [place] Self - patient is the insured Medical (General) History Medical History History ICD Code Diabetic High Blood Pressure
--- NOTE | 2024-05-11 11:18 | A.OFFVIS_ITS ---
Intake Visit Reasons: 4m follow up BPH Intake Note: Patient is present for 4 month follow up/BPH Urology Med: Tamsulosin proscar Antibiotic Allergy: None Blood Thinner: Aspirin Last PVR: 64ml's Todays PVR: 10ml's Skoog Patching Machine Operator Required: Yes Skoog Patching Machine Operator Name: Rigoberto [id number] Accompanied by: Self / Same As Patient Allergies No Known Allergies Allergy (Verified 05/11/24 11:42) HPI Comments Details: 05/11/24--manual is a 74-year-old male who is followed for BPH she has been on tamsulosin was last evaluated 01/16/2024 at which time I discussed renal ultrasound results including bladder and prostate which estimated prostate volume to be over 80 mL I discussed combination therapy with Avodart he is here for 4 month follow-up History of Present Illness The patient is a 74-year-old male presenting for follow-up on benign prostatic hyperplasia management and urinary symptoms. He has been receiving treatment with tamsulosin and dutasteride following a renal ultrasound that estimated his prostate volume to be over 80 mL. The patient reports urinary urgency, with a sense of compelling need to void promptly, often resulting in the urgency to flores to the bathroom to prevent urinary incontinence. He also experiences post- micturition dribbling due to his prostate condition and acknowledges episodes of retrograde ejaculation as a side effect of tamsulosin. This side effect involves semen traveling into the bladder instead of exiting during ejaculation, a known effect of tamsulosin therapy. The patient has been experiencing nocturnal dry mouth, and his sleep is disturbed by snoring. The symptomatology and treatment responses are pertinent to understanding the impact of benign prostatic hyperplasia and its management. Urinary Symptoms Review - Urinary urgency with frequent urges to void necessitating a flores to the bathroom - Post-micturition dribbling - Retrograde ejaculation during sexual activity due to tamsulosin - Side effect-related concerns with depression and a bothersome dry mouth Results - Renal ultrasound revealing prostate volume over 80 mL Discussion Notes During this visit, I discussed the ongoing symptoms of urinary urgency and post- micturition dribbling with the patient. He acknowledges the use of tamsulosin and dutasteride. The patient expressed dissatisfaction with the retrograde ejaculation side effect associated with tamsulosin use. We agreed to discontinue tamsulosin due to these bothersome side effects and plan to continue dutasteride. Additionally, a new medication, oxybutynin 4 mg daily, was prescribed to manage overactive bladder symptoms, particularly increasing urinary urgency and frequency. This change intends to alleviate the need to flores to the bathroom to avoid urinary accidents. A PSA test will be conducted about two weeks before the next follow-up appointment in three months to monitor prostate health. I provided education on avoiding sexual activity for two days p rior to the PSA test to ensure accurate results. I reviewed potential side effects such as dry mouth for the new medication with the patient, and emphasized the importance of earlier administration to mitigate nocturnal symptoms. Plan I will discontinue tamsulosin due to retrograde ejaculation and continue dutasteride for BPH management. I am starting oxybutynin 4 mg daily for overactive bladder symptoms to reduce urgency and frequency. I scheduled a PSA test to be done two weeks prior to the next visit, with instructions to avoid sexual activity two days prior. The patient is advised to take oxybutynin earlier in the day to minimize dry mouth symptoms occurring at night. The follow-up visit in three months will reassess treatment efficacy and any side effects. Patient Instructions - Stop taking tamsulosin. - Continue taking dutasteride as prescribed. - Start taking oxybutynin 4 mg once daily; prefer earlier in the day to avoid nighttime dry mouth. - Schedule and complete PSA test two weeks before the next appointment; avoid sexual activity for two days before the test. - Return for follow-up in three months to assess symptoms and treatment response. - Monitor for any new side effects or worsening of symptoms and report if they occur. - Maintain hydration and consider using mouth moisturizers if experiencing dry mouth. Patient was informed and verbally consented to the use of an ambient scribe for clinic note documentation during this visit. 01/16/24--Barney is here for follow-up, he is on tamsulosin for BPH symptoms he had ultrasound retroperitoneal on 12/06/2023, right kidney simple cyst, estimated prostate volume 83.3. Continue tamsulosin. Add Avodart. Follow-up in 4 months 06/21/23--Fermín is here for follow-up. He was initially evaluated on 05/01/2023 for enlarged prostate. The patient had the renal ultrasound done earlier today and official radiology neurological physiotherapist is not completed as yet. He states that he has seen Nephrology for proteinuria and has further testing pending. Will hold on cystoscopy at this time. Continue tamsulosin. 05/01/23---Manual is a 73-year-old male who is here for evaluation due to enlarged prostate. Patient complains of postvoid dribbling. Nocturia 3-4 times at night. He denies gross hematuria. He has been on tamsulosin for about 7 months he mentions symptoms consistent with retrograde ejaculation which I explained is likely from the tamsulosin. Bladder scan PVR 64 mL, Urinalysis proteinuria, review of chart PSA 11/21/22---0.99 ng/mL Plan- referral to Nephrology for proteinuria. 06/21/2023--continue tamsulosin. Hold on office cystoscopy today. [facility] Medical History Diabetes HTN (hypertension) Aortic stenosis Surgical History Hx of lithotripsy Family History Father No problems noted. Mother No problems noted. Social History Alcohol intake: current Alcohol intake frequency: former alcohol drinker Patient Tobacco Use Status: Former Tobacco user Review of Systems Const All systems reviewed & are unremarkable except as noted in HPI and below Reports no additional complaints Eyes Reports no additional complaints ENT Reports no additional complaints Card Reports no additional complaints Resp Reports no additional complaints GI Reports no additional complaints Reports as per HPI Musc Reports no additional complaints Skin/Breast Reports system reviewed and no additional complaints, except as documented Neuro Reports no additional complaints Psych Reports no additional complaints Endo Reports no additional complaints Tico/Lymph Reports no additional complaints Aller/Immun Reports no additional complaints Office Procedures Post Void Residual Post Residual Void Post Void Residual (PVR): 109 46024-Bcro Void Residual by ultrasound Results AMB Urinalysis, Automated UA Leukoctes 0 Courtney/uL Last Edit by Shanthi Morocho on 05/11/24 14:14 UA Nitrite Negative Last Edit by Shanthi Morocho on 05/11/24 14:14 UA Urobilinogen 3.5 mg/dL Last Edit by Shanthi Morocho on 05/11/24 14:14 UA Protein 1 mg/dL Last Edit by Shanthi Ahntiz on 05/11/24 14:14 UA pH 6.0 Last Edit by Shanthi Ahntiz on 05/11/24 14:14 UA Blood 0 Ayan/uL Last Edit by Shanthi Ahntiz on 05/11/24 14:14 UA Specific Wadley 1.015 Last Edit by Shanthi Ahntiz on 05/11/24 14:14 UA Ketone Negative Last Edit by Shanthi Ahntiz on 05/11/24 14:14 UA Bilirubin 0 mg/dL Last Edit by Shanthi Ahntiz on 05/11/24 14:14 UA Glucose 60 mg/dL Last Edit by Shanthi Ahntiz on 05/11/24 14:14 Results Reviewed Results Reviewed: Laboratory Last Values Urine pH (Auto) 6.0 05/11/24 13:49 Specific Wadley (Auto) 1.015 05/11/24 13:49 Urine Protein (Auto) 1 mg/dL 05/11/24 13:49 Glucose (UA)(Auto) 60 mg/dL 05/11/24 13:49 Urine Ketones (Auto) Negative 05/11/24 13:49 Urine Blood (Auto) 0 Ayan/uL 05/11/24 13:49 Urine Nitrite (Auto) Negative 05/11/24 13:49 Urine Bilirubin (Auto) 0 mg/dL 05/11/24 13:49 Urine Urobilinogen (Auto) 3.5 mg/dL 05/11/24 13:49 Leukocyte Esterase (Auto) 0 Courtney/uL 05/11/24 13:49 Assessment & Plan Assessment & Plan (1) BPH loc w urin obs/LUTS: Code(s): N40.1 - Benign prostatic hyperplasia with lower urinary tract symptoms Category: Medical (2) Weak urinary stream: Code(s): R39.12 - Poor urinary stream Category: Medical (3) Nocturia: Code(s): R35.1 - Nocturia Category: Medical (4) Proteinuria: Comment: Followed by Nephrology had CKD Code(s): R80.9 - Proteinuria, unspecified Category: Medical Plan Continue tamsulosin. Avodart. Follow-up in 9 months. PSA Orders: Orders AMB Urinalysis Automated Today Z13.9 - Encounter for screening, unspecified Medications: New fesoterodine ER (Toviaz) 4 mg PO DAILY 30 tabs 3RF 30 days N32.81 - Overactive bladder Patient Instructions: The patient had an opportunity to ask questions regarding treatment plan. The patient expressed understanding and agreement with the above treatment plan. The patient is aware they should contact our office by phone for worsening of their current condition or the appearance of new symptoms. Compliance is encouraged with any medications and followup testing that is ordered. It is a privilege to be allowed the opportunity to participate in the urologic care of your patient. If you have any questions or concerns regarding treatment for the above conditions please do not hesitate to contact me. The office telephone contact is [phone]. This note is constructed in part using voice recognition software. While every effort has been made to ensure accuracy neurological physiotherapist errors may have been included. Yours sincerely, Myke Cespedes MD Coding Diagnoses BPH loc w urin obs/LUTS N40.1 Weak urinary stream R39.12 Nocturia R35.1 Proteinuria R80.9 CPT Codes Post Residual Void - PVR CPT Code: 13856-Fcub Void Residual by ultrasound ([id number])
== END 2024-05-11 11:58 | disposition home or self-care (01) ==
LOC: HO.HUSH 10:06
PROVIDERS: PCP Nurse Practitioner Primary Care; Visit Provider Urology
DX: Z13.9 Encounter for screening, unspecified (principal)

== ENCOUNTER → 2024-05-11 10:05 | Outpatient (BNVA) | payer MEDICARE, SELFPAY | PROVIDERS: PCP Nurse Practitioner Primary Care; Visit Provider Urology | DX: N40.1 Benign prostatic hyperplasia with lower urinary tract symptoms (principal); N39.43 Post-void dribbling; N53.14 Retrograde ejaculation; N32.81 Overactive bladder; R39.12 Poor urinary stream; R35.1 Nocturia; R80.9 Proteinuria, unspecified; T50.905A Adverse effect of unspecified drugs, medicaments and biological substances, initial encounter; Y92.9 Unspecified place or not applicable; Z79.899 Other long term (current) drug therapy | CPT/HCPCS: 51798; 81003; 99212 ==

== ENCOUNTER 2024-05-26 10:25 | Outpatient (REF) | payer MEDICARE, SELFPAY ==
[2024-05-26 11:28] LABS: Anion Gap 9 (12-20); Blood Urea Nitrogen 26 mg/dL (9-16); Calcium 9.1 mg/dL (8.4-10.2); Carbon Dioxide 28 mmol/L (22-29); Chloride 107 mmol/L (96-108); Cholesterol 135 mg/dL (<200); Estimated Glomerular Filt Rate 55; Glucose Random 244 mg/dL (60-115); HDL Cholesterol 29 mg/dL (>40); LDL Cholesterol Calculated 84 mg/dL (<100); Potassium 4.2 mmol/L (3.3-5.1); Sodium 140 mmol/L (135-145); Triglycerides 110 mg/dL (<150)
[2024-05-26 11:33] LABS: Appearance Urine Clear; Color Urine Yellow; Glucose Urine UA >=1000 mg/dL (Negative); Leukocyte Esterase Urine Negative (Negative); Nitrite Urine Negative (Negative); Specific Gravity - Urine >= 1.030 (1.005-1.025); UMIC TRIGGER UA YES; Urine Blood Negative (Negative); Urine Ketones Negative (Negative); Urine Protein 30 (1+) mg/dL (Neg-Trace)
[2024-05-26 12:02] LABS: Creatinine Urine 71.68 mg/dL; Microalbum/Creatinine Ratio Ur 188.3 ug/mg cr (<30)
[2024-05-26 12:06] LABS: Creatinine Urine 70.89 mg/dL; Total Protein Urine Random 22 mg/dL (<12)
[2024-05-26 12:22] LABS: Bacteria Urine None Seen (None Seen); Hyaline Casts Urine 0-2 /LPF (0-2); RBC Urine 0-2 /HPF (0-2); Squamous Epithelial Cell Urine 0-2 /HPF (0-2); WBC Urine 0-5 /HPF (0-5)
== END 2024-05-26 10:26 | disposition home or self-care (01) ==
LOC: HO.HHCL 10:25
PROVIDERS: Nurse Practitioner Primary Care; Visit Provider Internal Medicine Hypertension Specialist
DX: E11.69 Type 2 diabetes mellitus with other specified complication (principal); E78.5 Hyperlipidemia, unspecified; N18.9 Chronic kidney disease, unspecified
CPT/HCPCS: 36415; 80048; 80061; 81001; 82043; 82570; 84156

== ENCOUNTER 2024-05-28 11:17 | Outpatient (AMB) | payer MEDICARE, SELFPAY ==
[2024-05-28 11:20] VITALS: BP 124/64; PULSE 72; O2SAT 98; BMI 28.9
--- NOTE | 2024-05-28 11:20 | HO.NEPHOV ---
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 Donaldo 2 [place]) As directed fluticasone propionate 50 mcg/actuation 1 spray intranasal QAM insulin glargine (Lantus Solostar U-100 Insulin) 14 units subcut BID ketorolac 0.5% drps ophthalmic (eye) lancets (OneTouch UltraSoft 2 Lancet) As directed lancets (OneTouch Delica Plus Lancet) As directed metformin 1,000 mg PO BID mirtazapine 15 mg PO BEDTIME pen needle, diabetic (BD Ultra-Fine Short Pen Needle) As directed Do you need a note to return to daycare/school/sports/work: No HPI Comments Details: 74-year-old male who is here for evaluation Proteinuria. He has DM and BPH. Patient complains of postvoid dribbling. Nocturia 3-4 times at night. He denies gross hematuria. He has been on tamsulosin for about 7 months he mentions symptoms consistent with retrograde ejaculation - likely from the tamsulosin. Bladder scan PVR 64 mL, Urinalysis proteinuria, review of chart PSA 11/21/22---0.99 ng/mL He is renal function has been stable with a creatinine of 0.7-0.8 mg/dL. Now upto 1.32 after increasing Valsartan to 320 mg and now switched to TElmisartan Now on Jardiance since June 2023 c/o retrograde ejacualtion with Tamsulosin Overall doing well. [facility] Medical History Diabetes HTN (hypertension) Aortic stenosis Surgical History Hx of lithotripsy Family History Father No problems noted. Mother No problems noted. Social History Alcohol intake: current Alcohol intake frequency: former alcohol drinker Patient Tobacco Use Status: Former Tobacco user Physical Exam Vital Signs: BMI result Body Mass Index 28.9 Const General: comfortable Nutritional Appearance: well nourished Orientation/consciousness: patient oriented x3 HEENT Head: No normal to inspection Mouth: moist mucous membranes Neck Neck: Yes supple and Yes no JVD Resp Auscultation: clear to auscultation bilaterally, no rales and rub present Cardio Jugular venous distension: no JVD Palpation: no palpable S3 and no palpable S4 Heart sounds: no rubs GI Palpation (GI): Soft to palpation and nontender Percussion: No Fluid wave present General: Yes no CVA tenderness Back/Spine/Pelvis Back: no CVA tenderness Skin General skin exam: no rashes or lesions noted Neuro General: patient oriented x3 Extrem General: Yes no pedal edema and No clubbing Results Reviewed Nephrology Results: Hgb 12.5 g/dl (14.0-18.0) L 12/27/23 WBC 4.5 X10*3/uL (4.8-10.8) L 12/27/23 Plt Count 210 X10*3/uL (160-400) 12/27/23 Sodium 140 mmol/L (135-145) 05/26/24 Potassium 4.2 mmol/L (3.3-5.1) 05/26/24 Chloride 107 mmol/L (96-108) 05/26/24 Carbon Dioxide 28 mmol/L (22-29) 05/26/24 BUN 26 mg/dL (9-16) H 05/26/24 Creatinine 1.27 mg/dL (0.5-1.4) 05/26/24 Calcium 9.1 mg/dL (8.4-10.2) 05/26/24 Urine Protein 30 (1+) mg/dL (Neg-Trace) H 05/26/24 Urine Creatinine 70.89 mg/dL 05/26/24 Assessment & Plan Assessment & Plan (1) Proteinuria: Code(s): R80.9 - Proteinuria, unspecified Category: Medical (2) CKD (chronic kidney disease): Code(s): N18.9 - Chronic kidney disease, unspecified Category: Medical Plan 74-year-old man with a history of longstanding diabetes mellitus with proteinuria. Proteinuria is most likely due to underlying diabetic kidney disease. - About 500 mg Mild CKD Cr at 1.27 BP is well controlled The goal is to slow the progression of disease. Blood sugar needs to be tightly controlled and maintain A1c less than 7%. He is PIPPA inhibition /Telmisartan Maintain blood pressure less than 130/80 mm Hg. Discussed low salt diet Encouraged to increase PO fluids ( Urine SG > 1.030) He will also benefit from SGLT2 inhibitors. - agree Jardiance . Orders: Orders Creatinine Urine Today N18.9 - Chronic kidney disease, unspecified Basic Metabolic Panel 4 Months N18.9 - Chronic kidney disease, unspecified UA and rflx microscopic Today N18.9 - Chronic kidney disease, unspecified Total Protein Urine Random Today N18.9 - Chronic kidney disease, unspecified Coding Level of Care Code Est Pt Level 4 (72736) Diagnoses Proteinuria R80.9 CKD (chronic kidney disease) N18.9
--- OUTSIDE RECORDS SUMMARY | 2024-05-28 14:00 | XMS_ITS | Encounter Summary ---
Author Organization [employer] Address [address] [facility] [address] [place] [address] Care Team Providers Care Forklift Material Handler Name Role Phone Mirian Thompson Primary Care Provider Jasen Gomez PharmD Unavailable [phone] Encounter Details Date Type Department Care Team (Late st Contact Info) Description 02/18/2024 Telephone [facility] [address], [place] [phone] Mirian Thompson ANP [address] [place], [place] [phone] Social History Tobacco Use Types Packs/Day Years [...] with others, in a hotel, in a skilled nursing, living outside on the street, on a [...] Upcoming Encounters Date Type Department Care Team ([facility] st Contact Info) Description 06/26/2024 10:30 AM EDT Medication Management [facility] [address] [place] [address] GomezJasen PharmD [address] [place] [address] 08/06/2024 10:00 AM EDT Office Visit [facility] [address] [place] [address] Mirian Thompson ANP [address] [place] [address] documented as of this encounter Goals Goal Patient Goal Type Associated Problems Recent Progress Patient-Stated? Author Blood Pressure < 140/90 Blood Pressure 134/70(2024 11:13 AM EDT) No Jasen Gomez PharmD Hemoglobin A1c < 7 Result Component 7.6( 11:27 AM EST) No Jasen Gomez PharmD documented as of this encounter Visit Diagnoses Not on filedocumented in this encounter Additional Health Concerns Assessment Noted Time PHQ-9 Depression Total Score: 0 11/09/19 10:59 AM EDT documented as of this encounter Care Teams Forklift Material Handler Relationship Specialty Start Date End Date Mirian Thompson ANP [address] [place] [id number] PCP - General Family Medicine 11/08/22 Jasen Gomez PharmD [address] [place] [id number] Pharmacist Internal Medicine 08/02/23 documented as of this encounter
--- OUTSIDE RECORDS SUMMARY | 2024-05-28 14:00 | XMS_ITS | Encounter Summary ---
Author Organization [employer] Address [address] [place] [address] Care Team Providers Care Motor Coach Operator Name Role Phone Mirian Thompson Primary Care Provider [phone] Jasen Gomez PharmD Unavailable [phone] Encounter Details Date Type Department Care Team (Late st Contact Info) Description 05/26/2024 Orders Only GENERIC EXTERNAL DATA DEPARTMENT Provider, Generic External Data Social History Tobacco Use Types Packs/Day Years [...] with others, in a hotel, in a intermediate, living outside on the street, on a [...] Care Team (Late st Contact Info) Description 06/26/2024 10:30 AM EDT Medication Management [facility] [address] [place] [phone] Jasen Gomez PharmD [address] [place] [phone] 08/06/2024 10:00 AM EDT Office Visit [facility] [address] [place] [phone] Mirian Thompson, ANP [address] [place] [address] documented as of this encounter Goals Goal Patient Goal Type Associated Problems Recent Progress Patient-Stated? Author Blood Pressure < 140/90 Blood Pressure 134/70(2024 11:13 AM EDT) No Jasen Gomez, PharmHilda Hemoglobin A1c < 7 Result Component 7.6( 11:27 AM EST) No Jasen Gomez PharmD documented as of this encounter Procedures Procedure Name Priority Date/Time Associated Diagnosis Comments URINE PROTEIN, TOTAL, RANDOM (W/O CREATININE) Routine 05/26/2024 10:28 AM EDT CREATININE, RANDOM URINE Routine 05/26/2024 10:28 AM EDT URINALYSIS, COMPLETE Routine 05/26/2024 10:28 AM EDT BASIC METABOLIC PANEL Routine 05/26/2024 10:28 AM EDT documented in this encounter Results * (ABNORMAL) Urine Protein, Total, Random without Creatinine (05/26/2024 10:28 AM EDT) Protein, Total, Random Urine 22(H) <12 mg/dL [facility] 05/26/2024 10:2 8 AM EDT 05/26/2024 11:11 AM EDT Generic External Data Provider LAB URINE ORDERAB LES Final Result Performing Organization Address [facility] Co de Phone Number [facility] [address] [place] [phone] * Creatinine, Random Urine (05/26/2024 10:28 AM EDT) Creatinine, Urine 70.89 mg/dL [facility] 05/26/2024 10:2 8 AM EDT 05/26/2024 11:11 AM EDT Generic External Data Provider LAB URINE ORDERAB LES Final Result Performing Organization Address [facility] Co de Phone Number [facility] [address] [place] [phone] * (ABNORMAL) Urinalysis Complete (05/26/2024 10:28 AM EDT) Color Urine Yellow [facility] Appearance Urine Clear [facility] PH 6.0 5.0 - 9.0 [facility] Glucose Urine UA >=1000(A) Negative mg/dL [facility] Urine Blood Negative Negative [facility] Specific [place] - Urine >=1.030(H) 1.005 - 1.025 [facility] Urine Protein 30 (1+)(A) Neg-Trace mg/dL [facility] Urine Ketones Negative Negative mg/dL [facility] Nitrite Urine Negative Negative [facility] Leukocyte Esterase Urine Negative Negative [facility] RBC Urine 0-2 0 - 2 /HPF [facility] Urine WBC 0-5 0 - 5 /HPF [facility] Urine Squamous Epithelial Cell 0-2 0 - 2 /HPF [facility] Urine Bacteria None Seen None Seen [facility] Hyaline Casts, Urine 0-2 0 - 2 /LPF [facility] 05/26/2024 10:2 8 AM EDT 05/26/2024 11:11 AM EDT us Generic External Data Provider LAB URINE ORDERAB LES Final Result [facility] [address] [place] [phone] [phone] * (ABNORMAL) Basic Metabolic Panel (05/26/2024 10:28 AM EDT) Sodium 140 135 - 145 mmol/L [facility] Potassium 4.2 3.3 - 5.1 mmol/L [facility] Chloride 107 96 - 108 mmol/L [facility] Carbon Dioxide 28 22 - 29 mmol/L [facility] Anion Gap 9(L) 12 - 20 [facility] Urea Nitrogen (BUN) 26(H) 9 - 16 mg/dL [facility] Creatinine, Serum 1.27 0.5 - 1.4 mg/dL [facility] Estimated Glomerular Filt Rate 55 [facility] Comment:Chronic Kidney Disea se: Estimated GFR < 60 mL/min/1.86o2Abnffp Kidney Disease: Estimated GFR < 15 mL/min/1.73m2 Glucose 244(H) 60 - 115 mg/dL [facility] Calcium 9.1 8.4 - 10.2 mg/dL [facility] 05/26/2024 10:2 8 AM EDT 05/26/2024 11:09 AM EDT us Generic External Data Provider LAB BLOOD ORDERAB LES Final Result [facility] [address] [place] [phone] [phone] documented in this encounter Visit Diagnoses Not on filedocumented in this encounter Additional Health Concerns Assessment Noted Time PHQ-9 Depression Total Score: 0 11/09/19 23 10:59 AM EDT documented as of this encounter Care Teams Motor Coach Operator Relationship Specialty Start Date End Date Mirian Thompson ANP [address] [place] [address] PCP - General Family Medicine 11/08/22 Jasen Gomez, iLsa [address] [place] [phone] Pharmacist Internal Medicine 08/02/23 documented as of this encounter
--- OUTSIDE RECORDS SUMMARY | 2024-05-28 14:00 | XMS_ITS | Clinical Summary ---
Author Organization [employer] Address [address] [facility] [address] [place] [address] Care Team Providers Care Manager Retail Store Name Role Phone Mirian Thompson Primary Care Provider [phone] Jasen Gomez PharmD Unavailable [phone] Allergies No known active allergies Medications B-D ULTRAFINE III SHORT PEN 31G X 8 MM [facility] 023 Active albuterol 108 (90 Base) MCG/ACT inhaler Inhale 2 puffs every 6 (six) hours if needed. From admission summer 2022, no known dx of asthma or COPD Active acetaminophen (Tylenol) 500 MG tablet Take 2 tablets (1,000 mg) by mouth every 6 (six) hours if needed for moderate pain or fever for up to 25 doses. 30 tablet 024 Active Blood Glucose Monitoring Suppl (ONE TOUCH ULTRA 2) w/Device kitIndications:T ype 2 diabetes mellitus with hyperlipidemia (CMS/HCC) ([facility]) Use to test blood sugar 2 times daily 1 kit 024 Active Lancets (OneTouch Delica Plus [id number]) [facility] TEST BLOOD SUGAR TWICE DAILY DIRECTED 024 Active Continuous Glucose Client Care Representative (FreeStyle Donaldo 2 Tuthill) deviceIndication s:Type 2 diabetes mellitus with hyperlipidemia (CMS/HCC) ([facility]) Scan sensor every 8 hours 1 each 024 Active Continuous Glucose Sensor (FreeStyle Donaldo 2 Sensor) miscIndications: Type 2 diabetes mellitus with hyperlipidemia (CMS/HCC) ([facility]) Apply 1 sensor every 14 days 2 each 09/19/2 024 Active fluticasone (Flonase) 50 MCG/ACT nasal sprayIndications :Cough in adult patient Administer 2 sprays into each nostril Once per day. 16 g 2 024 Active atorvastatin (Lipitor) 40 MG tabletIndication s:Type 2 diabetes mellitus with hyperlipidemia (CMS/HCC) ([facility]) TAKE 1 TABLET BY MOUTH EVERY DAY 90 tablet 3 024 Active mirtazapine (Remeron) 15 MG tabletIndication s:Difficulty sleeping TAKE 1 TABLET BY MOUTH AT BEDTIME 30 tablet 2 025 Active ciclopirox (Loprox) 0.77 % cream Apply 1 Application topically 2 times daily. Active dutasteride (Avodart) 0.5 MG capsule Take 1 capsule by mouth Once per day. 024 Active Mouthwashes (Biotene Dry Mouth) liquidIndication s:Dry mouth Use 30 mL in the mouth or throat if needed in the morning and at bedtime (dry mouth). 1000 mL 2 025 Active triamcinolone (Kenalog) 0.1 % creamIndications :Rash Apply topically 2 times daily. For 2 weeks to R hand 30 g 1 025 Active glucose blood (FreeStyle Precision Hans Test) test stripIndications :Type 2 diabetes mellitus with hyperlipidemia (CMS/HCC) ([facility]) USE TO TEST BLOOD SUGAR THREE TIMES A DAY 100 each 12 025 Active Aspirin Low Dose 81 MG EC tablet TAKE 1 TABLET BY MOUTH EVERY MORNING 30 tablet 11 025 Active amLODIPine (Norvasc) 5 MG tabletIndication s:Benign essential HTN TAKE 1 TABLET BY MOUTH EVERY DAY 90 tablet 1 025 Active Toviaz 4 MG 24 hr tablet Take 1 tablet by mouth Once per day. 025 Active empagliflozin-me tFORMIN ER (Synjardy XR) 12.5-1000 MG 24 hr tabletIndication s:Type 2 diabetes mellitus with hyperlipidemia (CMS/HCC) ([facility]) Take 1 tablet by mouth twice daily 60 tablet 5 025 Active telmisartan (Micardis) 40 MG tabletIndication s:Benign essential HTN Take 1 tablet (40 mg) by mouth Once per day. 90 tablet 1 025 Active Dulaglutide (Trulicity) 1.5 MG/0.5ML solution auto-injectorInd ications:Type 2 diabetes mellitus with hyperlipidemia (CMS/HCC) ([facility]) Inject 1.5 mg under the skin 1 (one) time per week. 2 mL 5 025 Active insulin glargine (Lantus SoloStar) 100 UNIT/ML penIndications:T ype 2 diabetes mellitus with hyperlipidemia (CMS/HCC) ([facility]) Inject 14 units subcutaneously once daily 15 mL 5 025 Active aspirin 81 MG EC tablet Take 1 tablet (81 mg) by mouth in the morning. 30 tablet 11 024 2024 Discontinued ketorolac (Acular) 0.5 % ophthalmic solution INSTILL 1 DROP INTO THE AFFECTED EYE(S) THREE TIMES DAILY DIRECTED, START 2 DAYS BEFORE SURGERY and CONTINUE DIRECTED 024 2024 Discontinued(M ed list cleanup (will not trigger notification to Pharmacy)) amLODIPine (Norvasc) 5 MG tabletIndication s:Benign essential HTN Take 1 tablet (5 mg) by mouth Once daily. 90 tablet 1 024 2024 Discontinued insulin glargine (Lantus SoloStar) 100 UNIT/ML penIndications:T ype 2 diabetes mellitus with hyperlipidemia (CMS/HCC) ([facility]) Inject 14 units subcutaneously once daily 15 mL 3 024 2024 Discontinued(R eorder (will not trigger notification to Pharmacy)) metFORMIN (Glucophage) 1000 MG tabletIndication s:Type 2 diabetes mellitus with hyperlipidemia (CMS/HCC) ([facility]) Take 1 tab twice daily with meal 180 tablet 3 024 2024 Discontinued(A lternate therapy) telmisartan (Micardis) 40 MG tabletIndication s:Benign essential HTN Take 1 tablet (40 mg) by mouth Once per day. 30 tablet 5 024 2024 Discontinued(R eorder (will not trigger notification to Pharmacy)) tamsulosin (Flomax) 0.4 MG 24 hr capsule TAKE 1 CAPSULE BY MOUTH EVERY DAY 90 capsule 1 024 2024 Discontinued Dulaglutide (Trulicity) 1.5 MG/0.5ML solution auto-injectorInd ications:Type 2 diabetes mellitus with hyperlipidemia ([facility]/HCC) ([facility]) Inject 1.5 mg under the skin 1 (one) time per week. 2 mL 5 025 2024 Discontinued(D ose adjustment) Jardiance 25 MGIndications:Ty pe 2 diabetes mellitus with hyperlipidemia (CMS/HCC) ([facility]) TAKE 1 TABLET BY MOUTH ONCE DAILY 30 tablet 5 025 2024 Discontinued(A lternate therapy) tamsulosin (Flomax) 0.4 MG 24 hr capsule TAKE 1 CAPSULE BY MOUTH EVERY DAY 90 capsule 1 025 2024 Discontinued(D iscontinued by another clinician) Dulaglutide (Trulicity) 3 MG/0.5ML solution auto-injectorInd ications:Type 2 diabetes mellitus with hyperlipidemia ([facility]/HCC) ([facility]) Inject 3 mg under the skin 1 (one) time per week. 2 mL 5 025 2024 Discontinued(E ntered in error) insulin glargine (Lantus SoloStar) 100 UNIT/ML penIndications:T ype 2 diabetes mellitus with hyperlipidemia ([facility]/HCC) ([facility]) Inject 12 units subcutaneously once daily 15 mL 5 025 2024 Discontinued(R eorder (will not trigger notification to Pharmacy)) Active Problems Problem Noted Date Diagnosed Date [...] with memory loss 04/23 Overview (09/25/2023): MOCA in 2019, MOCA in 09/2020, 09/2023 Pt has bachelor's degree. Bilingual Tuvaluan and Indonesian. Depression 04/24/2023 Type 2 diabetes mellitus with [...] Encounters Date Type Department Care Team Description 05/27/2024 Travel 05/26/2024 Orders Only GENERIC EXTERNAL DATA DEPARTMENT Provider, Generic External Data 05/20/2024 Refill [facility] [address] [place] [address] Mirian Thompson ANP Benign essential HTN 05/06/2024 Refill [facility] [address] [place] [address] Mirian Thompson ANP 04/25/2024 Refill [facility] [address] [place] [address] Jasen Gomez, PharmD Type 2 diabetes mellitus with hyperlipidemia (CMS/HCC) ([facility]) 04/15/2024 Telephone [facility] [address] [place] [phone] Mirian Thompson ANP 04/10/[address] [address] Mirian Thompson ANP Type 2 diabetes mellitus with hyperlipidemia ([facility]/HCC) ([facility]) 04/08/[address] [address] Mirian Thompson ANP Appointment Request 04/07/2024 11:00 AM EST Office Visit [address] [address] Mirian Thompson ANP Dry mouth (Primary Dx); Type 2 diabetes mellitus with hyperlipidemia (CMS/HCC) ([facility]); Peripheral axonal neuropathy; Urge incontinence of urine; Rash 04/07/[address] [address] Mirian Thompson ANP Appointment Request 04/07/2024 Travel 04/06/[address] [address] Mirian Thompson ANP Paperwork/Forms 04/01/[address] [address] Mirian Thompson ANP Chart Prep 03/25/2024 Patient Outreach [address] [address] Mirian Thompson ANP Pre-visit Planning (Pre-visit planning - LVM ) 03/09/[address] [address] Cris Wheat, TG Paperwork/Forms from Last 3 Months Immunizations Name Administration [...] with others, in a hotel, in a fci, living outside on the street, on a [...] Sign Reading Time Taken Comments Blood Pressure 134/70 05/27/2024 11:13 AM EDT Pulse 70 05/27/2024 11:13 AM EDT Temperature 36.6 ??C (97.9 ??F) 04/07/2024 11:20 [...] Description 06/26/2024 10:30 AM EDT Medication Management [facility] [address] [place] [phone] Jasen Gomez, PharmD [address] [place] [address] 08/06/2024 10:00 AM EDT Office Visit [facility] [address] [place] [phone] Mirian Thompson, ANP [address] [place] [address] Health Maintenance Due Date Last Done Comments CT Colonography 1949 Colonoscopy 1949 Colorectal Cancer Screening 1949 FIT DNA/Cologuard 1949 FIT 1949 FOBT 1949 Sigmoidoscopy 1949 Eye Exam 1959 Hepatitis C Screening 1967 Diabetes: Hemoglobin A1C 07/05/2024 025, 10/08/2023, 09/16/2023, Additional history exists Diabetes: Foot Exam 09/19/2024 09/20/2023, 09/20/2023, 09/20/2023, Additional history exists SDOH Screening 12/15/2024 12/16/2023 Alcohol/Substance Use Screening 12/23/2024 12/24/2023 Depression Screening 12/23/2024 12/24/2023, 11/09/19 Tobacco Screening 04/07/2025 04/07/2024 Diabetes: Urine Protein Screening 05/26/2025 05/26/2024, 05/26/2024, 11/15/2023, Additional history exists Lipid Panel 05/26/2025 05/26/2024, 07/0 02/2023, 11/21/2022 DTaP/Tdap/Td Vaccines (2 - Td or Tdap) 08/01/2033 08/02/2023 Zoster Vaccines Completed 05/06/2023, 03/24/2021 Hepatitis B Vaccines Completed 07/05/2023, 05/06/19 24 Pneumococcal Vaccine: 50+ Years Completed 07/05/2023 RSV [...] topic Meningococcal Vaccine Aged Out No devonte su eligible based on patient's age to complete [...] 11:27 AM EST) No Jasen Gomez PharmD Procedures Procedure Name Priority Date/Time Associated Diagnosis Comments URINE PROTEIN, TOTAL, RANDOM (W/O CREATININE) Routine 05/26/2024 10:28 AM EDT CREATININE, RANDOM URINE Routine 05/26/2024 10:28 AM EDT URINALYSIS, COMPLETE Routine 05/26/2024 10:28 AM EDT BASIC METABOLIC PANEL Routine 05/26/2024 10:28 AM EDT LIPID PANEL, STANDARD Routine 05/26/2024 10:28 AM EDT Type 2 diabetes mellitus with hyperlipidemia (CMS/HCC) (CMS/HCC) ALBUMIN, RANDOM URINE W/CREATININE Routine 05/26/2024 10:28 AM EDT Type 2 diabetes mellitus with hyperlipidemia (CMS/HCC) (CMS/HCC) POCT GLYCATED HEMOGLOBIN, TOTAL Routine 04/07/2024 11:27 AM EST Type 2 diabetes mellitus with hyperlipidemia (CMS/HCC) (CMS/HCC) POCT GLUCOSE Routine 04/07/2024 11:22 AM EST Type 2 diabetes mellitus with hyperlipidemia (CMS/HCC) (CMS/HCC) from Last 3 Months Results * (ABNORMAL) Albumin, Random Urine W/Creatinine (05/26/2024 10:28 AM EDT) Creatinine, Urine 71.68 mg/dL [facility] Microalbumin Urine 135.0 mg/L H [facility] Microalbum Creatinine Ratio Ur 188.3(H) <30 ug/mg cr [facility] Comment:Albumin/Creatinine R atio Reference Ranges: Normal: < 30 ug/mg creatinine Microalbuminuria: 30 - 300 ug/mg creatinineClinical Albuminuria: > 300 ug/mg creatinine Urine 05/26/2024 10:2 8 AM EDT 05/26/2024 11:11 AM EDT [facility] LAB URINE ORDERABLES Final Resul t Performing Organization Address [facility] de Phone Number [facility] [address] [place] [phone] * (ABNORMAL) Urine Protein, Total, Random without Creatinine (05/26/2024 10:28 AM EDT) Protein, Total, Random Urine 22(H) <12 mg/dL [facility] 05/26/2024 10:2 8 AM EDT 05/26/2024 11:11 AM EDT Generic External Data Provider LAB URINE ORDERAB LES Final Result Performing Organization Address [facility] de Phone Number [facility] [address] [place] [phone] * Creatinine, Random Urine (05/26/2024 10:28 AM EDT) Creatinine, Urine 70.89 mg/dL [facility] 05/26/2024 10:2 8 AM EDT 05/26/2024 11:11 AM EDT Generic External Data Provider LAB URINE ORDERAB LES Final Result Performing Organization Address [facility] de Phone Number [facility] [address] [place] [phone] * (ABNORMAL) Urinalysis Complete (05/26/2024 10:28 AM EDT) Color Urine Yellow [facility] Appearance Urine Clear [facility] PH 6.0 5.0 - 9.0 [facility] Glucose Urine UA >=1000(A) Negative mg/dL [facility] Urine Blood Negative Negative [facility] Specific [place] - Urine >=1.030(H) 1.005 - 1.025 [facility] Urine Protein 30 (1+)(A) Neg-Trace mg/dL [facility] Urine Ketones Negative Negative mg/dL [facility] Nitrite Urine Negative Negative [facility] Leukocyte Esterase Urine Negative Negative [facility] RBC Urine 0-2 0 - 2 /HPF [facility] Urine WBC 0-5 0 - 5 /HPF [facility] Urine Squamous Epithelial Cell 0-2 0 - 2 /HPF [facility] Urine Bacteria None Seen None Seen [facility] Hyaline Casts, Urine 0-2 0 - 2 /LPF [facility] 05/26/2024 10:2 8 AM EDT 05/26/2024 11:11 AM EDT us Generic External Data Provider LAB URINE ORDERAB LES Final Result Performing Organization Address City/State/[facility] Co de Phone Number [facility] [address] [place] [phone] [phone] * (ABNORMAL) Lipid Panel, Standard (05/26/2024 10:28 AM EDT) Triglycerides 110 <150 mg/dL [facility] Comment:Desirable Triglyceri de: less than 150 mg/dLBorderline High Triglyceride 150-199 mg/dLHigh Triglyceride: 200-499 mg/dLVery High Triglyceride: greater than or equal to 5OO mg/dL Cholesterol 135 <200 mg/dL [facility] Comment:Desirable Cholestero l: less than 200 mg/dLBorderline High Cholesterol: 200-239 mg/dLHigh Cholesterol: greater than 239 mg/dL LDL Cholesterol Calculated 84 <100 mg/dL [facility] Comment:Desirable LDL: less than 100 mg/dLNear Optimal/Above Optimal LDL: 110- 129 mg/dLBorderline High LDL: 130-159 mg/dLHigh LDL: 160-189 mg/dLVery High LDL: greater than or equal to 190 mg/dL HDL Cholesterol 29(L) >40 mg/dL [facility] Comment:Desirable HDL: great er than 40 mg/dL Note: This HDL assay may give artificially low results in patients with liver disease. Blood Venous blood specimen / Unknown 05/26/2024 10:28 AM EDT 05/26/2024 11:09 AM EDT us Mirian Thompson [facility] BLOOD ORDERABLES Final Resul t Performing Organization Address [facility] Co de Phone Number [facility] [address] [place] [address] [phone] * (ABNORMAL) Basic Metabolic Panel (05/26/2024 10:28 AM EDT) Pathologist [facility] Sodium 140 135 - 145 mmol/L [facility] Potassium 4.2 3.3 - 5.1 mmol/L [facility] Chloride 107 96 - 108 mmol/L [facility] Carbon Dioxide 28 22 - 29 mmol/L [facility] Anion Gap 9(L) 12 - 20 [facility] Urea Nitrogen (BUN) 26(H) 9 - 16 mg/dL [facility] Creatinine, Serum 1.27 0.5 - 1.4 mg/dL [facility] Estimated Glomerular Filt Rate 55 [facility] Comment:Chronic Kidney Disea se: Estimated GFR < 60 mL/min/1.79j0Sjetlo Kidney Disease: Estimated GFR < 15 mL/min/1.73m2 Glucose 244(H) 60 - 115 mg/dL [facility] Calcium 9.1 8.4 - 10.2 mg/dL [facility] 05/26/2024 10:2 8 AM EDT 05/26/2024 11:09 AM EDT us Generic External Data Provider LAB BLOOD ORDERAB LES Final Result Performing Organization Address [facility] Co de Phone Number [facility] [address] [place] [phone] * (ABNORMAL) POCT HGB A1C (04/07/2024 11:27 AM EST) Hemoglobin A1C 7.6(A) 4.0 - 6.0 % [employer] Lot # [id number] Lot# Expiration Date 11,026 Blood 04/07/2024 11:2 7 AM EST us Mirian PENNY POINT OF CARE TEST ENTER/EDIT OR DERABLES Final Result * POCT Glucose (04/07/2024 11:22 AM EST) Glucose Blood, POC 189 60 - 200 mg/dL [employer] Lot # [id number] Lot# Expiration Date 8071,025 Blood Capillary blood specimen / Unknown 04/07/2024 11:22 AM EST Mirian [place] POINT OF CARE TEST ENTER/EDIT OR DERABLES Final Result from Last [address] [place] [address] [place] [address] MEDICARE ADVANTAGE HMO Care Teams Manager Retail Store Relationship Specialty Start Date End Date Mirian Thompson ANP [address] [place] [address] PCP - General Family Medicine 11/08/22 Jasen Gomez, Lisa [address] [place] [address] Pharmacist Internal Medicine 08/02/23
--- OUTSIDE RECORDS SUMMARY | 2024-05-28 14:00 | XMS_ITS | Encounter Summary ---
Author Organization [employer] Address [address] [place] [address] 7t [place] [address] Care Team Providers Care Security Installation Technician Name Role Phone Mirian Thompson Primary Care Provider [phone] Jasen Gomez PharmD Unavailable [phone] Encounter Details Date Type Department Care Team (Latest Contact Info) Description 05/27/2024 Travel Social History Tobacco Use Types Packs/Day Years [...] with others, in a hotel, in a penitentiary, living outside on the street, on a [...] Description 06/26/2024 10:30 AM EDT Medication Management [facility] [address] [place] [address] Jasen Gomez PharmD [address] [place] [address] 08/06/2024 10:00 AM EDT Office Visit [facility] [address] [place] [address] Mirian Thompson ANP [address] [place] [address] documented as of this encounter Goals Goal [...] documented as of this encounter Care Teams Security Installation Technician Relationship Specialty Start Date End Date Mirian Thompson ANP [address] [place] [address] PCP - General Family Medicine 11/08/22 Jasen Gomez PharmD [address] [place] [address] Pharmacist Internal Medicine 08/02/23 documented as of this encounter
--- OUTSIDE RECORDS SUMMARY | 2024-05-28 14:00 | XMS_ITS | Encounter Summary ---
Author Organization [employer] Address [address] [place] [address] 7t [place] [address] Care Team Providers Care Endocrinology Physician Name Role Phone Mirian Thompson Primary Care Provider [phone] Jasen Gomez PharmD Unavailable [phone] Reason for Visit * Reason Onset Date Comments New Patient 11/06/2022 Encounter Details Date Type Department Care Team (Late st Contact Info) Description 11/06/2022 Telephone [facility] [address] [place], [place] [phone] Brad Wooten MD [address] [place], [place] [phone] New Patient Social History Tobacco Use Types [...] PAR Aura Rodas called pt to Offer BICYCLE MECHANIC appt. Pt demographics and insurance information were verified. Pt reports the following medical conditions: Diabetic, Cholesterol. Pt is currently taking medication: Metformin, Lantuss, Atorvastatin, Lisinopril. Pt given BICYCLE MECHANIC appt with Dr. Thompson on 11/08/2022@ 10:30 am Pt will be sent appt reminder card and medical release form and agrees to complete and to return to medical records prior to BICYCLE MECHANIC appt. * Telephone Encounter - Aura Lagos - 11/06/2022 3:10 PM EDT Pt has been transfer over to wait list for BICYCLE MECHANIC. EFFECTIVE SINCE 10/01/2022 documented in this encounter Plan of Treatment Upcoming Encounters Date Type Department Care Team (Late st Contact Info) Description 06/26/2024 10:30 AM EDT Medication Management [address] [address] Jasen Gomez, PharmD [address] [place] [address] 08/06/2024 10:00 AM EDT Office Visit [facility] [address] [place] [address] Mirian Thompson ANP [address] [place] [address] documented as of this encounter Visit Diagnoses Not on filedocumented in this encounter Care Teams Endocrinology Physician Relationship Specialty Start Date End Date Mirian Thompson ANP [address] [place] [address] PCP - General Family Medicine 11/08/22 Jasen Gomez, ErumD [address] [place] [address] Pharmacist Internal Medicine 08/02/23 documented as of this encounter
--- OUTSIDE RECORDS SUMMARY | 2024-05-28 14:00 | XMS_ITS | Encounter Summary ---
Author Organization [employer] Address [address] [facility] 7t [place] [address] Care Team Providers Care Paradi Tender Name Role Phone Mirian Thompson Primary Care Provider [phone] Jasen Gomez PharmD Unavailable [phone] Encounter Details Date Type Department Care Team (Late st Contact Info) Description 04/25/2023 Orders Only [facility] [address] [place], [place] [phone] Mirian Thompson ANP 230 [place], [place] [phone] Social History Tobacco Use Types Packs/Day Years [...] Description 06/26/2024 10:30 AM EDT Medication Management [address] [address] Jasen Gomez, Lisa [address] [place] [address] 08/06/2024 10:00 AM EDT Office Visit [facility] [address] [place] [address] Mirian Thompson ANP [address] [place] [address] documented as of this encounter Visit Diagnoses Not on filedocumented in this encounter Additional Health Concerns Assessment Noted Time PHQ-9 Depression Total Score: 0 11/09/19 23 10:59 AM EDT documented as of this encounter Care Teams Paradi Tender Relationship Specialty Start Date End Date Mirian Thompson ANP [address] [place] [phone] PCP - General Family Medicine 11/08/22 Jasen Gomez, Lisa [address] [place] [address] [phone] Pharmacist Internal Medicine 08/02/23 documented as of this encounter
== END 2024-05-28 11:30 | disposition home or self-care (01) ==
LOC: HO.HKA 11:18
PROVIDERS: PCP Internal Medicine; Visit Provider Internal Medicine Hypertension Specialist
DX: R80.9 Proteinuria, unspecified (principal); N18.9 Chronic kidney disease, unspecified
CPT/HCPCS: 99214

== ENCOUNTER → 2024-05-28 11:17 | Outpatient (BNVA) | payer MEDICARE, SELFPAY | PROVIDERS: PCP Internal Medicine; Visit Provider Internal Medicine Hypertension Specialist | DX: E11.22 Type 2 diabetes mellitus with diabetic chronic kidney disease (principal); R80.9 Proteinuria, unspecified; N40.0 Benign prostatic hyperplasia without lower urinary tract symptoms; N18.9 Chronic kidney disease, unspecified | CPT/HCPCS: 99212 ==

== ENCOUNTER 2024-08-04 09:40 | Outpatient (REF) | payer MEDICARE, SELFPAY ==
--- OUTSIDE RECORDS SUMMARY | 2024-08-04 10:32 | XMS_ITS | Encounter Summary ---
Author Organization [employer] Address [address] [place] [address] 7t [place] [address] Care Team Providers Care Investigator Internal Revenue Name Role Phone Mirian Thompson Primary Care Provider [phone] Jasen Gomez PharmD Unavailable [phone] Reason for Visit * Reason Onset Date Comments New Patient 11/06/2022 Encounter Details Date Type Department Care Team (Late st Contact Info) Description 11/06/2022 Telephone [facility] 230 [place], [place] [phone] Brad Wooten MD 230 [place], [place] [phone] New Patient Social History Tobacco Use Types [...] AM EDT documented as of this encounter Functional Status * Over the past 2 weeks, how often have you been bothered by any of the following problems? Question Answer Date of Assessment Author Patient Health Questionnaire -2 Score 0 11/08/2022 10:59 AM EDT Dolores Mcelroy MA * Over the past 2 weeks, how often have you been bothered by any of the following problems? Question Answer Date of Assessment Author Little interest or pleasure in doing things Not at all 11/08/2022 10:59 AM EDT Dolores Mcelroy MA Feeling down, depressed, or hopeless Not at all 11/08/2022 10:59 AM EDT Dolores Mcelroy MA Trouble falling or staying asleep, or sleeping too much Not at all 11/08/2022 10:59 AM EDT Dolores Perez MA Feeling tired or having little energy Not at all 11/08/2022 10:59 AM EDT Dolores Mcelroy MA Poor appetite or overeating Not at all 11/08/2022 10 :59 AM EDT Dolores Mcelroy MA Feeling bad about yourself - or that you are a failure or have let yourself or your family down Not at all 11/08/2022 10:59 AM EDT Dolores Mcelroy MA Trouble concentrating on things, such as reading the newspaper or watching television Not at all 11/08/2022 10:59 AM EDT Dolores Mcelroy MA Moving or speaking so slowly that other people could have noticed? Or the opposite - being so fidgety or restless that you have been moving around a lot more than usual. Not at all 11/08/2022 10:59 AM EDT Dolores Méndez MA Thoughts that you would be better off or hurting yourself in some way Not at all 11/08/2022 10:59 AM EDT Krystin Mcelroy MA Patient Health Questionnaire-9 Score 0 11/08/2022 10:59 AM NISHAT Rohini Mcelroy MA documented as of this encounter Miscellaneous Notes * Telephone Encounter - Aura Lagos - 11/07/2022 12:10 PM EDT SUSI Rodas called pt to Offer AIRCRAFT MOTOR MECHANIC appt. Pt demographics and insurance information were verified. Pt reports the following medical conditions: Diabetic, Cholesterol. Pt is currently taking medication: Metformin, Lantuss, Atorvastatin, Lisinopril. Pt given AIRCRAFT MOTOR MECHANIC appt with Dr. Thompson on 11/08/2022@ 10:30 am Pt will be sent appt reminder card and medical release form and agrees to complete and to return to medical records prior to AIRCRAFT MOTOR MECHANIC appt. * Telephone Encounter - Aura Lagos - 11/06/2022 3:10 PM EDT Pt has been transfer over to wait list for AIRCRAFT MOTOR MECHANIC. EFFECTIVE SINCE 10/01/2022 documented in this encounter Plan of Treatment Upcoming Encounters Date Type Department Care Team (Late st Contact Info) Description 08/06/2024 10:00 AM EDT Office Visit [facility] [address] [place] [address] Mirian Thompson ANP [address] [place] [address] 09/17/2024 10:30 AM EDT Medication Management [facility] [address] [place] [address] Jasen Gomez PharmD [address] [place] [address] documented as of this encounter Visit Diagnoses Not on filedocumented in this encounter Care Teams Investigator Internal Revenue Relationship Specialty Start Date End Date Mirian Thompson ANP [address] [place] [address] PCP - General Family Medicine 11/08/22 Jasen Gomez, PharmD [address] [place] [address] Pharmacist Internal Medicine 08/02/23 documented as of this encounter
[2024-08-04 10:51] LABS: Appearance Urine Clear; Color Urine Yellow; Glucose Urine UA >=1000 mg/dL (Negative); Leukocyte Esterase Urine Negative (Negative); Nitrite Urine Negative (Negative); PH 5.5 (5.0-9.0); Specific Gravity - Urine >= 1.030 (1.005-1.025); UMIC TRIGGER UA YES; Urine Blood Negative (Negative); Urine Ketones Negative (Negative); Urine Protein 30 (1+) mg/dL (Neg-Trace)
[2024-08-04 10:55] LABS: Bacteria Urine None Seen (None Seen); Hyaline Casts Urine 0-2 /LPF (0-2); RBC Urine 0-2 /HPF (0-2); Squamous Epithelial Cell Urine 0-2 /HPF (0-2); WBC Urine 0-5 /HPF (0-5)
[2024-08-04 12:05] LABS: Creatinine Urine 113.91 mg/dL; Total Protein Urine Random 33 mg/dL (<12)
== END 2024-08-04 09:41 | disposition home or self-care (01) ==
LOC: HO.LAB 09:40
PROVIDERS: Internal Medicine Hypertension Specialist; PCP Nurse Practitioner Primary Care; Visit Provider Urology
DX: N18.9 Chronic kidney disease, unspecified (principal); N20.0 Calculus of kidney; R80.9 Proteinuria, unspecified
CPT/HCPCS: 81001; 82570; 84156

== ENCOUNTER → 2024-08-18 09:38 | Outpatient (REF) | payer MEDICARE, SELFPAY ==
--- NOTE | 2024-08-18 09:41 | CA_ITS ---
Transthoracic Echocardiogram Patient (Last, First, Middle): Barney Birmingham, Gender: Male Date of : 1950 Age: 74 Procedure Date: 08/18/2024 Procedure Type: Transthoracic Echocardiogram Location: OP Height: 167.64 cm Weight: 81.19 kg BSA: 1.91 m2 Heart Rate: bpm BP: 124 / 64 mmHg Internal Wholesaler: SLIME Referring MD: Otis Arreguin MD Econometrics Professor: Otis Arreguin MD Symptoms: I35.0 - Nonrheumatic aortic (valve) stenosis Study Quality: Fair ECG Rhythm: Sinus Conclusions: - 1. Low normal LV ejection fraction 50-55% with grade 1 diastolic dysfunction 2. Moderate aortic stenosis 3. Normal RV systolic pressure 4. Mildly dilated ascending aorta 3.8 cm 5. No gross pericardial effusion Findings Left Ventricle Normal left ventricular cavity size. There is normal left ventricular wall thickness. The left ventricular systolic function is low normal. The visually estimated ejection fraction is between 50-55%. Spectral Doppler is indicative of an impaired relaxation filling pattern. E/E prime ratio is <8, consistent with normal filling pressures. Evidence suggests grade I (mild) diastolic dysfunction. Right Ventricle Normal right ventricular cavity size and systolic function. Atria The left atrium is normal in size. There is no evidence of interatrial shunt. The right atrium is normal in size. Aortic Valve There is moderate calcification of the aortic valve. There is moderate aortic valve stenosis. The mean gradient is 18 mmHg. The aortic valve area is 1.44 cm2. There is no aortic valve regurgitation. Mitral Valve There is mild anterior and posterior mitral leaflet thickening. There is mild mitral annular calcification. There is trace mitral valve regurgitation. There is no mitral valve stenosis. Pulmonic Valve The pulmonic valve is likely normal. Tricuspid Valve Normal tricuspid valve structure. There is trace tricuspid valve regurgitation. The right ventricular systolic pressure is normal. The right ventricular systolic pressure is 22 mmHg. Normal right atrial pressure. There is no evidence of pulmonary hypertension. Great Vessels The pulmonary artery was not well visualized. There is mild dilatation of the ascending aorta measuring 3.80 cm. Venous The inferior vena cava is normal in size and collapses greater than 50% with inspiration. Pericardium/Pleural There is no evidence of pericardial effusion. Prior Study Comparison Changes noted compared to prior study dated: 07/15/2023. aortic stenosis is marginally worse Measurements 2D Linear Measurements IVSd: 0.99 0.6-0.9/0.6-1.0 cm LVIDd: 4.31 3.9-5.3/4.2-5.9 cm LVIDd Index: 2.26 2.4-3.2/2.2-3.1 cm/m2 LVIDs: 2.79 2.0-3.6 cm LVPWd: 0.92 0.7-1.1 cm LA Diam: 3.40 2.7-3.8/3.0-4.0 cm LAIDs Index: 1.78 1.5-2.3 cm/m2 LV Mass: 167.73 67-162/88-224 g LV Mass Index: 87.82 43-95/49-115 g/m2 LVOT Diam: 2.30 3.0+(-)1.3 cm 2D Systolic Function EF 4C: 54.10 >55% EF 2C: 58.70 >55% EF BiP: 53.50 >55% Mitral Valve MV Pk E: 0.65 MV PK A: 0.83 MV Decel Time: 291.00 E/A: 0.80 E'Lateral: 8.38 E'Medial: 5.44 E/E' Med: 12.00 E/E' Lat: 7.80 PHT: 85.00 MVA PHT: 2.59 Decel Bureau: 2.24 Aortic Valve AoV Pk Jann: 2.90 AoV Mn Jann: 1.98 AoV VTI: 0.62 AoV Pk Grad: 34.00 Aov Mn Grad: 18.00 MELITON Cont.VTI: 1.44 LVOT LVOT Pk Jann: 0.91 LVOT Mn Jann: 0.69 LVOT VTI: 0.22 LVOT Pk Grad: 3.00 LVOT Mn Grad: 2.00 LVOT Diam: 2.30 LVOT Area: 4.15 Diastolic Function MV Pk E: 0.65 MV Pk A: 0.83 E/A: 0.80 E'Medial: 5.44 E/E' Med: 12.00 E' Laterial: 8.38 E/E' Lat: 7.80 Right Ventricle TAPSE (mm): 23.90 TVS' Jann: 12.60 Tricuspid Valve TR Pk Jann: 2.17 TR Pk Grad: 19.00 RA Press: 3.00 RVSP: 22.00 Great Vessels Aorta Sinus of Valsalva: 3.39 2.0-3.[address] Ridge: 2.77 1.7-3.4 cm Ao Asc: 3.80 2.1-3.4 cm Updated in Other Vendor System with Status of Final Otis Arreguin MD electronically signed on 08/19/2024 8:30:59 AM with status of Final
--- OUTSIDE RECORDS SUMMARY | 2024-08-18 10:10 | XMS_ITS | Encounter Summary ---
Author Organization [employer] Address [address] [place] [address] 7t [place] [address] Care Team Providers Care Dinkey Engineer Name Role Phone Mirian Thompson Primary Care Provider [phone] Jasen Gomez PharmD Unavailable [phone] Casper Márquez MD Unavailable [phone] Reason for Visit * Reason Onset Date Comments New Patient 11/06/2022 Encounter Details Date Type Department Care Team (Late st Contact Info) Description 11/06/2022 Telephone [facility] [address] [place], [place] [phone] Brad Wooten MD [address] [place], [place] [phone] New Patient Social History Tobacco Use Types [...] things Not at all 11/08/2022 10:59 AM NISHAT Dolores Mcelroy MA Feeling down, depressed, or hopeless Not at all 11/08/2022 10:59 AM NISHAT Dolores Mcelroy MA Trouble falling or staying asleep, or sleeping too much Not at all 11/08/2022 10:59 AM EDT Dolores Perez MA Feeling tired or having little energy Not at all 11/08/2022 10:59 AM EDT Dolores Mcelroy MA Poor appetite or overeating Not at all 11/08/2022 10 :59 AM NISHAT Dolores Mcelroy MA Feeling bad about yourself - or that you are a failure or have let yourself or your family down Not at all 11/08/2022 10:59 AM EDT Dolores Mcelroy MA Trouble concentrating on things, such as reading the newspaper or watching television Not at all 11/08/2022 10:59 AM NISHAT Dolores Mcelroy MA Moving or speaking so slowly that other people could have noticed? Or the opposite - being so fidgety or restless that you have been moving around a lot more than usual. Not at all 11/08/2022 10:59 AM NISHAT Dolores Méndez MA Thoughts that you would be better off or hurting yourself in some way Not at all 11/08/2022 10:59 AM Krystin Fitzpatrick MA Patient Health Questionnaire-9 Score 0 11/08/2022 10:59 AM EDT Rohini Mcelroy MA documented as of this encounter Miscellaneous Notes * Telephone Encounter - Aura Lagos - 11/07/2022 12:10 PM EDT SUSI Rodas called pt to Offer PANEL SEWER appt. Pt demographics and insurance information were verified. Pt reports the following medical conditions: Diabetic, Cholesterol. Pt is currently taking medication: Metformin, Lantuss, Atorvastatin, Lisinopril. Pt given PANEL SEWER appt with Dr. Thompson on 11/08/2022@ 10:30 am Pt will be sent appt reminder card and medical release form and agrees to complete and to return to medical records prior to PANEL SEWER appt. * Telephone Encounter - Aura Lagos - 11/06/2022 3:10 PM EDT Pt has been transfer over to wait list for PANEL SEWER. EFFECTIVE SINCE 10/01/2022 documented in this encounter Plan of Treatment Upcoming Encounters Date Type Department Care Team (Late st Contact Info) Description 09/07/2024 10:00 AM EDT Clinical Support [address] [address] 09/17/2024 10:30 AM EDT Medication Management [address] [address] Jasen Gomez, Lisa [address] [place] [address] 10/29/2024 11:00 AM EDT Office Visit [address] [address] Mirian Thompson ANP [address] [place] [address] documented as of this encounter Visit Diagnoses Not on filedocumented in this encounter Care Teams Dinkey Engineer Relationship Specialty Start Date End Date Mirian Thompson ANP [address] [place] [address] PCP - General Family Medicine 11/08/22 Jasen Gomez, ErumD [address] [place] [address] Pharmacist Internal Medicine 08/02/23 Casper Márquez MD 100 [facility] [address] [place] [phone] Nephrology 08/06/24 documented as of this encounter
== END ==
LOC: HO.CARD 09:38
PROVIDERS: Visit Provider Internal Medicine Cardiovascular Disease
DX: I35.0 Nonrheumatic aortic (valve) stenosis (principal)
CPT/HCPCS: 93306

== ENCOUNTER → 2024-08-18 09:41 | Outpatient (BNV) | payer MEDICARE, SELFPAY | PROVIDERS: Visit Provider Internal Medicine Cardiovascular Disease | DX: I35.0 Nonrheumatic aortic (valve) stenosis (principal); I51.89 Other ill-defined heart diseases; I35.8 Other nonrheumatic aortic valve disorders; I34.81 Nonrheumatic mitral (valve) annulus calcification | CPT/HCPCS: 93306 ==

== ENCOUNTER 2024-08-25 10:34 | Outpatient (AMB) | payer MEDICARE, SELFPAY ==
--- NOTE | 2024-08-25 10:49 | MHC.OFFVIS ---
Vital Signs 08/25/24 10:51 Height 5 ft 6 in Weight 171 lb 15.369 oz BMI 27.8 BP 120/70 Blood Pressure Location Lt brachial Position Sitting Pulse 79 Intake Visit Reasons: 1 yr follow up Intake Note: 1 year follow-up with ekg feeling good Allergies No Known Allergies Allergy (Verified 05/28/24 11:23) Medication List - Last Reconciled 08/25/24 by Otis Arreguin MD aspirin 81 mg PO QAM atorvastatin 40 mg PO DAILY blood pressure test kit-large As directed blood sugar diagnostic (OneTouch Ultra Test strips) As directed blood-glucose meter (Population DiagnosticsTouch Ultra2 Meter) As directed dulaglutide (Trulicity) mg subcut QWEEK dutasteride (Avodart) 0.5 mg PO DAILY empagliflozin-metformin 12.5-1,000 mg ER (Synjardy XR) 1 tab PO BID flash glucose scanning reader (FreeStyle Donaldo 2 Lagrange) As directed fluticasone propionate 50 mcg/actuation 1 spray intranasal QAM insulin glargine (Lantus Solostar U-100 Insulin) 14 units subcut BID ketorolac 0.5% drps ophthalmic (eye) lancets (OneTouch UltraSoft 2 Lancet) As directed lancets (OneTouch Delica Plus Lancet) As directed mirtazapine 15 mg PO BEDTIME pen needle, diabetic (BD Ultra-Fine Short Pen Needle) As directed HPI Comments Details: Manual comes for follow up of his aortic stenosis. He continues to have no symptoms. Remains pretty active although does not exercise on regular basis. Takes all his medications. He said his diabetes is borderline controlled. He has no symptoms of exertional chest pain or shortness of breath. No lightheadedness. No orthopnea, PND, leg edema. No exertional fatigue. His echocardiogram shows moderate aortic stenosis. Patient denies any other symptoms. No issues with the medications. [facility] Medical History Diabetes HTN (hypertension) Aortic stenosis Surgical History Hx of lithotripsy Family History Father No problems noted. Mother No problems noted. Social History Alcohol intake: current Alcohol intake frequency: former alcohol drinker Patient Tobacco Use Status: Former Tobacco user Review of Systems Const Denies chills, Denies fatigue, Denies fever(s), Denies frequent falls, Denies weakness, Denies weight gain and Denies weight loss ENT Denies dizziness Card Denies chest pain, Denies leg edema, Denies lightheadedness, Denies palpitations, Denies dyspnea, Denies dyspnea on exertion, Denies orthopnea and Denies other (loss of consciousness) Resp Denies cough, Denies dyspnea and Denies dyspnea on exertion GI Denies hematochezia and Denies change in stool character Musc Denies abnormal gait, Denies muscle weakness, Denies numbness, Denies radiating pain into limb and Denies tingling Neuro Denies Abnormal speech present, Denies abnormal gait, Denies dizziness, Denies frequent falls, Denies numbness, Denies tingling and Denies weakness Endo Denies fatigue and Denies palpitations Physical Exam Vital Signs: Last Vital Signs Pulse 79 08/25/24 10:51 BP 120/70 08/25/24 10:51 BMI result Body Mass Index 27.8 Const General: cooperative, comfortable, no acute distress, alert and awake Nutritional Appearance: average body habitus Orientation/consciousness: patient oriented x3 Limitations: no limitations HEENT Head: Yes normocephalic and Yes atraumatic Neck Neck: Yes trachea midline, Yes supple and Yes no JVD Resp Effort & Inspection: normal respiratory effort Auscultation: clear to auscultation bilaterally Cardio Jugular venous distension: no JVD Palpation: normal PMI Rate: regular rate Rhythm: regular rhythm Heart sounds: S1 normal heart sound present, S2 normal heart sound present, no click, no gallops, Murmur heart sound present (No clear murmur appreciated) systolic mid, decrescendo, crescendo and soft and Rub heart sound present GI Auscultation: normal bowel sounds Skin General skin exam: no rashes or lesions noted Neuro General: patient oriented x3 and no focal motor deficits Speech: No Abnormal speech present Extrem General: Yes no clubbing, cyanosis or edema Office Procedures EKG Details: EKG shows normal sinus rhythm nonspecific ST-T changes 45547-[id number], Complete Assessment & Plan Assessment & Plan (1) Aortic stenosis: Code(s): I35.0 - Nonrheumatic aortic (valve) stenosis Category: Medical Plan: Aortic stenosis which is moderate by recent echocardiogram. Patient is currently not having any symptoms. We discussed about pathophysiology of aortic stenosis and gradually progressive nature of aortic stenosis. Continue aggressive medical therapy. Continue low-dose aspirin therapy. Continue aggressive diabetes management goal hemoglobin A1c less than 7%. Goal LDL definitely less than 100 mg/dL. Continue aggressive blood pressure control which is currently well optimized. Will follow-up echocardiogram next year. Advised to call me with any new cardinal symptoms associated with aortic stenosis. Understands agrees. Will follow up in the clinic in 1 year's time, sooner p.r.n.. Thank you for allowing me to partake in his care Coding Level of Care Code Est Pt Level 4 (40365) Complex EM visit Add On G2211 Diagnoses Aortic stenosis I35.0 CPT Codes EKG - CPT: 65021-[id number], Complete ([id number])
[2024-08-25 10:51] VITALS: BP 120/70; PULSE 79; BMI 27.8
--- OUTSIDE RECORDS SUMMARY | 2024-08-25 11:51 | XMS_ITS | Encounter Summary ---
Author Organization [employer] Address [address] [place] [address] 7t [place] [address] Care Team Providers Care Concrete Mixer Truck Driver Name Role Phone Mirian Thompson Primary Care Provider [phone] Jasen Gomez PharmD Unavailable [phone] Casper Márquez MD Unavailable [phone] Reason for Visit * Reason Onset Date Comments New Patient 11/06/2022 Encounter Details Date Type Department Care Team (Late st Contact Info) Description 11/06/2022 Telephone [facility] 230 [place], [place] [phone] Brad Wooten MD 230 [place], [place] [phone] New Patient Social History Tobacco Use Types [...] EDT SUSI Rodas called pt to Offer COIN PURSE FRAMER appt. Pt demographics and insurance information were verified. Pt reports the following medical conditions: Diabetic, Cholesterol. Pt is currently taking medication: Metformin, Lantuss, Atorvastatin, Lisinopril. Pt given COIN PURSE FRAMER appt with Dr. Thompson on 11/08/2022@ 10:30 am Pt will be sent appt reminder card and medical release form and agrees to complete and to return to medical records prior to COIN PURSE FRAMER appt. * Telephone Encounter - Aura Lagos - 11/06/2022 3:10 PM EDT Pt has been transfer over to wait list for COIN PURSE FRAMER. EFFECTIVE SINCE 10/01/2022 documented in this encounter Plan of Treatment Upcoming Encounters Date Type Department Care Team (Late st Contact Info) Description 09/07/2024 10:00 AM EDT Clinical Support [address] [address] 09/17/2024 10:30 AM EDT Medication Management [address] [address] Jasen Gomez, Lisa [address] [place] [address] 10/29/2024 11:00 AM EDT Office Visit [address] [address] Mirian Thompson ANP [address] [place] [address] documented as of this encounter Visit Diagnoses Not on filedocumented in this encounter Care Teams Concrete Mixer Truck Driver Relationship Specialty Start Date End Date Mirian Thompson ANP [address] [place] [address] PCP - General Family Medicine 11/08/22 Jasen Gomez, ErumD [address] [place] [address] Pharmacist Internal Medicine 08/02/23 Casper Márquez MD 100 [facility] 200 [place] [phone] Nephrology 08/06/24 documented as of this encounter
== END 2024-08-25 11:34 | disposition home or self-care (01) ==
LOC: HO.HCS 10:35
PROVIDERS: PCP Internal Medicine; Visit Provider Internal Medicine Cardiovascular Disease
DX: I35.0 Nonrheumatic aortic (valve) stenosis (principal)
CPT/HCPCS: 93010; 99214; G2211

== ENCOUNTER → 2024-08-25 10:34 | Outpatient (BNVA) | payer MEDICARE, SELFPAY | PROVIDERS: PCP Internal Medicine; Visit Provider Internal Medicine Cardiovascular Disease | DX: I35.0 Nonrheumatic aortic (valve) stenosis (principal); R94.31 Abnormal electrocardiogram [ECG] [EKG] | CPT/HCPCS: 93005; 99212 ==

== ENCOUNTER 2024-08-27 08:47 | Outpatient (REF) | payer MEDICARE, SELFPAY ==
[2024-08-27 09:41] LABS: Anion Gap 11 (12-20); Blood Urea Nitrogen 27 mg/dL (9-16); Calcium 8.9 mg/dL (8.4-10.2); Carbon Dioxide 28 mmol/L (22-29); Chloride 108 mmol/L (96-108); Estimated Glomerular Filt Rate > 60; Potassium 4.7 mmol/L (3.3-5.1); Sodium 142 mmol/L (135-145)
== END 2024-08-27 08:48 | disposition home or self-care (01) ==
LOC: HO.LAB 08:47
PROVIDERS: Internal Medicine Hypertension Specialist; PCP Nurse Practitioner Primary Care; Visit Provider Urology
DX: N18.9 Chronic kidney disease, unspecified (principal)
CPT/HCPCS: 36415; 80048

== ENCOUNTER 2024-09-16 09:55 | Outpatient (REF) | payer MEDICARE, SELFPAY ==
--- OUTSIDE RECORDS SUMMARY | 2024-09-16 10:32 | XMS_ITS | Encounter Summary ---
Author Organization [employer] Address [address] [place] [address] 7t [place] [address] Care Team Providers Care Fund Raiser Name Role Phone Mirian Thompson Primary Care Provider [phone] Jasen Gomez PharmD Unavailable [phone] Casper Márquez MD Unavailable [phone] Reason for Visit * Reason Onset Date Comments New Patient 11/06/2022 Encounter Details Date Type Department Care Team (Late st Contact Info) Description 11/06/2022 Telephone [facility] MEDICINE 230 [place], [place] [phone] Brad Wooten MD 230 [place], [place] [phone] New Patient Social History Tobacco Use Types [...] EDT SUSI Rodas called pt to Offer CHIEF OPERATOR appt. Pt demographics and insurance information were verified. Pt reports the following medical conditions: Diabetic, Cholesterol. Pt is currently taking medication: Metformin, Lantuss, Atorvastatin, Lisinopril. Pt given CHIEF OPERATOR appt with Dr. Thompson on 11/08/2022@ 10:30 am Pt will be sent appt reminder card and medical release form and agrees to complete and to return to medical records prior to CHIEF OPERATOR appt. * Telephone Encounter - Aura Lagos - 11/06/2022 3:10 PM EDT Pt has been transfer over to wait list for CHIEF OPERATOR. EFFECTIVE SINCE 10/01/2022 documented in this encounter Plan of Treatment Upcoming Encounters Date Type Department Care Team (Late st Contact Info) Description 09/17/2024 10:30 AM EDT Medication Management [address] [address] Jasen oGmez, Lisa [address] [place] [address] 10/29/2024 11:00 AM EDT Office Visit [facility] MED[facility]INE [address] [place] [address] Mirian Thompson ANP [address] [place] [address] documented as of this encounter Visit Diagnoses Not on filedocumented in this encounter Care Teams Fund Raiser Relationship Specialty Start Date End Date Mirian Thompson ANP [address] [place] [address] PCP - General Family Medicine 11/08/22 Jasen Gomez, Lisa [address] [place] [address] Pharmacist Internal Medicine 08/02/23 Casper Márquez MD [address] [phone] Nephrology 08/06/24 documented as of this encounter
[2024-09-16 11:06] LABS: Appearance Urine Clear; Glucose Urine UA >=1000 mg/dL (Negative); PH 5.5 (5.0-9.0); Specific Gravity - Urine >= 1.030 (1.005-1.025); UMIC TRIGGER UA YES
== END 2024-09-16 09:56 | disposition home or self-care (01) ==
LOC: HO.LAB 09:55
PROVIDERS: Visit Provider Internal Medicine Hypertension Specialist
DX: N18.9 Chronic kidney disease, unspecified (principal)
CPT/HCPCS: 81001; 81003

== ENCOUNTER 2024-09-22 11:18 | Outpatient (AMB) | payer MEDICARE, SELFPAY ==
--- NOTE | 2024-09-22 11:23 | HO.NEPHOV_ITS ---
Vital Signs 09/22/24 11:27 Height 5 ft 6 in Weight 173 lb BMI 27.9 BP 120/62 Blood Pressure Location Lt brachial Position Sitting Pulse 71 Pulse Source Pulse Oximeter Pulse Oximetry (%) 97 Oxygen Delivery Method Room Air Intake Visit Reasons: FU/ LVM Pulpwood Cutter Required: No Accompanied by: Self / Same As Patient Allergies No Known Allergies Allergy (Verified 09/22/24 11:29) Medication List - Last Reconciled 09/22/24 by Casper Márquez MD aspirin 81 mg PO QAM atorvastatin 40 mg PO DAILY blood pressure test kit-large As directed blood sugar diagnostic (OneTouch Ultra Test strips) As directed blood-glucose meter (For Art's Sake MediaTouch Ultra2 Meter) As directed dulaglutide (Trulicity) mg subcut QWEEK dutasteride (Avodart) 0.5 mg PO DAILY empagliflozin-metformin 12.5-1,000 mg ER (Synjardy XR) 1 tab PO BID flash glucose scanning reader (Ecinity Donaldo 2 [place]) As directed fluticasone propionate 50 mcg/actuation 1 spray intranasal QAM insulin glargine (Lantus Solostar U-100 Insulin) 14 units subcut BID ketorolac 0.5% drps ophthalmic (eye) lancets (OneTouch UltraSoft 2 Lancet) As directed lancets (OneTouch Delica Plus Lancet) As directed mirtazapine 15 mg PO BEDTIME pen needle, diabetic (BD Ultra-Fine Short Pen Needle) As directed HPI Comments Details: 74-year-old male who is here for evaluation Proteinuria. He has DM and BPH. Patient complains of postvoid dribbling. Nocturia 3-4 times at night. He denies gross hematuria. He has been on tamsulosin for about 7 months he mentions symptoms consistent with retrograde ejaculation - likely from the tamsulosin. Bladder scan PVR 64 mL, Urinalysis proteinuria, review of chart PSA 11/21/22---0.99 ng/mL He is renal function has been stable with a creatinine of 0.7-0.8 mg/dL. Now upto 1.32 after increasing Valsartan to 320 mg and now switched to TElmisartan Now on Jardiance since June 2023 c/o retrograde ejacualtion with Tamsulosin Overall doing well. 09/22/24 Here for follow up. [facility] Medical History Diabetes HTN (hypertension) Aortic stenosis Surgical History Hx of lithotripsy Family History Father No problems noted. Mother No problems noted. Social History Alcohol intake: current Alcohol intake frequency: former alcohol drinker Patient Tobacco Use Status: Former Tobacco user Physical Exam Vital Signs: Last Vital Signs Pulse 71 09/22/24 11:27 BP 120/62 09/22/24 11:27 Pulse Ox 97 09/22/24 11:27 Oxygen Delivery Method Room Air 09/22/24 11:27 BMI result Body Mass Index 27.9 Const General: comfortable Nutritional Appearance: well nourished Orientation/consciousness: patient oriented x3 HEENT Head: No normal to inspection Mouth: moist mucous membranes Neck Neck: Yes supple and Yes no JVD Resp Auscultation: clear to auscultation bilaterally and no rales Cardio Jugular venous distension: no JVD Palpation: no palpable S3 and no palpable S4 Heart sounds: no rubs GI Palpation (GI): Soft to palpation and nontender Percussion: No Fluid wave present General: Yes no CVA tenderness Back/Spine/Pelvis Back: no CVA tenderness Skin General skin exam: no rashes or lesions noted Neuro General: patient oriented x3 Extrem General: Yes no pedal edema and No clubbing Results Reviewed Nephrology Results: Sodium, (135-145) 142 mmol/L 08/27/24 Potassium, (3.3-5.1) 4.7 mmol/L 08/27/24 Chloride, (96-108) 108 mmol/L 08/27/24 Carbon Dioxide, (22-29) 28 mmol/L 08/27/24 BUN, (9-16) 27 mg/dL H 08/27/24 Creatinine, (0.5-1.4) 1.12 mg/dL 08/27/24 Calcium, (8.4-10.2) 8.9 mg/dL 08/27/24 Urine Protein, (Neg-Trace) Trace mg/dL 09/16/24 Urine Creatinine 113.91 mg/dL 08/04/24 Renal US 06/21/23 Assessment & Plan Assessment & Plan (1) Proteinuria: Code(s): R80.9 - Proteinuria, unspecified Category: Medical (2) CKD (chronic kidney disease): Code(s): N18.9 - Chronic kidney disease, unspecified Category: Medical Plan 74-year-old man with a history of longstanding diabetes mellitus with proteinuria. Proteinuria is most likely due to underlying diabetic kidney disease. - About 500 mg Mild CKD Cr improved 1.27 down to 1.12 BP is well controlled The goal is to slow the progression of disease. Blood sugar needs to be tightly controlled and maintain A1c less than 7%. He is PIPPA inhibition /Telmisartan Maintain blood pressure less than 130/80 mm Hg. Discussed low salt diet Encouraged to increase PO fluids ( Urine SG > 1.030) Willbenefit from SGLT2 inhibitors. . Orders: Orders Total Protein Urine Random 6 Months N18.9 - Chronic kidney disease, unspecif ied, R80.9 - Proteinuria, unspecified UA and rflx microscopic 6 Months N18.9 - Chronic kidney disease, unspecified, R80.9 - Proteinuria, unspecified Basic Metabolic Panel 6 Months N18.9 - Chronic kidney disease, unspecified, R80.9 - Proteinuria, unspecified Creatinine Urine 6 Months N18.9 - Chronic kidney disease, unspecified, R80.9 - Proteinuria, unspecified Coding Level of Care Code Est Pt Level 4 (10907) Diagnoses Proteinuria R80.9 CKD (chronic kidney disease) N18.9
[2024-09-22 11:27] VITALS: BP 120/62; PULSE 71; O2SAT 97; BMI 27.9
--- OUTSIDE RECORDS SUMMARY | 2024-09-22 12:27 | XMS_ITS | Encounter Summary ---
Author Organization [employer] Address [address] [place] [address] 7t [place] [address] Care Team Providers Care Wood Type Finisher Name Role Phone Mirian Thompson Primary Care Provider [phone] Jasen Gomez PharmD Unavailable [phone] Casper Márquez MD Unavailable [phone] Reason for Visit * Reason Onset Date Comments New Patient 11/06/2022 Encounter Details Date Type Department Care Team (Late st Contact Info) Description 11/06/2022 Telephone [facility] MEDICINE 230 [place], [place] [phone] Brad Wooten MD 230 [place], [place] [phone] New Patient Social History Tobacco Use Types [...] EDT SUSI Rodas called pt to Offer OXYGEN EQUIPMENT PREPARER appt. Pt demographics and insurance information were verified. Pt reports the following medical conditions: Diabetic, Cholesterol. Pt is currently taking medication: Metformin, Lantuss, Atorvastatin, Lisinopril. Pt given OXYGEN EQUIPMENT PREPARER appt with Dr. Thompson on 11/08/2022@ 10:30 am Pt will be sent appt reminder card and medical release form and agrees to complete and to return to medical records prior to OXYGEN EQUIPMENT PREPARER appt. * Telephone Encounter - Aura Lagos - 11/06/2022 3:10 PM EDT Pt has been transfer over to wait list for OXYGEN EQUIPMENT PREPARER. EFFECTIVE SINCE 10/01/2022 documented in this encounter Plan of Treatment Upcoming Encounters Date Type Department Care Team (Late st Contact Info) Description 10/29/2024 11:00 AM EDT Office Visit [address] [address] Mirian Thompson ANP [address] [place] [address] 12/10/2024 10:00 AM EDT Medication Management [facility] MEDICINE [address] [place] [address] Jasen Gomez PharmD [address] [place] [address] documented as of this encounter Visit Diagnoses Not on filedocumented in this encounter Care Teams Wood Type Finisher Relationship Specialty Start Date End Date Mirian Thompson ANP [address] [place] [address] PCP - General Family Medicine 11/08/22 Jasen Gomez, Lisa [address] [place] [address] Pharmacist Internal Medicine 08/02/23 Casper Márquez MD [address] [phone] Nephrology 08/06/24 documented as of this encounter
== END 2024-09-22 11:39 | disposition home or self-care (01) ==
LOC: HO.HKA 11:19
PROVIDERS: PCP Nurse Practitioner Primary Care; Visit Provider Internal Medicine Hypertension Specialist
DX: R80.9 Proteinuria, unspecified (principal); N18.9 Chronic kidney disease, unspecified
CPT/HCPCS: 99214

== ENCOUNTER → 2024-09-22 11:18 | Outpatient (BNVA) | payer MEDICARE, SELFPAY | PROVIDERS: PCP Nurse Practitioner Primary Care; Visit Provider Internal Medicine Hypertension Specialist | DX: E11.22 Type 2 diabetes mellitus with diabetic chronic kidney disease (principal); I12.9 Hypertensive chronic kidney disease with stage 1 through stage 4 chronic kidney disease, or unspecified chronic kidney disease; N18.9 Chronic kidney disease, unspecified; R80.9 Proteinuria, unspecified | CPT/HCPCS: 99212 ==

== ENCOUNTER 2024-09-23 10:19 | Outpatient (REF) | payer MEDICARE, SELFPAY ==
--- NOTE | 2024-09-23 | EMG_ITS ---
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 There is no significant change since the last study of February 2024. EMG of the left L4-S1 innervated muscles is consistent with chronic distal neuropathic changes. Please see the detailed neurophysiological report MTDD
--- OUTSIDE RECORDS SUMMARY | 2024-09-23 11:02 | XMS_ITS | Encounter Summary ---
Author Organization [employer] Address [address] [place] [address] 7t [place] [address] Care Team Providers Care Seafood Clerk Name Role Phone Mirian Thompson Primary Care Provider [phone] Jasen Gomez PharmD Unavailable [phone] Casper Márquez MD Unavailable [phone] Reason for Visit * Reason Onset Date Comments New Patient 11/06/2022 Encounter Details Date Type Department Care Team (Late st Contact Info) Description 11/06/2022 Telephone [facility] MEDICINE 230 [place], [place] [phone] Brad Wooten MD 230 [place], [place] [phone] New Patient Social History Tobacco Use Types [...] Not at all 11/08/2022 10:59 AM NISHAT Doloers Mcelroy [place] Feeling down, depressed, or hopeless [...] Not at all 11/08/2022 10:59 AM NISHAT Doloers Méndez [place] Thoughts that you would be better off or hurting yourself in some way Not at all 11/08/2022 10:59 AM Krystin Fitzpatrick MA Patient Health Questionnaire-9 Score 0 11/08/2022 10:59 AM EDT Rohini Mcelroy MA documented as of this encounter Miscellaneous Notes * Telephone Encounter - Aura Lagos - 11/07/2022 12:10 PM EDT SUSI Rodas called pt to Offer MEDICARE COMPLIANCE AUDITOR appt. Pt demographics and insurance information were verified. Pt reports the following medical conditions: Diabetic, Cholesterol. Pt is currently taking medication: Metformin, Lantuss, Atorvastatin, Lisinopril. Pt given MEDICARE COMPLIANCE AUDITOR appt with Dr. Thompson on 11/08/2022@ 10:30 am Pt will be sent appt reminder card and medical release form and agrees to complete and to return to medical records prior to MEDICARE COMPLIANCE AUDITOR appt. * Telephone Encounter - Aura Lagos - 11/06/2022 3:10 PM EDT Pt has been transfer over to wait list for MEDICARE COMPLIANCE AUDITOR. EFFECTIVE SINCE 10/01/2022 documented in this encounter Plan of Treatment Upcoming Encounters Date Type Department Care Team (Late st Contact Info) Description 10/29/2024 11:00 AM EDT Office Visit [address] [address] Mirian Thompson ANP [address] [place] [address] 12/10/2024 10:00 AM EDT Medication Management [facility] MEDICINE [address] [place] [address] Jasen Gomez PharmD [address] [place] [address] documented as of this encounter Visit Diagnoses Not on filedocumented in this encounter Care Teams Seafood Clerk Relationship Specialty Start Date End Date Mirian Thompson ANP [address] [place] [address] PCP - General Family Medicine 11/08/22 Jasen Gomez, Lisa [address] [place] [address] Pharmacist Internal Medicine 08/02/23 Casper Márquez MD [address] [phone] Nephrology 08/06/24 documented as of this encounter
== END 2024-09-23 10:20 | disposition home or self-care (01) ==
LOC: HO.NEURO 10:19
PROVIDERS: PCP Nurse Practitioner Primary Care; Visit Provider Psychiatry & Neurology Neurology
DX: E11.40 Type 2 diabetes mellitus with diabetic neuropathy, unspecified (principal)
CPT/HCPCS: 95885; 95911

== ENCOUNTER → 2024-09-23 10:56 | Outpatient (BNV) | payer MEDICARE, SELFPAY | PROVIDERS: PCP Nurse Practitioner Primary Care; Visit Provider Psychiatry & Neurology Neurology | DX: G62.89 Other specified polyneuropathies (principal) | CPT/HCPCS: 95886; 95911 ==

== ENCOUNTER 2024-10-29 09:29 | Outpatient (REF) | payer MEDICARE, SELFPAY ==
--- OUTSIDE RECORDS SUMMARY | 2024-10-29 11:00 | XMS_ITS | Encounter Summary ---
Author Organization [employer] Address [address] [facility] 7t [place] [address] Care Team Providers Care Private Investigator Surveillance Name Role Phone Mirian Thompson Primary Care Provider [phone] Jasen Gomez PharmD Unavailable [phone] Casper Márquez MD Unavailable [phone] Reason for Visit * Reason Comments Follow-up Diabetes Hypertension Encounter Details Date Type Department Care Team (Latest Contact Info) Description 10/29/2024 11:00 AM EDT Office [address] [facility] MEDICINE 230 [place], [place] [phone] Mirian Thompson ANP 230 [place], [place] [phone] Type 2 diabetes mellitus with hyperlipidemia (CMS/HCC) ([facility]/HCC) (Primary Dx); Peripheral axonal neuropathy; Hypertension associated with diabetes (CMS/HCC); Type 2 diabetes mellitus with diabetic nephropathy, with long-term current use of insulin (CMS/HCC) Social History Tobacco Use Types Packs/Day Years [...] with others, in a hotel, in a usp, living outside on the street, on a [...] AM EDT documented as of this encounter Last Filed Vital Signs Vital Sign Reading Time Taken Comments Blood Pressure 120/70 10/29/2024 10:53 AM EDT Pulse 80 10/29/2024 10:53 AM EDT Temperature 36.2 C (97.2 F) 10/29/2024 10:53 AM EDT Respiratory Rate 20 10/29/2024 10:53 AM EDT Oxygen Saturation - - Inhaled Oxygen Concentration - - Weight 78.5 kg (173 lb) 10/29/2024 10:53 AM EDT Height 167.6 cm (5' 6 ) 10/29/2024 10:53 AM EDT Body Mass Index 27.92 10/29/2024 10:53 AM EDT documented in this encounter Plan of Treatment Upcoming Encounters Date Type Department Care Team (Late st Contact Info) Description 12/10/2024 10:00 AM EDT Medication Management [facility] MEDICINE 230 [place] [address] Jasen Gomez PharmD 230 [place] [address] documented as of this encounter Goals Goal Patient Goal Type Associated Problems Recent Progress Patient-Stated? Author Blood Pressure < 140/90 Blood Pressure 120/70(2024 10:53 AM EDT) No Jasen Gomez PharmD Hemoglobin A1c < 7 Result Component 7.2( 10:17 AM EDT) No Jasen Gomez PharmD documented as of this encounter Visit Diagnoses Diagnosis Type 2 diabetes mellitus with hyperlipidemia (CMS/HCC) (CMS/HCC)- Primary Peripheral axonal neuropathy Hypertension associated with diabetes (CMS/[facility]) Unspecified essential hypertension Type 2 diabetes mellitus with diabetic nephropathy, with long-term current use of insulin ([facility]) documented in this encounter Additional Health Concerns Assessment Noted Time PHQ-9 Depression Total Score: 0 11/09/19 23 10:59 AM EDT documented as of this encounter Care Teams Private Investigator Surveillance Relationship Specialty Start Date End Date Mirian Thompson ANP 230 [place] [address] PCP - General Family Medicine 11/08/22 Jasen Gomez, ErumD 230 [place] [address] Pharmacist Internal Medicine 08/02/23 Casper Márquez MD 100 [facility] 200 [place] [phone] Nephrology 08/06/24 documented as of this encounter
--- OUTSIDE RECORDS SUMMARY | 2024-10-29 11:11 | XMS_ITS | Encounter Summary ---
Author Organization [employer] Address [address] [facility] 7t [place] [address] Care Team Providers Care Stave Saw Operator Name Role Phone Mirian Thompson Primary Care Provider [phone] Jasen Gomez PharmD Unavailable [phone] Casper Márquez MD Unavailable Encounter Details Date Type Department Care Team (Latest Contact Info) Description 10/29/2024 Travel Social History Tobacco Use Types Packs/Day [...] with others, in a hotel, in a long-term, living outside on the street, on a [...] Description 12/10/2024 10:00 AM EDT Medication Management [facility] MEDICINE 230 [place] [address] Jasen Gomez PharmD 230 [place], [place] [phone] documented as of this encounter Goals Goal [...] documented as of this encounter Care Teams Stave Saw Operator Relationship Specialty Start Date End Date Mirian Thompson ANP 230 [place] [address] PCP - General Family Medicine 11/08/22 Jasen Gomez, PharmD 230 [place] [address] Pharmacist Internal Medicine 08/02/23 Casper Márquez MD 100 [facility] 200 [place] [address] Nephrology 08/06/24 documented as of this encounter
--- OUTSIDE RECORDS SUMMARY | 2024-10-29 11:11 | XMS_ITS | Encounter Summary ---
Author Organization [employer] Address [address] [facility] 7t [place] [address] Care Team Providers Care Inventory Control Assistant Name Role Phone Mirian Thompson Primary Care Provider [phone] Jasen Gomez PharmD Unavailable [phone] Casper Márquez MD Unavailable [phone] Encounter Details Date Type Department Care Team (Late st Contact Info) Description 09/17/2024 Telephone [facility] MEDICINE 230 [place], [place] [phone] Mirian Thompson ANP 230 [place], [place] [phone] Social History Tobacco Use Types Packs/Day Years [...] with others, in a hotel, in a detention, living outside on the street, on a [...] encounter Miscellaneous Notes * Telephone Encounter - Jasen Gomez PharmD - 09/17/2024 2:50 PM EDT Mirian Please disregard request - Request sent to Physician for authorization of CDTM: Pharmacy is requesting an updated CDTM referral with a diagnosis of diabetes. This is to replace existing referral that expires 11/20/2024. Next CDTM visit scheduled for 12/10/2024 (6 weeks after next PCP visit). Please send at your earliest convenience. Thank you! documented in this encounter Plan of Treatment Upcoming Encounters Date Type Department Care Team (Late st Contact Info) Description 12/10/2024 10:00 AM EDT Medication Management [facility] MEDICINE 230 [place] [address] Jasen Gomez PharmD 230 [place] [address] documented as of this encounter Goals Goal [...] documented as of this encounter Care Teams Inventory Control Assistant Relationship Specialty Start Date End Date Mirian Thompson ANP 230 [place] [address] PCP - General Family Medicine 11/08/22 Jasen Gomez PharmD 230 [place] [address] Pharmacist Internal Medicine 08/02/23 Casper Márquez MD 100 [facility] 200 [place] [address] Nephrology 08/06/24 documented as of this encounter
--- OUTSIDE RECORDS SUMMARY | 2024-10-29 11:11 | XMS_ITS | Encounter Summary ---
Author Organization [employer] Address [address] [place] [address] 7t [place] [address] Care Team Providers Care Venetian Blind Cleaner And Repairer Name Role Phone Mirian Thompson Primary Care Provider [phone] Jasen Gomez PharmD Unavailable [phone] Casper Márquez MD Unavailable [phone] Reason for Visit * Reason Comments Med Refill Encounter Details Date Type Department Care Team (Late st Contact Info) Description 07/14/2024 Refill [facility] MEDICINE 230 [place], [place] [phone] Mirian Thompson ANP 230 [place], [place] [phone] Rash Social History Tobacco Use Types Packs/Day Years [...] Description 12/10/2024 10:00 AM EDT Medication Management [facility] MEDICINE 230 [place] [address] Jasen Gomez PharmD 230 [place] [address] documented as of this encounter Goals Goal Patient Goal Type Associated Problems Recent Progress Patient-Stated? Author Blood Pressure < 140/90 Blood Pressure 120/70(2024 10:53 AM EDT) No Jasen Gomez PharmD Hemoglobin A1c < 7 Result Component 7.2( 10:17 AM EDT) No Jasen Gomez PharmD documented as of this encounter Visit Diagnoses Diagnosis Rash Rash and other nonspecific skin eruption documented in this encounter Additional Health Concerns Assessment Noted Time PHQ-9 Depression Total Score: 0 11/09/19 23 10:59 AM EDT documented as of this encounter Care Teams Venetian Blind Cleaner And Repairer Relationship Specialty Start Date End Date Mirian Thompson ANP 230 [place] [address] PCP - General Family Medicine 11/08/22 Jasen Gomez PharmD 230 [place] [address] Pharmacist Internal Medicine 08/02/23 Casper Márquez MD 100 [facility] 200 [place] [address] Nephrology 08/06/24 documented as of this encounter
--- OUTSIDE RECORDS SUMMARY | 2024-10-29 11:11 | XMS_ITS | Encounter Summary ---
Author Organization [employer] Address [address] [facility] 7t [place] [address] Care Team Providers Care Weaver Narrow Fabrics Name Role Phone Mirian Thompson Primary Care Provider [phone] Jasen Gomez PharmD Unavailable [phone] Casper Márquez MD Unavailable [phone] Encounter Details Date Type Department Care Team (Late st Contact Info) Description 02/18/2024 Telephone [facility] MEDICINE 230 [place], [place] [phone] Mirian Thompson ANP 230 [place], [place] [phone] Social History Tobacco Use Types Packs/Day Years [...] with others, in a hotel, in a halfway, living outside on the street, on a [...] 01/20 appt (CDTM DM/HTN FU Jay STEEN (MARGE)) with Jasen. documented in this encounter Plan of Treatment Upcoming Encounters Date Type Department Care Team (Late st Contact Info) Description 12/10/2024 10:00 AM EDT Medication Management [facility] MEDICINE [address] [place] [address] Jasen Gomez PharmD 230 [place] [address] documented as of this encounter Goals Goal [...] documented as of this encounter Care Teams Weaver [employer] Fabrics Relationship Specialty Start Date End Date Mirian Thompson ANP 230 [place] [address] PCP - General Family Medicine 11/08/22 Jasen Gomez, PharmD 230 [place] [address] Pharmacist Internal Medicine 08/02/23 Casper Márquez MD 100 [facility] 200 [place] [address] Nephrology 08/06/24 documented as of this encounter
--- OUTSIDE RECORDS SUMMARY | 2024-10-29 11:11 | XMS_ITS | Clinical Summary ---
Author Organization [employer] Address 75 [facility] 7t [place] [address] Care Team Providers Care Retrofit Installer Name Role Phone Mirian Thompson Primary Care Provider [phone] Jasen Gomez PharmD Unavailable [phone] Casper Márquez MD Unavailable [phone] Allergies No known active allergies Medications B-D ULTRAFINE III SHORT PEN 31G X [facility] 10[facility]20[facility]19 23 Active albuterol 108 (90 Base) MCG/ACT inhaler Inhale 2 puffs every 6 (six) hours if needed. From admission summer 2022, no known dx of asthma or COPD Active Blood Glucose Monitoring Suppl (ONE TOUCH ULTRA 2) w/Device kitIndications:Ty pe 2 diabetes mellitus with hyperlipidemia ([facility]/HCC) ([facility]) Use to test blood sugar 2 times daily 1 kit 07/05/19 24 Active Lancets (OneTouch Delica Plus [id number]) [facility] TEST BLOOD SUGAR TWICE DAILY DIRECTED 07/18/19 24 Active Continuous Glucose Wire Wheeler (FreeStyle Donaldo 2 [place]) deviceIndications :Type 2 diabetes mellitus with hyperlipidemia (CMS/HCC) ([facility]) Scan sensor every 8 hours 1 each 09/20/19 24 Active Continuous Glucose Sensor (FreeStyle Donaldo 2 Sensor) miscIndications:T ype 2 diabetes mellitus with hyperlipidemia (CMS/HCC) (CMS/[facility]) Apply 1 sensor every 14 days 2 each 11 09/20/19 24 Active fluticasone (Flonase) 50 MCG/ACT nasal sprayIndications: Cough in adult patient Administer 2 sprays into each nostril Once per day. 16 g 2 10/11/19 24 Active atorvastatin (Lipitor) 40 MG tabletIndications :Type 2 diabetes mellitus with hyperlipidemia (CMS/HCC) ([facility]) TAKE 1 TABLET BY MOUTH EVERY DAY 90 tablet 3 01/15/20 24 Active ciclopirox (Loprox) 0.77 % cream Apply 1 Application topically 2 times daily. Active dutasteride (Avodart) 0.5 MG capsule Take 1 capsule by mouth Once per day. 01/16/20 24 Active Mouthwashes (Biotene Dry Mouth) liquidIndications :Dry mouth Use 30 mL in the mouth or throat if needed in the morning and at bedtime (dry mouth). 1000 mL 2 04/07/19 25 Active triamcinolone (Kenalog) 0.1 % creamIndications: Rash Apply topically 2 times daily. For 2 weeks to R hand 30 g 1 04/07/19 25 Active glucose blood (FreeStyle Precision Hans Test) test stripIndications: Type 2 diabetes mellitus with hyperlipidemia (CMS/HCC) ([facility]) USE TO TEST BLOOD SUGAR THREE TIMES A DAY 100 each 12 04/14/19 25 Active Aspirin Low Dose 81 MG EC tablet TAKE 1 TABLET BY MOUTH EVERY MORNING 30 tablet 11 05/08/19 25 Active amLODIPine (Norvasc) 5 MG tabletIndications :Benign essential HTN TAKE 1 TABLET BY MOUTH EVERY DAY 90 tablet 1 05/21/19 25 Active Toviaz 4 MG 24 hr tablet Take 1 tablet by mouth Once per day. 05/12/19 25 Active empagliflozin-met FORMIN ER (Synjardy XR) 12.5-1000 MG 24 hr tabletIndications :Type 2 diabetes mellitus with hyperlipidemia (CMS/HCC) ([facility]) Take 1 tablet by mouth twice daily 60 tablet 5 05/28/19 25 Active telmisartan (Micardis) 40 MG tabletIndications :Benign essential HTN Take 1 tablet (40 mg) by mouth Once per day. 90 tablet 1 05/28/19 25 Active insulin glargine (Lantus SoloStar) 100 UNIT/ML penIndications:Ty pe 2 diabetes mellitus with hyperlipidemia (CMS/HCC) ([facility]) Inject 14 units subcutaneously once daily 15 mL 5 05/28/19 25 Active mirtazapine (Remeron) 15 MG tabletIndications :Difficulty sleeping TAKE 1 TABLET BY MOUTH AT BEDTIME 30 tablet 2 07/14/19 25 Active Dulaglutide (Trulicity) 3 MG/0.5ML solution auto-injectorIndi cations:Type 2 diabetes mellitus with hyperlipidemia (CMS/HCC) (CMS/HCC) Inject 3 mg under the skin 1 (one) time per week. 2 mL 3 09/18/19 25 Active amoxicillin-clavu lanate (Augmentin) 875-125 MG tablet Take 1 tablet by mouth 2 times daily for 7 days. 14 tablet 10/03/19 25 025 Active Problems Problem Noted Date Diagnosed Date Type 2 diabetes mellitus wit h diabetic nephropathy, with long-term current use of insulin 10/29/2024 Aortic valve stenosis 08/06/2024 Continuous urine leakage 08/06/2024 Benign prostatic hyperplasia with urinary freque ncy 08/06/2024 Peripheral axonal neuropathy 04/07/2024 Urge incontinence of [...] 09/2020, 09/2023 Pt has bachelor's degree. Bilingual Chadian and Welsh. Depression 04/24/2023 Type 2 diabetes mellitus with [...] Encounters Date Type Department Care Team Description 10/29/2024 11:00 AM EDT Office Visit [facility] [address] [place] [address] Mirian Thompson ANP Type 2 diabetes mellitus with hyperlipidemia (CMS/HCC) (CMS/HCC) (Primary Dx); Peripheral axonal neuropathy; Hypertension associated with diabetes (CMS/HCC); Type 2 diabetes mellitus with diabetic nephropathy, with long-term current use of insulin (CMS/HCC) 10/29/2024 Travel 10/28/2024 Telephone [facility] [address] [place] [address] Mirian Thompson ANP chart prep 10/02/2024 1:20 PM EDT Office Visit [facility] [address] [place] [phone] Name, MD Lobo Left maxillary sinusitis (Primary Dx); Pain of maxillary sinus 10/02/2024 Travel 09/17/2024 Orders Only [facility] [address] [place] [address] Brad Wooten MD Type 2 diabetes mellitus with hyperlipidemia (CMS/HCC) (CMS/HCC) (Primary Dx) 09/17/2024 Telephone [facility] [address] [place] [address] Mirian Thompson ANP 09/17/2024 Travel 08/27/2024 Orders Only GENERIC EXTERNAL DATA DEPARTMENT Provider, Generic External Data 08/07/2024 11:30 AM EDT Clinical Support [address] [address] Cris Wheat RN Type 2 diabetes mellitus with hyperlipidemia (CMS/HCC) ([facility]/HCC) 08/06/2024 10:00 AM EDT Office Visit [address] [address] Mirian Thompson ANP Type 2 diabetes mellitus with hyperlipidemia (CMS/HCC) ([facility]) (Primary Dx); Peripheral axonal neuropathy; Benign essential HTN; Hypertension associated with diabetes (CMS/HCC); Aortic valve stenosis, etiology of cardiac valve disease unspecified; Continuous urine leakage; Benign prostatic hyperplasia with urinary frequency 08/06/2024 Travel 08/05/[address] [address] Dolores Mcelroy [place] Chart Prep 08/04/2024 Orders Only GENERIC EXTERNAL DATA DEPARTMENT Provider, Generic External Data 07/31/2024 Results Follow-Up [address] [address] Mirian Thompson ANP POCT Glucose, POCT HGB A1C, Albumin, Random Urine W/Creatinine, Lipid Panel, Standard from Last 3 Months Immunizations Immunization Administration Dates Next Due HepB-CpG 07/05/2023,05/06/2023 Influenza [...] with others, in a hotel, in a snf, living outside on the street, on a [...] 20 10/29/2024 10:53 AM EDT Oxygen Saturation 97% 10/02/2024 12:59 PM EDT Inhaled Oxygen Concentration - - Weight 78.5 kg (173 lb) 10/29/2024 10:53 AM EDT Height 167.6 cm (5' 6 ) 10/29/2024 10:53 AM EDT Body Mass Index 27.92 10/29/2024 10:53 AM EDT Plan of Treatment Upcoming Encounters Date Type Department Care Team (Late st Contact Info) Description 12/10/2024 10:00 AM EDT Medication Management [facility] [address] [place] [address] Jasen Gomez, PharmD [address] [place], [place] [phone] Health Maintenance Due Date Last Done Comments CT Colonography 1949 Colonoscopy 1949 Colorectal Cancer Screening 1949 FIT DNA/Cologuard 1949 FIT 1949 FOBT 1949 Sigmoidoscopy 1949 Eye Exam 1959 Hepatitis C Screening 1967 Diabetes: Foot Exam 09/19/2024 09/20/2023, 09/20/2023, 09/20/2023, Additional history exists COVID-19 Vaccine ( season) 2024 02/27/2024, 01/31/2022, 09/13/2021, Additional history exists Influenza Vaccine (#1) 2024 , 11/08/2022, 01/31/2022, Additional history exists Diabetes: Hemoglobin A1C 11/06/202408/06/ 025, 06/26/2024, 04/07/2024, Additional history exists SDOH Screening 12/15/2024 12/16/2023 Alcohol/Substance Use Screening 12/23/2024 12/24/2023 Depression Screening 12/23/2024 12/24/2023, 11/09/19 23 Diabetes: Urine Protein Screening 05/26/2025 05/26/2024, 05/26/2024, 11/15/2023, Additional history exists Lipid Panel 05/26/2025 05/26/2024, 07/0 02/2023, 11/21/2022 Tobacco Screening 08/06/2025 08/06/2024 DTaP/Tdap/Td Vaccines (2 - Td or Tdap) 08/01/2033 08/02/2023 Zoster Vaccines Completed 05/06/2023, 03/24/2021 Hepatitis B Vaccines Completed 07/05/2023, 05/06/19 Pneumococcal Vaccine: 50+ Years Completed 07/05/2023 RSV Patients and Patients Aged 60 years or older Completed 08/02/2023 HIB Vaccines Aged Out No longer eligi [...] patient's age to complete this topic Meningococcal B Vaccine Aged Out No l onger eligible based on patient's age to complete [...] Pressure 120/70(2024 10:53 AM EDT) No Jasen Gomez, Lisa Hemoglobin A1c < 7 Result Component 7.2( 10:17 AM EDT) No Jasen Gomez PharmD Procedures Procedure Name Priority Date/Time Associated Diagnosis Comments BASIC METABOLIC PANEL Routine 08/27/2024 8:57 AM EDT POCT GLYCATED HEMOGLOBIN, TOTAL Routine 08/06/2024 10:17 AM EDT Type 2 diabetes mellitus with hyperlipidemia (CMS/HCC) ([facility]) POCT GLUCOSE Routine 08/06/2024 10:17 AM EDT Type 2 diabetes mellitus with hyperlipidemia (CMS/HCC) ([facility]) URINALYSIS, COMPLETE Routine 08/04/2024 9:51 AM EDT ALBUMIN, RANDOM URINE W/CREATININE Routine 05/26/2024 10:28 AM EDT Type 2 diabetes mellitus with hyperlipidemia ([facility]/HCC) ([facility]) LIPID PANEL, STANDARD Routine 05/26/2024 10:28 AM EDT Type 2 diabetes mellitus with hyperlipidemia ([facility]/HCC) ([facility]) from Last 3 Months or Most Recently Relevant to Health Maintenance Results * (ABNORMAL) Basic Metabolic Panel (08/27/2024 8:57 AM EDT) Sodium 142 135 - 145 mmol/L [facility] Potassium 4.7 3.3 - 5.1 mmol/L [facility] Chloride 108 96 - 108 mmol/L [facility] Carbon Dioxide 28 22 - 29 mmol/L [facility] Anion Gap 11(L) 12 - 20 [facility] Urea Nitrogen (BUN) 27(H) 9 - 16 mg/dL [facility] Creatinine, Serum 1.12 0.5 - 1.4 mg/dL [facility] Estimated Glomerular Filt Rate >60 [facility] Comment:Chronic Kidney Disea se: Estimated GFR < 60 mL/min/1.67n2Hhzgtw Kidney Disease: Estimated GFR < 15 mL/min/1.73m2 Glucose 134(H) 60 - 115 mg/dL [facility] Calcium 8.9 8.4 - 10.2 mg/dL [facility] 08/27/2024 8:57 AM EDT 08/27/2024 8:57 AM EDT us Generic External Data Provider LAB BLOOD ORDERAB LES Final Result [facility] [address] [place] [phone] * (ABNORMAL) POCT HGB A1C (08/06/2024 10:17 AM EDT) Pathologist [facility] Hemoglobin A1C 7.2(A) 4.0 - 6.0 % QC Media Lot # [id number] Lot# Expiration Date , Blood 08/06/2024 10:1 7 AM EDT Critical access hospital ANP POINT OF CARE TEST ENTER/EDIT OR DERABLES Final Result * (ABNORMAL) POCT Glucose (08/06/2024 10:17 AM EDT) Pathologist [facility] Glucose Blood, POC 237(A) 60 - 200 mg/dL Comment:Random QC Media Lot # [id number] Lot# Expiration Date Blood Capillary blood specimen / Unknown 08/06/2024 10:17 AM EDT [facility] POINT OF CARE TEST ENTER/EDIT OR DERABLES Final Result * (ABNORMAL) Urinalysis Complete (08/04/2024 9:51 AM EDT) Pathologist [facility] Color Urine Yellow [facility] Appearance Urine Clear [facility] PH 5.5 5.0 - 9.0 [facility] Glucose Urine UA >=1000(A) Negative mg/dL [facility] Urine Blood Negative Negative [facility] Specific [place] - Urine >=1.030(H) 1.005 - 1.025 [facility] Urine Protein 30 (1+)(A) Neg-Trace mg/dL [facility] Urine Ketones Negative Negative mg/dL [facility] Nitrite Urine Negative Negative [facility] Leukocyte Esterase Urine Negative Negative [facility] RBC Urine 0-2 0 - 2 /HPF [facility] Urine WBC 0-5 0 - 5 /HPF [facility] Urine Squamous Epithelial Cell 0-2 0 - 2 /HPF [facility] Urine Bacteria None Seen None Seen [facility] Hyaline Casts, Urine 0-2 0 - 2 /LPF [facility] 08/04/2024 9:51 AM EDT 08/04/2024 10:43 AM EDT Generic External Data Provider LAB URINE ORDERAB LES Final Result Performing Organization Address [facility] de Phone Number [facility] [address] [place] [phone] * (ABNORMAL) Albumin, Random Urine W/Creatinine (05/26/2024 10:28 AM EDT) Creatinine, Urine 71.68 mg/dL [facility] Microalbumin Urine 135.0 mg/L [facility] Microalbum Creatinine Ratio Ur 188.3(H) <30 ug/mg cr [facility] Comment:Albumin/Creatinine R atio Reference Ranges: Normal: < 30 ug/mg creatinine Microalbuminuria: 30 - 300 ug/mg creatinineClinical Albuminuria: > 300 ug/mg creatinine Urine 05/26/2024 10:2 8 AM EDT 05/26/2024 11:11 AM EDT us Mirian Thompson [facility] LAB URINE ORDERABLES Final Resul t Performing Organization Address [facility] Phone Number [facility] [address] [place] [phone] * (ABNORMAL) Lipid Panel, Standard (05/26/2024 10:28 AM EDT) Triglycerides 110 <150 mg/dL [facility] Comment:Desirable Triglyceri de: less than 150 mg/dLBorderline High Triglyceride 150-199 mg/dLHigh Triglyceride: 200-499 mg/dLVery High Triglyceride: greater than or equal to 5OO mg/dL Cholesterol 135 <200 mg/dL [facility] Comment:Desirable Cholestero l: less than 200 mg/dLBorderline High Cholesterol: 200-239 mg/dLHigh Cholesterol: greater than 239 mg/dL LDL Cholesterol Calculated 84 <100 mg/dL [facility] Comment:Desirable LDL: less than 100 mg/dLNear Optimal/Above Optimal LDL: 110- 129 mg/dLBorderline High LDL: 130-159 mg/dLHigh LDL: 160-189 mg/dLVery High LDL: greater than or equal to 190 mg/dL HDL Cholesterol 29(L) >40 mg/dL [facility] Comment:Desirable HDL: great er than 40 mg/dL Note: This HDL assay may give artificially low results in patients with liver disease. Blood Venous blood specimen / Unknown 05/26/2024 10:28 AM EDT 05/26/2024 11:09 AM EDT us Mirian PENNY LAB BLOOD ORDERABLES Final Resul t [facility] [address] [place] [phone] from Last 3 Months or Most Recently Relevant to Health Maintenance Insurance [facility] MEDIC[employer]VANTAGE HMO Care Teams Retrofit Installer Relationship Specialty Start Date End Date Mirian Thompson ANP [address] [place] [address] PCP - General Family Medicine 11/08/22 Jasen Gomez, Lisa [address] [place], [place] [phone] Pharmacist Internal Medicine 08/02/23 Casper Márquez MD [address] [phone] Nephrology 08/06/24
--- OUTSIDE RECORDS SUMMARY | 2024-10-29 11:11 | XMS_ITS | Encounter Summary ---
Author Organization [employer] Address [address] [place] [address] [address]t [place] [address] Care Team Providers Care Cottage Cheese Maker Name Role Phone Mirian Thompson Primary Care Provider [phone] Jasen Gomez PharmD Unavailable [phone] Casper Márquez MD Unavailable [phone] Reason for Visit * Reason Onset Date Comments New Patient 11/06/2022 Encounter Details Date Type Department Care Team (Late st Contact Info) Description 11/06/2022 Telephone [facility] [address] [place], [place] [phone] Brad Wooten MD [address] [place], [place] [phone] New Patient Social History Tobacco Use Types [...] PAR Aura Rodas called pt to Offer PORCELAIN ENAMELING SUPERVISOR appt. Pt demographics and insurance information were verified. Pt reports the following medical conditions: Diabetic, Cholesterol. Pt is currently taking medication: Metformin, Lantuss, Atorvastatin, Lisinopril. Pt given [employer]ELING [employer]PERVISOR appt with Dr. Thompson on 11/08/2022@ 10:30 am Pt will be sent appt reminder card and medical release form and agrees to complete and to return to medical records prior to PORCELAIN ENAMELING SUPERVISOR appt. * Telephone Encounter - Aura Lagos - 11/06/2022 3:10 PM EDT Pt has been transfer over to wait list for [employer]AIN ENAMELING SUPERVISOR. EFFECTIVE SINCE 10/01/2022 documented in this encounter Plan of Treatment Upcoming Encounters Date Type Department Care Team (Late st Contact Info) Description 12/10/2024 10:00 AM EDT Medication Management [facility] [address] [place] [address] Jasen Gomez, Lisa [address] [place] [address] documented as of this encounter Visit Diagnoses Not on filedocumented in this encounter Care Teams Cottage Cheese Maker Relationship Specialty Start Date End Date Mirian Thompson ANP [address] [place] [address] PCP - General Family Medicine 11/08/22 Jasen Gomez, PharmD [address] [place] [address] Pharmacist Internal Medicine 08/02/23 Casper Márquez MD [address] [phone] Nephrology 08/06/24 documented as of this encounter
--- OUTSIDE RECORDS SUMMARY | 2024-10-29 11:11 | XMS_ITS | Encounter Summary ---
Author Organization [employer] Address [address] [facility] 7t [place] [address] Care Team Providers Care Finger Buffs Assembler Name Role Phone Mirian Thompson Primary Care Provider [phone] Jasen Gomez PharmD Unavailable [phone] Casper Márquez MD Unavailable [phone] Reason for Visit * Reason Onset Date Comments chart prep 10/28/2024 Encounter Details Date Type Department Care Team (Late st Contact Info) Description 10/28/2024 Telephone [facility] [address] [place], [place] [phone] Mirian Thompson ANP [address] [place], [place] [phone] chart prep Social History Tobacco Use Types Packs/Day Years [...] with others, in a hotel, in a longterm, living outside on the street, on a [...] encounter Miscellaneous Notes * Telephone Encounter - Keshav Rodas MA - 10/28/2024 11:45 AM EDT Chart Prep Labs: done Images: not applicable Referrals: not applicable Vaccines due: Covid and Flu Screenings: colonoscopy, eye exam, and foot exam Overdue care gaps: A1c, Glucose, and Disability screen documented in this encounter Plan of Treatment Upcoming Encounters Date Type Department Care Team (Late st Contact Info) Description 12/10/2024 10:00 AM EDT Medication Management [facility] [address] [place] [address] Jasen Gomez, PharmD [address] [place] [address] documented as of this encounter Goals Goal [...] documented as of this encounter Care Teams Finger Buffs Assembler Relationship Specialty Start Date End Date Mirian Thompson ANP [address] [place] [address] PCP - General Family Medicine 11/08/22 Jasen Gomez PharmD [address] [place] [address] Pharmacist Internal Medicine 08/02/23 Casper Márquez MD 100 [facility] [address] [place] [phone] Nephrology 08/06/24 documented as of this encounter
--- OUTSIDE RECORDS SUMMARY | 2024-10-29 11:11 | XMS_ITS | Encounter Summary ---
Author Organization [employer] Address 75 [facility] 7t [place] [address] Care Team Providers Care Gaggerman Name Role Phone Mirian Thompson Primary Care Provider [phone] Jasen Gomez PharmD Unavailable [phone] Casper Márquez MD Unavailable [phone] Encounter Details Date Type Department Care Team (Late st Contact Info) Description 04/25/2023 Orders Only [facility] [address] [place], [place] [phone] Mirian Thompson ANP [address] [place], [place] [phone] Social History Tobacco Use Types Packs/Day Years [...] Description 12/10/2024 10:00 AM EDT Medication Management [facility] [address] [place] [address] Jasen Gomez, PharmD [address] [place] [address] documented as of this encounter Visit Diagnoses Not on filedocumented in this encounter Additional Health Concerns Assessment Noted Time PHQ-9 Depression Total Score: 0 11/09/19 23 10:59 AM EDT documented as of this encounter Care Teams Gaggerman Relationship Specialty Start Date End Date Mirian Thompson ANP [address] [place] [phone] PCP - General Family Medicine 11/08/22 Jasen Gomez, PharmD [address] [place] [phone] Pharmacist Internal Medicine 08/02/23 Casper Márquez MD 100 [facility] [address] [place] [phone] Nephrology 08/06/24 documented as of this encounter
[2024-10-29 11:34] LABS: Prostate Specific Antigen 0.74 ng/mL (<0.05-4.0)
== END 2024-10-29 09:30 | disposition home or self-care (01) ==
LOC: HO.LAB 09:29
PROVIDERS: PCP Nurse Practitioner Primary Care; Visit Provider Urology
DX: Z12.5 Encounter for screening for malignant neoplasm of prostate (principal)
CPT/HCPCS: 36415; 84153

== ENCOUNTER 2024-11-04 12:56 | Outpatient (AMB) | payer MEDICARE, SELFPAY ==
--- NOTE | 2024-11-04 12:57 | A.OFFVIS_ITS ---
Intake Visit Reasons: AFTER TESTING DPN Allergies No Known Allergies Allergy (Verified 09/22/24 11:29) Medication List - Last Reconciled 11/04/24 by Leilani Mayer MD aspirin 81 mg PO QAM atorvastatin 40 mg PO DAILY blood pressure test kit-large As directed blood sugar diagnostic (OneTouch Ultra Test strips) As directed blood-glucose meter (ShipBobTouch Ultra2 Meter) As directed dulaglutide (Trulicity) mg subcut QWEEK dutasteride (Avodart) 0.5 mg PO DAILY empagliflozin-metformin 12.5-1,000 mg ER (Synjardy XR) 1 tab PO BID flash glucose scanning reader (FreeStyle Donaldo 2 [place]) As directed fluticasone propionate 50 mcg/actuation 1 spray intranasal QAM insulin glargine (Lantus Solostar U-100 Insulin) 14 units subcut BID ketorolac 0.5% drps ophthalmic (eye) lancets (ShipBobTouch UltraSoft 2 Lancet) As directed lancets (ShipBobTouch Delica Plus Lancet) As directed mirtazapine 15 mg PO BEDTIME pen needle, diabetic (BD Ultra-Fine Short Pen Needle) As directed HPI Comments Details: This is a 74-year-old man with a 23 year history of type 2 diabetes, and mild hyperlipidemia, who has a one-year history of pain in his feet, particularly on the right, with occasional swelling.? He gets pain most days in the foot with slight pins and needle paresthesia occasionally, but no definite numbness.? He feels his balance is not as good as it used to be before.? He has no complaints in his upper extremities.? He also snores at night and sometimes may stop breathing, so his jabs him with her elbow to wake him up.? His mouth gets very dry.? He also gets some vertigo briefly if he turns very quickly in bed from one side to the other. [facility] Medical History (Updated 11/04/24 @ 13:15 by Leilani Mayer MD) Idiopathic peripheral neuropathy Diabetic peripheral neuropathy MARILYNN (obstructive sleep apnea) Diabetes HTN (hypertension) Aortic stenosis Surgical History Hx of lithotripsy Family History Father No problems noted. Mother No problems noted. Social History Alcohol intake: current Alcohol intake frequency: former alcohol drinker Patient Tobacco Use Status: Former Tobacco user Review of Systems Const Details: Sleep:? Difficulty getting to sleepdenies.? Difficulty maintaining sleepadmits.? Urge to move legsdenies.? Teeth grindingdenies.? Shouting or Kicking during sleep denies.? Abnormal behavior during sleepdenies.? Excessive sleepdenies.? Snoring admits.? Daytime sleepinessdenies. ???General/Constitutional:? Change in appetitedenies.? Chillsdenies.? Fatiguedenies.? Feverdenies.? Weight gaindenies.? Weight lossdenies. ???Ophthalmologic:? Blurred visiondenies.? Diminished visual acuitydenies. ???ENT:? Stuffinessdenies.? Decreased hearingdenies.? Dry mouthdenies.? Ear paindenies.? Nosebleeddenies.? Ringing in the earsdenies.? Sinus paindenies.? Sore throat denies.? Swollen glandsdenies. ???Endocrine:? Cold intolerancedenies.? Excessive thirstdenies.? Frequent urinationdenies.? Heat intolerancedenies. ???Respiratory:? Shortness of breathadmits.? Chest paindenies.? Coughdenies. ???Breast:? Breast lumpdenies.? Nipple dischargedenies. ???Cardiovascular:? Chest pain at restdenies.? Chest pain with exertiondenies.? Claudicationdenies .? Dizzinessdenies.? Fluid accumulation in the legsdenies.? Irregular heartbeat denies.? Palpitationsdenies. ???Gastrointestinal:? Abdominal paindenies.? Constipationadmits.? Diarrheadenies.? Difficulty swallowingdenies.? Heartburndenies.? Nauseadenies.? Rectal bleedingdenies. ???Hematology:? Easy bruisingdenies.? Prolonged bleedingdenies. ???Genitourinary:? Frequent urinationadmits.? Urgencydenies.? Incontinenceadmits.? Erectile Dysfunctiondenies. ???Musculoskeletal:? Neck painadmits.? Back painadmits.? Muscle achesdenies.? Painful jointsdenies.? Sciaticadenies.? Weaknessdenies. ???Podiatric:? Difficulty walkingdenies.? Foot numbnessdenies. ???Neurologic:? Difficulty swallowingdenies.? Balance difficultyadmits.? Coordinationnormal.? Difficulty speakingdenies.? Dizzinessadmits.? Faintingdenies.? Gait abnormality denies.? Headachedenies.? Loss of strengthdenies.? Loss of use of extremity denies.? Low back paindenies.? Memory lossdenies.? Seizuresdenies.? Ticsdenies.? Tingling/Numbnessdenies.? Transient loss of visiondenies.? Tremordenies. ???Psychiatric:? Anxietydenies.? Auditory/visual hallucinationsdenies.? Delusionsdenies.? Depressed moodadmits.? Stressorsadmits.? Substance abusedenies.? Suicidal thoughtsdenies. Physical Exam Neuro Other: Neurological: Abnormal neurological findings:??absent ankle reflexes. Decreased vibration in toes.?Mental Status:??alert and oriented X 3,?Normal attention, orientation, memory and affect.?Cranial Nerves:??Pupils are equal, round and reactive to light. Fundoscopy shows normal disc bilaterally. External occular muscles are intact. Visual pablo are full, no ptosis. Face is symmetrical, no facial weakness or droop. Facial sensations are normal. Tongue protrudes in midline. Palate elevates symmetrically. Shoulder shrugging is normal..?Motor Examination:??Normal muscle tone, bulk and strength,?No atrophy or fasciculations,?No drift of the extended upper extremities,?Deep tendon reflexes are 2+ with absent ankle reflexes.?Plantars are flexor?.?Motor Strength:?Proximal Muscles (out of 5):5Distal Muscles (out of 5):5Neck Flexors (out of 5):5Neck Extensors (out of 5):5Deltoid (out of 5):5Biceps (out of 5):5 Triceps (out of 5):5Serratus Anterior (out of 5):5Wrist Extensors (out of 5):5 APB (out of 5):5Finger Spread (out of 5):5Ileopsoas (out of 5):5Quadriceps (out of 5):5Hamstrings (out of 5):5Tibialis Anterior (out of 5):5Peronei (out of 5):5 EDB (out of 5):5Gastrocnemius (out of 5):5Straight Leg Raising:??90 degrees.?Sensory Exam:??As above , Normal light touch, temperature, pinprick, and joint-position sensations?,?Rhomberg sign is absent.?Coordination:??no ataxia,?no titubation,?sjusfu-ib-xzxs, snvv-kllr-xqay test and rapid alternating movements were normal.?Gait Exam:??Within normal limits.?Cerebellar Signs:??Ubsvlv-jn-autp and zzqs-ty-ldto is normal,?no dysdiadochokinesia?.?Extrapyramidal System:??No tremor, rigidity with normal facial expressions,?No bradykinesia, no bradyphrenia. Normal arm swing and posture. No propulsion or retropulsion.?Speech:??Normal,?no dysphasia or dysarthria..? Mini Mental Status Exam: Level of Consciousness:??Alert.?Orientation:??Knows correct year, month, date, day and season,?Knows correct city, county and state. Knows correct location and floor.?Registration:??Able to register 3 objects.?Attention:??Serial 7's performed accurately.?Recall:??Able to recall 3 out of 3 objects.?Language:??Normal spontaneous speech, fluency, repetition,naming, comprehension, reading and writing.?Total Score:??30/30.? General Examination: GENERAL APPEARANCE:??normal,?in no acute distress.?HEAD:??normocephalic,?atraumatic.?EYES:??sclera non- icteric,?conjunctiva clear.?EARS:??auditory canal clear,?tympanic membrane intact, clear.?NOSE:??no lesions.?ORAL CAVITY:??gums normal,?mucosa moist,?no lesions.?THROAT:??clear.?NECK/THYROID:??no cervical lymphadenopathy,?thyroid normal,?neck supple, full range of motion,?no carotid bruit.?SKIN:??no rashes,?no significant birthmarks.?HEART:??S1, S2 normal,?no murmurs.?LUNGS:??clear anteriorly and posteriorly.?CHEST:??no gross rib deformity,?clear to auscultation.?BACK:??normal exam of spine.?EXTREMITIES:??no edema.?PERIPHERAL PULSES:??normal.?PSYCH:??alert, oriented,?cognitive function intact,?cooperative with exam Results Reviewed Results Reviewed: 09/23/24 NCV/EMG LE: Moderately severe diffuse sensory greater than motor axonal peripheral neuropathy in the lower extremities. There is no significant change since the last study of February 2024. EMG of the left L4-S1 innervated muscles is consistent with chronic distal neuropathic changes. Assessment & Plan Assessment & Plan (1) Diabetic peripheral neuropathy: Comment: Not in any significant pain or discomfort. Code(s): E11.42 - Type 2 diabetes mellitus with diabetic polyneuropathy Category: Medical (2) MARILYNN (obstructive sleep apnea): Comment: Sleep study not done Code(s): G47.33 - Obstructive sleep apnea (adult) (pediatric) Category: Medical Plan Better sugar control. Walk for exercise. Reschedule home sleep study for MARILYNN Orders: Orders RT home sleep study Today G47.33 - Obstructive sleep apnea (adult) (pediatric) Coding Level of Care Code Est Pt Level 4 (84892) Diagnoses Diabetic peripheral neuropathy E11.42 MARILYNN (obstructive sleep apnea) G47.33
--- OUTSIDE RECORDS SUMMARY | 2024-11-04 15:22 | XMS_ITS | Clinical Summary ---
Author Organization [facility] Address [address] [place] [address] Care Team Providers Care Surveying Teacher Name Role Phone Mirian Thompson Primary Care Provider [phone] Jasen Gomez PharmD Unavailable [phone] Casper Márquez MD Unavailable [phone] Allergies No known active allergies Medications B-D ULTRAFINE III SHORT PEN 31G X 8 MM [facility] [place] 023 Active albuterol 108 (90 Base) MCG/ACT inhaler Inhale 2 puffs every 6 (six) hours if needed. From admission summer 2022, no known dx of asthma or COPD Active Blood Glucose Monitoring Suppl (ONE TOUCH ULTRA 2) w/Device kitIndications:Ty pe 2 diabetes mellitus with hyperlipidemia (CMS/HCC) ([facility]) Use to test blood sugar 2 times daily 1 kit 024 Active Lancets (OneTouch Delica Plus [id number]) [facility] [place] TEST BLOOD SUGAR TWICE DAILY DIRECTED 024 Active fluticasone (Flonase) 50 MCG/ACT nasal sprayIndications: Cough in adult patient Administer 2 sprays into each nostril Once per day. 16 g 2 024 Active atorvastatin (Lipitor) 40 MG tabletIndications :Type 2 diabetes mellitus with hyperlipidemia (CMS/HCC) ([facility]) TAKE 1 TABLET BY MOUTH EVERY DAY 90 tablet 3 024 Active ciclopirox (Loprox) 0.77 % cream Apply 1 Application topically 2 times daily. Active dutasteride (Avodart) 0.5 MG capsule Take 1 capsule by mouth Once per day. 024 Active Mouthwashes (Biotene Dry Mouth) liquidIndications :Dry mouth Use 30 mL in the mouth or throat if needed in the morning and at bedtime (dry mouth). 1000 mL 2 025 Active triamcinolone (Kenalog) 0.1 % creamIndications: Rash Apply topically 2 times daily. For 2 weeks to R hand 30 g 1 025 Active glucose blood (FreeStyle Precision Hans Test) test stripIndications: Type 2 diabetes mellitus with hyperlipidemia (CMS/HCC) ([facility]) USE TO TEST BLOOD SUGAR THREE TIMES A DAY 100 each 12 025 Active Aspirin Low Dose 81 MG EC tablet TAKE 1 TABLET BY MOUTH EVERY MORNING 30 tablet 11 025 Active amLODIPine (Norvasc) 5 MG tabletIndications :Benign essential HTN TAKE 1 TABLET BY MOUTH EVERY DAY 90 tablet 1 025 Active Toviaz 4 MG 24 hr tablet Take 1 tablet by mouth Once per day. 025 Active empagliflozin-met FORMIN ER (Synjardy XR) 12.5-1000 MG 24 hr tabletIndications :Type 2 diabetes mellitus with hyperlipidemia (CMS/HCC) ([facility]) Take 1 tablet by mouth twice daily 60 tablet 5 025 Active telmisartan (Micardis) 40 MG tabletIndications :Benign essential HTN Take 1 tablet (40 mg) by mouth Once per day. 90 tablet 1 025 Active insulin glargine (Lantus SoloStar) 100 UNIT/ML penIndications:Ty pe 2 diabetes mellitus with hyperlipidemia (CMS/HCC) ([facility]) Inject 14 units subcutaneously once daily 15 mL 5 025 Active mirtazapine (Remeron) 15 MG tabletIndications :Difficulty sleeping TAKE 1 TABLET BY MOUTH AT BEDTIME 30 tablet 2 025 Active Dulaglutide (Trulicity) 3 MG/0.5ML solution auto-injectorIndi cations:Type 2 diabetes mellitus with hyperlipidemia (CMS/HCC) ([facility]) Inject 3 mg under the skin 1 (one) time per week. 2 mL 3 025 Active senna-docusate sodium (Senokot-S) 8.6-50 MG tabletIndications :Drug-induced constipation 1-2 tabs once or twice daily as needed for constipation 90 tablet 1 Active Continuous Glucose Talent Agent (FreeStyle Donaldo 3 [place]) deviceIndications :Type 2 diabetes mellitus with hyperlipidemia (CMS/HCC) ([facility]) 1 each Once per day. Use as directed for CGM 1 each Active Continuous Glucose Sensor (FreeStyle Donaldo 3 Plus Sensor) miscIndications:T ype 2 diabetes mellitus with hyperlipidemia (CMS/HCC) ([facility]) 1 each every 15 days. Apply 1 every 15 days as directed for CGM 2 each Active clotrimazole (Lotrimin) 1 % creamIndications: Balanitis Apply topically 2 times daily for 28 days. 60 g 1 025 2024 Active Continuous Glucose Talent Agent (FreeStyle Donaldo 2 [place]) deviceIndications :Type 2 diabetes mellitus with hyperlipidemia ([facility]/HCC) ([facility]) Scan sensor every 8 hours 1 each 024 2024 Discontinued Continuous Glucose Sensor (FreeStyle Donaldo 2 Sensor) miscIndications:T ype 2 diabetes mellitus with hyperlipidemia ([facility]/HCC) ([facility]) Apply 1 sensor every 14 days 2 each 024 2024 Discontinued amoxicillin-clavu lanate (Augmentin) 875-125 MG tablet Take 1 tablet by mouth 2 times daily for 7 days. 14 tablet 025 2024 Active Problems Problem Noted Date Diagnosed Date [...] 09/2020, 09/2023 Pt has bachelor's degree. Bilingual Greek and Citizen Of [place]. Depression 04/24/2023 Type 2 diabetes mellitus with [...] Description 10/29/2024 11:00 AM EDT Office Visit [facility] [address] [place] [address] Mirian Thompson, ZOHAIB Type 2 diabetes mellitus with hyperlipidemia (CMS/HCC) (CMS/HCC) (Primary Dx); Peripheral axonal neuropathy; Hypertension associated with diabetes (CMS/HCC); Type 2 diabetes mellitus with diabetic nephropathy, with long-term current use of insulin (CMS/HCC); Drug-induced constipation; Balanitis; Screening for malignant neoplasm of colon 10/29/2024 Refill [facility] [address] [place] [phone] Mirian Thompson ANP Drug-induced constipation 10/29/2024 Travel 10/28/[address] [address] Mirian Thompson ANP chart prep 10/02/2024 1:20 PM EDT Office Visit [facility] [address] [place] [id number] Lobo Santo MD Left maxillary sinusitis (Primary Dx); Pain of maxillary sinus 10/02/2024 Travel 09/17/2024 Orders Only [address] [address] Brad Wooten MD Type 2 diabetes mellitus with hyperlipidemia (CMS/HCC) (CMS/HCC) (Primary Dx) 09/17/[address] [address] Mirian Thompson ANP 09/17/2024 Travel 08/27/2024 Orders Only GENERIC EXTERNAL DATA DEPARTMENT Provider, Generic External Data 08/07/2024 11:30 AM EDT Clinical Support [address] [address] Cris Wheat, RN Type 2 diabetes mellitus with hyperlipidemia (CMS/HCC) (CMS/HCC) 08/06/2024 10:00 AM EDT Office Visit [address] [address] Mirian Thompson ANP Type 2 diabetes mellitus with hyperlipidemia (CMS/HCC) (CMS/HCC) (Primary Dx); Peripheral axonal neuropathy; Benign essential HTN; Hypertension associated with diabetes (CMS/HCC); Aortic valve stenosis, etiology of cardiac valve disease unspecified; Continuous urine leakage; Benign prostatic hyperplasia with urinary frequency 08/06/2024 Travel 08/05/[address] [address] Dolores Mcelroy MA Chart Prep 08/04/2024 Orders Only GENERIC EXTERNAL DATA DEPARTMENT Provider, Generic External Data from Last 3 Months Immunizations Immunization Administration [...] with others, in a hotel, in a fdc, living outside on the street, on a [...] Description 12/10/2024 10:00 AM EDT Medication Management [facility] [address] [place] [address] Jasen Gomez, PharmD [address] [place] [address] Health Maintenance Due Date Last Done Comments [...] 01/31/2022, Additional history exists Diabetes: Hemoglobin A1C 11/06/2024 025, 06/26/2024, 04/07/2024, Additional history exists SDOH Screening 12/15/2024 12/16/2023 Alcohol/Substance Use Screening 12/23/2024 12/24/2023 Depression Screening 12/23/2024 12/24/2023, 11/09/19 23 Lipid Panel 05/26/2025 05/26/2024, 07/0 02/2023, 11/21/2022 Tobacco Screening 10/29/2025 10/29/2024 DTaP/Tdap/Td Vaccines (2 - Td or Tdap) [...] Type 2 diabetes mellitus with hyperlipidemia (CMS/HCC) ([facility]) POCT GLUCOSE Routine 08/06/2024 10:17 AM EDT Type 2 diabetes mellitus with hyperlipidemia (CMS/HCC) ([facility]) URINALYSIS, COMPLETE Routine 08/04/2024 9:51 AM EDT LIPID PANEL, STANDARD Routine 05/26/2024 10:28 AM EDT Type 2 diabetes mellitus with hyperlipidemia (CMS/HCC) ([facility]) from Last 3 Months or Most Recently Relevant to Health Maintenance Results * (ABNORMAL) Basic Metabolic Panel (08/27/2024 8:57 AM EDT) Sodium 142 135 - 145 mmol/L [facility] Potassium 4.7 3.3 - 5.1 mmol/L [facility] Chloride 108 96 - 108 mmol/L [facility] Carbon Dioxide 28 22 - 29 mmol/L [facility] Anion Gap 11(L) 12 - 20 [facility] Urea Nitrogen (BUN) 27(H) 9 - 16 mg/dL [facility] Creatinine, Serum 1.12 0.5 - 1.4 mg/dL [facility] Estimated Glomerular Filt Rate >60 [facility] Comment:Chronic Kidney Disea se: Estimated GFR < 60 mL/min/[id number] Kidney Disease: Estimated GFR < 15 mL/min/1.73m2 Glucose 134(H) 60 - 115 mg/dL [facility] Calcium 8.9 8.4 - 10.2 mg/dL [facility] 08/27/2024 8:57 AM EDT 08/27/2024 8:57 AM EDT Generic External Data Provider LAB BLOOD ORDERAB LES Final Result [facility] [address] [place] [phone] * (ABNORMAL) POCT HGB A1C (08/06/2024 10:17 AM EDT) Hemoglobin A1C 7.2(A) 4.0 - 6.0 % QC Media Lot # [id number] Lot# Expiration Date Blood 08/06/2024 10:1 7 AM EDT Mirian Thompson ANP POINT OF CARE TEST ENTER/EDIT OR DERABLES Final Result * (ABNORMAL) POCT Glucose (08/06/2024 10:17 AM EDT) Pathologist [facility] Glucose Blood, POC 237(A) 60 - 200 mg/dL Comment:Random QC Media Lot # [id number] Lot# Expiration Date Blood Capillary blood specimen / Unknown 08/06/2024 10:17 AM EDT Mirian Thompson ANP POINT OF CARE TEST ENTER/EDIT OR DERABLES Final Result * (ABNORMAL) Urinalysis Complete (08/04/2024 9:51 AM EDT) Color Urine Yellow [facility] Appearance Urine Clear [facility] PH 5.5 5.0 - 9.0 [facility] Glucose Urine UA >=1000(A) Negative mg/dL [facility] Urine Blood Negative Negative [facility] Specific [place] - Urine >=1.030(H) 1.005 - 1.025 [facility] Urine Protein 30 (1+)(A) Neg-Trace mg/dL [facility] Urine Ketones Negative Negative mg/dL [facility] Nitrite Urine Negative Negative [facility] Leukocyte Esterase Urine Negative Negative [facility] RBC Urine 0-2 0 - 2 /HPF [facility] Urine WBC 0-5 0 - 5 /HPF [facility] Urine Squamous Epithelial Cell 0-2 0 - 2 /HPF [facility] Urine Bacteria None Seen None Seen [facility] Hyaline Casts, Urine 0-2 0 - 2 /LPF [facility] 08/04/2024 9:51 AM EDT 08/04/2024 10:43 AM EDT us Generic External Data Provider LAB URINE ORDERAB LES Final Result [facility] [address] [place] [phone] [phone] * (ABNORMAL) Lipid Panel, Standard (05/26/2024 10:28 AM EDT) Triglycerides 110 <150 mg/dL [facility] Comment:Desirable Triglyceri de: less than 150 mg/dLBorderline High Triglyceride 150-199 mg/dLHigh Triglyceride: 200-499 mg/dLVery High Triglyceride: greater than or equal to 5OO mg/dL Cholesterol 135 <200 mg/dL [facility] Comment:Desirable Cholestero l: less than 200 mg/dLBorderline High Cholesterol: 200-239 mg/dLHigh Cholesterol: greater than 239 mg/dL LDL Cholesterol Calculated 84 <100 mg/dL [facility] Comment:Desirable LDL: less than 100 mg/dLNear Optimal/Above Optimal LDL: 110- 129 mg/dLBorderline High LDL: 130-159 mg/dLHigh LDL: 160-189 mg/dLVery High LDL: greater than or equal to 190 mg/dL HDL Cholesterol 29(L) >40 mg/dL [facility] Comment:Desirable HDL: great er than 40 mg/dL Note: This HDL assay may give artificially low results in patients with liver disease. Blood Venous blood specimen / Unknown 05/26/2024 10:28 AM EDT 05/26/2024 11:09 AM EDT Mirian PENNY LAB BLOOD ORDERABLES Final Resul t [facility] [address] [place] [address] [phone] from Last 3 Months or Most Recently Relevant to Health Maintenance Insurance [facility] [employer] H[employer] Care Teams Surveying Teacher Relationship Specialty Start Date End Date Mirian Thompson ANP [address] [place] [address] PCP - General Family Medicine 11/08/22 Jasen Gomez, ErumD [address] [place] [address] Pharmacist Internal Medicine 08/02/23 Casper Márquez MD [address] [facility] [address] [place] [address] Nephrology 08/06/24
--- OUTSIDE RECORDS SUMMARY | 2024-11-04 15:22 | XMS_ITS | Encounter Summary ---
Author Organization [facility] Address [address] [place] [address] Care Team Providers Care It Admin Name Role Phone Mirian Thompson Primary Care Provider [phone] Jasen Gomez PharmD Unavailable [phone] Casper Márquez MD Unavailable [phone] Encounter Details Date Type Department Care Team (Late st Contact Info) Description 02/18/2024 Telephone [facility] [address] [place], [place] [phone] Mirian Thompson ANP [address] [place], [place] [phone] Social History Tobacco Use Types Packs/Day Years [...] with others, in a hotel, in a jail, living outside on the street, on a [...] Description 12/10/2024 10:00 AM EDT Medication Management [facility] [address] [place] [phone] Jasen Gomez PharmD [address] [place] [address] documented as of this encounter Goals Goal [...] documented as of this encounter Care Teams It Admin Relationship Specialty Start Date End Date Mirian Thompson ANP [address] [place] [address] PCP - General Family Medicine 11/08/22 Jasen Gomez, PharmD [address] [place] [address] Pharmacist Internal Medicine 08/02/23 Casper Márquez MD [address] [facility] [address] [place] [address] Nephrology 08/06/24 documented as of this encounter
--- OUTSIDE RECORDS SUMMARY | 2024-11-04 15:22 | XMS_ITS | Encounter Summary ---
Author Organization [email or web address] Address [address] [place] [address] 7t [place] [address] Care Team Providers Care Aircraft Dispatcher Name Role Phone Mirian Thompson Primary Care Provider [phone] Jasen Gomez PharmD Unavailable [phone] Casper Márquez MD Unavailable [phone] Reason for Visit * Reason Comments Med Refill Encounter Details Date Type Department Care Team (Late st Contact Info) Description 10/29/2024 Refill [facility] MED[facility]INE [address] [place], [place] [phone] Mirian Thompson ANP [address] [place], [place] [phone] Drug-induced constipation Social History Tobacco Use Types Packs/Day Years [...] Description 12/10/2024 10:00 AM EDT Medication Management [facility]INE [address] [place] [address] Jasen Gomez PharmD [address] [place] [address] documented as of this encounter Goals Goal Patient Goal Type Associated Problems Recent Progress Patient-Stated? Author Blood Pressure < 140/90 Blood Pressure 120/70(2024 10:53 AM EDT) No Jasen Gomez PharmD Hemoglobin A1c < 7 Result Component 7.2( 10:17 AM EDT) No Jasen Gomez PharmD documented as of this encounter Visit Diagnoses Diagnosis Drug-induced constipation Other constipation documented in this encounter Additional Health Concerns Assessment Noted Time PHQ-9 Depression Total Score: 0 11/09/19 23 10:59 AM EDT documented as of this encounter Care Teams Aircraft Dispatcher Relationship Specialty Start Date End Date Mirian Thompson ANP [address] [place] [address] PCP - General Family Medicine 11/08/22 Jasen Gomez PharmD [address] [place] [address] Pharmacist Internal Medicine 08/02/23 Casper Márquez MD [address] [address] Nephrology 08/06/24 documented as of this encounter
--- OUTSIDE RECORDS SUMMARY | 2024-11-04 15:22 | XMS_ITS | Encounter Summary ---
Author Organization [employer] Address [address] [facility] 7t [place] [address] Care Team Providers Care Game Producer Name Role Phone Mirian Thompson Primary Care Provider [phone] Jasen Gomez PharmD Unavailable [phone] Casper Márquez MD Unavailable [phone] Encounter Details Date Type Department Care Team (Late st Contact Info) Description 09/17/2024 Telephone [facility]INE [address] [place], [place] [phone] Mirian Thompson ANP [address] [place], [place] [phone] Social History Tobacco Use Types Packs/Day Years [...] others, in a hotel, in a senior living, living outside on the street, on a [...] Description 12/10/2024 10:00 AM EDT Medication Management [facility] MEDICINE [address] [place] [address] Jasen Gomez PharmD [address] [place] [address] documented as of this encounter Goals Goal [...] documented as of this encounter Care Teams Game Producer Relationship Specialty Start Date End Date Mirian Thompson ANP [address] [place] [address] PCP - General Family Medicine 11/08/22 Jasen Gomez PharmD [address] [place] [address] Pharmacist Internal Medicine 08/02/23 Casper Márquez MD 100 [facility] 200 [place] [address] Nephrology 08/06/24 documented as of this encounter
--- OUTSIDE RECORDS SUMMARY | 2024-11-04 15:22 | XMS_ITS | Encounter Summary ---
Author Organization [employer] Address [address] [facility] 7t [place] [address] Care Team Providers Care Hvac Commercial Salesperson Name Role Phone Mirian Thompson Primary Care Provider [phone] Jasen Gomez PharmD Unavailable [phone] Casper Márquez MD Unavailable [phone] Encounter Details Date Type Department Care Team (Late st Contact Info) Description 04/25/2023 Orders Only [facility] MEDICINE [address] [place], [place] [phone] Mirian Thompson ANP [address] [place], [place] [phone] Social History Tobacco Use Types Packs/Day Years [...] 10:00 AM EDT Medication Management [facility] MEDICINE [address] [place] [address] Jasen Gomez, PharmD [address] [place] [address] documented as of this encounter Visit Diagnoses Not on filedocumented in this encounter Additional Health Concerns Assessment Noted Time PHQ-9 Depression Total Score: 0 11/09/19 23 10:59 AM EDT documented as of this encounter Care Teams Hvac Commercial Salesperson Relationship Specialty Start Date End Date Mirian Thompson ANP [address] [place] [address] PCP - General Family Medicine 11/08/22 Jasen Gomez, PharmD [address] [place] [address] Pharmacist Internal Medicine 08/02/23 Casper Márquez MD [address] [facility] 200 [place] [address] Nephrology 08/06/24 documented as of this encounter
--- OUTSIDE RECORDS SUMMARY | 2024-11-04 15:22 | XMS_ITS | Encounter Summary ---
Author Organization [employer] Address [address] [place] [address] 7t [place] [address] Care Team Providers Care Chart Snatcher Name Role Phone Mirian Thompson Primary Care Provider [phone] Jasen Gomez PharmD Unavailable [phone] Casper Márquez MD Unavailable [phone] Reason for Visit * Reason Comments Med Refill Encounter Details Date Type Department Care Team (Late st Contact Info) Description 07/14/2024 Refill [facility] [address] [place], [place] [phone] Mirina Thompson ANP [address] [place], [place] [phone] Rash Social History Tobacco Use Types Packs/Day [...] Description 12/10/2024 10:00 AM EDT Medication Management [facility] [address] [place] [address] Jasen Gomez PharmD [address] [place] [address] documented as of this encounter Goals Goal [...] documented as of this encounter Care Teams Chart Snatcher Relationship Specialty Start Date End Date Mirian Thompson ANP [address] [place] [address] PCP - General Family Medicine 11/08/22 Jasen Gomez PharmD [address] [place] [address] Pharmacist Internal Medicine 08/02/23 Casper Márquez MD 100 [facility] 200 [place] [address] Nephrology 08/06/24 documented as of this encounter
--- OUTSIDE RECORDS SUMMARY | 2024-11-04 15:22 | XMS_ITS | Encounter Summary ---
Author Organization [employer] Address [address] [place] [address] 7t [place] [address] Care Team Providers Care Staffing Administrator Name Role Phone Mirian Thompson Primary Care Provider [phone] Jasen Gomez PharmD Unavailable [phone] Casper Márquez MD Unavailable [phone] Reason for Visit * Reason Onset Date Comments New Patient 11/06/2022 Encounter Details Date Type Department Care Team (Late st Contact Info) Description 11/06/2022 Telephone [facility] MEDICINE [address] [place], [place] [phone] Brad Wooten MD [address] [place], [place] [phone] New Patient Social History Tobacco Use Types [...] PAR Aura Rodas called pt to Offer [facility] appt. Pt demographics and insurance information were verified. Pt reports the following medical conditions: Diabetic, Cholesterol. Pt is currently taking medication: Metformin, Lantuss, Atorvastatin, Lisinopril. Pt given [facility] appt with Dr. Thompson on 11/08/2022@ 10:30 am Pt will be sent appt reminder card and medical release form and agrees to complete and to return to medical records prior to [facility] appt. * Telephone Encounter - Aura Lagos - 11/06/2022 3:10 PM EDT Pt has been transfer over to wait list for [facility]. EFFECTIVE SINCE 10/01/2022 documented in this encounter Plan of Treatment Upcoming Encounters Date Type Department Care Team (Late st Contact Info) Description 12/10/2024 10:00 AM EDT Medication Management [facility] MEDICINE [address] [place] [address] Jasen Gomez, Lisa [address] [place] [address] documented as of this encounter Visit Diagnoses Not on filedocumented in this encounter Care Teams Staffing Administrator Relationship Specialty Start Date End Date Mirian Thompson ANP [address] [place] [address] PCP - General Family Medicine 11/08/22 Jasen Gomez, PharmD [address] [place] [address] Pharmacist Internal Medicine 08/02/23 Casper Márquez MD [address] [id number] Nephrology 08/06/24 documented as of this encounter
== END 2024-11-04 13:20 | disposition home or self-care (01) ==
LOC: HO.HSM 12:56
PROVIDERS: PCP Internal Medicine; Visit Provider Psychiatry & Neurology Neurology
DX: E11.42 Type 2 diabetes mellitus with diabetic polyneuropathy (principal); G47.33 Obstructive sleep apnea (adult) (pediatric)
CPT/HCPCS: 99214

== ENCOUNTER → 2024-11-04 12:56 | Outpatient (BNVA) | payer MEDICARE, SELFPAY | PROVIDERS: PCP Internal Medicine; Visit Provider Psychiatry & Neurology Neurology | DX: E11.42 Type 2 diabetes mellitus with diabetic polyneuropathy (principal); Z79.4 Long term (current) use of insulin; G47.33 Obstructive sleep apnea (adult) (pediatric); Z79.82 Long term (current) use of aspirin; R06.83 Snoring; I10 Essential (primary) hypertension; Z87.891 Personal history of nicotine dependence; R35.0 Frequency of micturition | CPT/HCPCS: 99212 ==

== ENCOUNTER 2024-11-20 11:29 | Outpatient (AMB) | payer MEDICARE, SELFPAY ==
--- NOTE | 2024-11-20 11:36 | MHC.OFFVIS ---
Intake Visit Reasons: PSA f/u Intake Note: Patient is present for a follow up/PSA 10/29 PSA: 0.74 Urology Med: Tamsulosin Antibiotic Allergy: None Blood Thinner: Aspirin PVR:99ml Batch Trucker Required: Yes Batch Trucker Name: Rigoberto [id number] Accompanied by: Self / Same As Patient Allergies No Known Allergies Allergy (Verified 11/20/24 11:36) Medication List - Last Reconciled 11/20/24 by Myke Cespedes MD aspirin 81 mg PO QAM atorvastatin 40 mg PO DAILY blood pressure test kit-large As directed blood sugar diagnostic (OneTouch Ultra Test strips) As directed blood-glucose meter (PiperTouch Ultra2 Meter) As directed dulaglutide (Trulicity) mg subcut QWEEK dutasteride (Avodart) 0.5 mg PO DAILY empagliflozin-metformin 12.5-1,000 mg ER (Synjardy XR) 1 tab PO BID flash glucose scanning reader ([employer] [employer] Donaldo 2 Snyder) As directed fluticasone propionate 50 mcg/actuation 1 spray intranasal QAM insulin glargine (Lantus Solostar U-100 Insulin) 14 units subcut BID ketorolac 0.5% drps ophthalmic (eye) lancets (OneTouch UltraSoft 2 Lancet) As directed lancets (OneTouch Delica Plus Lancet) As directed mirtazapine 15 mg PO BEDTIME pen needle, diabetic (BD Ultra-Fine Short Pen Needle) As directed solifenacin (Vesicare) 5 mg PO DAILY HPI Comments Details: 11/20/24--Barney is a 74-year-old male followed for BPH management. Currently on dutasteride. He was prescribed Toviaz 4 mg daily for bladder urgency. bladder scan PVR 99 mm PSA 10/29/24. History of Present Illness The patient is a 74-year-old male presenting with Benign Prostatic Hyperplasia (BPH). He is prescribed dutasteride and Toviaz 4 mg daily for management. The patient reports ongoing issues with urinary urgency and frequent urination. He did not notice significant improvement with the medication regimen over the past month, possibly due to insufficient duration of treatment. There were issues with medication coverage, he was to use the Toviaz for 30 days in the insurance reason. Plan to change prescription to Vesicare 5 mg. Results - Bladder scan: Post-void residual of 99 mL - PSA level: 0.74 as of October 29, 2024 Plan 1. Benign Prostatic Hyperplasia (Bph) 2. Overactive bladder symptoms/urgency/nocturia - Continue dutasteride for BPH management. - Initiate Vesicare 5 mg for urinary symptoms, with a follow-up in one month to assess efficacy. - Monitor PSA levels and urinary symptoms. 05/11/24--The patient is a 74-year-old male presenting for follow-up on benign prostatic hyperplasia management and urinary symptoms. He has been receiving treatment with tamsulosin and dutasteride following a renal ultrasound that estimated his prostate volume to be over 80 mL. The patient reports urinary urgency, with a sense of compelling need to void promptly, often resulting in the urgency to flores to the bathroom to prevent urinary incontinence. He also experiences post-micturition dribbling due to his prostate condition and acknowledges episodes of retrograde ejaculation as a side effect of tamsulosin which is bothersome to him. We agreed to discontinue tamsulosin due to these bothersome side effects and plan to continue dutasteride. In discussion a new medication, Toviaz 4 mg daily, was prescribed to manage overactive bladder symptoms, particularly increasing urinary urgency and frequency. Urinary Symptoms Review - Urinary urgency with frequent urges to void necessitating a flores to the bathroom - Post-micturition dribbling - Retrograde ejaculation during sexual activity due to tamsulosin Results - Renal ultrasound revealing prostate volume over 80 mL 01/16/24--Barney is here for follow-up, he is on tamsulosin for BPH symptoms he had ultrasound retroperitoneal on 12/06/2023, right kidney simple cyst, estimated prostate volume 83.3. Continue tamsulosin. Add Avodart. Follow-up in 4 months 06/21/23--Fermín is here for follow-up. He was initially evaluated on 05/01/2023 for enlarged prostate. The patient had the renal ultrasound done earlier today and official radiology boring machine operator horizontal is not completed as yet. He states that he has seen Nephrology for proteinuria and has further testing pending. Will hold on cystoscopy at this time. Continue tamsulosin. 05/01/23---Fermín is a 73-year-old male who is here for evaluation due to enlarged prostate. Patient complains of postvoid dribbling. Nocturia 3-4 times at night. He denies gross hematuria. He has been on tamsulosin for about 7 months he mentions symptoms consistent with retrograde ejaculation which I explained is likely from the tamsulosin. Bladder scan PVR 64 mL, Urinalysis proteinuria, review of chart PSA 11/21/22---0.99 ng/mL Plan- referral to Nephrology for proteinuria. 06/21/2023--continue tamsulosin. Hold on office cystoscopy today. [facility] Medical History Idiopathic peripheral neuropathy Diabetic peripheral neuropathy MARILYNN (obstructive sleep apnea) Diabetes HTN (hypertension) Aortic stenosis Surgical History Hx of lithotripsy Family History Father No problems noted. Mother No problems noted. Social History Alcohol intake: current Alcohol intake frequency: former alcohol drinker Patient Tobacco Use Status: Former Tobacco user Review of Systems Const All systems reviewed & are unremarkable except as noted in HPI and below Reports no additional complaints Eyes Reports no additional complaints ENT Reports no additional complaints Card Reports no additional complaints Resp Reports no additional complaints GI Reports no additional complaints Reports as per HPI Musc Reports no additional complaints Skin/Breast Reports system reviewed and no additional complaints, except as documented Neuro Reports no additional complaints Psych Reports no additional complaints Endo Reports no additional complaints Tico/Lymph Reports no additional complaints Aller/Immun Reports no additional complaints Assessment & Plan Assessment & Plan (1) Diabetic peripheral neuropathy: Code(s): E11.42 - Type 2 diabetes mellitus with diabetic polyneuropathy Category: Medical (2) BPH loc w urin obs/LUTS: Code(s): N40.1 - Benign prostatic hyperplasia with lower urinary tract symptoms Category: Medical (3) Nocturia: Code(s): R35.1 - Nocturia Category: Medical Plan Plan 1. Benign Prostatic Hyperplasia (Bph) 2. Overactive bladder symptoms/urgency/nocturia 3. Diabetic neuropathy-comorbidity - Continue dutasteride for BPH management. - Initiate Vesicare 5 mg for urinary symptoms, with a follow-up in one month to assess efficacy. - Monitor PSA levels - follow-up in 4-5 weeks to re-evaluate efficacy VESIcare for urinary symptoms. Medications: New solifenacin (Vesicare) 5 mg PO DAILY 30 tabs 3RF Refilled dutasteride (Avodart) 0.5 mg PO DAILY 90 caps 3RF Patient Instructions: The patient had an opportunity to ask questions regarding treatment plan. The patient expressed understanding and agreement with the above treatment plan. The patient is aware they should contact our office by phone for worsening of their current condition or the appearance of new symptoms. Compliance is encouraged with any medications and followup testing that is ordered. It is a privilege to be allowed the opportunity to participate in the urologic care of your patient. If you have any questions or concerns regarding treatment for the above conditions please do not hesitate to contact me. The office telephone contact is [phone]. This note is constructed in part using voice recognition software. While every effort has been made to ensure accuracy boring machine operator horizontal errors may have been included. Yours sincerely, Myke Cespedes MD Scribe Plan - Not visible on output: Patient was informed and verbally consented to the use of an ambient scribe for clinic note documentation during this visit. Coding Level of Care Code Est Pt Level 4 (34887) Complex EM visit Add On G2211 Diagnoses Diabetic peripheral neuropathy E11.42 BPH loc w urin obs/LUTS N40.1 Nocturia R35.1
== END 2024-11-20 12:23 | disposition home or self-care (01) ==
LOC: HO.HUSH 11:29
PROVIDERS: PCP Nurse Practitioner Primary Care; Visit Provider Urology
DX: E11.42 Type 2 diabetes mellitus with diabetic polyneuropathy (principal); N40.1 Benign prostatic hyperplasia with lower urinary tract symptoms; R35.1 Nocturia; Z13.9 Encounter for screening, unspecified
CPT/HCPCS: 99214; G2211

== ENCOUNTER → 2024-11-20 11:29 | Outpatient (BNVA) | payer MEDICARE, SELFPAY | PROVIDERS: PCP Nurse Practitioner Primary Care; Visit Provider Urology | DX: N40.1 Benign prostatic hyperplasia with lower urinary tract symptoms (principal); R35.1 Nocturia; E11.42 Type 2 diabetes mellitus with diabetic polyneuropathy | CPT/HCPCS: 51798; 81003; 99212 ==

== ENCOUNTER 2024-12-21 16:03 | Outpatient (AMB) | payer MEDICARE, SELFPAY ==
--- NOTE | 2024-12-21 16:05 | MHC.OFFVIS ---
Intake Visit Reasons: Med review Allergies No Known Allergies Allergy (Verified 01/22/25 11:48) HPI Comments Details: 12/21/24-- History of Present Illness The patient is a 74-year-old male presenting for management of Benign Prostatic Hyperplasia (BPH) and bladder urgency. The patient has been on dutasteride for BPH management. He reports symptoms of bladder urgency, for which he was started on solifenacin (Vesicare) 5 mg daily last month. Despite the medication, the patient continues to experience urgency, with frequency of urination every one and a half to two hours during the day and nocturia. The patient takes solifenacin in the morning. Plan 1. Benign Prostatic Hyperplasia (Bph) - Discontinue dutasteride and switch to finasteride (Proscar). 2. Bladder Urgency - Increase solifenacin (Vesicare) from 5 mg to 10 mg, to be taken at bedtime. - Initiate tamsulosin at bedtime. - Follow-up in three months to assess efficacy of the medication adjustments. 11/20/24--Barney is a 74-year-old male followed for BPH management. Currently on dutasteride. He was prescribed Toviaz 4 mg daily for bladder urgency. bladder scan PVR 99 mm PSA 10/29/24. History of Present Illness The patient is a 74-year-old male presenting with Benign Prostatic Hyperplasia (BPH). He is prescribed dutasteride and Toviaz 4 mg daily for management. The patient reports ongoing issues with urinary urgency and frequent urination. He did not notice significant improvement with the medication regimen over the past month, possibly due to insufficient duration of treatment. There were issues with medication coverage, he was to use the Toviaz for 30 days in the insurance reason. Plan to change prescription to Vesicare 5 mg. Results - Bladder scan: Post-void residual of 99 mL - PSA level: 0.74 as of October 29, 2024 Plan 1. Benign Prostatic Hyperplasia (Bph) 2. Overactive bladder symptoms/urgency/nocturia - Continue dutasteride for BPH management. - Initiate Vesicare 5 mg for urinary symptoms, with a follow-up in one month to assess efficacy. - Monitor PSA levels and urinary symptoms. 05/11/24--The patient is a 74-year-old male presenting for follow-up on benign prostatic hyperplasia management and urinary symptoms. He has been receiving treatment with tamsulosin and dutasteride following a renal ultrasound that estimated his prostate volume to be over 80 mL. The patient reports urinary urgency, with a sense of compelling need to void promptly, often resulting in the urgency to flores to the bathroom to prevent urinary incontinence. He also experiences post-micturition dribbling due to his prostate condition and acknowledges episodes of retrograde ejaculation as a side effect of tamsulosin which is bothersome to him. We agreed to discontinue tamsulosin due to these bothersome side effects and plan to continue dutasteride. In discussion a new medication, Toviaz 4 mg daily, was prescribed to manage overactive bladder symptoms, particularly increasing urinary urgency and frequency. Urinary Symptoms Review - Urinary urgency with frequent urges to void necessitating a flores to the bathroom - Post-micturition dribbling - Retrograde ejaculation during sexual activity due to tamsulosin Results - Renal ultrasound revealing prostate volume over 80 mL 01/16/24--Barney is here for follow-up, he is on tamsulosin for BPH symptoms he had ultrasound retroperitoneal on 12/06/2023, right kidney simple cyst, estimated prostate volume 83.3. Continue tamsulosin. Add Avodart. Follow-up in 4 months 06/21/23--Fermín is here for follow-up. He was initially evaluated on 05/01/2023 for enlarged prostate. The patient had the renal ultrasound done earlier today and official radiology medical transcription is not completed as yet. He states that he has seen Nephrology for proteinuria and has further testing pending. Will hold on cystoscopy at this time. Continue tamsulosin. 05/01/23---Fermín is a 73-year-old male who is here for evaluation due to enlarged prostate. Patient complains of postvoid dribbling. Nocturia 3-4 times at night. He denies gross hematuria. He has been on tamsulosin for about 7 months he mentions symptoms consistent with retrograde ejaculation which I explained is likely from the tamsulosin. Bladder scan PVR 64 mL, Urinalysis proteinuria, review of chart PSA 11/21/22---0.99 ng/mL Plan- referral to Nephrology for proteinuria. 06/21/2023--continue tamsulosin. Hold on office cystoscopy today. [facility] Medical History Idiopathic peripheral neuropathy Diabetic peripheral neuropathy MARILYNN (obstructive sleep apnea) Diabetes HTN (hypertension) Aortic stenosis Surgical History Hx of lithotripsy Family History Father No problems noted. Mother No problems noted. Social History Alcohol intake: current Alcohol intake frequency: former alcohol drinker Patient Tobacco Use Status: Former Tobacco user Review of Systems Const All systems reviewed & are unremarkable except as noted in HPI and below Reports no additional complaints Eyes Reports no additional complaints ENT Reports no additional complaints Card Reports no additional complaints Resp Reports no additional complaints GI Reports no additional complaints Reports as per HPI Musc Reports no additional complaints Skin/Breast Reports system reviewed and no additional complaints, except as documented Neuro Reports no additional complaints Psych Reports no additional complaints Endo Reports no additional complaints Tico/Lymph Reports no additional complaints Aller/Immun Reports no additional complaints Assessment & Plan Assessment & Plan (1) Diabetic peripheral neuropathy: Code(s): E11.42 - Type 2 diabetes mellitus with diabetic polyneuropathy Category: Medical (2) BPH loc w urin obs/LUTS: Code(s): N40.1 - Benign prostatic hyperplasia with lower urinary tract symptoms Category: Medical (3) Nocturia: Code(s): R35.1 - Nocturia Category: Medical (4) Urinary urgency: Code(s): R39.15 - Urgency of urination Category: Medical Plan Plan 1. Benign Prostatic Hyperplasia (Bph) - Discontinue dutasteride and switch to finasteride (Proscar). 2. Bladder Urgency - Increase solifenacin (Vesicare) from 5 mg to 10 mg, to be taken at bedtime. - Initiate tamsulosin at bedtime. - Follow-up in three months to assess efficacy of the medication adjustments. Medications: New tamsulosin (Flomax) 0.4 mg PO BEDTIME 90 caps 3RF finasteride (Proscar) 5 mg PO DAILY 90 tabs 3RF solifenacin (Vesicare) 10 mg PO DAILY 90 tabs 2RF Discontinued dutasteride Discontinued Reason: Doctor's Order 0.5 mg PO DAILY 90 caps 3RF solifenacin Discontinued Reason: Doctor's Order 5 mg PO DAILY 30 tabs 3RF Patient Instructions: The patient had an opportunity to ask questions regarding treatment plan. The patient expressed understanding and agreement with the above treatment plan. The patient is aware they should contact our office by phone for worsening of their current condition or the appearance of new symptoms. Compliance is encouraged with any medications and followup testing that is ordered. It is a privilege to be allowed the opportunity to participate in the urologic care of your patient. If you have any questions or concerns regarding treatment for the above conditions please do not hesitate to contact me. The office telephone contact is [phone]. This note is constructed in part using voice recognition software. While every effort has been made to ensure accuracy medical transcription errors may have been included. Yours sincerely, Myke Cespedes MD Scribe Plan - Not visible on output: Patient was informed and verbally consented to the use of an ambient scribe for clinic note documentation during this visit. Coding Level of Care Code Est Pt Level 4 (13905) Diagnoses Diabetic peripheral neuropathy E11.42 BPH loc w urin obs/LUTS N40.1 Nocturia R35.1 Urinary urgency R39.15
--- NOTE | 2024-12-21 16:05 | MHC.OFFVIS ---
Intake Visit Reasons: Med review Intake Note: Patient is present for a med review follow up/ Urology Med: Tamsulosin Antibiotic Allergy: None Blood Thinner: Aspirin Newspaper Photojournalist Name: Rigoberto [id number] Accompanied by: Self / Same As Patient Allergies No Known Allergies Allergy (Verified 12/21/24 16:05) PFSH Medical History Idiopathic peripheral neuropathy Diabetic peripheral neuropathy MARILYNN (obstructive sleep apnea) Diabetes HTN (hypertension) Aortic stenosis Surgical History Hx of lithotripsy Family History Father No problems noted. Mother No problems noted. Social History Alcohol intake: current Alcohol intake frequency: former alcohol drinker Patient Tobacco Use Status: Former Tobacco user Assessment & Plan Assessment & Plan Medications: New tamsulosin (Flomax) 0.4 mg PO BEDTIME 90 caps 3RF finasteride (Proscar) 5 mg PO DAILY 90 tabs 3RF solifenacin (Vesicare) 10 mg PO DAILY 90 tabs 2RF Discontinued dutasteride (Avodart) Discontinued Reason: Doctor's Order 0.5 mg PO DAILY 90 caps 3RF solifenacin (Vesicare) Discontinued Reason: Doctor's Order 5 mg PO DAILY 30 tabs 3RF Coding
--- OUTSIDE RECORDS SUMMARY | 2024-12-21 17:55 | XMS_ITS | Encounter Summary ---
Author Organization [employer] Address [address] [facility] 7t [place] [address] Care Team Providers Care Team Leader Surgery Name Role Phone Mirian Thompson Primary Care Provider [phone] Jasen Gomez PharmD Unavailable [phone] Casper Márquez MD Unavailable [phone] Encounter Details Date Type Department Care Team (Late st Contact Info) Description 02/18/2024 Telephone [facility] [address] [place], [place] [phone] Mirian Thompson ANP [address] [place], [place] [phone] Social History Tobacco Use Types Packs/Day Years [...] with others, in a hotel, in a mcc, living outside on the street, on a [...] Care Team (Late st Contact Info) Description 01/12/2025 10:15 AM EST Office Visit [facility] [address] [place] [address] Mirian Thompson ANP [address] [place] [address] 02/18/2025 10:00 AM EST Medication Management [facility] [address] [place] [address] Jasen Gomez PharmD [address] [place] [address] documented as of this encounter Goals Goal Patient Goal Type Associated Problems Recent Progress Patient-Stated? Author Blood Pressure < 140/90 Blood Pressure 134/66(2024 11:05 AM EDT) No Jasen Gomez PharmD Hemoglobin A1c < 7 Result Component 7.9( 10:51 AM EDT) No Jasen Gomez PharmD documented as of this encounter Visit Diagnoses Not on filedocumented in this encounter Additional Health Concerns Assessment Noted Time PHQ-9 Depression Total Score: 0 11/09/19 10:59 AM EDT documented as of this encounter Care Teams Team Leader Surgery Relationship Specialty Start Date End Date Mirian Thompson ANP [address] [place] [address] PCP - General Family Medicine 11/08/22 Jasen Gomez, Lisa [address] [place] [address] Pharmacist Internal Medicine 08/02/23 Casper Márquez MD [address] [facility] [address] [place] [address] Nephrology 08/06/24 documented as of this encounter
--- OUTSIDE RECORDS SUMMARY | 2024-12-21 17:55 | XMS_ITS | Encounter Summary ---
Author Organization [employer] Address [address] [place] [address] 7t [place] [address] Care Team Providers Care Inspector Electromechanical Name Role Phone Mirian Thompson Primary Care Provider [phone] Jasen Gomez PharmD Unavailable [phone] Casper Márquez MD Unavailable [phone] Reason for Visit * Reason Comments Med Refill Encounter Details Date Type Department Care Team (Late st Contact Info) Description 10/29/[address] [facility] [address] [place], [place] [phone] Mirian Thompson ANP [address] [place], [place] [phone] Drug-induced constipation Social History Tobacco Use Types [...] with others, in a hotel, in a half-way, living outside on the street, on a [...] Description 01/12/2025 10:15 AM EST Office Visit [address] [address] Mirian Thompson ANP [address] [place] [address] 02/18/2025 10:00 AM EST Medication Management [address] [address] Jasen Gomez PharmD [address] [place] [address] documented as of this encounter Goals Goal Patient Goal Type Associated Problems Recent Progress Patient-Stated? Author Blood Pressure < 140/90 Blood Pressure 134/66(2024 11:05 AM EDT) No Gomez, Jasen, PharmD Hemoglobin A1c < 7 Result Component 7.9( 5 10:51 AM EDT) No aJsen Gomez, Lisa documented as of this encounter Visit Diagnoses Diagnosis Drug-induced constipation Other constipation documented in this encounter Additional Health Concerns Assessment Noted Time PHQ-9 Depression Total Score: 0 11/09/19 23 10:59 AM EDT documented as of this encounter Care Teams Inspector Electromechanical Relationship Specialty Start Date End Date Mirian Thompson ANP [address] [place] [address] PCP - General Family Medicine 11/08/22 Jasen Gomez, PharmD [address] [place] [address] Pharmacist Internal Medicine 08/02/23 Casper Márquez MD 100 [facility] [address] [place] [address] Nephrology 08/06/24 documented as of this encounter
--- OUTSIDE RECORDS SUMMARY | 2024-12-21 17:55 | XMS_ITS | Encounter Summary ---
Author Organization [employer] Address [address] [place] [address] 7t [place] [address] Care Team Providers Care Basket Weaver Name Role Phone Mirian Thompson Primary Care Provider [phone] Jasen Gomez PharmD Unavailable [phone] Casper Márquez MD Unavailable [phone] Reason for Visit * Reason Comments Med Refill Encounter Details Date Type Department Care Team (Late st Contact Info) Description 07/14/2024 Refill [facility] [address] [place], [place] [phone] Mirian Thompson ANP [address] [place], [place] [phone] Rash Social History Tobacco Use Types Packs/Day [...] Description 01/12/2025 10:15 AM EST Office Visit [facility] [address] [place] [address] Mirian Thompson, ZOHAIB [address] [place] [address] 02/18/2025 10:00 AM EST Medication Management [facility] [address] [place] [address] Jasen Gomez, Lisa [address] [place] [address] documented as of this encounter Goals Goal Patient Goal Type Associated Problems Recent Progress Patient-Stated? Author Blood Pressure < 140/90 Blood Pressure 134/66(2024 11:05 AM EDT) No Jasen Gomez, Lisa Hemoglobin A1c < 7 Result Component 7.9( 5 10:51 AM EDT) No Jasen Gomez, Lisa documented as of this encounter Visit Diagnoses Diagnosis Rash Rash and other nonspecific skin eruption documented in this encounter Additional Health Concerns Assessment Noted Time PHQ-9 Depression Total Score: 0 11/09/19 23 10:59 AM EDT documented as of this encounter Care Teams Basket Weaver Relationship Specialty Start Date End Date Mirian Thompson ANP [address] [place] [address] PCP - General Family Medicine 11/08/22 Jasen Gomez, PharmD [address] [place] [address] Pharmacist Internal Medicine 08/02/23 Casper Márquez MD 100 [facility] 200 [place] [address] Nephrology 08/06/24 documented as of this encounter
--- OUTSIDE RECORDS SUMMARY | 2024-12-21 17:55 | XMS_ITS | Encounter Summary ---
Author Organization [employer] Address [address] [facility] 7t [place] [address] Care Team Providers Care Road Oiler Name Role Phone Mirian Thompson Primary Care Provider [phone] Jasen Gomez PharmD Unavailable [phone] Casper Márquez MD Unavailable [phone] Encounter Details Date Type Department Care Team (Late st Contact Info) Description 04/25/2023 Orders Only [facility] [address] [place], [place] [phone] Mirian Thompson ANP [address] [place], [place] [phone] Social History Tobacco Use Types Packs/Day Years [...] Description 01/12/2025 10:15 AM EST Office Visit [address] [address] Mirian Thompson ANP [address] [place] [address] 02/18/2025 10:00 AM EST Medication Management [address] [address] Jasen Gomez PharmD [address] [place] [address] documented as of this encounter Visit Diagnoses Not on filedocumented in this encounter Additional Health Concerns Assessment Noted Time PHQ-9 Depression Total Score: 0 11/09/19 23 10:59 AM EDT documented as of this encounter Care Teams Road Oiler Relationship Specialty Start Date End Date Mirian Thompson ANP [address] [place] [address] PCP - General Family Medicine 11/08/22 Jasen Gomez, ErumD [address] [place] [address] Pharmacist Internal Medicine 08/02/23 Casper Márquez MD 100 [facility] 200 [place] [address] Nephrology 08/06/24 documented as of this encounter
--- OUTSIDE RECORDS SUMMARY | 2024-12-21 17:55 | XMS_ITS | Clinical Summary ---
Author Organization [employer] Address [address] [facility] [address] [place] [address] Care Team Providers Care Real Estate Photographer Name Role Phone Mirian Thompson Primary Care Provider [phone] Jasen Gomez PharmD Unavailable [phone] Casper Márquez MD Unavailable [phone] Allergies No known active allergies Medications B-D ULTRAFINE III SHORT PEN 31G X [facility] Active albuterol 108 (90 Base) MCG/ACT inhaler Inhale 2 puffs every 6 (six) hours if needed. From admission summer 2022, no known dx of asthma or COPD Active Blood Glucose Monitoring Suppl (ONE TOUCH ULTRA 2) w/Device kitIndications:T ype 2 diabetes mellitus with hyperlipidemia (HCC) Use to test blood sugar 2 times daily 1 kit 024 Active Lancets (OneTouch Delica Plus [id number]) [facility] TEST BLOOD SUGAR TWICE DAILY DIRECTED 024 Active fluticasone (Flonase) 50 MCG/ACT nasal sprayIndications :Cough in adult patient Administer 2 sprays into each nostril Once per day. 16 g 2 024 Active atorvastatin (Lipitor) 40 MG tabletIndication s:Type 2 diabetes mellitus with hyperlipidemia (HCC) TAKE 1 TABLET BY MOUTH EVERY DAY [...] (dry mouth). 1000 mL 2 025 Active glucose blood (FreeStyle Precision Hans Test) test stripIndications :Type 2 diabetes mellitus with hyperlipidemia (HCC) USE TO TEST BLOOD SUGAR THREE TIMES A DAY 100 each 12 025 Active Aspirin Low Dose 81 MG EC tablet TAKE 1 TABLET BY MOUTH EVERY MORNING 30 tablet 11 025 Active amLODIPine (Norvasc) 5 MG tabletIndication s:Benign essential HTN TAKE 1 TABLET BY MOUTH EVERY DAY 90 tablet 1 025 Active telmisartan (Micardis) 40 MG tabletIndication s:Benign essential HTN Take 1 tablet (40 mg) by mouth Once per day. 90 tablet 1 025 Active insulin glargine (Lantus SoloStar) 100 UNIT/ML penIndications:T ype 2 diabetes mellitus with hyperlipidemia (HCC) Inject 14 units subcutaneously once daily 15 mL 5 025 Active Continuous Glucose Projects Manager (FreeStyle Donaldo 3 Waymart) deviceIndication s:Type 2 diabetes mellitus with hyperlipidemia (HCC) 1 each Once per day. Use as directed for CGM 1 each 025 Active Continuous Glucose Sensor (FreeStyle Donaldo 3 Plus Sensor) miscIndications: Type 2 diabetes mellitus with hyperlipidemia (HCC) 1 each every 15 days. Apply 1 every 15 days as directed for CGM 2 each 025 Active mirtazapine (Remeron) 15 MG tabletIndication s:Difficulty sleeping TAKE 1 TABLET BY MOUTH AT BEDTIME 30 tablet 2 025 Active empagliflozin-me tFORMIN ER (Synjardy XR) 12.5-1000 MG 24 hr tabletIndication s:Type 2 diabetes mellitus with hyperlipidemia (HCC) TAKE 1 TABLET BY MOUTH TWICE DAILY 60 tablet 5 025 Active ammonium lactate (Amlactin) 12 % cream APPLY TO THE AFFECTED AREA(S) OF DRY SKIN OF FEET TWICE DAILY. DO NOT USE BETWEEN TOES. 025 Active solifenacin (VESIcare) 5 MG tablet Take 1 tablet by mouth Once per day. 10/10/2 025 Active Tirzepatide (Mounjaro) 2.5 MG/0.5ML solution auto-injectorInd ications:Type 2 diabetes mellitus with hyperlipidemia (HCC) Inject 2.5 mg under the skin 1 (one) time per week. 2 mL 025 Active Tirzepatide (Mounjaro) 5 MG/0.5ML solution auto-injectorInd ications:Type 2 diabetes mellitus with hyperlipidemia (HCC) Inject 5 mg under the skin 1 (one) time per week. 2 mL 5 Active senna-docusate sodium (Senokot-S) 8.6-50 MG tabletIndication s:Drug-induced constipation 1 tab twice daily as needed for constipation 180 tablet 1 Active triamcinolone (Kenalog) 0.1 % creamIndications :Rash Apply topically 2 times daily. For 2 weeks to R hand 30 g 1 025 2024 Discontinued(M ed list cleanup (will not trigger notification to Pharmacy)) Toviaz 4 MG 24 hr tablet Take 1 tablet by mouth Once per day. 025 2024 Discontinued(M ed list cleanup (will not trigger notification to Pharmacy)) empagliflozin-me tFORMIN ER (Synjardy XR) 12.5-1000 MG 24 hr tabletIndication s:Type 2 diabetes mellitus with hyperlipidemia (HCC) Take 1 tablet by mouth twice daily 60 tablet 5 025 2024 Discontinued Dulaglutide (Trulicity) 3 MG/0.5ML solution auto-injectorInd ications:Type 2 diabetes mellitus with hyperlipidemia (HCC) Inject 3 mg under the skin 1 (one) time per week. 2 mL 3 025 2024 Discontinued(A lternate therapy) senna-docusate sodium (Senokot-S) 8.6-50 MG tabletIndication s:Drug-induced constipation 1-2 tabs once or twice daily as needed for constipation 90 tablet 1 025 2024 Discontinued(R eorder (will not trigger notification to Pharmacy)) clotrimazole (Lotrimin) 1 % creamIndications :Balanitis Apply topically 2 times daily for 28 days. 60 g 1 025 2024 acetaminophen (Tylenol 8 Hour) 650 MG ER tabletIndication s:Body aches Take 1 tablet (650 mg) by mouth every 8 (eight) hours if needed for mild pain for up to 10 days. Do not crush, chew, or split. 30 tablet 025 2024 Active Problems Problem Noted Date Diagnosed Date URI, acute 11/30/2024 Body aches 11/30/2024 Type 2 diabetes mellitus wit h diabetic [...] 04/23 Overview (09/25/2023): MOCA in 2019, MOCA 22/30 in 09/2020, 09/2023 Pt has bachelor's degree. Bilingual Turkish and Wolof. Depression 04/24/2023 Type 2 diabetes mellitus with hyperlipidemia Overview (06/18/2023): A1c 8.0% 11/08/22 --> 6.9 [...] Encounters Date Type Department Care Team Description 12/21/2024 Refill [facility] [address] [place] [address] Mirian Thompson ANP Balanitis 12/10/2024 Orders Only [facility] [address] [place] [phone] Mirian Thompson ANP Drug-induced constipation 12/10/2024 Travel 11/30/2024 11:00 AM EDT Office Visit [facility] [address] [place] [phone] Michelle Cagle, NEIL URI, acute (Primary Dx); Cough in adult patient; Body aches 11/30/2024 Travel 11/27/2024 Refill [facility] [address] [place] [address] 90348 Jasen Gomez, PharmD Type 2 diabetes mellitus with hyperlipidemia (HCC) 11/11/2024 Refill [facility] [address] [place] [address] 99949 Mirian Thompson ANP Difficulty sleeping 11/05/2024 Telephone [facility] [address] [place] [address] [phone] Mirian Thompson ANP Appointment Request 10/29/2024 11:00 AM EDT Office Visit [facility] [address] [place] [address] 00102 Mirian Thompson ANP Type 2 diabetes mellitus with hyperlipidemia (CMS/HCC) (CMS/HCC) (Primary Dx); Peripheral axonal neuropathy; Hypertension associated with diabetes (CMS/HCC); Type 2 diabetes mellitus with diabetic nephropathy, with long-term current use of insulin ([facility]/HCC); Drug-induced constipation; Balanitis; Screening for malignant neoplasm of colon 10/29/2024 Refill [facility] [address] [place] [address] Mirian Thompson ANP Drug-induced constipation 10/29/2024 Travel 10/28/2024 Telephone [facility] [address] [place] [address] Mirian Thompson ANP chart prep 10/02/2024 1:20 PM EDT Office Visit [facility] [address] [place] [phone] Name, MD Lobo Left maxillary sinusitis (Primary Dx); Pain of maxillary sinus 10/02/2024 Travel from Last 3 Months Immunizations Immunization Administration Dates Next Due HepB-CpG 07/05/2023,05/06/2023 Influenza High-dose Quadriva lent Preservative Free 11/08/2022,01/17/2021 Influenza, High Dose Seasona l, Preservative Free 12/10/2024,02/27/2024,10/04/2016 Influenza, IIV3, injectable 01/31/2022,1 03/20/2020,11/25/2019,2016,02/15/2012 Pfizer Covid-19 Vaccine 12+ 12/10/2024,0 02/27/2024,02/24/2021,2020,05/16/2020 Pfizer Covid-19 Vaccine 12+ Bivalent 01/31/2022 Pfizer [...] Sign Reading Time Taken Comments Blood Pressure 134/66 12/10/2024 11:05 AM EDT Pulse 78 12/10/2024 11:05 AM EDT Temperature 36.7 C (98.1 F) 11/30/2024 10:46 AM EDT Respiratory Rate 16 11/30/2024 10:46 AM EDT Oxygen Saturation 96% 11/30/2024 10:46 AM EDT Inhaled Oxygen Concentration - - Weight 77.6 kg (171 lb) 11/30/2024 10:46 AM EDT Height 167.6 cm (5' 6 ) 10/29/2024 10:53 AM EDT Body Mass Index 27.6 10/29/2024 10:53 AM EDT Plan of Treatment Upcoming Encounters Date Type Department Care Team (Late st Contact Info) Description 01/12/2025 10:15 AM EST Office Visit [facility] [address] [place] [address] [phone] Mirian Thompson, ANP [address] [place] [address] 02/18/2025 10:00 AM EST Medication Management [facility] [address], [place] [phone] Jasen Gomez, PharmD [address] [place], [place] [phone] Health Maintenance Due Date Last Done Comments CT Colonography 1949 Colonoscopy 1949 Colorectal Cancer Screening 1949 FIT DNA/Cologuard 1949 FIT 1949 FOBT 1949 Sigmoidoscopy 1949 Eye Exam 1959 Hepatitis C Screening 1967 Diabetes: Foot Exam 09/19/2024 09/20/2023, 09/20/2023, 09/20/2023, Additional history exists SDOH Screening 12/15/2024 12/16/2023 Alcohol/Substance Use Screening 12/23/2024 12/24/2023 Depression Screening 12/23/2024 12/24/2023, 11/09/19 23 Diabetes: Hemoglobin A1C 03/12/2025 025, 08/06/2024, 06/26/2024, Additional history exists Lipid Panel 05/26/2025 05/26/2024, 07/0 02/2023, 11/21/2022 Tobacco Screening 11/30/2025 11/30/2024 DTaP/Tdap/Td Vaccines (2 - Td or Tdap) 08/01/2033 08/02/2023 Zoster Vaccines Completed 05/06/2023, 03/24/2021 Hepatitis B Vaccines Completed 07/05/2023, 05/06/19 Pneumococcal Vaccine: 50+ Years Completed 07/05/2023 RSV Patients and Patients Aged 60 years or older Completed 08/02/2023 COVID-19 Vaccine Completed 12/10/2024, , 01/31/2022, Additional history exists Influenza Vaccine Completed 12/10/2024, , 11/08/2022, Additional history exists HIB Vaccines Aged Out [...] 10:51 AM EDT) No Jasen Gomez PharmD Procedures Procedure Name Priority Date/Time Associated Diagnosis Comments POCT GLYCATED HEMOGLOBIN, TOTAL Routine 12/10/2024 10:51 AM EDT Type 2 diabetes mellitus with hyperlipidemia (HCC) POCT RAPID COVID ANTIGEN Routine 11/30/2024 12:07 PM EDT Cough in adult patient POCT INFLUENZA B (ID NOW RAPID MOLECULAR) Routine 11/30/2024 12:07 PM EDT Cough in adult patient POCT INFLUENZA A (ID NOW RAPID MOLECULAR) Routine 11/30/2024 12:07 PM EDT Cough in adult patient LIPID PANEL, STANDARD Routine 05/26/2024 10:28 AM EDT Type 2 diabetes mellitus with hyperlipidemia (CMS/HCC) (CMS/HCC) from Last 3 Months or Most Recently Relevant to Health Maintenance Results * (ABNORMAL) POCT Hgb A1c (12/10/2024 10:51 AM EDT) Hemoglobin A1C 7.9(A) 4.0 - 5.7 % QC Media Lot # [id number] Lot# Expiration Date [id number] Blood 12/10/2024 10:5 1 AM EDT us Mirian Thompson ANP POINT OF CARE TEST ENTER/EDIT OR DERABLES Final Result * Influenza B (ID NOW Rapid Molecular) (11/30/2024 12:07 PM EDT) Influenza B Negative Negative, Indeterminate [facility] Swab 11/30/2024 12:0 7 PM EDT us Michelle Dowdo MARBLE MACHINE TENDER POINT OF CARE TEST ENTER/EDIT ORDERABLES Final Result Performing Organization Address City/[facility]/ZIP Co de Phone Number [facility] [address] [place] [phone] * Influenza A (ID NOW Rapid Molecular) (11/30/2024 12:07 PM EDT) Influenza A Negative Negative, Indeterminate [facility] Swab 11/30/2024 12:0 7 PM EDT Michelle Okhipo MARBLE MACHINE TENDER POINT OF CARE TEST ENTER/EDIT ORDERABLES Final Result Performing Organization Address [facility]/ZIP Co de Phone Number [facility] [address] [place] [address] [phone] * POCT Rapid COVID Ag (11/30/2024 12:07 PM EDT) Rapid COVID Ag Negative Swab 11/30/2024 12:0 7 PM EDT Michelle Cagle MARBLE MACHINE TENDER POINT OF CARE TEST ENTER/EDIT ORDERABLES Final Result * (ABNORMAL) Lipid Panel, Standard (05/26/2024 10:28 AM EDT) Triglycerides 110 <150 mg/dL [facility] Comment:Desirable Triglyceri de: less than 150 mg/dLBorderline High Triglyceride 150-199 mg/dLHigh Triglyceride: 200-499 mg/dLVery High Triglyceride: greater than or equal to 5OO mg/dL Cholesterol 135 <200 mg/dL [facility] Comment:Desirable Cholestero l: less than 200 mg/dLBorderline High Cholesterol: 200-239 mg/dLHigh Cholesterol: greater than 239 mg/dL LDL Cholesterol Calculated 84 <100 mg/dL [facility] Comment:Desirable LDL: less than 100 mg/dLNear Optimal/Above Optimal LDL: 110- 129 mg/dLBorderline High LDL: 130-159 mg/dLHigh LDL: 160-189 mg/dLVery High LDL: greater than or equal to 190 mg/dL HDL Cholesterol 29(L) >40 mg/dL [facility] Comment:Desirable HDL: great er than 40 mg/dL Note: This HDL assay may give artificially low results in patients with liver disease. Blood Venous blood specimen / Unknown 05/26/2024 10:28 AM EDT 05/26/2024 11:09 AM EDT us Mirian Thompson ANP LAB BLOOD ORDERABLES Final Resul t [facility] [address] [place] [phone] from Last 3 Months or Most Recently Relevant to Health Maintenance Insurance [facility] HMO Care Teams Real Estate Photographer Relationship Specialty Start Date End Date Mirian Thompson ANP [address] [place] [phone] PCP - General Family Medicine 11/08/22 Jasen Gomez, ErumD [address] [place] [address] Pharmacist Internal Medicine 08/02/23 Casper Márquez MD 100 [facility] [address] [place] [address] Nephrology 08/06/24
--- OUTSIDE RECORDS SUMMARY | 2024-12-21 17:55 | XMS_ITS | Encounter Summary ---
Author Organization [employer] Address [address] [place] [address] 7t [place] [address] Care Team Providers Care Can Worker Name Role Phone Miiran Thomposn Primary Care Provider [phone] Jasen Gomez PharmD Unavailable [phone] Casper Márquez MD Unavailable [phone] Reason for Visit * Reason Comments Med Refill Encounter Details Date Type Department Care Team (Late st Contact Info) Description 12/21/2024 Refill [facility] [address] [place], [place] [phone] Mirian Thompson ANP [address] [place], [place] [phone] Meka Social History Tobacco Use Types Packs/Day Years [...] with others, in a hotel, in a custodial, living outside on the street, on a [...] Description 01/12/2025 10:15 AM EST Office Visit [address] [phone] Mirian Thompson ANP [address] [place] [address] 02/18/2025 10:00 AM EST Medication Management [facility] [address] [place] [phone] Jasen Gomez PharmD [address] [place] [phone] documented as of this encounter Goals Goal Patient Goal Type Associated Problems Recent Progress Patient-Stated? Author Blood Pressure < 140/90 Blood Pressure 134/66(2024 11:05 AM EDT) No Jasen Gomez PharmD Hemoglobin A1c < 7 Result Component 7.9( 5 10:51 AM EDT) No Jasen Gomez, PharmD documented as of this encounter Visit Diagnoses Diagnosis Balanitis Balanoposthitis documented in this encounter Additional Health Concerns Assessment Noted Time PHQ-9 Depression Total Score: 0 11/09/19 23 10:59 AM EDT documented as of this encounter Care Teams Can Worker Relationship Specialty Start Date End Date Mirian Thompson ANP [address] [place] [address] PCP - General Family Medicine 11/08/22 Jasen Gomez, PharmD [address] [place] [address] Pharmacist Internal Medicine 08/02/23 Casper Márquez MD [address] [phone] Nephrology 08/06/24 documented as of this encounter
--- OUTSIDE RECORDS SUMMARY | 2024-12-21 17:55 | XMS_ITS | Encounter Summary ---
Author Organization [employer] Address [address] [place] [address] 7[address] [place] [address] Care Team Providers Care Media Analyst Name Role Phone Mirian Thompson Primary Care Provider [phone] Jasen Gomez PharmD Unavailable [phone] Casper Márquez MD Unavailable [phone] Reason for Visit * Reason Onset Date Comments New Patient 11/06/2022 Encounter Details Date Type Department Care Team (Late st Contact Info) Description 11/06/2022 Telephone [facility] [address] [place], [place] [phone] Brad Wooten MD [address] [place], [place] [phone] New Patient Social History Tobacco Use Types [...] PAR Aura Rodas called pt to Offer OCCUPATIONAL THERAPY DEPARTMENT CHAIR appt. Pt demographics and insurance information were verified. Pt reports the following medical conditions: Diabetic, Cholesterol. Pt is currently taking medication: Metformin, Lantuss, Atorvastatin, Lisinopril. Pt given OCCUPATIONAL THERAPY DEPARTMENT CHAIR appt with Dr. Thompson on 11/08/2022@ 10:30 am Pt will be sent appt reminder card and medical release form and agrees to complete and to return to medical records prior to OCCUPATIONAL THERAPY DEPARTMENT CHAIR appt. * Telephone Encounter - Aura Tylerdanie Solerrero - 11/06/2022 3:10 PM EDT Pt has been transfer over to wait list for OCCUPATIONAL THERAPY DEPARTMENT CHAIR. EFFECTIVE SINCE 10/01/2022 documented in this encounter Plan of Treatment Upcoming Encounters Date Type Department Care Team (Late st Contact Info) Description 01/12/2025 10:15 AM EST Office Visit [address] [address] Mirian Thompson ANP [address] [place] [phone] 02/18/2025 10:00 AM EST Medication Management [address] [address] Jasen Gomez PharmD [address] [place] [phone] documented as of this encounter Visit Diagnoses Not on filedocumented in this encounter Care Teams Media Analyst Relationship Specialty Start Date End Date Mirian Thompson ANP [address] [place] [phone] PCP - General Family Medicine 11/08/22 Jasen Gomez, PharmD [address] [place] [address] Pharmacist Internal Medicine 08/02/23 Casper Márquez MD 100 [facility] [address] [place] [address] Nephrology 08/06/24 documented as of this encounter
== END 2024-12-21 16:18 | disposition home or self-care (01) ==
LOC: HO.HUSH 16:03
PROVIDERS: PCP Nurse Practitioner Primary Care; Visit Provider Urology
DX: E11.42 Type 2 diabetes mellitus with diabetic polyneuropathy (principal); N40.1 Benign prostatic hyperplasia with lower urinary tract symptoms; R35.1 Nocturia; R39.15 Urgency of urination
CPT/HCPCS: 99214

== ENCOUNTER → 2024-12-21 16:03 | Outpatient (BNVA) | payer MEDICARE, SELFPAY | PROVIDERS: PCP Nurse Practitioner Primary Care; Visit Provider Urology | DX: E11.42 Type 2 diabetes mellitus with diabetic polyneuropathy (principal); N40.1 Benign prostatic hyperplasia with lower urinary tract symptoms; R35.1 Nocturia; R39.15 Urgency of urination | CPT/HCPCS: 99212 ==

== ENCOUNTER 2025-01-22 10:53 | Outpatient (AMB) | payer MEDICARE, SELFPAY ==
--- NOTE | 2025-01-22 11:09 | A.OFFVIS_ITS ---
Intake Visit Reasons: 3M Allergies No Known Allergies Allergy (Verified 01/22/25 11:48) Medication List - Last Reconciled 01/22/25 by Brigida Portillo CNP aspirin 81 mg PO QAM atorvastatin 40 mg PO DAILY blood pressure test kit-large As directed blood sugar diagnostic (OneTouch Ultra Test strips) As directed blood-glucose meter (OneTouch Ultra2 Meter) As directed dulaglutide (Trulicity) mg subcut QWEEK empagliflozin-metformin 12.5-1,000 mg ER (Synjardy XR) 1 tab PO BID finasteride (Proscar) 5 mg PO DAILY flash glucose scanning reader (FreeStyle Donaldo 2 [place]) As directed fluticasone propionate 50 mcg/actuation 1 spray intranasal QAM insulin glargine (Lantus Solostar U-100 Insulin) 14 units subcut BID ketorolac 0.5% drps ophthalmic (eye) lancets (OneTouch UltraSoft 2 Lancet) As directed lancets (OneTouch Delica Plus Lancet) As directed mirtazapine 15 mg PO BEDTIME pen needle, diabetic (BD Ultra-Fine Short Pen Needle) As directed solifenacin (Vesicare) 10 mg PO DAILY tamsulosin (Flomax) 0.4 mg PO BEDTIME HPI Comments Details: 74-year-old man with hyperlipidemia, type 2 diabets for 20+ years, CKD, and diabetic peripheral neuropathy. He started with some discomfort in his feet, R > L, with occasional swelling around 2023. He gets some slight pins and needle- type paresethesias occasionally, but no definite numbness. He snores at night and may stop breathing sometimes, so his will have to nudge him awake. His mouth gets very dry. He also gets some vertigo briefly if he turns very quickly in bed from one side to the other. He was doing okay. No significant pain in his feet. No significant numbness or tingling. Balance could be off at times, but no falls. He was not doing much exercise lately. Blood sugar was up and down. Sleep was not so good. He still did not have sleep study done. [facility] Medical History Idiopathic peripheral neuropathy Diabetic peripheral neuropathy MARILYNN (obstructive sleep apnea) Diabetes HTN (hypertension) Aortic stenosis Surgical History Hx of lithotripsy Family History Father No problems noted. Mother No problems noted. Social History Alcohol intake: current Alcohol intake frequency: former alcohol drinker Patient Tobacco Use Status: Former Tobacco user Review of Systems Const Denies chills, Denies daytime sleepiness, Reports difficulty sleeping, Denies fatigue, Denies fever(s), Denies frequent falls, Denies headache(s), Denies increased appetite, Denies poor appetite, Denies snoring, Denies weakness, Denies weight gain and Denies weight loss Eyes Denies loss of vision ENT Denies vertigo, Reports dizziness, Denies headache(s) and Denies neck pain Card Denies chest pain at rest, Denies chest pain with activity, Denies syncope, Denies leg edema, Denies palpitations, Denies dyspnea and Denies dyspnea on exertion Resp Denies cough, Denies dyspnea, Denies dyspnea on exertion and Denies snoring GI Denies abdominal pain, Denies constipation, Denies heartburn, Denies diarrhea and Denies nausea Reports urinary frequency, Denies urinary incontinence and Denies urinary urgency Musc Denies abnormal gait, Denies back pain, Denies myalgias, Denies arthralgias, Denies neck pain, Denies numbness and Denies tingling Neuro Denies abnormal gait, Denies vertigo, Reports dizziness, Denies syncope, Denies frequent falls, Denies headache(s), Denies lack of coordination, Denies loss of vision, Denies memory loss, Denies numbness, Denies Other visual disturbances, Denies restless legs, Denies seizure-like activity, Denies tingling, Denies paresthesias, Denies tremor(s) and Denies weakness Psych Denies anxiety, Denies depression, Denies auditory hallucinations, Denies memory loss and Denies visual hallucinations Endo Denies fatigue and Denies palpitations Physical Exam Const Other: General Appearance:? normal, in no acute distress. Heart:? S1, S2 normal, no murmurs. Lungs:? clear anteriorly and posteriorly. Musculoskeletal:? normal. Extremities:? no edema. Psych:? alert, oriented, cognitive function intact, cooperative with exam. Neuro Other: Abnormal Neurological Findings:?Absent ankle reflexes. Decreased vibration in toes. Mental Status: alert and oriented X 3. Normal attention, orientation, memory, and affect. Cranial Nerves: Pupils are equal, round, and reactive to light. External ocular muscles are intact. Visual pablo are full, no ptosis. Face is symmetrical, no facial weakness or droop. Facial sensations are normal. Tongue protrudes in midline. Palate elevates symmetrically. Shoulder shrugging is normal Motor Examination: As above. Sensory Exam: As above. Coordination: No ataxia. No titubation. Gait Exam: Within normal limits. Cerebellar Signs: [id number] is okay. Extrapyramidal System: No tremor, rigidity with normal facial expressions. No bradykinesia. No bradyphrenia. Normal arm swing and posture. No propulsion or retropulsion. Speech: Normal. Results Reviewed Results Reviewed: 09/23/24 NCV/EMG LE: Moderately severe diffuse sensory greater than motor axonal peripheral neuropathy in the lower extremities. There is no significant change since the last study of February 2024. EMG of the left L4-S1 innervated muscles is consistent with chronic distal neuropathic changes. Assessment & Plan Assessment & Plan (1) Diabetic peripheral neuropathy: Code(s): E11.42 - Type 2 diabetes mellitus with diabetic polyneuropathy Category: Medical Plan: No significant pain and medication was not indicated at this time. Stay physically active, control blood sugar. Follow up in 3 months or sooner as needed. (2) MARILYNN (obstructive sleep apnea): Code(s): G47.33 - Obstructive sleep apnea (adult) (pediatric) Category: Medical Plan: Sleep study was not done yet, front office staff would help patient to arrange. Coding Level of Care Code Est Pt Level 3 (41149) Diagnoses Diabetic peripheral neuropathy E11.42 MARILYNN (obstructive sleep apnea) G47.33
== END 2025-01-22 11:58 | disposition home or self-care (01) ==
LOC: HO.HSM 10:54
PROVIDERS: PCP Internal Medicine; Visit Provider Registered Nurse
DX: E11.42 Type 2 diabetes mellitus with diabetic polyneuropathy (principal); G47.33 Obstructive sleep apnea (adult) (pediatric)
CPT/HCPCS: 99213

== ENCOUNTER → 2025-01-22 10:53 | Outpatient (BNVA) | payer MEDICARE, SELFPAY | PROVIDERS: PCP Internal Medicine; Visit Provider Registered Nurse | DX: E11.42 Type 2 diabetes mellitus with diabetic polyneuropathy (principal); G47.33 Obstructive sleep apnea (adult) (pediatric); Z79.4 Long term (current) use of insulin | CPT/HCPCS: 99212 ==

== ENCOUNTER 2025-01-29 08:52 | Outpatient (AMB) | payer MEDICARE, SELFPAY ==
--- NOTE | 2025-01-29 08:55 | MHC.OFFVIS ---
Vital Signs 01/29/25 08:58 Height 5 ft 6 in Weight 170 lb 3.15 oz BMI 27.5 BP 136/62 Blood Pressure Location Rt brachial Position Sitting Pulse 75 Pulse Source Monitor Intake Visit Reasons: f/u Palpitations Intake Note: f/up- palpitations Platform Man Required: No Accompanied by: Self / Same As Patient Allergies No Known Allergies Allergy (Verified 01/22/25 11:48) Medication List - Last Reconciled 01/29/25 by INNA Amin aspirin 81 mg PO QAM atorvastatin 40 mg PO DAILY blood pressure test kit-large As directed blood sugar diagnostic (OneTouch Ultra Test strips) As directed blood-glucose meter (TweepsMapTouch Ultra2 Meter) As directed dulaglutide (Trulicity) mg subcut QWEEK empagliflozin-metformin 12.5-1,000 mg ER (Synjardy XR) 1 tab PO BID finasteride (Proscar) 5 mg PO DAILY flash glucose scanning reader ([employer] Donaldo [place]) As directed fluticasone propionate 50 mcg/actuation 1 spray intranasal QAM insulin glargine (Lantus Solostar U-100 Insulin) 14 units subcut BID ketorolac 0.5% drps ophthalmic (eye) lancets (OneTouch UltraSoft 2 Lancet) As directed lancets (OneTouch Delica Plus Lancet) As directed mirtazapine 15 mg PO BEDTIME pen needle, diabetic (BD Ultra-Fine Short Pen Needle) As directed solifenacin (Vesicare) 10 mg PO DAILY tamsulosin (Flomax) 0.4 mg PO BEDTIME HPI HPI f/u Palpitations: Details: The patient is a 74 year old male presenting for follow up of aortic stenosis and evaluation of heart palpitations. He has a history of moderate aortic stenosis, a mildly dilated ascending aorta of 3.8 cm, grade 1 diastolic dysfunction, and an ejection fraction of 50-55%, noted on his last echocardiogram on 08/18/2024. During a recent pre-employment physical, he states another physician noted palpitations; however, the patient denies feeling any palpitations, chest pain, or dyspnea. An EKG from today showed sinus rhythm with a first-degree AV block. The patient reports having vertigo, which causes dizziness with quick movements, such as getting up from bed too fast. He had a slip and fall last week, which resulted in back pain but no other injuries. 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 He takes his medications, including aspirin and atorvastatin, as prescribed and has an appointment for a sleep test in February. His past medical history includes hypertension, BPH, CKD, diabetes and he is being evaluated for sleep apnea. [facility] Medical History Idiopathic peripheral neuropathy Diabetic peripheral neuropathy MARILYNN (obstructive sleep apnea) Diabetes HTN (hypertension) Aortic stenosis Surgical History Hx of lithotripsy Family History Father No problems noted. Mother No problems noted. Social History Alcohol intake: current Alcohol intake frequency: former alcohol drinker Patient Tobacco Use Status: Former Tobacco user Review of Systems Const All systems reviewed & are unremarkable except as noted in HPI and below Denies chills, Denies fatigue, Denies fever(s), Denies frequent falls, Denies weakness, Denies weight gain and Denies weight loss ENT Denies dizziness Card Denies chest pain, Denies leg edema, Denies lightheadedness, Denies palpitations, Denies dyspnea and Denies dyspnea on exertion Resp Denies cough, Denies dyspnea and Denies dyspnea on exertion GI Denies hematochezia Musc Denies abnormal gait, Denies muscle weakness, Denies numbness, Denies radiating pain into limb and Denies tingling Neuro Denies abnormal gait, Denies dizziness, Denies frequent falls, Denies numbness, Denies tingling and Denies weakness Endo Denies fatigue and Denies palpitations Physical Exam Vital Signs: Last Vital Signs Pulse 75 01/29/25 08:58 BP 136/62 01/29/25 08:58 BMI result Body Mass Index 27.5 Const General: cooperative, healthy appearing, comfortable and no acute distress Orientation/consciousness: patient oriented x3 HEENT Head: Yes normal to inspection Neck Neck: Yes normal visual inspection Resp Effort & Inspection: normal respiratory effort Auscultation: clear to auscultation bilaterally, no rales, no rhonchi and no wheezes Cardio Rate: regular rate Rhythm: regular rhythm Heart sounds: S2 normal heart sound present, Murmur heart sound present (2/6 systolic right sternal border) and no rubs Neuro General: patient oriented x3 Extrem General: Yes normal to inspection, No no pedal edema and No calf tenderness Psych Appearance: grossly normal Mental Status: mental status grossly normal Speech and movement: Normal speech and movement present Office Procedures EKG Details: Today, read by me, normal sinus rhythm with first-degree AV block, rate 75, QTC 437 milliseconds [id number], Complete Assessment & Plan Assessment & Plan (1) Palpitations: Code(s): R00.2 - Palpitations Category: Medical Plan: Patient reports he was informed of irregular heart beating at the time of recent pre employment exam. No notes available in our system for review. Pulse regular on exam today with EKG showing sinus rhythm with first-degree AV block, rate 75. He denies feeling irregular heartbeats. For completeness will check a Holter monitor to assess for arrhythmia. Plan to call him with results. (2) Aortic stenosis: Code(s): I35.0 - Nonrheumatic aortic (valve) stenosis Category: Medical Plan: History of aortic stenosis. Last echocardiogram 08/18/2024 shows moderate mean gradient 18 mm Hg, aortic valve area 1.44 centimeter squared. It was marginally worse then prior echo 07/15/2023. He is scheduled for repeat echocardiogram 08/2025. Cardinal signs of severe reviewed. Currently asymptomatic. Cardiology follow-up August 2025. (3) HTN (hypertension): Code(s): I10 - Essential (primary) hypertension Category: Medical Plan: Blood pressure goal less than 130/80. Near goal at present. No med changes made. Plan I discussed the patient's ongoing follow-up for moderate aortic stenosis, noting that we will monitor it with his scheduled echocardiogram and visit with Dr. Arreguin next August. I addressed the report of palpitations from an outside physician and explained that while his heart sounded steady today, we should investigate further to be safe. I explained the plan to have him wear a heart monitor, which is a small patch he will wear for a couple of days, to record his heart rhythm during his normal activities. I informed him that our scheduling team would call to set this up and that he should keep his existing follow-up appointments. Orders: Orders ECG 3 day holter monitor Today R00.2 - Palpitations Patient Instructions: - You will be scheduled to wear a heart monitor, which is a small patch on your chest, for a couple of days to record your heart's rhythm. Our scheduling office will call you to set this up. - You can continue with all your normal activities, including showering and working, while wearing the monitor. - Keep your scheduled follow-up appointment with Dr. Arreguin and your appointment for a heart ultrasound (echocardiogram) in August. - Continue to take all your medications as prescribed. Patient was informed and verbally consented to the use of an ambient scribe for clinic note documentation during this visit. Visit time spent on chart review, interview, assessment, orders, documentation. Coding Level of Care Code Est Pt Level 4 (15874) Add On Problem Visit Only Diagnoses Palpitations R00.2 Aortic stenosis I35.0 HTN (hypertension) I10 CPT Codes EKG - CPT: 40405-[id number], Complete ([id number]) Time Spent (min) 28
[2025-01-29 08:58] VITALS: BP 136/62; PULSE 75; BMI 27.5
--- OUTSIDE RECORDS SUMMARY | 2025-01-29 09:11 | XMS_ITS | Encounter Summary ---
Author Organization [email or web address] Address [address] [place] [address] 7[address] [place] [address] Care Team Providers Care Blending Coordinator Name Role Phone Mirian Thompson Primary Care Provider [phone] Jasen Gomez PharmD Unavailable [phone] Casper Márquez MD Unavailable [phone] Reason for Visit * Reason Comments Med Refill Encounter Details Date Type Department Care Team (Late st Contact Info) Description 07/14/2024 Refill [facility] [address] [place], [place] [phone] Mirian Thompson ANP [address] [place], [place] [phone] Rash Social History Tobacco Use Types Packs/Day [...] Care Team (Late st Contact Info) Description 02/18/2025 10:00 AM EST Medication Management [facility] [address] [place] [address] Jasen Gomez PharmD [address] [place] [address] documented as of this encounter Goals Goal [...] documented as of this encounter Care Teams Blending Coordinator Relationship Specialty Start Date End Date Mirian Thompson ANP [address] [place] [address] PCP - General Family Medicine 11/08/22 Jasen Gomez PharmD [address] [place] [address] Pharmacist Internal Medicine 08/02/23 Casper Márquez MD [address] [facility] [address] [place] [address] Nephrology 08/06/24 documented as of this encounter
--- OUTSIDE RECORDS SUMMARY | 2025-01-29 09:11 | XMS_ITS | Clinical Summary ---
Author Organization [employer] Address [address] [facility] 7t [place] [address] Care Team Providers Care White Sugar Syrup Operator Name Role Phone Mirian Thompson Primary Care Provider [phone] Jasen Gomez PharmD Unavailable [phone] Casper Márquez MD Unavailable [phone] Allergies No known active allergies Medications B-D ULTRAFINE III SHORT PEN 31G X 8 MM [facility] 023 Active albuterol 108 (90 Base) MCG/ACT inhaler Inhale 2 puffs every 6 (six) hours if needed. From admission summer 2022, no known dx of asthma or COPD Active Blood Glucose Monitoring Suppl (ONE TOUCH ULTRA 2) w/Device kitIndications:Ty pe 2 diabetes mellitus with hyperlipidemia (HCC) Use to test blood sugar 2 times daily 1 kit 024 Active Lancets (OneTouch Delica Plus [id number]) [facility] TEST BLOOD SUGAR TWICE DAILY DIRECTED 024 Active fluticasone (Flonase) 50 MCG/ACT nasal sprayIndications: Cough in adult patient Administer 2 sprays into each nostril Once per day. 16 g 2 024 Active ciclopirox (Loprox) 0.77 % cream Apply 1 Application topically 2 times daily. Active dutasteride (Avodart) 0.5 MG capsule Take 1 capsule by mouth Once per day. 024 Active Mouthwashes (Biotene Dry Mouth) liquidIndications :Dry mouth Use 30 mL in the mouth or throat if needed in the morning and at bedtime (dry mouth). 1000 mL 2 Active glucose blood (FreeStyle Precision Hans Test) test stripIndications: Type 2 diabetes mellitus with hyperlipidemia (HCC) USE TO TEST BLOOD SUGAR THREE TIMES A DAY 100 each 12 Active Aspirin Low Dose 81 MG EC tablet TAKE 1 TABLET BY MOUTH EVERY MORNING 30 tablet 11 01/16/20 25 5:11 PM EST 025 Active insulin glargine (Lantus SoloStar) 100 UNIT/ML penIndications:Ty pe 2 diabetes mellitus with hyperlipidemia (HCC) Inject 14 units subcutaneously once daily 15 mL 5 01/23/20 25 5:18 PM EST 025 Active Continuous Glucose Cloth Washer Operator (FreeStyle Donaldo 3 [place]) deviceIndications :Type 2 diabetes mellitus with hyperlipidemia (HCC) 1 each Once per day. Use as directed for CGM 1 each Active Continuous Glucose Sensor (FreeStyle Donaldo 3 Plus Sensor) miscIndications:T ype 2 diabetes mellitus with hyperlipidemia (HCC) 1 each every 15 days. Apply 1 every 15 days as directed for CGM 2 each 01/05/20 25 4:34 PM EST Active mirtazapine (Remeron) 15 MG tabletIndications :Difficulty sleeping TAKE 1 TABLET BY MOUTH AT BEDTIME 30 tablet 2 01/23/20 25 5:18 PM EST 025 Active empagliflozin-met FORMIN ER (Synjardy XR) 12.5-1000 MG 24 hr tabletIndications :Type 2 diabetes mellitus with hyperlipidemia (HCC) TAKE 1 TABLET BY MOUTH TWICE DAILY 60 tablet 5 01/16/20 25 5:11 PM EST 025 Active ammonium lactate (Amlactin) 12 % cream APPLY TO THE AFFECTED AREA(S) OF DRY SKIN OF FEET TWICE DAILY. DO NOT USE BETWEEN TOES. Active solifenacin (VESIcare) 5 MG tablet Take 1 tablet by mouth Once per day. Active Tirzepatide (Mounjaro) 2.5 MG/0.5ML solution auto-injectorIndi cations:Type 2 diabetes mellitus with hyperlipidemia (HCC) Inject 2.5 mg under the skin 1 (one) time per week. 2 mL 025 Active Tirzepatide (Mounjaro) 5 MG/0.5ML solution auto-injectorIndi cations:Type 2 diabetes mellitus with hyperlipidemia (HCC) Inject 5 mg under the skin 1 (one) time per week. 2 mL 5 01/16/20 25 5:11 PM EST 025 Active senna-docusate sodium (Senokot-S) 8.6-50 MG tabletIndications :Drug-induced constipation 1 tab twice daily as needed for constipation 180 tablet 1 025 Active clotrimazole (Lotrimin) 1 % creamIndications: Balanitis APPLY TOPICALLY TWICE DAILY FOR 28 DAYS 60 g 1 025 Active amLODIPine (Norvasc) 5 MG tabletIndications :Benign essential HTN TAKE 1 TABLET BY MOUTH EVERY DAY 90 tablet 1 01/16/20 25 5:11 PM EST 025 Active telmisartan (Micardis) 40 MG tabletIndications :Benign essential HTN Take 1 tablet (40 mg) by mouth Once per day. 90 tablet 1 01/23/20 25 8:43 AM EST 025 Active atorvastatin (Lipitor) 40 MG tabletIndications :Type 2 diabetes mellitus with hyperlipidemia (HCC) TAKE 1 TABLET BY MOUTH EVERY DAY 90 tablet 3 025 Active atorvastatin (Lipitor) 40 MG tabletIndications :Type 2 diabetes mellitus with hyperlipidemia (HCC) TAKE 1 TABLET BY MOUTH EVERY DAY 90 tablet 3 024 2024 Discontinued Active Problems Problem Noted [...] 09/2020, 09/2023 Pt has bachelor's degree. Bilingual Ukrainian and Khmer. Depression 04/24/2023 Type 2 diabetes mellitus with [...] Encounters Date Type Department Care Team Description 01/20/2025 Refill [facility] [address] [place], [place] [phone] Mirian Thompson ANP Type 2 diabetes mellitus with hyperlipidemia (HCC) 01/19/2025 Telephone [facility] [address] [place] [address] Mirian Thompson ANP No Show 01/18/2025 Telephone [facility] [address] [place], [place] [phone] Mirian Thompson ANP chart prep 01/11/2025 Telephone [facility] [place] [address] Mirian Thompson ANP chart prep 12/24/2024 Refill [facility] [address] [facility] [address] Mirian Thompson ANP Benign essential HTN 12/24/2024 Refill [facility] [address] [place] [address] Jasen Gomez, Lisa Benign essential HTN 12/21/2024 Refill [facility] [address] [place] [address] Mirian Thompson ANP Balanitis 12/10/2024 Orders Only [facility] [address] [place] [address] Mirian Thompson ANP Drug-induced constipation 12/10/2024 Travel 11/30/2024 11:00 AM EDT Office Visit [facility] [address] [place] [address] Michelle Cagle FNP URI, acute (Primary Dx); Cough in adult patient; Body aches 11/30/2024 Travel 11/27/2024 Refill [facility] [address] [place] [address] Jasen Gomez, Lisa Type 2 diabetes mellitus with hyperlipidemia (HCC) 11/11/2024 Refill [facility] [address] [place] [address] Mirian Thompson ANP Difficulty sleeping 11/05/2024 Telephone [facility] [address] [place] [address] Mirian Thompson ANP Appointment Request from Last 3 Months Immunizations Immunization Administration [...] Description 02/18/2025 10:00 AM EST Medication Management [facility] [address] [place] [address] Jasen Gomez, PharmD [address] [place] [address] Health Maintenance Due Date Last Done Comments CT Colonography 1949 Colonoscopy 1949 Colorectal Cancer Screening 1949 FIT DNA/Cologuard 1949 FIT 1949 FOBT 1949 Sigmoidoscopy 1949 Eye Exam 1959 Alcohol/Substance Use Screening 1961 Hepatitis C Screening 1967 Diabetes: Foot Exam 09/19/2024 09/20/2023, 09/20/2023, 09/20/2023, Additional history exists SDOH Screening 12/15/2024 12/16/2023 Depression Screening 12/23/2024 12/24/2023, 11/09/19 Diabetes: Hemoglobin A1C 03/12/2025 025, 08/06/2024, 06/26/2024, Additional history exists Lipid Panel 05/26/2025 05/26/2024, 07/0 02/2023, 11/21/2022 COVID-19 Vaccine ( season) 2025 12/10/2024, 02/27/2024, 01/31/2022, Additional history exists Tobacco Screening 11/30/2025 11/30/2024 DTaP/Tdap/Td Vaccines (2 - Td or Tdap) 08/01/2033 08/02/2023 Zoster Vaccines Completed 05/06/2023, 03/24/2021 Hepatitis B Vaccines Completed 07/05/2023, 05/06/19 Pneumococcal Vaccine: 50+ Years Completed 07/05/2023 RSV Patients and Patients Aged 60 years or older Completed 08/02/2023 Influenza Vaccine Completed 12/10/2024, , 11/08/2022, Additional [...] 134/66(2024 11:05 AM EDT) No Jasen Gomez, PharmD Hemoglobin A1c < 7 Result Component 7.9( 10:51 AM EDT) No Jasen Gomez, PharmHilda Help patients manage their type 2 diabetes Care Plan Help patients manage their type 2 diabetes No Ofelia Deal, BRUNO Weekly blood pressure task Care Plan Weekly blood pressure task No Ofelia Deal, NCQA SPECIALIST Help patients manage their type 2 diabetes Care Plan Help patients manage their type 2 diabetes No Ofelia Deal LPN Patient has chronic kidney disease Care Plan Patient has chronic kidney disease No Ofelia Deal LPN Weekly blood pressure task Care Plan Weekly blood pressure task No Ofelia Deal LPN Patient has chronic kidney disease Care Plan Patient has chronic kidney disease No Ofelia Deal LPN Weekly blood pressure task Care Plan Weekly blood pressure task No Soledad Pa [place] Weekly blood pressure task Care Plan Weekly blood pressure task No Soledad Pa [place] Patient has chronic kidney disease Care Plan Patient has chronic kidney disease No Soledad Pa [place] Patient has chronic kidney disease Care Plan Patient has chronic kidney disease No Soledad Pa [place] Weekly blood pressure task Care Plan Weekly blood pressure task No Soledad Pa [place] Weekly blood pressure task Care Plan Weekly blood pressure task No Soledad Pa [place] Patient has chronic kidney disease Care Plan Patient has chronic kidney disease No Soledad Pa [place] Patient has chronic kidney disease Care Plan Patient has chronic kidney disease No Soledad Pa [place] Weekly blood pressure task Care Plan Weekly blood pressure task No Keshav Rodas [place] Weekly blood pressure task Care Plan Weekly blood pressure task No Keshav Rodas [place] Patient has chronic kidney disease Care Plan Patient has chronic kidney disease No Keshav Rodsa [place] Patient has chronic kidney disease Care Plan Patient has chronic kidney disease No Keshav Rodas [place] Weekly blood pressure task Care Plan Weekly blood pressure task No Jacquie Hess Weekly blood pressure task Care Plan Weekly blood pressure task No Jacquie Hess Patient has chronic kidney disease Care Plan Patient has chronic kidney disease No Jacquie Hess Patient has chronic kidney disease Care Plan Patient has chronic kidney disease No Jacquie Hess Procedures Procedure Name Priority Date/Time Associated Diagnosis [...] Type 2 diabetes mellitus with hyperlipidemia (CMS/HCC) ([facility]/HCC) from Last 3 Months or Most Recently Relevant to Health Maintenance Results * (ABNORMAL) POCT Hgb A1c (12/10/2024 10:51 AM EDT) Pathologist [facility] Hemoglobin A1C 7.9(A) 4.0 - 5.7 % QC Media Lot # [id number] Lot# Expiration Date Blood 12/10/2024 10:5 1 AM EDT us Mirian Thompson ANP POINT OF CARE TEST ENTER/EDIT OR DERABLES Final Result * Influenza B (ID NOW Rapid Molecular) (11/30/2024 12:07 PM EDT) Pathologist [facility] Influenza B Negative Negative, Indeterminate [facility] Swab 11/30/2024 12:0 7 PM EDT us Michelle Cagle LAMINATOR PREFORMS POINT OF CARE TEST ENTER/EDIT ORDERABLES Final Result [facility] [address] [place] [phone] * Influenza A (ID NOW Rapid Molecular) (11/30/2024 12:07 PM EDT) Pathologist [facility] Influenza A Negative Negative, Indeterminate [facility] Swab 11/30/2024 12:0 7 PM EDT Michelle Cagle LAMINATOR PREFORMS POINT OF CARE TEST ENTER/EDIT ORDERABLES Final Result [facility] [address] [place] [address] [phone] * POCT Rapid COVID Ag (11/30/2024 12:07 PM EDT) Rapid COVID Ag Negative Swab 11/30/2024 12:0 7 PM EDT Michelle Cagle LAMINATOR PREFORMS POINT OF CARE TEST ENTER/EDIT ORDERABLES Final Result * (ABNORMAL) Lipid Panel, Standard (05/26/2024 10:28 AM EDT) Triglycerides 110 <150 mg/dL [facility] Comment:Desirable Triglyceri de: less than 150 mg/dLBorderline High Triglyceride 150-199 mg/dLHigh Triglyceride: 200-499 mg/dLVery High Triglyceride: greater than or equal to 5OO mg/dL Cholesterol 135 <200 mg/dL [facility] Comment:Desirable Cholestero l: less than 200 mg/dLBorderline High Cholesterol: 200-239 mg/dLHigh Cholesterol: greater than 239 mg/dL LDL Cholesterol Calculated 84 <100 mg/dL [facility] Comment:Desirable LDL: less than 100 mg/dLNear Optimal/Above Optimal LDL: 110- 129 mg/dLBorderline High LDL: 130-159 mg/dLHigh LDL: 160-189 mg/dLVery High LDL: greater than or equal to 190 mg/dL HDL Cholesterol 29(L) >40 mg/dL [facility] Comment:Desirable HDL: great er than 40 mg/dL Note: This HDL assay may give artificially low results in patients with liver disease. Blood Venous blood specimen / Unknown 05/26/2024 10:28 AM EDT 05/26/2024 11:09 AM EDT Mirian [facility] BLOOD ORDERABLES Final Resul t [facility] [address] [place] [address] [phone] from Last 3 Months or Most Recently Relevant to Health Maintenance Additional Health Concerns Active Problems Noted Date Diagnosed Date Help patients manage their type 2 diabetes 12/24 Weekly blood pressure task 12/24/2024 Help patients manage their type 2 diabetes 12/24 Patient has chronic kidney disease 12/24/2024 Weekly blood pressure task 12/24/2024 Patient has chronic kidney disease 12/24/2024 Weekly blood pressure task 01/11/2025 Weekly blood pressure task 01/11/2025 Patient has chronic kidney disease 01/11/2025 Patient has chronic kidney disease 01/11/2025 Weekly blood pressure task 01/11/2025 Weekly blood pressure task 01/11/2025 Patient has chronic kidney disease 01/11/2025 Patient has chronic kidney disease 01/11/2025 Weekly blood pressure task 01/18/2025 Weekly blood pressure task 01/18/2025 Patient has chronic kidney disease 01/18/2025 Patient has chronic kidney disease 01/18/2025 Weekly blood pressure task 01/19/2025 Weekly blood pressure task 01/19/2025 Patient has chronic kidney disease 01/19/2025 Patient has chronic kidney disease 01/19/[address] [place] [address] [place] [address] MEDICARE ADVANTAGE HMO Care Teams White Sugar Syrup Operator Relationship Specialty Start Date End Date Mirian Thompson ANP [address] [place] [id number] PCP - General Family Medicine 11/08/22 Jasen Gomez, ErumD [address] [place] [address] Pharmacist Internal Medicine 08/02/23 Casper Márquez MD 100 [facility] [address] [place] [address] Nephrology 08/06/24
--- OUTSIDE RECORDS SUMMARY | 2025-01-29 09:11 | XMS_ITS | Encounter Summary ---
Author Organization [employer] Address [address] [facility] 7[address] [place] [address] Care Team Providers Care Color Room Attendant Name Role Phone Mirian Thompson Primary Care Provider [phone] Jasen Gomez PharmD Unavailable [phone] Csaper Márquez MD Unavailable [phone] Encounter Details Date Type Department Care Team (Late st Contact Info) Description 04/25/[address] [facility] [address] [place], [place] [phone] Mirian Thompson ANP [address] [place], [place] [phone] Social History Tobacco Use Types Packs/Day Years [...] Description 02/18/2025 10:00 AM EST Medication Management [facility] [address] [place] [address] Jasen Gomez, PharmD [address] [place] [address] documented as of this encounter Visit Diagnoses Not on filedocumented in this encounter Additional Health Concerns Assessment Noted Time PHQ-9 Depression Total Score: 0 11/09/19 23 10:59 AM EDT documented as of this encounter Care Teams Color Room Attendant Relationship Specialty Start Date End Date Mirian Thompson ANP [address] [place] [id number] PCP - General Family Medicine 11/08/22 Jasen Gomez, PharmD [address] [place] [phone] Pharmacist Internal Medicine 08/02/23 Casper Márquez MD 100 [facility] [address] [place] [address] Nephrology 08/06/24 documented as of this encounter
--- OUTSIDE RECORDS SUMMARY | 2025-01-29 09:11 | XMS_ITS | Encounter Summary ---
Author Organization [employer] Address [address] [facility] [address] [place] [address] Care Team Providers Care Stock Handler Name Role Phone Mirian Thompson Primary Care Provider [phone] Jasen Gomez PharmD Unavailable [phone] Casper Márquez MD Unavailable [phone] Encounter Details Date Type Department Care Team (Late st Contact Info) Description 02/18/2024 Telephone [facility] [address] [place], [place] [phone] Mirian Thompson ANP [address] [place], [place] [phone] Social History Tobacco Use Types Packs/Day Years [...] Description 02/18/2025 10:00 AM EST Medication Management [facility] [address] [place] [id number] Jasen Gomez PharmD [address] [place] [address] documented as of this encounter Goals Goal [...] documented as of this encounter Care Teams Stock Handler Relationship Specialty Start Date End Date Mirian Thompson ANP [address] [place] [address] PCP - General Family Medicine 11/08/22 Jasen Gomez, PharmD [address] [place] [address] Pharmacist Internal Medicine 08/02/23 Casper Márquez MD [address] [facility] [address] [place] [address] Nephrology 08/06/24 documented as of this encounter
--- OUTSIDE RECORDS SUMMARY | 2025-01-29 09:11 | XMS_ITS | Encounter Summary ---
Author Organization [employer] Address [address] [place] [address] 7[address] [place] [address] Care Team Providers Care Science Professor Name Role Phone Mirian Thompson Primary Care Provider [phone] Jasen Gomez PharmD Unavailable [phone] Casper Márquez MD Unavailable [phone] Reason for Visit * Reason Onset Date Comments New Patient 11/06/2022 Encounter Details Date Type Department Care Team (Late st Contact Info) Description 11/06/2022 Telephone [facility] [address] [place], [place] [phone] Brad Wooten MD [address] [place], [place] [phone] New Patient Social History Tobacco Use Types [...] PAR Aura Rodas called pt to Offer [facility]YER OPERATOR appt. Pt demographics and insurance information were verified. Pt reports the following medical conditions: Diabetic, Cholesterol. Pt is currently taking medication: Metformin, Lantuss, Atorvastatin, Lisinopril. Pt given FRYER OPERATOR appt with Dr. Thompson on 11/08/2022@ 10:30 am Pt will be sent appt reminder card and medical release form and agrees to complete and to return to medical records prior to FRYER OPERATOR appt. * Telephone Encounter - Aura Lagos - 11/06/2022 3:10 PM EDT Pt has been transfer over to wait list for FRYER OPERATOR. EFFECTIVE SINCE 10/01/2022 documented in this encounter Plan of Treatment Upcoming Encounters Date Type Department Care Team (Late st Contact Info) Description 02/18/2025 10:00 AM EST Medication Management [facility] [address] [place] [address] Jasen Gomez, Lisa [address] [place] [address] documented as of this encounter Visit Diagnoses Not on filedocumented in this encounter Care Teams Science Professor Relationship Specialty Start Date End Date Mirian Thompson ANP [address] [place] [address] PCP - General Family Medicine 11/08/22 Jasen Gomez, PharmD [address] [place] [address] Pharmacist Internal Medicine 08/02/23 Casper Márquez MD 100 [facility] [address] [place] [address] Nephrology 08/06/24 documented as of this encounter
--- OUTSIDE RECORDS SUMMARY | 2025-01-29 09:11 | XMS_ITS | Encounter Summary ---
Author Organization [employer] Address [address] [place] [address] 7[address] [place] [address] Care Team Providers Care Kiln Stoker Name Role Phone Mirian Thompson Primary Care Provider [phone] Jasen Gomez PharmD Unavailable [phone] Casper Márquez MD Unavailable [phone] Reason for Visit * Reason Comments Med Refill Encounter Details Date Type Department Care Team (Late st Contact Info) Description 10/29/2024 Refill [facility] [address] [place], [place] [phone] Mirian Thompson ANP [address] [place], [place] [phone] Drug-induced constipation Social History Tobacco Use Types [...] EST Medication Management [facility] [address] [place] [address] Jasen Gomez PharmD [address] [place] [address] documented as of this encounter Goals Goal [...] documented as of this encounter Care Teams Kiln Stoker Relationship Specialty Start Date End Date Mirian Thompson ANP [address] [place] [address] PCP - General Family Medicine 11/08/22 Jasne Gomez PharmD [address] [place] [address] Pharmacist Internal Medicine 08/02/23 Casper Márquez MD [address] [address] Nephrology 08/06/24 documented as of this encounter
== END 2025-01-29 09:18 | disposition home or self-care (01) ==
LOC: HO.HCS 08:53
PROVIDERS: PCP Nurse Practitioner Primary Care; Visit Provider Nurse Practitioner Family
DX: R00.2 Palpitations (principal); I35.0 Nonrheumatic aortic (valve) stenosis; I10 Essential (primary) hypertension
CPT/HCPCS: 93010; 99214; G2211

== ENCOUNTER → 2025-01-29 08:52 | Outpatient (BNVA) | payer MEDICARE, SELFPAY | PROVIDERS: PCP Nurse Practitioner Primary Care; Visit Provider Nurse Practitioner Family | DX: R00.2 Palpitations (principal); I10 Essential (primary) hypertension; Z87.891 Personal history of nicotine dependence; I35.0 Nonrheumatic aortic (valve) stenosis | CPT/HCPCS: 93005; 99212 ==